=== PATIENT | male | born 1960 | race Two or more races ===

== ENCOUNTER 2016-11-01 11:15 | Inpatient (IN) | payer OTHER ==
[2016-11-01 12:39] VITALS: BMI 21.7
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
[2016-11-01] MEDS ORDERED: ACETAMINOPHEN 325 MG TABLET (FP) PO PRN (13:40)
[2016-11-01] MEDS ORDERED: LOPERAMIDE HCL 2 MG CAPSULE PO PRN (13:40)
[2016-11-01] MEDS ORDERED: P-EPHED 60MG/TRIPROLIDI 2.5MG TABLET PO PRN (13:40)
[2016-11-01] MEDS ORDERED: MAG HYDROX/AL HYDROX/SIMETH 30 ML UNIT-DOSE CUP PO PRN (13:40)
[2016-11-01] MEDS ORDERED: hydrOXYzine PAMOATE 50 MG CAPSULE (FP) PO PRN (13:40)
[2016-11-01] MEDS ORDERED: MAGNESIUM HYDROX 2400MG/30ML ORAL SUSPENSION 30 ML CUP PO PRN (13:40)
[2016-11-01] MEDS ORDERED: MAGNESIUM CITRATE 300 ML BOTTLE PO PRN (13:40)
[2016-11-01] MEDS ORDERED: diphenhydrAMINE HCL 50 MG CAPSULE PO PRN (13:40)
[2016-11-01 15:32] LABS: ALBUMIN 3.4 g/dl (3.4-5.0); ANION GAP 6 (8-16); CALCIUM 8.8 mg/dL (8.5-10.1); CO2 28 mmol/L (21-32)
[2016-11-01 15:36] LABS: ALK PHOS 75 U/L (45-117); BILIRUBIN,TOTAL 0.2 mg/dL (0.2-1.0); CREATININE 0.8 mg/dL (0.7-1.3); GLUCOSE,RANDOM 78 mg/dL (74-106); SGOT/AST 20 U/L (15-37); SGPT/ALT 22 U/L (12-78); TOT PROT 6.9 g/dl (6.4-8.2)
[2016-11-01 15:55] LABS: MCH 32.7 pg (25.7-33.7); MEAN CELL VOLUME 99.2 fl (80-96); MEAN PLT VOLUME 7.9 fl (7.5-11.1); PLATELET COUNT 212 K/MM3 (134-434); RDW 16.3 % (11.9-15.9)
[2016-11-01] MEDS: guaiFENesin/D-METHORPHAN HB 10 ML UNIT-DOSE CUPS PO PRN (22:33)
[2016-11-01 22:46] LABS: URINE APPEARANCE SLCLOUDY; URINE BILIRUBIN NEGATIVE (NEGATIVE); URINE BLOOD NEGATIVE (NEGATIVE); URINE COLOR YELLOW; URINE GLUCOSE (UA) NEGATIVE (NEGATIVE); URINE KETONE NEGATIVE (NEGATIVE); URINE LEUK ESTERASE NEGATIVE (NEGATIVE); URINE NITRITE NEGATIVE (NEGATIVE); URINE PROTEIN NEGATIVE (NEGATIVE); URINE UROBILINOGEN NEGATIVE E.U./dl (0.2-1.0)
[2016-11-01] MEDS: THIAMINE HCL 100 MG TABLET (FP) PO SCH (23:15)
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
[2016-11-02] MEDS: guaiFENesin/D-METHORPHAN HB 10 ML UNIT-DOSE CUPS PO PRN (09:04)
[2016-11-02] MEDS: PRENATAL VITAMINS W/ FOLIC ACID TABLET (FP) PO SCH (09:57)
[2016-11-02] MEDS ORDERED: INFLUENZA VACCINE 45 MCG/0.5 ML (MDV 16-17) IM ONE (12:00)
[2016-11-02] MEDS: THIAMINE HCL 100 MG TABLET (FP) PO SCH (21:56)
[2016-11-03] MEDS: guaiFENesin/D-METHORPHAN HB 10 ML UNIT-DOSE CUPS PO PRN (05:58)
[2016-11-03] MEDS: PRENATAL VITAMINS W/ FOLIC ACID TABLET (FP) PO SCH (09:46)
[2016-11-03] MEDS: THIAMINE HCL 100 MG TABLET (FP) PO SCH (22:32)
[2016-11-04] MEDS: guaiFENesin/D-METHORPHAN HB 10 ML UNIT-DOSE CUPS PO PRN ×2 (06:50→12:05)
[2016-11-04] MEDS: MENTHOL/PHENOL 1 EACH UD MM PRN (09:10)
[2016-11-04] MEDS: PRENATAL VITAMINS W/ FOLIC ACID TABLET (FP) PO SCH (10:01)
[2016-11-04] MEDS: THIAMINE HCL 100 MG TABLET (FP) PO SCH (22:22)
[2016-11-05] MEDS: guaiFENesin/D-METHORPHAN HB 10 ML UNIT-DOSE CUPS PO PRN (06:38)
[2016-11-05] MEDS: PRENATAL VITAMINS W/ FOLIC ACID TABLET (FP) PO SCH (09:42)
[2016-11-05] MEDS: THIAMINE HCL 100 MG TABLET (FP) PO SCH (22:11)
[2016-11-06] MEDS: guaiFENesin/D-METHORPHAN HB 10 ML UNIT-DOSE CUPS PO PRN (06:33)
[2016-11-06] MEDS: PRENATAL VITAMINS W/ FOLIC ACID TABLET (FP) PO SCH (09:46)
[2016-11-06] MEDS: THIAMINE HCL 100 MG TABLET (FP) PO SCH (22:14)
[2016-11-07] MEDS: guaiFENesin/D-METHORPHAN HB 10 ML UNIT-DOSE CUPS PO PRN ×2 (07:00→21:52)
[2016-11-07] MEDS: PRENATAL VITAMINS W/ FOLIC ACID TABLET (FP) PO SCH (09:41)
[2016-11-07] MEDS: THIAMINE HCL 100 MG TABLET (FP) PO SCH (21:51)
[2016-11-08] MEDS: IBUPROFEN 400 MG TABLET (FP) PO PRN (07:35)
[2016-11-08] MEDS: guaiFENesin/D-METHORPHAN HB 10 ML UNIT-DOSE CUPS PO PRN ×2 (07:35→14:27)
[2016-11-08] MEDS: PRENATAL VITAMINS W/ FOLIC ACID TABLET (FP) PO SCH (10:43)
[2016-11-08] MEDS: THIAMINE HCL 100 MG TABLET (FP) PO SCH (22:18)
[2016-11-09] MEDS: guaiFENesin/D-METHORPHAN HB 10 ML UNIT-DOSE CUPS PO PRN (07:14)
[2016-11-09] MEDS: PRENATAL VITAMINS W/ FOLIC ACID TABLET (FP) PO SCH (09:25)
[2016-11-09] MEDS: THIAMINE HCL 100 MG TABLET (FP) PO SCH (22:20)
[2016-11-10] MEDS: guaiFENesin/D-METHORPHAN HB 10 ML UNIT-DOSE CUPS PO PRN (06:30)
[2016-11-10] MEDS: IBUPROFEN 400 MG TABLET (FP) PO PRN (06:30)
[2016-11-10] MEDS: PRENATAL VITAMINS W/ FOLIC ACID TABLET (FP) PO SCH (09:23)
[2016-11-10] MEDS: THIAMINE HCL 100 MG TABLET (FP) PO SCH (21:41)
[2016-11-11] MEDS: guaiFENesin/D-METHORPHAN HB 10 ML UNIT-DOSE CUPS PO PRN (06:51)
[2016-11-11] MEDS: MENTHOL/PHENOL 1 EACH UD MM PRN (06:51)
[2016-11-11] MEDS: PRENATAL VITAMINS W/ FOLIC ACID TABLET (FP) PO SCH (10:09)
[2016-11-11] MEDS: ARTIFICIAL TEARS (POLYVINYL ALCOHOL 1.4%) OPTH DROPS OU PRN (19:04)
[2016-11-11] MEDS: THIAMINE HCL 100 MG TABLET (FP) PO SCH (21:35)
[2016-11-12] MEDS: ARTIFICIAL TEARS (POLYVINYL ALCOHOL 1.4%) OPTH DROPS OU PRN ×2 (07:09→17:35)
[2016-11-12] MEDS: guaiFENesin/D-METHORPHAN HB 10 ML UNIT-DOSE CUPS PO PRN (07:10)
[2016-11-12] MEDS: PRENATAL VITAMINS W/ FOLIC ACID TABLET (FP) PO SCH (09:41)
[2016-11-12] MEDS: THIAMINE HCL 100 MG TABLET (FP) PO SCH (22:03)
[2016-11-13] MEDS: PRENATAL VITAMINS W/ FOLIC ACID TABLET (FP) PO SCH (09:35)
[2016-11-13] MEDS: ARTIFICIAL TEARS (POLYVINYL ALCOHOL 1.4%) OPTH DROPS OU PRN ×2 (09:36→17:02)
[2016-11-13] MEDS: THIAMINE HCL 100 MG TABLET (FP) PO SCH (22:16)
[2016-11-14] MEDS: guaiFENesin/D-METHORPHAN HB 10 ML UNIT-DOSE CUPS PO PRN (09:13)
[2016-11-14] MEDS: PRENATAL VITAMINS W/ FOLIC ACID TABLET (FP) PO SCH (09:30)
[2016-11-14] MEDS: ARTIFICIAL TEARS (POLYVINYL ALCOHOL 1.4%) OPTH DROPS OU PRN (18:40)
[2016-11-14] MEDS: THIAMINE HCL 100 MG TABLET (FP) PO SCH (21:48)
[2016-11-15] MEDS: PRENATAL VITAMINS W/ FOLIC ACID TABLET (FP) PO SCH (09:28)
[2016-11-15] MEDS: ARTIFICIAL TEARS (POLYVINYL ALCOHOL 1.4%) OPTH DROPS OU PRN ×2 (09:28→21:24)
[2016-11-15] MEDS: guaiFENesin/D-METHORPHAN HB 10 ML UNIT-DOSE CUPS PO PRN (21:25)
[2016-11-15] MEDS: THIAMINE HCL 100 MG TABLET (FP) PO SCH (23:00)
[2016-11-16] MEDS: ARTIFICIAL TEARS (POLYVINYL ALCOHOL 1.4%) OPTH DROPS OU PRN ×2 (09:12→21:29)
[2016-11-16] MEDS: PRENATAL VITAMINS W/ FOLIC ACID TABLET (FP) PO SCH (09:25)
[2016-11-16] MEDS: THIAMINE HCL 100 MG TABLET (FP) PO SCH (21:29)
[2016-11-17] MEDS: PRENATAL VITAMINS W/ FOLIC ACID TABLET (FP) PO SCH (09:41)
[2016-11-17] MEDS: ARTIFICIAL TEARS (POLYVINYL ALCOHOL 1.4%) OPTH DROPS OU PRN ×2 (09:41→21:58)
[2016-11-17] MEDS: THIAMINE HCL 100 MG TABLET (FP) PO SCH (21:57)
[2016-11-18] MEDS: PRENATAL VITAMINS W/ FOLIC ACID TABLET (FP) PO SCH (09:39)
[2016-11-18] MEDS: ARTIFICIAL TEARS (POLYVINYL ALCOHOL 1.4%) OPTH DROPS OU PRN (17:58)
[2016-11-18] MEDS: THIAMINE HCL 100 MG TABLET (FP) PO SCH (23:22)
[2016-11-19] MEDS: PRENATAL VITAMINS W/ FOLIC ACID TABLET (FP) PO SCH (09:44)
[2016-11-19] MEDS: ARTIFICIAL TEARS (POLYVINYL ALCOHOL 1.4%) OPTH DROPS OU PRN ×2 (09:45→22:08)
[2016-11-19] MEDS: THIAMINE HCL 100 MG TABLET (FP) PO SCH (22:52)
[2016-11-20] MEDS: PRENATAL VITAMINS W/ FOLIC ACID TABLET (FP) PO SCH (09:39)
[2016-11-20] MEDS: ARTIFICIAL TEARS (POLYVINYL ALCOHOL 1.4%) OPTH DROPS OU PRN ×2 (09:39→17:24)
[2016-11-20] MEDS: THIAMINE HCL 100 MG TABLET (FP) PO SCH (21:58)
[2016-11-21] MEDS: PRENATAL VITAMINS W/ FOLIC ACID TABLET (FP) PO SCH (09:35)
[2016-11-21] MEDS: ARTIFICIAL TEARS (POLYVINYL ALCOHOL 1.4%) OPTH DROPS OU PRN ×2 (09:35→20:07)
[2016-11-21] MEDS: guaiFENesin/D-METHORPHAN HB 10 ML UNIT-DOSE CUPS PO PRN (10:07)
[2016-11-21] MEDS: THIAMINE HCL 100 MG TABLET (FP) PO SCH (22:20)
[2016-11-22] MEDS: guaiFENesin/D-METHORPHAN HB 10 ML UNIT-DOSE CUPS PO PRN (09:08)
[2016-11-22] MEDS: ARTIFICIAL TEARS (POLYVINYL ALCOHOL 1.4%) OPTH DROPS OU PRN ×2 (09:08→17:03)
[2016-11-22] MEDS: PRENATAL VITAMINS W/ FOLIC ACID TABLET (FP) PO SCH (09:08)
[2016-11-22] MEDS: THIAMINE HCL 100 MG TABLET (FP) PO SCH (22:14)
[2016-11-23] MEDS: ARTIFICIAL TEARS (POLYVINYL ALCOHOL 1.4%) OPTH DROPS OU PRN ×3 (07:20→18:14)
[2016-11-23] MEDS: guaiFENesin/D-METHORPHAN HB 10 ML UNIT-DOSE CUPS PO PRN (07:20)
[2016-11-23] MEDS: PRENATAL VITAMINS W/ FOLIC ACID TABLET (FP) PO SCH (10:31)
[2016-11-23] MEDS: THIAMINE HCL 100 MG TABLET (FP) PO SCH (21:56)
[2016-11-24] MEDS: guaiFENesin/D-METHORPHAN HB 10 ML UNIT-DOSE CUPS PO PRN (08:54)
[2016-11-24] MEDS: PRENATAL VITAMINS W/ FOLIC ACID TABLET (FP) PO SCH (10:16)
[2016-11-24] MEDS: THIAMINE HCL 100 MG TABLET (FP) PO SCH (22:52)
[2016-11-25] MEDS: ARTIFICIAL TEARS (POLYVINYL ALCOHOL 1.4%) OPTH DROPS OU PRN ×3 (06:50→14:38)
[2016-11-25] MEDS: guaiFENesin/D-METHORPHAN HB 10 ML UNIT-DOSE CUPS PO PRN ×2 (06:50→14:37)
[2016-11-25] MEDS: PRENATAL VITAMINS W/ FOLIC ACID TABLET (FP) PO SCH (09:37)
[2016-11-25] MEDS: THIAMINE HCL 100 MG TABLET (FP) PO SCH (21:47)
[2016-11-26] MEDS: PRENATAL VITAMINS W/ FOLIC ACID TABLET (FP) PO SCH (10:00)
[2016-11-26] MEDS: ARTIFICIAL TEARS (POLYVINYL ALCOHOL 1.4%) OPTH DROPS OU PRN ×2 (10:01→17:03)
[2016-11-26] MEDS: THIAMINE HCL 100 MG TABLET (FP) PO SCH (21:00)
[2016-11-27] MEDS: ARTIFICIAL TEARS (POLYVINYL ALCOHOL 1.4%) OPTH DROPS OU PRN ×2 (08:40→21:02)
[2016-11-27] MEDS: PRENATAL VITAMINS W/ FOLIC ACID TABLET (FP) PO SCH (09:43)
[2016-11-27] MEDS: THIAMINE HCL 100 MG TABLET (FP) PO SCH (21:02)
[2016-11-28] MEDS: PRENATAL VITAMINS W/ FOLIC ACID TABLET (FP) PO SCH (09:26)
[2016-11-28] MEDS: ARTIFICIAL TEARS (POLYVINYL ALCOHOL 1.4%) OPTH DROPS OU PRN ×2 (09:26→17:05)
[2016-11-28] MEDS: THIAMINE HCL 100 MG TABLET (FP) PO SCH ×2 (21:50→21:56)
[2016-11-29 06:31] VITALS: BP 113/69; PULSE 68; TEMP 98.4
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
[2016-11-29] MEDS: PRENATAL VITAMINS W/ FOLIC ACID TABLET (FP) PO SCH (09:21)
== END 2016-11-29 09:30 | disposition home or self-care (01) | DRG 772 ==
LOC: YASAS 11:15 → Y3W 13:55
PROVIDERS: ADMIT Psychiatry & Neurology Psychiatry; ATTEND Psychiatry & Neurology Psychiatry
PROC: HZ42ZZZ Group Counseling for Substance Abuse Treatment, Cognitive-Behavioral (ICD-10-PCS; principal; 2016-11-01)
DX: F11.20 Opioid dependence, uncomplicated (principal); F10.20 Alcohol dependence, uncomplicated; F14.20 Cocaine dependence, uncomplicated; F17.210 Nicotine dependence, cigarettes, uncomplicated; F31.9 Bipolar disorder, unspecified; F43.10 Post-traumatic stress disorder, unspecified; F41.8 Other specified anxiety disorders; D64.9 Anemia, unspecified; I10 Essential (primary) hypertension
CPT/HCPCS: 36415; 71020-TC; 80053; 81003; 85027; 86593; 93005; 93010

== ENCOUNTER 2016-12-24 14:43 | Inpatient (IN) | payer OTHER ==
[2016-12-24 14:53] VITALS: BMI 24.5
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
[2016-12-24] MEDS ORDERED: MENTHOL/PHENOL 1 EACH UD MM PRN (16:19)
[2016-12-24] MEDS ORDERED: hydrOXYzine PAMOATE 50 MG CAPSULE (FP) PO PRN (16:19)
[2016-12-24] MEDS ORDERED: chlordiazePOXIDE HCL 25 MG CAPSULE PO PRN (16:19)
[2016-12-24] MEDS ORDERED: MAG HYDROX/AL HYDROX/SIMETH 30 ML UNIT-DOSE CUP PO PRN (16:19)
[2016-12-24] MEDS ORDERED: IBUPROFEN 400 MG TABLET (FP) PO PRN (16:19)
[2016-12-24] MEDS ORDERED: NICOTINE 10 MG CARTRIDGE (INHALER) IH PRN (16:19)
[2016-12-24] MEDS ORDERED: chlordiazePOXIDE HCL 25 MG CAPSULE PO ONE (16:19)
[2016-12-24] MEDS ORDERED: ACETAMINOPHEN 325 MG TABLET (FP) PO PRN (16:19)
[2016-12-24] MEDS ORDERED: MAGNESIUM CITRATE 300 ML BOTTLE PO PRN (16:19)
[2016-12-24] MEDS ORDERED: guaiFENesin/D-METHORPHAN HB 10 ML UNIT-DOSE CUPS PO PRN (16:19)
[2016-12-24] MEDS ORDERED: LOPERAMIDE HCL 2 MG CAPSULE PO PRN (16:19)
[2016-12-24] MEDS ORDERED: MAGNESIUM HYDROX 2400MG/30ML ORAL SUSPENSION 30 ML CUP PO PRN (16:19)
[2016-12-24] MEDS ORDERED: P-EPHED 60MG/TRIPROLIDI 2.5MG TABLET PO PRN (16:19)
[2016-12-24] MEDS: chlordiazePOXIDE HCL 25 MG CAPSULE PO SCH ×2 (18:09→22:45)
[2016-12-24] MEDS: NICOTINE 7 MG/24 HOURS TOPICAL PATCH TD SCH (18:10)
[2016-12-24] MEDS: THIAMINE HCL 100 MG TABLET (FP) PO SCH (22:45)
[2016-12-24] MEDS: diphenhydrAMINE HCL 50 MG CAPSULE PO PRN (22:46)
[2016-12-25] MEDS: chlordiazePOXIDE HCL 25 MG CAPSULE PO SCH ×4 (06:07→22:22)
[2016-12-25 10:12] LABS: MCH 33.2 pg (25.7-33.7); MCHC 33.8 g/dl (32.0-35.9); MEAN CELL VOLUME 98.3 fl (80-96); MEAN PLT VOLUME 7.6 fl (7.5-11.1); PLATELET COUNT 179 K/MM3 (134-434); RDW 15.5 % (11.9-15.9)
[2016-12-25 10:17] LABS: ALBUMIN 3.2 g/dl (3.4-5.0)
[2016-12-25] MEDS: PRENATAL VITAMINS W/ FOLIC ACID TABLET (FP) PO SCH (10:17)
[2016-12-25] MEDS: NICOTINE 7 MG/24 HOURS TOPICAL PATCH TD SCH (10:18)
[2016-12-25 10:22] LABS: ALK PHOS 72 U/L (45-117); ANION GAP 9 (8-16); BILIRUBIN,TOTAL 0.5 mg/dL (0.2-1.0); CALCIUM 8.8 mg/dL (8.5-10.1); CO2 27 mmol/L (21-32); CREATININE 0.6 mg/dL (0.7-1.3); GLUCOSE,RANDOM 96 mg/dL (74-106); SGOT/AST 13 U/L (15-37); SGPT/ALT 14 U/L (12-78)
[2016-12-25 11:14] LABS: WHITE BLOOD COUNT 1.9 K/mm3 (4.0-10.0)
--- NOTE | 2016-12-25 15:26 | PN ---
S CIWA - CIWA Score Nausea/Vomitin Muscle Tremors: 4-Moderate,w/Arms Extend Anxiety: 4-Mod. Anxious/Guarded Agitation: 4-Moderately Restless Paroxysmal Sweats: No Perspiration Orientation: 0-Oriented Tacttile Disturbances: 1-Very Mild Itch/Numbness Auditory Disturbances: 0-None Visual Disturbances: 0-None Headache: 2-Mild CIWA-Ar Total Score: 18 [facility] Progress Note (SOAP) Subjective: Anxious, sweating, interrupted sleep (benadryl ineffective, wants ambien prn), restless, tremor, chills Objective: 12/25/16 15:24 Last Vital Signs Temp Pulse Resp BP Pulse Ox 96.3 F L 91 H 18 123/90 12/25/16 09:53 12/25/16 09:53 12/25/16 09:53 12/25/16 09:53 Laboratory Tests 12/25/16 12/25/16 12/25/16 09:15 09:15 09:15 WBC 1.9 L RBC 3.84 L Hgb 12.8 Hct 37.7 MCV 98.3 H MCHC 33.8 RDW 15.5 Plt Count 179 MPV 7.6 Sodium 143 Potassium 3.8 Chloride 107 Carbon Dioxide 27 Anion Gap 9 BUN 11 Creatinine 0.6 L D Creat Clearance w eGFR > 60 Random Glucose 96 D Calcium 8.8 Total Bilirubin 0.5 D AST 13 L D ALT 14 D Alkaline Phosphatase 72 Total Protein 6.0 L Albumin 3.2 L RPR Titer Nonreactive Labs noted: wbc 1.9 Assessment: 12/25/16 15:25 Withdrawal symptoms Noted with leukopenia Plan: Continue detox Leukopenia: repeat CBC
[2016-12-25] MEDS ORDERED: ZOLPIDEM TARTRATE 5 MG TABLET PO PRN (22:00)
[2016-12-25] MEDS: diphenhydrAMINE HCL 50 MG CAPSULE PO PRN (22:22)
[2016-12-25] MEDS: THIAMINE HCL 100 MG TABLET (FP) PO SCH (22:22)
[2016-12-26] MEDS: chlordiazePOXIDE HCL 25 MG CAPSULE PO SCH ×2 (06:05→10:35)
[2016-12-26 09:59] LABS: BASOPHIL 0.5 % (0-2.0); EOSINOPHIL 3.3 % (0-4.5); MCH 33.2 pg (25.7-33.7); MCHC 33.4 g/dl (32.0-35.9); MEAN CELL VOLUME 99.2 fl (80-96); MEAN PLT VOLUME 7.2 fl (7.5-11.1); NEUTROPHILS 49.5 % (42.8-82.8); PLATELET COUNT 187 K/MM3 (134-434); RDW 15.5 % (11.9-15.9)
[2016-12-26 10:01] LABS: WHITE BLOOD COUNT 1.8 K/mm3 (4.0-10.0)
[2016-12-26 10:04] LABS: URINE APPEARANCE TURBID; URINE BILIRUBIN NEGATIVE (NEGATIVE); URINE COLOR YELLOW; URINE GLUCOSE (UA) NEGATIVE (NEGATIVE); URINE KETONE NEGATIVE (NEGATIVE); URINE LEUK ESTERASE NEGATIVE (NEGATIVE); URINE NITRITE NEGATIVE (NEGATIVE); URINE PROTEIN NEGATIVE (NEGATIVE); URINE UROBILINOGEN NEGATIVE E.U./dl (0.2-1.0)
[2016-12-26 10:05] LABS: URINE BLOOD 1+ (NEGATIVE)
[2016-12-26 10:10] LABS: YEAST MANY
[2016-12-26] MEDS: NICOTINE 7 MG/24 HOURS TOPICAL PATCH TD SCH (10:35)
[2016-12-26] MEDS: PRENATAL VITAMINS W/ FOLIC ACID TABLET (FP) PO SCH (10:35)
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
--- NOTE | 2016-12-26 14:41 | PN ---
[facility] CIWA - CIWA Score Nausea/Vomitin-Mild Nausea/No Vomiting Muscle Tremors: 3 Anxiety: 4-Mod. Anxious/Guarded Agitation: 4-Moderately Restless Paroxysmal Sweats: 3 Orientation: 0-Oriented Tacttile Disturbances: 0-None Auditory Disturbances: 0-None Visual Disturbances: 0-None Headache: 0-None Present CIWA-Ar Total Score: 15 BHS Progress Note (SOAP) Subjective: anxiety,tremors,sweating,interrupted sleep,restless. Objective: 12/26/16 14:40 Vital Signs - 8 hr 12/26/16 10:28 Temperature 96.6 F L Pulse Rate 97 H Respiratory 20 Rate Blood Pressure 120/85 Laboratory Tests 12/25/16 12/25/16 12/25/16 09:15 09:15 09:15 WBC 1.9 L RBC 3.84 L Hgb 12.8 Hct 37.7 MCV 98.3 H MCHC 33.8 RDW 15.5 Plt Count 179 MPV 7.6 Neutrophils % Lymphocytes % Monocytes % Eosinophils % Basophils % Sodium 143 Potassium 3.8 Chloride 107 Carbon Dioxide 27 Anion Gap 9 BUN 11 Creatinine 0.6 L D Creat Clearance w eGFR > 60 Random Glucose 96 D Calcium 8.8 Total Bilirubin 0.5 D AST 13 L D ALT 14 D Alkaline Phosphatase 72 Total Protein 6.0 L Albumin 3.2 L Urine Color Urine Appearance Urine pH Ur Specific [place] Urine Protein Urine Glucose (UA) Urine Ketones Urine Blood Urine Nitrite Urine Bilirubin Urine Urobilinogen Ur Leukocyte Esterase Urine RBC Urine WBC Urine Yeast RPR Titer Nonreactive 12/26/16 12/26/16 07:00 08:50 WBC 1.8 L RBC 3.91 L Hgb 13.0 Hct 38.8 MCV 99.2 H MCHC 33.4 RDW 15.5 Plt Count 187 MPV 7.2 L Neutrophils % 49.5 Lymphocytes % 32.7 Monocytes % 14.0 H D Eosinophils % 3.3 Basophils % 0.5 Sodium Potassium Chloride Carbon Dioxide Anion Gap BUN Creatinine Creat Clearance w eGFR Random Glucose Calcium Total Bilirubin AST ALT Alkaline Phosphatase Total Protein Albumin Urine Color Yellow Urine Appearance Turbid Urine pH 7.0 Ur Specific [place] 1.023 Urine Protein Negative Urine Glucose (UA) Negative Urine Ketones Negative Urine Blood 1+ H Urine Nitrite Negative Urine Bilirubin Negative Urine Urobilinogen Negative Ur Leukocyte Esterase Negative Urine RBC None Urine WBC None Urine Yeast Many RPR Titer labs noted Assessment: 12/26/16 14:41 withdrawal sx. Plan: continue detox
--- NOTE | 2016-12-26 16:22 | EKG ---
Test Reason : Blood Pressure : / mmHG Vent. Rate : 080 BPM Atrial Rate : 080 BPM P-R Int : 114 ms QRS Dur : 130 ms QT Int : 368 ms P-R-T Axes : 069 -22 055 degrees QTc Int : 424 ms NORMAL SINUS RHYTHM RIGHT BUNDLE BRANCH BLOCK MODERATE VOLTAGE CRITERIA FOR LVH, MAY BE NORMAL VARIANT CANNOT RULE OUT SEPTAL INFARCT , AGE UNDETERMINED ABNORMAL ECG NO PREVIOUS ECGS AVAILABLE Confirmed by GINNY LUCERO, GALEN ([id number]) on 12/26/2016 4:22:21 PM Referred By: Confirmed By:GALEN GROSS MD
[2016-12-26] MEDS: chlordiazePOXIDE 5 MG CAPSULE PO SCH ×2 (17:36→22:20)
[2016-12-26] MEDS: THIAMINE HCL 100 MG TABLET (FP) PO SCH (22:20)
[2016-12-27] MEDS: chlordiazePOXIDE 5 MG CAPSULE PO SCH ×2 (05:42→10:53)
[2016-12-27] MEDS: NICOTINE 7 MG/24 HOURS TOPICAL PATCH TD SCH (10:53)
[2016-12-27] MEDS: PRENATAL VITAMINS W/ FOLIC ACID TABLET (FP) PO SCH (10:53)
--- NOTE | 2016-12-27 11:14 | PN ---
[facility] Progress Note (SOAP) Subjective: sweating,interrupted sleep,restless Objective: 12/27/16 11:10 Vital Signs - 8 hr 12/27/16 12/27/16 12/27/16 03:30 06:39 10:01 Temperature 96.9 F L 97.6 F Pulse Rate 96 H 104 H Respiratory 18 16 20 Rate Blood Pressure 117/84 112/81 Laboratory Tests 12/25/16 12/25/16 12/25/16 09:15 09:15 09:15 WBC 1.9 L RBC 3.84 L Hgb 12.8 Hct 37.7 MCV 98.3 H MCHC 33.8 RDW 15.5 Plt Count 179 MPV 7.6 Neutrophils % Lymphocytes % Monocytes % Eosinophils % Basophils % Sodium 143 Potassium 3.8 Chloride 107 Carbon Dioxide 27 Anion Gap 9 BUN 11 Creatinine 0.6 L D Creat Clearance w eGFR > 60 Random Glucose 96 D Calcium 8.8 Total Bilirubin 0.5 D AST 13 L D ALT 14 D Alkaline Phosphatase 72 Total Protein 6.0 L Albumin 3.2 L Urine Color Urine Appearance Urine pH Ur Specific [place] Urine Protein Urine Glucose (UA) Urine Ketones Urine Blood Urine Nitrite Urine Bilirubin Urine Urobilinogen Ur Leukocyte Esterase Urine RBC Urine WBC Urine Yeast RPR Titer Nonreactive 12/26/16 12/26/16 07:00 08:50 WBC 1.8 L RBC 3.91 L Hgb 13.0 Hct 38.8 MCV 99.2 H MCHC 33.4 RDW 15.5 Plt Count 187 MPV 7.2 L Neutrophils % 49.5 Lymphocytes % 32.7 Monocytes % 14.0 H D Eosinophils % 3.3 Basophils % 0.5 Sodium Potassium Chloride Carbon Dioxide Anion Gap BUN Creatinine Creat Clearance w eGFR Random Glucose Calcium Total Bilirubin AST ALT Alkaline Phosphatase Total Protein Albumin Urine Color Yellow Urine Appearance Turbid Urine pH 7.0 Ur Specific [place] 1.023 Urine Protein Negative Urine Glucose (UA) Negative Urine Ketones Negative Urine Blood 1+ H Urine Nitrite Negative Urine Bilirubin Negative Urine Urobilinogen Negative Ur Leukocyte Esterase Negative Urine RBC None Urine WBC None Urine Yeast Many RPR Titer Ekg RBBB & LVH unchanged from previous EGKs dated April,june and October 2016 Assessment: 12/27/16 11:13 withdrawal sx. Plan: continue detox repeat u/a
[2016-12-27] MEDS: chlordiazePOXIDE HCL 10 MG CAPSULE PO SCH ×2 (17:36→22:42)
[2016-12-27] MEDS ORDERED: ZOLPIDEM TARTRATE 10 MG TABLET (PARK CARE ONLY) PO PRN (18:58)
[2016-12-27] MEDS: THIAMINE HCL 100 MG TABLET (FP) PO SCH (22:42)
[2016-12-28] MEDS: chlordiazePOXIDE HCL 10 MG CAPSULE PO SCH (05:45)
[2016-12-28 06:53] VITALS: BP 113/76; PULSE 98; TEMP 98
--- NOTE | 2016-12-28 17:39 | DS ---
[facility] Detox Discharge Summary Admission Date: 12/24/16 Discharge Date: 12/28/16 - History Present History: Alcohol Dependence, Cocaine Dependence Pertinent Past History: HTN - Physical Exam Results Vital Signs: Vital Signs Temperature 98 F 12/28/16 06:53 Pulse Rate 98 H 12/28/16 06:53 Respiratory Rate 18 12/28/16 06:53 Blood Pressure 113/76 12/28/16 06:53 O2 Sat by Pulse Oximetry (%) Pertinent Admission Physical Exam Findings: withdrawal sx Laboratory Last Values WBC 1.8 K/mm3 (4.0-10.0) L 12/26/16 07:00 RBC 3.91 M/mm3 (4.00-5.60) L 12/26/16 07:00 Hgb 13.0 GM/dL (11.7-16.9) 12/26/16 07:00 Hct 38.8 % (35.4-49) 12/26/16 07:00 MCV 99.2 fl (80-96) H 12/26/16 07:00 MCHC 33.4 g/dl (32.0-35.9) 12/26/16 07:00 RDW 15.5 % (11.9-15.9) 12/26/16 07:00 Plt Count 187 K/MM3 (134-434) 12/26/16 07:00 MPV 7.2 fl (7.5-11.1) L 12/26/16 07:00 Neutrophils % 49.5 % (42.8-82.8) 12/26/16 07:00 Lymphocytes % 32.7 % (8-40) 12/26/16 07:00 Monocytes % 14.0 % (3.8-10.2) H D 12/26/16 07:00 Eosinophils % 3.3 % (0-4.5) 12/26/16 07:00 Basophils % 0.5 % (0-2.0) 12/26/16 07:00 Sodium 143 mmol/L (136-145) 12/25/16 09:15 Potassium 3.8 mmol/L (3.5-5.1) 12/25/16 09:15 Chloride 107 mmol/L (98-107) 12/25/16 09:15 Carbon Dioxide 27 mmol/L (21-32) 12/25/16 09:15 Anion Gap 9 (8-16) 12/25/16 09:15 BUN 11 mg/dL (7-18) 12/25/16 09:15 Creatinine 0.6 mg/dL (0.7-1.3) L D 12/25/16 09:15 Creat Clearance w eGFR > 60 (>60) 12/25/16 09:15 Random Glucose 96 mg/dL (74-106) D 12/25/16 09:15 Calcium 8.8 mg/dL (8.5-10.1) 12/25/16 09:15 Total Bilirubin 0.5 mg/dL (0.2-1.0) D 12/25/16 09:15 AST 13 U/L (15-37) L D 12/25/16 09:15 ALT 14 U/L (12-78) D 12/25/16 09:15 Alkaline Phosphatase 72 U/L (45-117) 12/25/16 09:15 Total Protein 6.0 g/dl (6.4-8.2) L 12/25/16 09:15 Albumin 3.2 g/dl (3.4-5.0) L 12/25/16 09:15 Urine Color Yellow 12/26/16 08:50 Urine Appearance Turbid 12/26/16 08:50 Urine pH 7.0 (5.0-8.0) 12/26/16 08:50 Ur Specific [place] 1.023 (1.001-1.035) 12/26/16 08:50 Urine Protein Negative (NEGATIVE) 12/26/16 08:50 Urine Glucose (UA) Negative (NEGATIVE) 12/26/16 08:50 Urine Ketones Negative (NEGATIVE) 12/26/16 08:50 Urine Blood 1+ (NEGATIVE) H 12/26/16 08:50 Urine Nitrite Negative (NEGATIVE) 12/26/16 08:50 Urine Bilirubin Negative (NEGATIVE) 12/26/16 08:50 Urine Urobilinogen Negative E.U./dl (0.2-1.0) 12/26/16 08:50 Ur Leukocyte Esterase Negative (NEGATIVE) 12/26/16 08:50 Urine RBC None /hpf (0-3) 12/26/16 08:50 Urine WBC None /hpf (3-5) 12/26/16 08:50 Urine Yeast Many 12/26/16 08:50 RPR Titer Nonreactive (NONREACTIVE) 12/25/16 09:15 labs noted - Treatment Hospital Course: Detox Protocol Followed, Detoxed Safely, Responded well, Discharged Condition Good, Rehab Referral Accepted - Medication Discharge Medications: Ambulatory Orders NK [No Known Home Medication] 11/01/16 - Diagnosis (1) Alcohol dependence with uncomplicated withdrawal Status: Acute (2) Hypertension Status: Chronic Qualifiers: Hypertension type: essential hypertension Qualified Code(s): I10 - Essential (primary) hypertension (3) Alcohol-induced mood disorder Status: Acute (4) Bipolar disorder Status: Suspected - AMA Did Patient Leave Against Medical Advice: No
== END 2016-12-28 09:10 | disposition home or self-care (01) | DRG 775 ==
LOC: YASAS 14:43 → Y3N 16:37
PROVIDERS: ADMIT Internal Medicine; ATTEND Internal Medicine
PROC: HZ2ZZZZ Detoxification Services for Substance Abuse Treatment (ICD-10-PCS; principal; 2016-12-28)
DX: F10.230 Alcohol dependence with withdrawal, uncomplicated (principal); F17.210 Nicotine dependence, cigarettes, uncomplicated; F10.24 Alcohol dependence with alcohol-induced mood disorder; F32.9 Major depressive disorder, single episode, unspecified; I10 Essential (primary) hypertension; Z86.2 Personal history of diseases of the blood and blood-forming organs and certain disorders involving the immune mechanism
CPT/HCPCS: 36415; 80053; 81003; 81015; 85025; 85027; 86593; 93005; 93010

== ENCOUNTER 2017-07-28 13:22 | Inpatient (IN) | payer OTHER ==
[2017-07-28 14:57] VITALS: BMI 25.0
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
[2017-07-28] MEDS ORDERED: MENTHOL/PHENOL 1 EACH UD MM PRN (17:28)
[2017-07-28] MEDS ORDERED: guaiFENesin/D-METHORPHAN HB 10 ML UNIT-DOSE CUPS PO PRN (17:28)
[2017-07-28] MEDS ORDERED: MAGNESIUM CITRATE 300 ML BOTTLE PO PRN (17:28)
[2017-07-28] MEDS ORDERED: hydrOXYzine PAMOATE 50 MG CAPSULE (FP) PO PRN (17:28)
[2017-07-28] MEDS ORDERED: MAG HYDROX/AL HYDROX/SIMETH 30 ML UNIT-DOSE CUP PO PRN (17:28)
[2017-07-28] MEDS ORDERED: P-EPHED 60MG/TRIPROLIDI 2.5MG TABLET PO PRN (17:28)
[2017-07-28] MEDS ORDERED: NICOTINE POLACRILEX 2 MG GUM BC PRN (17:28)
[2017-07-28] MEDS ORDERED: MAGNESIUM HYDROX 2400MG/30ML ORAL SUSPENSION 30 ML CUP PO PRN (17:28)
[2017-07-28] MEDS ORDERED: IBUPROFEN 400 MG TABLET (FP) PO PRN (17:28)
[2017-07-28] MEDS ORDERED: ACETAMINOPHEN 325 MG TABLET (FP) PO PRN (17:28)
[2017-07-28] MEDS ORDERED: LOPERAMIDE HCL 2 MG CAPSULE PO PRN (17:28)
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
[2017-07-28] MEDS ORDERED: TUBERCULIN PPD 5 TU/0.1ML VIAL ID ONE (20:24)
[2017-07-28] MEDS: diphenhydrAMINE HCL 50 MG CAPSULE PO PRN (21:53)
[2017-07-28] MEDS: THIAMINE HCL 100 MG TABLET (FP) PO SCH (21:53)
[2017-07-28 23:24] LABS: URINE APPEARANCE SLCLOUDY; URINE BILIRUBIN NEGATIVE (NEGATIVE); URINE BLOOD NEGATIVE (NEGATIVE); URINE COLOR DKYELLOW; URINE GLUCOSE (UA) NEGATIVE (NEGATIVE); URINE KETONE TRACE (NEGATIVE); URINE LEUK ESTERASE NEGATIVE (NEGATIVE); URINE NITRITE NEGATIVE (NEGATIVE); URINE PROTEIN NEGATIVE (NEGATIVE); URINE UROBILINOGEN NEGATIVE mg/dL (0.2-1.0)
[2017-07-29] MEDS: PRENATAL VITAMINS W/ FOLIC ACID TABLET (FP) PO SCH (10:30)
[2017-07-29] MEDS: NICOTINE 14 MG/24 HOURS TOPICAL PATCH TD SCH (10:30)
[2017-07-29 10:38] LABS: MCHC 33.5 g/dl (32.0-35.9); MEAN CELL VOLUME 98.3 fl (80-96); MEAN PLT VOLUME 7.4 fl (7.5-11.1); PLATELET COUNT 180 K/MM3 (134-434); RDW 14.8 % (11.9-15.9); WHITE BLOOD COUNT 2.1 K/mm3 (4.0-10.0)
[2017-07-29 10:49] LABS: ALBUMIN 3.2 g/dl (3.4-5.0); ALK PHOS 80 U/L (45-117); ANION GAP 4 (8-16); BILIRUBIN,TOTAL 0.2 mg/dL (0.2-1.0); CALCIUM 8.3 mg/dL (8.5-10.1); CO2 29 mmol/L (21-32); CREATININE 0.7 mg/dL (0.7-1.3); GLUCOSE,RANDOM 90 mg/dL (74-106); SGOT/AST 12 U/L (15-37); SGPT/ALT 19 U/L (12-78); TOT PROT 6.4 g/dl (6.4-8.2)
[2017-07-29] MEDS: THIAMINE HCL 100 MG TABLET (FP) PO SCH (21:58)
[2017-07-29] MEDS: diphenhydrAMINE HCL 50 MG CAPSULE PO PRN (21:58)
[2017-07-30] MEDS: NICOTINE 14 MG/24 HOURS TOPICAL PATCH TD SCH (11:02)
[2017-07-30] MEDS: PRENATAL VITAMINS W/ FOLIC ACID TABLET (FP) PO SCH (11:02)
[2017-07-30] MEDS: THIAMINE HCL 100 MG TABLET (FP) PO SCH (21:47)
[2017-07-31] MEDS: PRENATAL VITAMINS W/ FOLIC ACID TABLET (FP) PO SCH (10:39)
[2017-07-31] MEDS: NICOTINE 14 MG/24 HOURS TOPICAL PATCH TD SCH (10:40)
--- NOTE | 2017-07-31 15:19 | HP ---
Psychiatrist Admission - Data Date of interview: 07/31/17 Admission source: [facility] Identifying data: This is one of multiple inpatient rehabilitation admissions for this 57 year old AA male who is divorce father of two,domiciled, unemployed and supported on SSI benefits. Medical History: Anemia and hypertension, smokes 3 cigarettes a day. Psychiatric History: Patient reports past treatment with Seroquel and [place] for mood stabilization,was dx in the past with bipolar disorder, currently not on any medications. Physical/Sexual Abuse/Trauma History: Patient denies Vital Signs: Vital Signs - 24 hr 07/31/17 07/31/17 07/31/17 00:30 03:30 06:56 Temperature 98.0 F Pulse Rate 90 Respiratory 16 16 18 Rate Blood Pressure 131/86 Allergies/Adverse Reactions: Allergies Allergy/AdvReac Type Severity Reaction Status Date / Time No Known Drug Allergies Allergy Unknown Verified 07/28/17 16:48 Pork/Porcine Containing Allergy Unknown "NO PORK" Verified 07/28/17 16:48 Products Date of last physical exam: 07/31/17 Concur with the findings of this exam: Yes - Substance Abuse/Tx History Hx Alcohol Use: Yes Hx Substance Use: No Substance Use Type: Alcohol - Admission Criteria Previous failed treatment: Yes Poor recovery environment: Yes Comorbidities: Yes Lacks judgement: Yes Mental Status Exam - Mental Status Exam Alert and Oriented to: Place, Person Cognitive Function: Grossly Intact Mood: Hopeful Affect: Appropriate, Mood Congruent Patient Behavior: Appropriate, Cooperative Speech Pattern: Clear, Appropriate Voice Loudness: Normal Thought Process: Intact, Goal Oriented Thought Disorder: Not Present Hallucinations: Denies Suicidal Ideation: Denies Homicidal Ideation: Denies Insight/Judgement: Fair Sleep: Fair Appetite: Fair Muscle strength/Tone: Normal Gait/Station: Normal Psychiatric Findings - Problem List ([place] 1, 2,3) (1) Nicotine dependence Current Visit: Yes Status: Acute Qualifiers: Nicotine product type: cigarettes Substance use status: in withdrawal Qualified Code(s): F17.213 - Nicotine dependence, cigarettes, with withdrawal (2) Alcohol dependence Current Visit: No Status: Chronic (3) Alcohol-induced mood disorder Current Visit: No Status: Acute - Initial Treatment Plan Initial Treatment Plan: will monitor rpogress as needed.
--- NOTE | 2017-07-31 17:02 | EKG ---
Test Reason : Blood Pressure : / mmHG Vent. Rate : 087 BPM Atrial Rate : 087 BPM P-R Int : 104 ms QRS Dur : 130 ms QT Int : 372 ms P-R-T Axes : 047 026 071 degrees QTc Int : 447 ms SINUS RHYTHM WITH SHORT NM RIGHT BUNDLE BRANCH BLOCK ABNORMAL ECG WHEN COMPARED WITH ECG OF 24-DEC-2016 18:18, NO SIGNIFICANT CHANGE WAS FOUND Confirmed by GALEN GROSS MD ([id number]) on 07/31/2017 5:02:36 PM Referred By: Korin Iraheta Confirmed By:GALEN GROSS MD
[2017-07-31] MEDS: diphenhydrAMINE HCL 50 MG CAPSULE PO PRN (21:51)
[2017-07-31] MEDS: THIAMINE HCL 100 MG TABLET (FP) PO SCH (21:51)
[2017-08-01] MEDS: PRENATAL VITAMINS W/ FOLIC ACID TABLET (FP) PO SCH (10:38)
[2017-08-01] MEDS: NICOTINE 14 MG/24 HOURS TOPICAL PATCH TD SCH (10:38)
[2017-08-01] MEDS: diphenhydrAMINE HCL 50 MG CAPSULE PO PRN (21:44)
[2017-08-01] MEDS: THIAMINE HCL 100 MG TABLET (FP) PO SCH (21:44)
[2017-08-02] MEDS: PRENATAL VITAMINS W/ FOLIC ACID TABLET (FP) PO SCH (10:39)
[2017-08-02] MEDS: NICOTINE 14 MG/24 HOURS TOPICAL PATCH TD SCH (10:39)
[2017-08-02] MEDS: diphenhydrAMINE HCL 50 MG CAPSULE PO PRN (22:00)
[2017-08-02] MEDS: THIAMINE HCL 100 MG TABLET (FP) PO SCH (22:00)
[2017-08-03] MEDS ORDERED: QUEtiapine FUMARATE 25 MG TABLET (FP) PO ONE (11:02)
[2017-08-03] MEDS: PRENATAL VITAMINS W/ FOLIC ACID TABLET (FP) PO SCH (11:02)
[2017-08-03] MEDS: NICOTINE 14 MG/24 HOURS TOPICAL PATCH TD SCH (11:03)
--- NOTE | 2017-08-03 11:14 | PN ---
Psychiatric Progress Note Vital Signs: Vital Signs Period Temp Pulse Resp BP Sys/Lopez Pulse Ox Last 24 Hr 98.0 F 87 18-18 125/82 Date of Session: 08/03/17 Chief Complaint:: progress update. HPI: Patient is addressing alcohol, nicotine dependence comorbid Bipolar I disorder,manic episode. ROS: WNL Current Medications: Active Medications Generic Name Dose Route Start Last Admin Trade Name Freq PRN Reason Stop Dose Admin Acetaminophen 650 mg 07/28/17 17:28 Tylenol - PO Q4H PRN PAIN Al Hydroxide/Mg Hydroxide 30 ml 07/28/17 17:28 Mylanta Oral Suspension - PO Q6H PRN DYSPEPSIA Diphenhydramine HCl 50 mg 07/28/17 17:28 08/02/17 22:00 Benadryl - PO 50 mg HSMR1 PRN Administration INSOMNIA Eucalyptus/Menthol/Phenol/Sorbitol 1 each 07/28/17 17:28 Cepastat Lozenge - MM Q4H PRN SORE THROAT Guaifenesin 10 ml 07/28/17 17:28 Robitussin Dm - PO Q6H PRN COUGH Hydroxyzine Pamoate 50 mg 07/28/17 17:28 Vistaril - PO Q4H PRN AGITATION Ibuprofen 400 mg 07/28/17 17:28 Motrin - PO Q6H PRN SEVERE PAIN Loperamide HCl 4 mg 07/28/17 17:28 Imodium - PO Q6H PRN DIARRHEA Magnesium Citrate 300 ml 07/28/17 17:28 Citroma - PO Q48H PRN CONSTIPATION Magnesium Hydroxide 30 ml 07/28/17 17:28 Milk Of Magnesia - PO DAILY PRN CONSTIPATION Nicotine 14 mg 07/29/17 10:00 08/03/17 11:03 Nicoderm Patch - TD Not Given DAILY AHSAN Nicotine Polacrilex 2 mg 07/28/17 17:28 07/29/17 10:31 Nicorette Gum - BC 2 mg Q2H PRN Administration NICOTINE REPLACEMENT RX Multivit/Folic Acid/Iron 1 tab 07/29/17 10:00 08/03/17 11:02 Vitamins (Sjr) - PO 1 tab DAILY AHSAN Administration Pseudoephedrine/Triprolidine 1 combo 07/28/17 17:28 Actifed - PO TID PRN NASAL CONGESTION Quetiapine Fumarate 25 mg 08/03/17 11:02 Seroquel - PO 08/03/17 11:03 ONCE ONE Quetiapine Fumarate 50 mg 08/03/17 22:00 Seroquel - PO HS AHSAN Quetiapine Fumarate 25 mg 08/04/17 10:00 Seroquel - PO DAILY AHSAN Thiamine HCl 100 mg 07/28/17 22:00 08/02/17 22:00 Vitamin B1 - PO 100 mg HS AHSAN Administration Medication(s) Change(s): add Seroquel 25 mg po am and 50 mg po hs, 25 mg po stat. Current Side Effect: No Lab tests ordered: No Lab tests reviewed: Yes Provider note:: Patient is very intrussive, hyperactive, preoccupided with caodaism, unable to listen without any interruption, speech is overproductive and rapid. Patient was teamed today with the medical staff due to his behavior on the unit. Patient was treated with Seroquel and [place] in the past, but during his admission he did not reconsider to restart medication. Patient was recommended to get back on his treatment and he agreed, will add Seroquel 25 mg po am and 50 mg po hs, will contineu to monitor progress. Total face to face time:: 15 Mental Status Exam - Mental Status Exam Alert and Oriented to: Time, Place, Person Cognitive Function: Grossly Intact Patient Appearance: Unkempt Mood: Elated, Euphoric, Expansive Affect: Euthymic Patient Behavior: Restless, Impulsive Speech Pattern: Excessive (overproductive), Pressured, Tangential Voice Loudness: Moderately Loud Thought Process: Flight of Ideas Thought Disorder: Grandiose Hallucinations: Denies Suicidal Ideation: Denies Homicidal Ideation: Denies Insight/Judgement: Poor Sleep: Fair Appetite: Fair Muscle strength/Tone: Normal Gait/Station: Normal Psychiatric Treatment Plan - Problem List (1) Nicotine dependence Current Visit: Yes Qualifiers: Nicotine product type: cigarettes Substance use status: in withdrawal Qualified Code(s): F17.213 - Nicotine dependence, cigarettes, with withdrawal (2) Alcohol dependence Current Visit: No (3) Alcohol-induced mood disorder Current Visit: No (4) Bipolar affective disorder, current episode manic Current Visit: No
[2017-08-03] MEDS: QUEtiapine FUMARATE 50 MG TABLET PO SCH (22:03)
[2017-08-03] MEDS: THIAMINE HCL 100 MG TABLET (FP) PO SCH (22:03)
[2017-08-03] MEDS: diphenhydrAMINE HCL 50 MG CAPSULE PO PRN (22:04)
[2017-08-04] MEDS: QUEtiapine FUMARATE 25 MG TABLET (FP) PO SCH (10:42)
[2017-08-04] MEDS: NICOTINE 14 MG/24 HOURS TOPICAL PATCH TD SCH (10:42)
[2017-08-04] MEDS: PRENATAL VITAMINS W/ FOLIC ACID TABLET (FP) PO SCH (10:42)
[2017-08-04] MEDS: QUEtiapine FUMARATE 50 MG TABLET PO SCH (21:49)
[2017-08-04] MEDS: THIAMINE HCL 100 MG TABLET (FP) PO SCH (21:49)
[2017-08-04] MEDS: diphenhydrAMINE HCL 50 MG CAPSULE PO PRN (21:49)
[2017-08-05] MEDS: QUEtiapine FUMARATE 25 MG TABLET (FP) PO SCH (10:58)
[2017-08-05] MEDS: NICOTINE 14 MG/24 HOURS TOPICAL PATCH TD SCH (10:58)
[2017-08-05] MEDS: PRENATAL VITAMINS W/ FOLIC ACID TABLET (FP) PO SCH (10:58)
[2017-08-05] MEDS: QUEtiapine FUMARATE 50 MG TABLET PO SCH (21:40)
[2017-08-05] MEDS: diphenhydrAMINE HCL 50 MG CAPSULE PO PRN (21:40)
[2017-08-05] MEDS: THIAMINE HCL 100 MG TABLET (FP) PO SCH (21:40)
[2017-08-06] MEDS: QUEtiapine FUMARATE 25 MG TABLET (FP) PO SCH (10:27)
[2017-08-06] MEDS: PRENATAL VITAMINS W/ FOLIC ACID TABLET (FP) PO SCH (10:27)
[2017-08-06] MEDS: NICOTINE 14 MG/24 HOURS TOPICAL PATCH TD SCH (10:27)
[2017-08-06] MEDS: diphenhydrAMINE HCL 50 MG CAPSULE PO PRN (21:52)
[2017-08-06] MEDS: QUEtiapine FUMARATE 50 MG TABLET PO SCH (21:52)
[2017-08-06] MEDS: THIAMINE HCL 100 MG TABLET (FP) PO SCH (21:52)
[2017-08-07] MEDS: PRENATAL VITAMINS W/ FOLIC ACID TABLET (FP) PO SCH (10:45)
[2017-08-07] MEDS: NICOTINE 14 MG/24 HOURS TOPICAL PATCH TD SCH (10:45)
[2017-08-07] MEDS: QUEtiapine FUMARATE 25 MG TABLET (FP) PO SCH (10:45)
[2017-08-07] MEDS: QUEtiapine FUMARATE 50 MG TABLET PO SCH (21:38)
[2017-08-07] MEDS: THIAMINE HCL 100 MG TABLET (FP) PO SCH (21:38)
[2017-08-07] MEDS: diphenhydrAMINE HCL 50 MG CAPSULE PO PRN (21:38)
[2017-08-08] MEDS: NICOTINE 14 MG/24 HOURS TOPICAL PATCH TD SCH (10:30)
[2017-08-08] MEDS: QUEtiapine FUMARATE 25 MG TABLET (FP) PO SCH (10:30)
[2017-08-08] MEDS: PRENATAL VITAMINS W/ FOLIC ACID TABLET (FP) PO SCH (10:30)
[2017-08-08] MEDS: diphenhydrAMINE HCL 50 MG CAPSULE PO PRN (22:02)
[2017-08-08] MEDS: QUEtiapine FUMARATE 50 MG TABLET PO SCH (22:02)
[2017-08-08] MEDS: THIAMINE HCL 100 MG TABLET (FP) PO SCH (22:02)
[2017-08-09] MEDS: NICOTINE 14 MG/24 HOURS TOPICAL PATCH TD SCH (10:22)
[2017-08-09] MEDS: PRENATAL VITAMINS W/ FOLIC ACID TABLET (FP) PO SCH (10:22)
[2017-08-09] MEDS: QUEtiapine FUMARATE 25 MG TABLET (FP) PO SCH (10:22)
[2017-08-09] MEDS: THIAMINE HCL 100 MG TABLET (FP) PO SCH (22:02)
[2017-08-09] MEDS: QUEtiapine FUMARATE 50 MG TABLET PO SCH (22:02)
[2017-08-10] MEDS: NICOTINE 14 MG/24 HOURS TOPICAL PATCH TD SCH (10:53)
[2017-08-10] MEDS: QUEtiapine FUMARATE 25 MG TABLET (FP) PO SCH (10:53)
[2017-08-10] MEDS: PRENATAL VITAMINS W/ FOLIC ACID TABLET (FP) PO SCH (10:53)
[2017-08-10] MEDS ORDERED: QUEtiapine FUMARATE 25 MG TABLET (FP) ONE (20:41)
[2017-08-10] MEDS: QUEtiapine FUMARATE 50 MG TABLET PO SCH (22:16)
[2017-08-10] MEDS: diphenhydrAMINE HCL 50 MG CAPSULE PO PRN (22:16)
[2017-08-10] MEDS: THIAMINE HCL 100 MG TABLET (FP) PO SCH (22:16)
[2017-08-11] MEDS: PRENATAL VITAMINS W/ FOLIC ACID TABLET (FP) PO SCH (10:35)
[2017-08-11] MEDS: QUEtiapine FUMARATE 25 MG TABLET (FP) PO SCH (10:36)
[2017-08-11] MEDS: NICOTINE 14 MG/24 HOURS TOPICAL PATCH TD SCH (12:17)
[2017-08-11] MEDS: QUEtiapine FUMARATE 50 MG TABLET PO SCH (22:07)
[2017-08-11] MEDS: THIAMINE HCL 100 MG TABLET (FP) PO SCH (22:07)
[2017-08-12] MEDS: PRENATAL VITAMINS W/ FOLIC ACID TABLET (FP) PO SCH (10:40)
[2017-08-12] MEDS: NICOTINE 14 MG/24 HOURS TOPICAL PATCH TD SCH (10:40)
[2017-08-12] MEDS: QUEtiapine FUMARATE 25 MG TABLET (FP) PO SCH (10:40)
[2017-08-12] MEDS: QUEtiapine FUMARATE 50 MG TABLET PO SCH (21:44)
[2017-08-12] MEDS: THIAMINE HCL 100 MG TABLET (FP) PO SCH (21:44)
[2017-08-13] MEDS: QUEtiapine FUMARATE 25 MG TABLET (FP) PO SCH (10:38)
[2017-08-13] MEDS: NICOTINE 14 MG/24 HOURS TOPICAL PATCH TD SCH (10:38)
[2017-08-13] MEDS: PRENATAL VITAMINS W/ FOLIC ACID TABLET (FP) PO SCH (10:38)
[2017-08-13] MEDS: THIAMINE HCL 100 MG TABLET (FP) PO SCH (22:03)
[2017-08-13] MEDS: QUEtiapine FUMARATE 50 MG TABLET PO SCH (22:03)
[2017-08-14] MEDS: QUEtiapine FUMARATE 25 MG TABLET (FP) PO SCH (10:39)
[2017-08-14] MEDS: NICOTINE 14 MG/24 HOURS TOPICAL PATCH TD SCH (10:39)
[2017-08-14] MEDS: PRENATAL VITAMINS W/ FOLIC ACID TABLET (FP) PO SCH (10:39)
[2017-08-14] MEDS: QUEtiapine FUMARATE 50 MG TABLET PO SCH (22:25)
[2017-08-14] MEDS: THIAMINE HCL 100 MG TABLET (FP) PO SCH (22:25)
[2017-08-15] MEDS: NICOTINE 14 MG/24 HOURS TOPICAL PATCH TD SCH (10:35)
[2017-08-15] MEDS: PRENATAL VITAMINS W/ FOLIC ACID TABLET (FP) PO SCH (10:35)
[2017-08-15] MEDS: QUEtiapine FUMARATE 25 MG TABLET (FP) PO SCH (10:35)
[2017-08-15] MEDS: QUEtiapine FUMARATE 50 MG TABLET PO SCH (21:56)
[2017-08-15] MEDS: THIAMINE HCL 100 MG TABLET (FP) PO SCH (21:56)
[2017-08-16] MEDS: QUEtiapine FUMARATE 25 MG TABLET (FP) PO SCH (10:31)
[2017-08-16] MEDS: PRENATAL VITAMINS W/ FOLIC ACID TABLET (FP) PO SCH (10:31)
[2017-08-16] MEDS: NICOTINE 14 MG/24 HOURS TOPICAL PATCH TD SCH (10:32)
[2017-08-16] MEDS: THIAMINE HCL 100 MG TABLET (FP) PO SCH (21:57)
[2017-08-16] MEDS: QUEtiapine FUMARATE 50 MG TABLET PO SCH (21:57)
[2017-08-17] MEDS: PRENATAL VITAMINS W/ FOLIC ACID TABLET (FP) PO SCH (10:09)
[2017-08-17] MEDS: QUEtiapine FUMARATE 25 MG TABLET (FP) PO SCH (10:09)
[2017-08-17] MEDS: NICOTINE 14 MG/24 HOURS TOPICAL PATCH TD SCH (10:09)
[2017-08-17] MEDS: THIAMINE HCL 100 MG TABLET (FP) PO SCH (21:59)
[2017-08-17] MEDS: QUEtiapine FUMARATE 50 MG TABLET PO SCH (21:59)
[2017-08-17] MEDS: diphenhydrAMINE HCL 50 MG CAPSULE PO PRN (22:00)
[2017-08-18 07:12] VITALS: BP 117/79; PULSE 87; TEMP 98.5
[2017-08-18] MEDS: PRENATAL VITAMINS W/ FOLIC ACID TABLET (FP) PO SCH (10:24)
[2017-08-18] MEDS: QUEtiapine FUMARATE 25 MG TABLET (FP) PO SCH (10:24)
[2017-08-18] MEDS: NICOTINE 14 MG/24 HOURS TOPICAL PATCH TD SCH (10:25)
--- NOTE | 2017-08-18 11:05 | PN ---
Psychiatric Progress Note Vital Signs: Vital Signs Period Temp Pulse Resp BP Sys/Lopez Pulse Ox Last 24 Hr 98.5 F 87 16-18 117/79 Date of Session: 08/18/17 Chief Complaint:: discharge vist HPI: Patient is addressing alcohol, nicotine dependence comorbid Bipolar I disorder, recent manic episode. ROS: WNL Current Medications: Active Medications Generic Name Dose Route Start Last Admin Trade Name Freq PRN Reason Stop Dose Admin Acetaminophen 650 mg 07/28/17 17:28 Tylenol - PO Q4H PRN PAIN Al Hydroxide/Mg Hydroxide 30 ml 07/28/17 17:28 Mylanta Oral Suspension - PO Q6H PRN DYSPEPSIA Diphenhydramine HCl 50 mg 07/28/17 17:28 08/17/17 22:00 Benadryl - PO 50 mg HSMR1 PRN Administration INSOMNIA Eucalyptus/Menthol/Phenol/Sorbitol 1 each 07/28/17 17:28 Cepastat Lozenge - MM Q4H PRN SORE THROAT Guaifenesin 10 ml 07/28/17 17:28 Robitussin Dm - PO Q6H PRN COUGH Hydroxyzine Pamoate 50 mg 07/28/17 17:28 Vistaril - PO Q4H PRN AGITATION Ibuprofen 400 mg 07/28/17 17:28 Motrin - PO Q6H PRN SEVERE PAIN Loperamide HCl 4 mg 07/28/17 17:28 Imodium - PO Q6H PRN DIARRHEA Magnesium Citrate 300 ml 07/28/17 17:28 Citroma - PO Q48H PRN CONSTIPATION Magnesium Hydroxide 30 ml 07/28/17 17:28 Milk Of Magnesia - PO DAILY PRN CONSTIPATION Nicotine 14 mg 07/29/17 10:00 08/18/17 10:25 Nicoderm Patch - TD Not Given DAILY AHSAN Nicotine Polacrilex 2 mg 07/28/17 17:28 07/29/17 10:31 Nicorette Gum - BC 2 mg Q2H PRN Administration NICOTINE REPLACEMENT RX Multivit/Folic Acid/Iron 1 tab 07/29/17 10:00 08/18/17 10:24 Vitamins (Sjr) - PO 1 tab DAILY AHSAN Administration Pseudoephedrine/Triprolidine 1 combo 07/28/17 17:28 Actifed - PO TID PRN NASAL CONGESTION Quetiapine Fumarate 50 mg 08/03/17 22:00 08/17/17 21:59 Seroquel - PO 50 mg HS AHSAN Administration Quetiapine Fumarate 25 mg 08/04/17 10:00 08/18/17 10:24 Seroquel - PO 25 mg DAILY AHSAN Administration Thiamine HCl 100 mg 07/28/17 22:00 08/17/17 21:59 Vitamin B1 - PO 100 mg HS AHSAN Administration Current Side Effect: No Lab tests ordered: No Lab tests reviewed: Yes Provider note:: Patient has completed today his treatment and met his goals, he gained on insights on his addiction, understands the negative consequences of his addiction and motivated to continue maintain abstinence. Patient responded well to medications menagement, Seroquel well tolerated, no side-effects reported, scripts provided for 30 days. Patient was encouraged to focus on alternative ways to cope with life stressors to prevent relapses. He was referred to [facility], patientis stable for discharge today. Total face to face time:: 35 Mental Status Exam - Mental Status Exam Alert and Oriented to: Time, Place, Person Cognitive Function: Good Patient Appearance: Well Groomed Mood: Hopeful Affect: Appropriate, Mood Congruent Patient Behavior: Appropriate, Cooperative Speech Pattern: Clear, Appropriate Voice Loudness: Normal Thought Process: Intact, Goal Oriented Thought Disorder: Not Present Hallucinations: Denies Suicidal Ideation: Denies Homicidal Ideation: Denies Insight/Judgement: Fair Sleep: Fair Appetite: Good Muscle strength/Tone: Normal Gait/Station: Normal Psychiatric Treatment Plan - Problem List (1) Nicotine dependence Current Visit: Yes Qualifiers: Nicotine product type: cigarettes Substance use status: in withdrawal Qualified Code(s): F17.213 - Nicotine dependence, cigarettes, with withdrawal; F17.213 - Nicotine dependence, cigarettes, with withdrawal (2) Alcohol dependence Current Visit: No (3) Alcohol-induced mood disorder Current Visit: No (4) Bipolar affective disorder, current episode manic Current Visit: No
== END 2017-08-18 11:00 | disposition home or self-care (01) | DRG 772 ==
LOC: YASAS 13:22 → Y5N 18:27
PROVIDERS: ADMIT Psychiatry & Neurology Psychiatry; ATTEND Psychiatry & Neurology Psychiatry
PROC: HZ42ZZZ Group Counseling for Substance Abuse Treatment, Cognitive-Behavioral (ICD-10-PCS; principal; 2017-07-28)
DX: F10.20 Alcohol dependence, uncomplicated (principal); F10.24 Alcohol dependence with alcohol-induced mood disorder; F17.213 Nicotine dependence, cigarettes, with withdrawal; F31.9 Bipolar disorder, unspecified; Z91.018 Allergy to other foods
CPT/HCPCS: 36415; 80053; 81003; 85027; 86593; 93005; 93010

== ENCOUNTER 2017-11-27 08:53 | Inpatient (IN) | payer OTHER ==
[2017-11-27 10:20] VITALS: BMI 25.8
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
[2017-11-27] MEDS ORDERED: P-EPHED 60MG/TRIPROLIDI 2.5MG TABLET PO PRN (14:01)
[2017-11-27] MEDS ORDERED: MAGNESIUM HYDROX 2400MG/30ML ORAL SUSPENSION 30 ML CUP PO PRN (14:01)
[2017-11-27] MEDS ORDERED: ACETAMINOPHEN 325 MG TABLET (FP) PO PRN (14:01)
[2017-11-27] MEDS ORDERED: MAG HYDROX/AL HYDROX/SIMETH 30 ML UNIT-DOSE CUP PO PRN (14:01)
[2017-11-27] MEDS ORDERED: LOPERAMIDE HCL 2 MG CAPSULE PO PRN (14:01)
[2017-11-27] MEDS ORDERED: MAGNESIUM CITRATE 300 ML BOTTLE PO PRN (14:01)
[2017-11-27] MEDS ORDERED: IBUPROFEN 400 MG TABLET (FP) PO PRN (14:01)
[2017-11-27] MEDS ORDERED: MENTHOL/PHENOL 1 EACH UD MM PRN (14:01)
[2017-11-27] MEDS ORDERED: chlordiazePOXIDE HCL 25 MG CAPSULE PO PRN (14:01)
[2017-11-27] MEDS: chlordiazePOXIDE HCL 25 MG CAPSULE PO SCH ×2 (17:22→22:07)
[2017-11-27 22:03] LABS: URINE APPEARANCE CLEAR; URINE BILIRUBIN NEGATIVE (NEGATIVE); URINE BLOOD NEGATIVE (NEGATIVE); URINE COLOR YELLOW; URINE GLUCOSE (UA) NEGATIVE (NEGATIVE); URINE KETONE NEGATIVE (NEGATIVE); URINE LEUK ESTERASE NEGATIVE (NEGATIVE); URINE NITRITE NEGATIVE (NEGATIVE); URINE PROTEIN NEGATIVE (NEGATIVE)
[2017-11-27] MEDS: THIAMINE HCL 100 MG TABLET (FP) PO SCH (22:07)
[2017-11-27] MEDS: guaiFENesin/D-METHORPHAN HB 10 ML UNIT-DOSE CUPS PO PRN (22:09)
[2017-11-28] MEDS: guaiFENesin/D-METHORPHAN HB 10 ML UNIT-DOSE CUPS PO PRN (04:19)
[2017-11-28] MEDS: chlordiazePOXIDE HCL 25 MG CAPSULE PO SCH ×4 (05:50→22:37)
[2017-11-28 10:10] LABS: CHLORIDE 105 mmol/L (98-107); POTASSIUM 4.3 mmol/L (3.5-5.1); SODIUM 140 mmol/L (136-145)
[2017-11-28] MEDS: PRENATAL VITAMINS W/ FOLIC ACID TABLET (FP) PO SCH (10:13)
[2017-11-28] MEDS ORDERED: diphenhydrAMINE HCL 50 MG CAPSULE PO PRN (10:15)
[2017-11-28 10:17] LABS: HEMATOCRIT 36.7 % (35.4-49); HEMOGLOBIN 12.3 GM/dL (11.7-16.9); MCH 32.4 pg (25.7-33.7); MCHC 33.5 g/dl (32.0-35.9); MEAN CELL VOLUME 96.5 fl (80-96); MEAN PLT VOLUME 7.7 fl (7.5-11.1); PLATELET COUNT 247 K/MM3 (134-434); RDW 13.8 % (11.9-15.9); WHITE BLOOD COUNT 2.8 K/mm3 (4.0-10.0)
[2017-11-28 10:19] LABS: ALBUMIN 2.9 g/dl (3.4-5.0); ALK PHOS 81 U/L (45-117); ANION GAP 8 (8-16); BILIRUBIN,TOTAL 0.4 mg/dL (0.2-1.0); BLOOD UREA NITROGEN 8 mg/dL (7-18); CALCIUM 7.8 mg/dL (8.5-10.1); CO2 27 mmol/L (21-32); CREATININE 0.6 mg/dL (0.7-1.3); GLUCOSE,RANDOM 87 mg/dL (74-106); SGOT/AST 14 U/L (15-37); SGPT/ALT 15 U/L (12-78); TOT PROT 6.6 g/dl (6.4-8.2)
--- NOTE | 2017-11-28 10:56 | EKG ---
Test Reason : Blood Pressure : / mmHG Vent. Rate : 083 BPM Atrial Rate : 083 BPM P-R Int : 122 ms QRS Dur : 128 ms QT Int : 370 ms P-R-T Axes : 076 049 076 degrees QTc Int : 434 ms NORMAL SINUS RHYTHM RIGHT BUNDLE BRANCH BLOCK ABNORMAL ECG WHEN COMPARED WITH ECG OF 28-JUL-2017 21:48, NO SIGNIFICANT CHANGE WAS FOUND Confirmed by MD Vincent, Moisés ([id number]) on 11/28/2017 10:55:49 AM Referred By: Emilio Barrett Confirmed By:Moisés Kaur MD
[2017-11-28] MEDS ORDERED: FLU VACCINE QUAD 60 MCG/0.5 ML (MDV 17-18) IM ONE (12:00)
--- NOTE | 2017-11-28 13:06 | CONSULT ---
[facility] Psychiatric Consult - Data Date of interview: 11/28/17 Admission source: [facility] Identifying data: Pt is a 57 year old male, father of two, and currently unemployed. This is one of multiple admissions for patient. Pt. admitted for alcohol dependence. Substance Abuse History: Smoking Cessation. Smoking history: Current some day smoker. Have you smoked in the past 12 months: Yes. Aproximately how many cigarettes per day: 5. Cigars Per Day: 0. Hx Chewing Tobacco Use: No. Initiated information on smoking cessation: Yes. 'Breaking Loose' booklet given : 11/27/17. - Substance & Tx. History. Hx Alcohol Use: Yes ( 3 (40 oz of "coke 45" beer)). Substance Use Type: Alcohol. - Substances Abused. Alcohol. Route: Oral. Frequency: Daily. Amount used: 12 40oz of beer. Age of first use: 17. Last used: 11/26/2017 Medical History: Asthma, Hypertension Psychiatric History: Pt. presents as irritable and a poor historian. Pt. denies h/o psychiatric hospitalizations, suicide attempts, and OPC. 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 Pt. requesing a sleep aid and is agreeable to taking seroquel 50mg qhs. Physical/Sexual Abuse/Trauma History: Denies. Mental Status Exam - Mental Status Exam Alert and Oriented to: Time, Place, Person Cognitive Function: Good Patient Appearance: Unkempt Mood: Irritable Affect: Mood Congruent Patient Behavior: Fatigued, Guarded Speech Pattern: Delayed Voice Loudness: Mildly Loud Thought Process: Goal Oriented Thought Disorder: Not Present Hallucinations: Denies Suicidal Ideation: Denies Homicidal Ideation: Denies Insight/Judgement: Poor Sleep: Poorly Appetite: Fair Muscle strength/Tone: Normal Gait/Station: Normal Psychiatric Findings - Problem List ([place] 1, 2,3) (1) Alcohol dependence with uncomplicated withdrawal Current Visit: Yes Status: Acute (2) Insomnia Current Visit: Yes Status: Acute (3) Nicotine dependence Current Visit: Yes Status: Chronic Qualifiers: Nicotine product type: cigarettes Substance use status: in withdrawal Qualified Code(s): F17.213 - Nicotine dependence, cigarettes, with withdrawal (4) PTSD (post-traumatic stress disorder) Current Visit: No Status: Chronic Comment: Self reports. (5) Alcohol-induced mood disorder Current Visit: No Status: Suspected (6) Bipolar disorder Current Visit: No Status: Suspected - Initial Treatment Plan Initial Treatment Plan: Psychoeducation provided. Detoxification in progress. Seroquel 50mg qhs ordered. Verbal consent given. Benefits and side effects discussed. Will continue to monitor.
--- NOTE | 2017-11-28 13:27 | PN ---
[facility] CIWA - CIWA Score Nausea/Vomitin-No Nausea/No Vomiting Muscle Tremors: 3 Anxiety: 4-Mod. Anxious/Guarded Agitation: 3 Paroxysmal Sweats: No Perspiration Orientation: 0-Oriented Tacttile Disturbances: 3-Moderate Itch/Numb/Burn Auditory Disturbances: 2-Mild Harshness/Frighten Visual Disturbances: 2-Mild Sensitivity Headache: 0-None Present CIWA-Ar Total Score: 17 S Progress Note (SOAP) Subjective: Interrupted Sleep, Body Aches, Anxious, Tremors, Fatigue. Objective: PT. A & O X 3, OBSERVED AMBULATING ON UNIT. NO ACUTE DISTRESS. 11/28/17 13:24 Vital Signs Temperature 97.7 F 11/28/17 13:17 Pulse Rate 101 H 11/28/17 13:17 Respiratory Rate 18 11/28/17 13:17 Blood Pressure 112/82 11/28/17 13:17 O2 Sat by Pulse Oximetry (%) Laboratory Tests 11/27/17 11/28/17 11/28/17 21:50 07:00 07:00 WBC 2.8 L D RBC 3.80 L Hgb 12.3 Hct 36.7 MCV 96.5 H MCH 32.4 MCHC 33.5 RDW 13.8 Plt Count 247 D MPV 7.7 Sodium 140 Potassium 4.3 Chloride 105 Carbon Dioxide 27 Anion Gap 8 BUN 8 D Creatinine 0.6 L Creat Clearance w eGFR > 60 Random Glucose 87 Calcium 7.8 L Total Bilirubin 0.4 D AST 14 L ALT 15 D Alkaline Phosphatase 81 Total Protein 6.6 Albumin 2.9 L Urine Color Yellow Urine Appearance Clear Urine pH 7.0 Ur Specific [place] 1.017 Urine Protein Negative Urine Glucose (UA) Negative Urine Ketones Negative Urine Blood Negative Urine Nitrite Negative Urine Bilirubin Negative Urine Urobilinogen 2.0 Ur Leukocyte Esterase Negative LABS NOTED. RPR RESULT PENDING. PATIENT HAS HAD LOW WBC RESULT SON MULTIPLE PREVIOUS ADMISSIONS. 11/28/17 13:25 Assessment: 11/28/17 13:24 WITHDRAWAL SYMPTOMS. LEUKOPENIA. 11/28/17 13:26 Plan: CONTINUE DETOX. INCREASE DAILY PO FLUID INTAKE.
[2017-11-28] MEDS: THIAMINE HCL 100 MG TABLET (FP) PO SCH (22:37)
[2017-11-28] MEDS: QUEtiapine FUMARATE 50 MG TABLET PO SCH (22:37)
[2017-11-29] MEDS: chlordiazePOXIDE HCL 25 MG CAPSULE PO SCH ×2 (06:00→10:40)
[2017-11-29] MEDS: PRENATAL VITAMINS W/ FOLIC ACID TABLET (FP) PO SCH (10:40)
--- NOTE | 2017-11-29 12:36 | PN ---
S CIWA - CIWA Score Nausea/Vomitin Muscle Tremors: None Anxiety: 5 Agitation: 4-Moderately Restless Paroxysmal Sweats: 2 Orientation: 0-Oriented Tacttile Disturbances: 3-Moderate Itch/Numb/Burn Auditory Disturbances: 0-None Visual Disturbances: 0-None Headache: 0-None Present CIWA-Ar Total Score: 17 BHS Progress Note (SOAP) Subjective: Body Aches, Anxious, Fatigue, Nausea. Objective: PT. A & O X 3, OBSERVED AMBULATING ON UNIT. NO ACUTE DISTRESS. 11/29/17 12:34 Vital Signs Temperature 96.9 F L 11/29/17 09:30 Pulse Rate 94 H 11/29/17 09:30 Respiratory Rate 18 11/29/17 09:30 Blood Pressure 115/80 11/29/17 09:30 O2 Sat by Pulse Oximetry (%) Laboratory Tests 11/27/17 11/28/17 11/28/17 21:50 07:00 07:00 WBC 2.8 L D RBC 3.80 L Hgb 12.3 Hct 36.7 MCV 96.5 H MCH 32.4 MCHC 33.5 RDW 13.8 Plt Count 247 D MPV 7.7 Sodium 140 Potassium 4.3 Chloride 105 Carbon Dioxide 27 Anion Gap 8 BUN 8 D Creatinine 0.6 L Creat Clearance w eGFR > 60 Random Glucose 87 Calcium 7.8 L Total Bilirubin 0.4 D AST 14 L ALT 15 D Alkaline Phosphatase 81 Total Protein 6.6 Albumin 2.9 L Urine Color Yellow Urine Appearance Clear Urine pH 7.0 Ur Specific [place] 1.017 Urine Protein Negative Urine Glucose (UA) Negative Urine Ketones Negative Urine Blood Negative Urine Nitrite Negative Urine Bilirubin Negative Urine Urobilinogen 2.0 Ur Leukocyte Esterase Negative RPR Titer 11/28/17 07:00 WBC RBC Hgb Hct MCV MCH MCHC RDW Plt Count MPV Sodium Potassium Chloride Carbon Dioxide Anion Gap BUN Creatinine Creat Clearance w eGFR Random Glucose Calcium Total Bilirubin AST ALT Alkaline Phosphatase Total Protein Albumin Urine Color Urine Appearance Urine pH Ur Specific [place] Urine Protein Urine Glucose (UA) Urine Ketones Urine Blood Urine Nitrite Urine Bilirubin Urine Urobilinogen Ur Leukocyte Esterase RPR Titer Nonreactive LABS NOTED. Assessment: 11/29/17 12:34 WITHDRAWAL SYMPTOMS. Plan: CONTINUE DETOX.
[2017-11-29] MEDS: chlordiazePOXIDE 5 MG CAPSULE PO SCH ×2 (17:45→22:45)
[2017-11-29] MEDS: THIAMINE HCL 100 MG TABLET (FP) PO SCH (22:45)
[2017-11-29] MEDS: QUEtiapine FUMARATE 50 MG TABLET PO SCH (22:45)
[2017-11-30] MEDS: chlordiazePOXIDE 5 MG CAPSULE PO SCH ×2 (06:30→10:50)
[2017-11-30] MEDS ORDERED: ALBUTEROL SO4 2.5/IPRATROPIUM 0.5 INH SOL 3 ML VIAL.NEB. NEB ONE (09:46)
[2017-11-30] MEDS ORDERED: TRIMETHOBENZAMIDE HCL 200MG/2ML INJ IM PRN (09:46)
[2017-11-30] MEDS: PRENATAL VITAMINS W/ FOLIC ACID TABLET (FP) PO SCH (10:48)
--- NOTE | 2017-11-30 15:12 | PN ---
[facility] Progress Note (SOAP) Subjective: Interrupted Sleep, Body Aches, Nausea, Anxious. Objective: PT. A & O X 3, OBSERVED AMBULATING ON UNIT. NO ACUTE DISTRESS. 11/30/17 15:09 Vital Signs Temperature 96.5 F L 11/30/17 13:36 Pulse Rate 99 H 11/30/17 13:36 Respiratory Rate 20 11/30/17 13:36 Blood Pressure 122/84 11/30/17 13:36 O2 Sat by Pulse Oximetry (%) Laboratory Tests 11/27/17 11/28/17 11/28/17 21:50 07:00 07:00 WBC 2.8 L D RBC 3.80 L Hgb 12.3 Hct 36.7 MCV 96.5 H MCH 32.4 MCHC 33.5 RDW 13.8 Plt Count 247 D MPV 7.7 Sodium 140 Potassium 4.3 Chloride 105 Carbon Dioxide 27 Anion Gap 8 BUN 8 D Creatinine 0.6 L Creat Clearance w eGFR > 60 Random Glucose 87 Calcium 7.8 L Total Bilirubin 0.4 D AST 14 L ALT 15 D Alkaline Phosphatase 81 Total Protein 6.6 Albumin 2.9 L Urine Color Yellow Urine Appearance Clear Urine pH 7.0 Ur Specific [place] 1.017 Urine Protein Negative Urine Glucose (UA) Negative Urine Ketones Negative Urine Blood Negative Urine Nitrite Negative Urine Bilirubin Negative Urine Urobilinogen 2.0 Ur Leukocyte Esterase Negative RPR Titer 11/28/17 07:00 WBC RBC Hgb Hct MCV MCH MCHC RDW Plt Count MPV Sodium Potassium Chloride Carbon Dioxide Anion Gap BUN Creatinine Creat Clearance w eGFR Random Glucose Calcium Total Bilirubin AST ALT Alkaline Phosphatase Total Protein Albumin Urine Color Urine Appearance Urine pH Ur Specific [place] Urine Protein Urine Glucose (UA) Urine Ketones Urine Blood Urine Nitrite Urine Bilirubin Urine Urobilinogen Ur Leukocyte Esterase RPR Titer Nonreactive LABS NOTED. Assessment: 11/30/17 15:09 WITHDRAWAL SYMPTOMS. Plan: CONTINUE DETOX. PRN TIGAN IM FOR NAUSEA. INCREASE DAILY PO FLUID INTAKE.
[2017-11-30] MEDS: chlordiazePOXIDE HCL 10 MG CAPSULE PO SCH ×2 (17:43→22:21)
[2017-11-30] MEDS: THIAMINE HCL 100 MG TABLET (FP) PO SCH (22:20)
[2017-11-30] MEDS: QUEtiapine FUMARATE 50 MG TABLET PO SCH (22:20)
[2017-12-01] MEDS: guaiFENesin/D-METHORPHAN HB 10 ML UNIT-DOSE CUPS PO PRN (03:29)
[2017-12-01] MEDS: chlordiazePOXIDE HCL 10 MG CAPSULE PO SCH ×2 (06:28→10:39)
[2017-12-01] MEDS: PRENATAL VITAMINS W/ FOLIC ACID TABLET (FP) PO SCH (10:39)
[2017-12-01 14:22] VITALS: BP 115/88; PULSE 97; TEMP 98.1
--- NOTE | 2017-12-01 15:37 | PN ---
[facility] Progress Note (SOAP) Subjective: Sweating, Anxious, Tremors, Body Aches, Interrupted Sleep. Objective: PT. A & O X 3, OBSERVED AMBULATING ON UNIT. NO ACUTE DISTRESS. 12/01/17 15:33 Vital Signs Temperature 98.1 F 12/01/17 14:21 Pulse Rate 97 H 12/01/17 14:21 Respiratory Rate 18 12/01/17 14:21 Blood Pressure 115/88 12/01/17 14:21 O2 Sat by Pulse Oximetry (%) Laboratory Tests 11/27/17 11/28/17 11/28/17 21:50 07:00 07:00 WBC 2.8 L D RBC 3.80 L Hgb 12.3 Hct 36.7 MCV 96.5 H MCH 32.4 MCHC 33.5 RDW 13.8 Plt Count 247 D MPV 7.7 Sodium 140 Potassium 4.3 Chloride 105 Carbon Dioxide 27 Anion Gap 8 BUN 8 D Creatinine 0.6 L Creat Clearance w eGFR > 60 Random Glucose 87 Calcium 7.8 L Total Bilirubin 0.4 D AST 14 L ALT 15 D Alkaline Phosphatase 81 Total Protein 6.6 Albumin 2.9 L Urine Color Yellow Urine Appearance Clear Urine pH 7.0 Ur Specific [place] 1.017 Urine Protein Negative Urine Glucose (UA) Negative Urine Ketones Negative Urine Blood Negative Urine Nitrite Negative Urine Bilirubin Negative Urine Urobilinogen 2.0 Ur Leukocyte Esterase Negative RPR Titer 11/28/17 07:00 WBC RBC Hgb Hct MCV MCH MCHC RDW Plt Count MPV Sodium Potassium Chloride Carbon Dioxide Anion Gap BUN Creatinine Creat Clearance w eGFR Random Glucose Calcium Total Bilirubin AST ALT Alkaline Phosphatase Total Protein Albumin Urine Color Urine Appearance Urine pH Ur Specific [place] Urine Protein Urine Glucose (UA) Urine Ketones Urine Blood Urine Nitrite Urine Bilirubin Urine Urobilinogen Ur Leukocyte Esterase RPR Titer Nonreactive LABS NOTED. Assessment: 12/01/17 15:33 WITHDRAWAL SYMPTOMS. Plan: CONTINUE DETOX. INCREASE DAILY PO FLUID INTAKE. DUE TO PERSISTENCE OF DETOX SYMPTOMS, PATIENT TO REMAIN ON DETOX UNIT UNTIL TOMORROW, 12/02/2017, AT WHICH TIME HE WILL DISCHARGED TO PURSUE REHAB ADMISSION OR ELSE PURSUE ADMISSION TO AN OUTPATIENT TREATMENT PROGRAM.
== END 2017-12-01 18:02 | disposition other institution (70) | DRG 775 ==
LOC: YASAS 08:53 → Y3N 14:40
PROVIDERS: ADMIT Internal Medicine; ATTEND Internal Medicine
PROC: HZ2ZZZZ Detoxification Services for Substance Abuse Treatment (ICD-10-PCS; principal; 2017-11-27)
DX: F10.230 Alcohol dependence with withdrawal, uncomplicated (principal); F17.213 Nicotine dependence, cigarettes, with withdrawal; F10.24 Alcohol dependence with alcohol-induced mood disorder; F31.9 Bipolar disorder, unspecified; F43.10 Post-traumatic stress disorder, unspecified; G47.00 Insomnia, unspecified; I10 Essential (primary) hypertension
CPT/HCPCS: 36415; 80053; 81003; 85027; 86593; 90688; 93005; 93010; 94640

== ENCOUNTER 2017-12-01 18:04 | Inpatient (IN) | payer OTHER ==
--- NOTE | 2017-12-01 17:43 | HP ---
[facility] Rehab Assess/Revision - Admission History Admitted to Rehab from: [facility] Date of Admission to Rehab: 12/01/2017 - Vital signs Vital Signs: NOTED; STABLE. - Findings Detox History & Physical reviewed: Yes Concur with findings: Yes Comments/Additional Findings: PATIENT'S MEDICAL / MEDICATION HISTORY REVIEWED PRIOR TO DISCHARGE FROM DETOX UNIT. PATIENT WAS DISCHAREGED FROM DETOX UNIT TO BE TAKEN TO REHAB UNIT IN STABLE MEDICAL CONDITION. Inpatient Rehab Admission - Initial Determination Are CD services needed?: Yes Free of communicable disease: Yes Not in need of hospitalization: Yes - Rehab Admission Criteria Previous failed treatment: Yes Comorbidities: Yes Patient is meeting Inpatient Rehab admission criteria:: Yes
[~2017-12-01 18:04] MED LIST: LOPERAMIDE HCL 2 MG CAPSULE PO PRN; MAG HYDROX/AL HYDROX/SIMETH 30 ML UNIT-DOSE CUP PO PRN; MAGNESIUM CITRATE 300 ML BOTTLE PO PRN; MAGNESIUM HYDROX 2400MG/30ML ORAL SUSPENSION 30 ML CUP PO PRN; MENTHOL/PHENOL 1 EACH UD MM PRN; P-EPHED 60MG/TRIPROLIDI 2.5MG TABLET PO PRN
[2017-12-01 20:40] VITALS: BMI 25.8
[2017-12-01] MEDS: THIAMINE HCL 100 MG TABLET (FP) PO SCH (22:20)
[2017-12-02] MEDS: PRENATAL VITAMINS W/ FOLIC ACID TABLET (FP) PO SCH (10:01)
[2017-12-02] MEDS: guaiFENesin/D-METHORPHAN HB 10 ML UNIT-DOSE CUPS PO PRN (20:01)
[2017-12-02] MEDS: THIAMINE HCL 100 MG TABLET (FP) PO SCH (21:51)
[2017-12-03] MEDS: PRENATAL VITAMINS W/ FOLIC ACID TABLET (FP) PO SCH (10:01)
[2017-12-03] MEDS: guaiFENesin/D-METHORPHAN HB 10 ML UNIT-DOSE CUPS PO PRN (10:02)
[2017-12-03] MEDS: THIAMINE HCL 100 MG TABLET (FP) PO SCH (21:52)
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
[2017-12-04] MEDS: PRENATAL VITAMINS W/ FOLIC ACID TABLET (FP) PO SCH (09:46)
[2017-12-04] MEDS: guaiFENesin/D-METHORPHAN HB 10 ML UNIT-DOSE CUPS PO PRN (09:47)
[2017-12-04] MEDS: THIAMINE HCL 100 MG TABLET (FP) PO SCH (22:18)
[2017-12-05] MEDS: guaiFENesin/D-METHORPHAN HB 10 ML UNIT-DOSE CUPS PO PRN ×3 (07:08→22:12)
[2017-12-05] MEDS: PRENATAL VITAMINS W/ FOLIC ACID TABLET (FP) PO SCH (10:02)
[2017-12-05] MEDS: THIAMINE HCL 100 MG TABLET (FP) PO SCH (22:11)
[2017-12-06] MEDS: PRENATAL VITAMINS W/ FOLIC ACID TABLET (FP) PO SCH (10:05)
[2017-12-06] MEDS: THIAMINE HCL 100 MG TABLET (FP) PO SCH (21:45)
[2017-12-07] MEDS: PRENATAL VITAMINS W/ FOLIC ACID TABLET (FP) PO SCH (09:52)
[2017-12-07] MEDS: THIAMINE HCL 100 MG TABLET (FP) PO SCH ×2 (22:02→22:19)
[2017-12-08] MEDS: PRENATAL VITAMINS W/ FOLIC ACID TABLET (FP) PO SCH (10:05)
[2017-12-08] MEDS: THIAMINE HCL 100 MG TABLET (FP) PO SCH (21:27)
[2017-12-08] MEDS: TETRAHYDROZOLINE HCL 1 DROP DROPS OD PRN (21:28)
[2017-12-09] MEDS: TETRAHYDROZOLINE HCL 1 DROP DROPS OD PRN ×3 (09:43→21:47)
[2017-12-09] MEDS: PRENATAL VITAMINS W/ FOLIC ACID TABLET (FP) PO SCH (09:43)
[2017-12-09] MEDS: THIAMINE HCL 100 MG TABLET (FP) PO SCH (21:47)
[2017-12-10] MEDS: TETRAHYDROZOLINE HCL 1 DROP DROPS OD PRN ×2 (09:41→15:30)
[2017-12-10] MEDS: PRENATAL VITAMINS W/ FOLIC ACID TABLET (FP) PO SCH (09:41)
[2017-12-10] MEDS: THIAMINE HCL 100 MG TABLET (FP) PO SCH (21:43)
[2017-12-11] MEDS: TETRAHYDROZOLINE HCL 1 DROP DROPS OD PRN ×2 (08:47→21:46)
[2017-12-11] MEDS: PRENATAL VITAMINS W/ FOLIC ACID TABLET (FP) PO SCH (10:11)
[2017-12-11] MEDS: THIAMINE HCL 100 MG TABLET (FP) PO SCH (21:46)
[2017-12-12] MEDS: TETRAHYDROZOLINE HCL 1 DROP DROPS OD PRN ×2 (06:57→10:03)
[2017-12-12] MEDS: PRENATAL VITAMINS W/ FOLIC ACID TABLET (FP) PO SCH (10:03)
[2017-12-12] MEDS: TETRAHYDROZOLINE HCL 1 DROP DROPS OU PRN ×2 (17:19→21:50)
[2017-12-12] MEDS: THIAMINE HCL 100 MG TABLET (FP) PO SCH (21:51)
[2017-12-13] MEDS: PRENATAL VITAMINS W/ FOLIC ACID TABLET (FP) PO SCH (10:08)
[2017-12-13] MEDS: TETRAHYDROZOLINE HCL 1 DROP DROPS OU PRN ×2 (10:10→21:02)
[2017-12-13] MEDS: THIAMINE HCL 100 MG TABLET (FP) PO SCH (21:01)
[2017-12-14] MEDS: PRENATAL VITAMINS W/ FOLIC ACID TABLET (FP) PO SCH (09:47)
[2017-12-14] MEDS: TETRAHYDROZOLINE HCL 1 DROP DROPS OU PRN ×2 (09:48→21:44)
[2017-12-14] MEDS: THIAMINE HCL 100 MG TABLET (FP) PO SCH (21:44)
[2017-12-15] MEDS: PRENATAL VITAMINS W/ FOLIC ACID TABLET (FP) PO SCH (10:08)
[2017-12-15] MEDS: TETRAHYDROZOLINE HCL 1 DROP DROPS OU PRN ×2 (10:09→17:10)
[2017-12-15] MEDS: THIAMINE HCL 100 MG TABLET (FP) PO SCH (21:22)
[2017-12-16] MEDS: TETRAHYDROZOLINE HCL 1 DROP DROPS OU PRN (06:09)
[2017-12-16] MEDS: PRENATAL VITAMINS W/ FOLIC ACID TABLET (FP) PO SCH (10:18)
[2017-12-16] MEDS: THIAMINE HCL 100 MG TABLET (FP) PO SCH (21:41)
[2017-12-17] MEDS: PRENATAL VITAMINS W/ FOLIC ACID TABLET (FP) PO SCH (10:04)
[2017-12-17] MEDS: TETRAHYDROZOLINE HCL 1 DROP DROPS OU PRN ×2 (10:05→21:38)
[2017-12-17] MEDS: THIAMINE HCL 100 MG TABLET (FP) PO SCH (21:38)
[2017-12-18] MEDS: PRENATAL VITAMINS W/ FOLIC ACID TABLET (FP) PO SCH (09:58)
[2017-12-18] MEDS: TETRAHYDROZOLINE HCL 1 DROP DROPS OU PRN ×2 (10:00→21:52)
[2017-12-18] MEDS: THIAMINE HCL 100 MG TABLET (FP) PO SCH (21:52)
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
[2017-12-19] MEDS: PRENATAL VITAMINS W/ FOLIC ACID TABLET (FP) PO SCH (10:26)
[2017-12-19] MEDS: TETRAHYDROZOLINE HCL 1 DROP DROPS OU PRN ×2 (10:27→22:18)
[2017-12-19] MEDS: THIAMINE HCL 100 MG TABLET (FP) PO SCH (22:17)
[2017-12-20 06:54] VITALS: BP 128/87; PULSE 84; TEMP 98.1
[2017-12-20] MEDS: TETRAHYDROZOLINE HCL 1 DROP DROPS OU PRN (09:59)
[2017-12-20] MEDS: PRENATAL VITAMINS W/ FOLIC ACID TABLET (FP) PO SCH (09:59)
== END 2017-12-20 10:15 | disposition home or self-care (01) | DRG 772 ==
LOC: YASAS 18:04 → Y3W 18:06
PROVIDERS: ADMIT Psychiatry & Neurology Psychiatry; ATTEND Psychiatry & Neurology Psychiatry
PROC: HZ42ZZZ Group Counseling for Substance Abuse Treatment, Cognitive-Behavioral (ICD-10-PCS; principal; 2017-12-01)
DX: F10.20 Alcohol dependence, uncomplicated (principal); F17.213 Nicotine dependence, cigarettes, with withdrawal; F31.9 Bipolar disorder, unspecified; F43.10 Post-traumatic stress disorder, unspecified

== ENCOUNTER 2018-02-23 08:42 | Inpatient (IN) | payer OTHER ==
[2018-02-23 10:28] VITALS: BMI 23.2
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
[2018-02-23] MEDS ORDERED: ACETAMINOPHEN 325 MG TABLET (FP) PO PRN (11:36)
[2018-02-23] MEDS ORDERED: LOPERAMIDE HCL 2 MG CAPSULE PO PRN (11:36)
[2018-02-23] MEDS ORDERED: NICOTINE POLACRILEX 2 MG GUM BC PRN (11:36)
[2018-02-23] MEDS ORDERED: MAGNESIUM HYDROX 2400MG/30ML ORAL SUSPENSION 30 ML CUP PO PRN (11:36)
[2018-02-23] MEDS ORDERED: MAG HYDROX/AL HYDROX/SIMETH 30 ML UNIT-DOSE CUP PO PRN (11:36)
[2018-02-23] MEDS ORDERED: MAGNESIUM CITRATE 300 ML BOTTLE PO PRN (11:36)
[2018-02-23] MEDS ORDERED: guaiFENesin/D-METHORPHAN HB 10 ML UNIT-DOSE CUPS PO PRN (11:36)
[2018-02-23] MEDS ORDERED: hydrOXYzine PAMOATE 50 MG CAPSULE (FP) PO PRN (11:36)
[2018-02-23] MEDS ORDERED: P-EPHED 60MG/TRIPROLIDI 2.5MG TABLET PO PRN (11:36)
[2018-02-23] MEDS ORDERED: MENTHOL/PHENOL 1 EACH UD MM PRN (11:36)
[2018-02-23] MEDS ORDERED: IBUPROFEN 400 MG TABLET (FP) PO PRN (11:36)
[2018-02-23] MEDS ORDERED: chlordiazePOXIDE HCL 25 MG CAPSULE PO PRN (11:38)
[2018-02-23] MEDS ORDERED: chlordiazePOXIDE HCL 25 MG CAPSULE PO ONE (12:10)
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
[2018-02-23] MEDS: chlordiazePOXIDE HCL 25 MG CAPSULE PO SCH ×2 (17:13→22:27)
[2018-02-23 21:35] LABS: URINE APPEARANCE CLEAR; URINE BILIRUBIN NEGATIVE (<2.0 mg/dL); URINE BLOOD NEGATIVE (NEGATIVE); URINE COLOR YELLOW; URINE GLUCOSE (UA) NEGATIVE (NEGATIVE); URINE KETONE NEGATIVE (NEGATIVE); URINE LEUK ESTERASE NEGATIVE (NEGATIVE); URINE NITRITE NEGATIVE (NEGATIVE); URINE PROTEIN NEGATIVE (NEGATIVE); URINE UROBILINOGEN NEGATIVE mg/dL (0.2-1.0)
[2018-02-23] MEDS ORDERED: MELATONIN 5 MG TABLETS PO PRN (22:00)
[2018-02-23] MEDS: THIAMINE HCL 100 MG TABLET (FP) PO SCH (22:27)
[2018-02-24] MEDS: chlordiazePOXIDE HCL 25 MG CAPSULE PO SCH ×4 (05:27→22:14)
[2018-02-24] MEDS: PRENATAL VITAMINS W/ FOLIC ACID TABLET (FP) PO SCH (10:12)
[2018-02-24] MEDS: NICOTINE 21 MG/24 HOURS TOPICAL PATCH TD SCH (10:13)
[2018-02-24 10:28] LABS: HEMATOCRIT 36.5 % (35.4-49); HEMOGLOBIN 12.4 GM/dL (11.7-16.9); MCH 33.5 pg (25.7-33.7); MEAN CELL VOLUME 98.6 fl (80-96); PLATELET COUNT 218 K/MM3 (134-434); RDW 16.6 % (11.9-15.9)
[2018-02-24 10:36] LABS: WHITE BLOOD COUNT 1.8 K/mm3 (4.0-10.0)
[2018-02-24 10:43] LABS: CHLORIDE 107 mmol/L (98-107); POTASSIUM 4.3 mmol/L (3.5-5.1); SODIUM 138 mmol/L (136-145)
[2018-02-24 10:51] LABS: ALBUMIN 3.5 g/dl (3.4-5.0); ALK PHOS 108 U/L (45-117); ANION GAP 4 (8-16); BLOOD UREA NITROGEN 7 mg/dL (7-18); CALCIUM 8.3 mg/dL (8.5-10.1); CO2 27 mmol/L (21-32); CREATININE 0.6 mg/dL (0.7-1.3); GLUCOSE,RANDOM 72 mg/dL (74-106); SGOT/AST 19 U/L (15-37); SGPT/ALT 18 U/L (12-78)
[2018-02-24 11:03] LABS: BILIRUBIN,TOTAL < 0.1 mg/dL (0.2-1.0)
[2018-02-24 12:42] LABS: PLATELET ESTIMATE ADEQUATE
--- NOTE | 2018-02-24 17:17 | PN ---
[facility] CIWA - CIWA Score Nausea/Vomitin-No Nausea/No Vomiting Muscle Tremors: None Anxiety: 5 Agitation: 3 Paroxysmal Sweats: No Perspiration Orientation: 0-Oriented Tacttile Disturbances: 3-Moderate Itch/Numb/Burn Auditory Disturbances: 2-Mild Harshness/Frighten Visual Disturbances: 3-Moderate Sensitivity Headache: 0-None Present CIWA-Ar Total Score: 16 BHS Progress Note (SOAP) Subjective: Interrupted Sleep, Anxious, Fatigue, Sweating. Objective: PATIENT A & O X 3, OBSERVED AMBULATING ON UNIT. NO ACUTE DISTRESS. 02/24/18 17:13 Vital Signs Temperature 97.4 F L 02/24/18 15:25 Pulse Rate 72 02/24/18 15:25 Respiratory Rate 18 02/24/18 15:25 Blood Pressure 119/86 02/24/18 15:25 O2 Sat by Pulse Oximetry (%) Laboratory Tests 02/23/18 02/24/18 02/24/18 18:40 06:20 06:20 WBC 1.8 L* D RBC 3.70 L Hgb 12.4 Hct 36.5 MCV 98.6 H MCH 33.5 MCHC 34.0 RDW 16.6 H D Plt Count 218 MPV 8.0 Neutrophils % (Manual) 46.0 Band Neutrophils % 0.0 Lymphocytes % (Manual) 30.0 Monocytes % (Manual) 13 H Eosinophils % (Manual) 5.0 H Basophils % (Manual) 0.0 Platelet Estimate Adequate Sodium 138 Potassium 4.3 Chloride 107 Carbon Dioxide 27 Anion Gap 4 L BUN 7 Creatinine 0.6 L Creat Clearance w eGFR > 60 Random Glucose 72 L Calcium 8.3 L Total Bilirubin < 0.1 L D AST 19 D ALT 18 Alkaline Phosphatase 108 D Total Protein 7.0 Albumin 3.5 D Urine Color Yellow Urine Appearance Clear Urine pH 5.0 D Ur Specific [place] 1.019 Urine Protein Negative Urine Glucose (UA) Negative Urine Ketones Negative Urine Blood Negative Urine Nitrite Negative Urine Bilirubin Negative Urine Urobilinogen Negative Ur Leukocyte Esterase Negative RPR Titer 02/24/18 06:20 WBC RBC Hgb Hct MCV MCH MCHC RDW Plt Count MPV Neutrophils % (Manual) Band Neutrophils % Lymphocytes % (Manual) Monocytes % (Manual) Eosinophils % (Manual) Basophils % (Manual) Platelet Estimate Sodium Potassium Chloride Carbon Dioxide Anion Gap BUN Creatinine Creat Clearance w eGFR Random Glucose Calcium Total Bilirubin AST ALT Alkaline Phosphatase Total Protein Albumin Urine Color Urine Appearance Urine pH Ur Specific [place] Urine Protein Urine Glucose (UA) Urine Ketones Urine Blood Urine Nitrite Urine Bilirubin Urine Urobilinogen Ur Leukocyte Esterase RPR Titer Nonreactive LABS NOTED. PATIENT REPORTS HISTORY OF LOW WBC COUNT. PATIENT HAS HAD LOW WBC COUNTS ON SEVERAL PREVIOUS ADMISSIONS. PATIENT DENIES ANY KNOWN HISTORY OF HEMATOLOGIC / IMMUNE DISORDERS. 02/24/18 17:14 Assessment: 02/24/18 17:13 WITHDRAWAL SYMPTOMS. LEUKOPENIA. 02/24/18 17:15 Plan: CONTINUE DETOX.
[2018-02-24] MEDS: THIAMINE HCL 100 MG TABLET (FP) PO SCH (22:15)
[2018-02-25] MEDS: chlordiazePOXIDE HCL 25 MG CAPSULE PO SCH ×2 (05:43→10:22)
[2018-02-25] MEDS: PRENATAL VITAMINS W/ FOLIC ACID TABLET (FP) PO SCH (10:22)
[2018-02-25] MEDS: NICOTINE 21 MG/24 HOURS TOPICAL PATCH TD SCH (10:22)
--- NOTE | 2018-02-25 12:05 | PN ---
S CIWA - CIWA Score Nausea/Vomitin-No Nausea/No Vomiting Muscle Tremors: 4-Moderate,w/Arms Extend Anxiety: 3 Agitation: 3 Paroxysmal Sweats: 3 Orientation: 0-Oriented Tacttile Disturbances: 0-None Auditory Disturbances: 0-None Visual Disturbances: 0-None Headache: 0-None Present CIWA-Ar Total Score: 13 S Progress Note (SOAP) Subjective: I want natural tear for my dry eyes sweats body aches Objective: 02/25/18 12:05 Vital Signs Temperature 96.6 F L 02/25/18 09:57 Pulse Rate 66 02/25/18 09:57 Respiratory Rate 18 02/25/18 09:57 Blood Pressure 124/74 02/25/18 09:57 O2 Sat by Pulse Oximetry (%) Laboratory Tests 02/23/18 02/24/18 02/24/18 18:40 06:20 06:20 WBC 1.8 L* D RBC 3.70 L Hgb 12.4 Hct 36.5 MCV 98.6 H MCH 33.5 MCHC 34.0 RDW 16.6 H D Plt Count 218 MPV 8.0 Neutrophils % (Manual) 46.0 Band Neutrophils % 0.0 Lymphocytes % (Manual) 30.0 Monocytes % (Manual) 13 H Eosinophils % (Manual) 5.0 H Basophils % (Manual) 0.0 Platelet Estimate Adequate Sodium 138 Potassium 4.3 Chloride 107 Carbon Dioxide 27 Anion Gap 4 L BUN 7 Creatinine 0.6 L Creat Clearance w eGFR > 60 Random Glucose 72 L Calcium 8.3 L Total Bilirubin < 0.1 L D AST 19 D ALT 18 Alkaline Phosphatase 108 D Total Protein 7.0 Albumin 3.5 D Urine Color Yellow Urine Appearance Clear Urine pH 5.0 D Ur Specific [place] 1.019 Urine Protein Negative Urine Glucose (UA) Negative Urine Ketones Negative Urine Blood Negative Urine Nitrite Negative Urine Bilirubin Negative Urine Urobilinogen Negative Ur Leukocyte Esterase Negative RPR Titer 02/24/18 06:20 WBC RBC Hgb Hct MCV MCH MCHC RDW Plt Count MPV Neutrophils % (Manual) Band Neutrophils % Lymphocytes % (Manual) Monocytes % (Manual) Eosinophils % (Manual) Basophils % (Manual) Platelet Estimate Sodium Potassium Chloride Carbon Dioxide Anion Gap BUN Creatinine Creat Clearance w eGFR Random Glucose Calcium Total Bilirubin AST ALT Alkaline Phosphatase Total Protein Albumin Urine Color Urine Appearance Urine pH Ur Specific [place] Urine Protein Urine Glucose (UA) Urine Ketones Urine Blood Urine Nitrite Urine Bilirubin Urine Urobilinogen Ur Leukocyte Esterase RPR Titer Nonreactive aaox3 ambulating no acute distress Assessment: 02/25/18 12:05 withdrawal sx Plan: continue detox increase fluids
[2018-02-25] MEDS ORDERED: ARTIFICIAL TEARS (POLYVINYL ALCOHOL 1.4%) OPTH DROPS OU PRN (12:06)
[2018-02-25] MEDS: chlordiazePOXIDE 5 MG CAPSULE PO SCH ×2 (17:32→22:06)
--- NOTE | 2018-02-25 18:06 | PN ---
S Progress Note Note: Laboratory Last Values WBC 1.8 K/mm3 (4.0-10.0) L* D 02/24/18 06:20 RBC 3.70 M/mm3 (4.00-5.60) L 02/24/18 06:20 Hgb 12.4 GM/dL (11.7-16.9) 02/24/18 06:20 Hct 36.5 % (35.4-49) 02/24/18 06:20 MCV 98.6 fl (80-96) H 02/24/18 06:20 MCH 33.5 pg (25.7-33.7) 02/24/18 06:20 MCHC 34.0 g/dl (32.0-35.9) 02/24/18 06:20 RDW 16.6 % (11.9-15.9) H D 02/24/18 06:20 Plt Count 218 K/MM3 (134-434) 02/24/18 06:20 MPV 8.0 fl (7.5-11.1) 02/24/18 06:20 Neutrophils % (Manual) 46.0 % (42.8-82.8) 02/24/18 06:20 Band Neutrophils % 0.0 % 02/24/18 06:20 Lymphocytes % (Manual) 30.0 % (8-40) 02/24/18 06:20 Monocytes % (Manual) 13 % (3.8-10.2) H 02/24/18 06:20 Eosinophils % (Manual) 5.0 % (0-4.5) H 02/24/18 06:20 Basophils % (Manual) 0.0 % (0-2.0) 02/24/18 06:20 Platelet Estimate Adequate 02/24/18 06:20 Sodium 138 mmol/L (136-145) 02/24/18 06:20 Potassium 4.3 mmol/L (3.5-5.1) 02/24/18 06:20 Chloride 107 mmol/L (98-107) 02/24/18 06:20 Carbon Dioxide 27 mmol/L (21-32) 02/24/18 06:20 Anion Gap 4 (8-16) L 02/24/18 06:20 BUN 7 mg/dL (7-18) 02/24/18 06:20 Creatinine 0.6 mg/dL (0.7-1.3) L 02/24/18 06:20 Creat Clearance w eGFR > 60 (>60) 02/24/18 06:20 Random Glucose 72 mg/dL (74-106) L 02/24/18 06:20 Calcium 8.3 mg/dL (8.5-10.1) L 02/24/18 06:20 Total Bilirubin < 0.1 mg/dL (0.2-1.0) L D 02/24/18 06:20 AST 19 U/L (15-37) D 02/24/18 06:20 ALT 18 U/L (12-78) 02/24/18 06:20 Alkaline Phosphatase 108 U/L (45-117) D 02/24/18 06:20 Total Protein 7.0 g/dl (6.4-8.2) 02/24/18 06:20 Albumin 3.5 g/dl (3.4-5.0) D 02/24/18 06:20 Urine Color Yellow 02/23/18 18:40 Urine Appearance Clear 02/23/18 18:40 Urine pH 5.0 (5.0-8.0) D 02/23/18 18:40 Ur Specific [place] 1.019 (1.001-1.035) 02/23/18 18:40 Urine Protein Negative (NEGATIVE) 02/23/18 18:40 Urine Glucose (UA) Negative (NEGATIVE) 02/23/18 18:40 Urine Ketones Negative (NEGATIVE) 02/23/18 18:40 Urine Blood Negative (NEGATIVE) 02/23/18 18:40 Urine Nitrite Negative (NEGATIVE) 02/23/18 18:40 Urine Bilirubin Negative (<2.0 mg/dL) 02/23/18 18:40 Urine Urobilinogen Negative mg/dL (0.2-1.0) 02/23/18 18:40 Ur Leukocyte Esterase Negative (NEGATIVE) 02/23/18 18:40 RPR Titer Nonreactive (NONREACTIVE) 02/24/18 06:20 LEUKOPENIA WBC 1,800 WILL REPEAT CBC IN AM
[2018-02-25] MEDS: THIAMINE HCL 100 MG TABLET (FP) PO SCH (22:06)
[2018-02-26] MEDS: chlordiazePOXIDE 5 MG CAPSULE PO SCH ×2 (05:09→10:07)
[2018-02-26] MEDS: PRENATAL VITAMINS W/ FOLIC ACID TABLET (FP) PO SCH (10:07)
[2018-02-26] MEDS: NICOTINE 21 MG/24 HOURS TOPICAL PATCH TD SCH (10:07)
--- NOTE | 2018-02-26 12:34 | PN ---
[facility] Progress Note (SOAP) Subjective: DECREASED ANXIETY, TREMORS. Objective: 02/26/18 12:34 Vital Signs Temperature 96.8 F L 02/26/18 09:13 Pulse Rate 72 02/26/18 09:13 Respiratory Rate 20 02/26/18 09:13 Blood Pressure 119/83 02/26/18 09:13 O2 Sat by Pulse Oximetry (%) Laboratory Last Values WBC 1.8 K/mm3 (4.0-10.0) L* D 02/24/18 06:20 RBC 3.70 M/mm3 (4.00-5.60) L 02/24/18 06:20 Hgb 12.4 GM/dL (11.7-16.9) 02/24/18 06:20 Hct 36.5 % (35.4-49) 02/24/18 06:20 MCV 98.6 fl (80-96) H 02/24/18 06:20 MCH 33.5 pg (25.7-33.7) 02/24/18 06:20 MCHC 34.0 g/dl (32.0-35.9) 02/24/18 06:20 RDW 16.6 % (11.9-15.9) H D 02/24/18 06:20 Plt Count 218 K/MM3 (134-434) 02/24/18 06:20 MPV 8.0 fl (7.5-11.1) 02/24/18 06:20 Neutrophils % (Manual) 46.0 % (42.8-82.8) 02/24/18 06:20 Band Neutrophils % 0.0 % 02/24/18 06:20 Lymphocytes % (Manual) 30.0 % (8-40) 02/24/18 06:20 Monocytes % (Manual) 13 % (3.8-10.2) H 02/24/18 06:20 Eosinophils % (Manual) 5.0 % (0-4.5) H 02/24/18 06:20 Basophils % (Manual) 0.0 % (0-2.0) 02/24/18 06:20 Platelet Estimate Adequate 02/24/18 06:20 Sodium 138 mmol/L (136-145) 02/24/18 06:20 Potassium 4.3 mmol/L (3.5-5.1) 02/24/18 06:20 Chloride 107 mmol/L (98-107) 02/24/18 06:20 Carbon Dioxide 27 mmol/L (21-32) 02/24/18 06:20 Anion Gap 4 (8-16) L 02/24/18 06:20 BUN 7 mg/dL (7-18) 02/24/18 06:20 Creatinine 0.6 mg/dL (0.7-1.3) L 02/24/18 06:20 Creat Clearance w eGFR > 60 (>60) 02/24/18 06:20 Random Glucose 72 mg/dL (74-106) L 02/24/18 06:20 Calcium 8.3 mg/dL (8.5-10.1) L 02/24/18 06:20 Total Bilirubin < 0.1 mg/dL (0.2-1.0) L D 02/24/18 06:20 AST 19 U/L (15-37) D 02/24/18 06:20 ALT 18 U/L (12-78) 02/24/18 06:20 Alkaline Phosphatase 108 U/L (45-117) D 02/24/18 06:20 Total Protein 7.0 g/dl (6.4-8.2) 02/24/18 06:20 Albumin 3.5 g/dl (3.4-5.0) D 02/24/18 06:20 Urine Color Yellow 02/23/18 18:40 Urine Appearance Clear 02/23/18 18:40 Urine pH 5.0 (5.0-8.0) D 02/23/18 18:40 Ur Specific [place] 1.019 (1.001-1.035) 02/23/18 18:40 Urine Protein Negative (NEGATIVE) 02/23/18 18:40 Urine Glucose (UA) Negative (NEGATIVE) 02/23/18 18:40 Urine Ketones Negative (NEGATIVE) 02/23/18 18:40 Urine Blood Negative (NEGATIVE) 02/23/18 18:40 Urine Nitrite Negative (NEGATIVE) 02/23/18 18:40 Urine Bilirubin Negative (<2.0 mg/dL) 02/23/18 18:40 Urine Urobilinogen Negative mg/dL (0.2-1.0) 02/23/18 18:40 Ur Leukocyte Esterase Negative (NEGATIVE) 02/23/18 18:40 RPR Titer Nonreactive (NONREACTIVE) 02/24/18 06:20 Assessment: 02/26/18 12:34 WITHDRAWAL SX Plan: CONTINUE DETOX
--- NOTE | 2018-02-26 12:45 | EKG ---
Test Reason : Blood Pressure : / mmHG Vent. Rate : 081 BPM Atrial Rate : 081 BPM P-R Int : 122 ms QRS Dur : 146 ms QT Int : 378 ms P-R-T Axes : 065 -21 061 degrees QTc Int : 439 ms NORMAL SINUS RHYTHM RIGHT BUNDLE BRANCH BLOCK MINIMAL VOLTAGE CRITERIA FOR LVH, MAY BE NORMAL VARIANT ABNORMAL ECG WHEN COMPARED WITH ECG OF 27-NOV-2017 18:29, COMPARED TO EKG NO SIGNIFICANT CHANGE IS FOUND Confirmed by ANSON COMBS MD ([id number]) on 02/26/2018 12:44:58 PM Referred By: Confirmed By:ANSON COMBS MD
[2018-02-26] MEDS: chlordiazePOXIDE HCL 10 MG CAPSULE PO SCH ×2 (17:16→22:12)
[2018-02-26] MEDS: THIAMINE HCL 100 MG TABLET (FP) PO SCH (22:12)
[2018-02-27] MEDS: chlordiazePOXIDE HCL 10 MG CAPSULE PO SCH ×2 (05:09→10:07)
[2018-02-27 09:04] VITALS: BP 122/84; PULSE 93; TEMP 96
[2018-02-27] MEDS: NICOTINE 21 MG/24 HOURS TOPICAL PATCH TD SCH (10:06)
[2018-02-27] MEDS: PRENATAL VITAMINS W/ FOLIC ACID TABLET (FP) PO SCH (10:06)
--- NOTE | 2018-02-27 10:17 | PN ---
[facility] Progress Note (SOAP) Subjective: DETOX COMPLETED. ALERT O X3. REFERRED TO REHAB TODAY. Objective: 02/27/18 15:27 Vital Signs Temperature 96.0 F L 02/27/18 09:03 Pulse Rate 93 H 02/27/18 09:03 Respiratory Rate 20 02/27/18 09:03 Blood Pressure 122/84 02/27/18 09:03 O2 Sat by Pulse Oximetry (%) Laboratory Last Values WBC 1.8 K/mm3 (4.0-10.0) L* D 02/24/18 06:20 RBC 3.70 M/mm3 (4.00-5.60) L 02/24/18 06:20 Hgb 12.4 GM/dL (11.7-16.9) 02/24/18 06:20 Hct 36.5 % (35.4-49) 02/24/18 06:20 MCV 98.6 fl (80-96) H 02/24/18 06:20 MCH 33.5 pg (25.7-33.7) 02/24/18 06:20 MCHC 34.0 g/dl (32.0-35.9) 02/24/18 06:20 RDW 16.6 % (11.9-15.9) H D 02/24/18 06:20 Plt Count 218 K/MM3 (134-434) 02/24/18 06:20 MPV 8.0 fl (7.5-11.1) 02/24/18 06:20 Neutrophils % (Manual) 46.0 % (42.8-82.8) 02/24/18 06:20 Band Neutrophils % 0.0 % 02/24/18 06:20 Lymphocytes % (Manual) 30.0 % (8-40) 02/24/18 06:20 Monocytes % (Manual) 13 % (3.8-10.2) H 02/24/18 06:20 Eosinophils % (Manual) 5.0 % (0-4.5) H 02/24/18 06:20 Basophils % (Manual) 0.0 % (0-2.0) 02/24/18 06:20 Platelet Estimate Adequate 02/24/18 06:20 Sodium 138 mmol/L (136-145) 02/24/18 06:20 Potassium 4.3 mmol/L (3.5-5.1) 02/24/18 06:20 Chloride 107 mmol/L (98-107) 02/24/18 06:20 Carbon Dioxide 27 mmol/L (21-32) 02/24/18 06:20 Anion Gap 4 (8-16) L 02/24/18 06:20 BUN 7 mg/dL (7-18) 02/24/18 06:20 Creatinine 0.6 mg/dL (0.7-1.3) L 02/24/18 06:20 Creat Clearance w eGFR > 60 (>60) 02/24/18 06:20 Random Glucose 72 mg/dL (74-106) L 02/24/18 06:20 Calcium 8.3 mg/dL (8.5-10.1) L 02/24/18 06:20 Total Bilirubin < 0.1 mg/dL (0.2-1.0) L D 02/24/18 06:20 AST 19 U/L (15-37) D 02/24/18 06:20 ALT 18 U/L (12-78) 02/24/18 06:20 Alkaline Phosphatase 108 U/L (45-117) D 02/24/18 06:20 Total Protein 7.0 g/dl (6.4-8.2) 02/24/18 06:20 Albumin 3.5 g/dl (3.4-5.0) D 02/24/18 06:20 Urine Color Yellow 02/23/18 18:40 Urine Appearance Clear 02/23/18 18:40 Urine pH 5.0 (5.0-8.0) D 02/23/18 18:40 Ur Specific [place] 1.019 (1.001-1.035) 02/23/18 18:40 Urine Protein Negative (NEGATIVE) 02/23/18 18:40 Urine Glucose (UA) Negative (NEGATIVE) 02/23/18 18:40 Urine Ketones Negative (NEGATIVE) 02/23/18 18:40 Urine Blood Negative (NEGATIVE) 02/23/18 18:40 Urine Nitrite Negative (NEGATIVE) 02/23/18 18:40 Urine Bilirubin Negative (<2.0 mg/dL) 02/23/18 18:40 Urine Urobilinogen Negative mg/dL (0.2-1.0) 02/23/18 18:40 Ur Leukocyte Esterase Negative (NEGATIVE) 02/23/18 18:40 RPR Titer Nonreactive (NONREACTIVE) 02/24/18 06:20 Assessment: 02/27/18 15:27 MEDICALLY STABLE Plan: D/C PT TODAY
--- NOTE | 2018-02-27 10:17 | DS ---
[facility] Detox Discharge Summary Admission Date: 02/23/18 - Physical Exam Results Vital Signs: Vital Signs Temperature 96.0 F L 02/27/18 09:03 Pulse Rate 93 H 02/27/18 09:03 Respiratory Rate 20 02/27/18 09:03 Blood Pressure 122/84 02/27/18 09:03 O2 Sat by Pulse Oximetry (%) - Medication Discharge Medications: Ambulatory Orders Artificial Tears 02/25/18 - Diagnosis (1) Alcohol dependence with uncomplicated withdrawal Current Visit: Yes Status: Acute (2) Anemia Current Visit: Yes Status: Suspected Qualifiers: Anemia type: unspecified type Qualified Code(s): D64.9 - Anemia, unspecified (3) Hypertension Current Visit: Yes Status: Chronic Qualifiers: Hypertension type: essential hypertension Qualified Code(s): I10 - Essential (primary) hypertension (4) Nicotine dependence Current Visit: Yes Status: Acute Qualifiers: Nicotine product type: cigarettes Substance use status: in withdrawal Qualified Code(s): F17.213 - Nicotine dependence, cigarettes, with withdrawal (5) HTN (hypertension) Current Visit: Yes Status: Suspected Qualifiers: Hypertension type: essential hypertension Qualified Code(s): I10 - Essential (primary) hypertension
== END 2018-02-27 12:56 | disposition other institution (70) | DRG 775 ==
LOC: YASAS 08:42 → Y3N 11:59
PROVIDERS: ADMIT Internal Medicine; ATTEND Internal Medicine
PROC: HZ2ZZZZ Detoxification Services for Substance Abuse Treatment (ICD-10-PCS; principal; 2018-02-23)
DX: F10.230 Alcohol dependence with withdrawal, uncomplicated (principal); F17.213 Nicotine dependence, cigarettes, with withdrawal; F19.24 Other psychoactive substance dependence with psychoactive substance-induced mood disorder; F31.9 Bipolar disorder, unspecified; I10 Essential (primary) hypertension; D64.9 Anemia, unspecified
CPT/HCPCS: 36415; 80053; 81003; 85027; 86593; 93005; 93010

== ENCOUNTER 2018-02-27 13:11 | Inpatient (IN) | payer OTHER ==
[2018-02-27] MEDS ORDERED: MAG HYDROX/AL HYDROX/SIMETH 30 ML UNIT-DOSE CUP PO PRN (15:16)
[2018-02-27] MEDS ORDERED: LOPERAMIDE HCL 2 MG CAPSULE PO PRN (15:16)
[2018-02-27] MEDS ORDERED: hydrOXYzine PAMOATE 50 MG CAPSULE (FP) PO PRN (15:16)
[2018-02-27] MEDS ORDERED: MAGNESIUM CITRATE 300 ML BOTTLE PO PRN (15:16)
[2018-02-27] MEDS ORDERED: guaiFENesin/D-METHORPHAN HB 10 ML UNIT-DOSE CUPS PO PRN (15:16)
[2018-02-27] MEDS ORDERED: P-EPHED 60MG/TRIPROLIDI 2.5MG TABLET PO PRN (15:16)
[2018-02-27] MEDS ORDERED: NICOTINE POLACRILEX 2 MG GUM BUC PRN (15:16)
[2018-02-27] MEDS ORDERED: MENTHOL/PHENOL 1 EACH UD MM PRN (15:16)
[2018-02-27] MEDS ORDERED: MAGNESIUM HYDROX 2400MG/30ML ORAL SUSPENSION 30 ML CUP PO PRN (15:16)
[2018-02-27] MEDS ORDERED: IBUPROFEN 400 MG TABLET (FP) PO PRN (15:16)
[2018-02-27] MEDS ORDERED: ACETAMINOPHEN 325 MG TABLET (FP) PO PRN (15:16)
--- NOTE | 2018-02-27 15:17 | HP ---
[facility] Rehab Assess/Revision - Admission History Admitted to Rehab from: [facility] [place] Date of Admission to Rehab: 02/27/18 - Findings Detox History & Physical reviewed: Yes Concur with findings: Yes Inpatient Rehab Admission - Initial Determination Are CD services needed?: Yes Free of communicable disease: Yes Not in need of hospitalization: Yes - Rehab Admission Criteria Previous failed treatment: Yes Poor recovery environment: Yes Comorbidities: Yes Lacks judgement: Yes Patient is meeting Inpatient Rehab admission criteria:: Yes
[2018-02-27] MEDS: THIAMINE HCL 100 MG TABLET (FP) PO SCH (21:47)
[2018-02-27] MEDS ORDERED: MELATONIN 5 MG TABLETS PO PRN (22:00)
[2018-02-28] MEDS: PRENATAL VITAMINS W/ FOLIC ACID TABLET (FP) PO SCH (10:38)
[2018-02-28] MEDS: NICOTINE 14 MG/24 HOURS TOPICAL PATCH TD SCH (10:38)
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
[2018-02-28] MEDS: THIAMINE HCL 100 MG TABLET (FP) PO SCH (21:37)
[2018-03-01] MEDS: NICOTINE 14 MG/24 HOURS TOPICAL PATCH TD SCH (10:45)
[2018-03-01] MEDS: PRENATAL VITAMINS W/ FOLIC ACID TABLET (FP) PO SCH (10:46)
[2018-03-01] MEDS: THIAMINE HCL 100 MG TABLET (FP) PO SCH (22:09)
[2018-03-02] MEDS: PRENATAL VITAMINS W/ FOLIC ACID TABLET (FP) PO SCH (10:15)
[2018-03-02] MEDS: NICOTINE 14 MG/24 HOURS TOPICAL PATCH TD SCH (10:15)
--- NOTE | 2018-03-02 11:16 | PN ---
[facility] Progress Note Note: Pt presents with itching and dryness of eyes x 4 days. Requesting eye drops. Exam: +PERRLA, EOMs intact BL, no redness noted. A/P dry eyes/itching. Will order artificial tears BID to OU and monitor clinically.
[2018-03-02] MEDS: COLLOIDAL OATMEAL 1 BAR EACH TP PRN (12:52)
[2018-03-02] MEDS: THIAMINE HCL 100 MG TABLET (FP) PO SCH (21:44)
[2018-03-02] MEDS: ARTIFICIAL TEARS (POLYVINYL ALCOHOL 1.4%) OPTH DROPS OU SCH (21:44)
[2018-03-03] MEDS: NICOTINE 14 MG/24 HOURS TOPICAL PATCH TD SCH (10:12)
[2018-03-03] MEDS: PRENATAL VITAMINS W/ FOLIC ACID TABLET (FP) PO SCH (10:12)
[2018-03-03] MEDS: ARTIFICIAL TEARS (POLYVINYL ALCOHOL 1.4%) OPTH DROPS OU SCH ×2 (10:13→21:45)
[2018-03-03] MEDS: THIAMINE HCL 100 MG TABLET (FP) PO SCH (21:45)
[2018-03-04] MEDS: COLLOIDAL OATMEAL 1 BAR EACH TP PRN (06:52)
[2018-03-04] MEDS: PRENATAL VITAMINS W/ FOLIC ACID TABLET (FP) PO SCH (10:23)
[2018-03-04] MEDS: ARTIFICIAL TEARS (POLYVINYL ALCOHOL 1.4%) OPTH DROPS OU SCH ×2 (10:23→21:57)
[2018-03-04] MEDS: NICOTINE 14 MG/24 HOURS TOPICAL PATCH TD SCH (10:23)
[2018-03-04] MEDS: THIAMINE HCL 100 MG TABLET (FP) PO SCH (21:57)
[2018-03-05] MEDS: PRENATAL VITAMINS W/ FOLIC ACID TABLET (FP) PO SCH (09:41)
[2018-03-05] MEDS: ARTIFICIAL TEARS (POLYVINYL ALCOHOL 1.4%) OPTH DROPS OU SCH ×2 (09:41→21:48)
[2018-03-05] MEDS: NICOTINE 14 MG/24 HOURS TOPICAL PATCH TD SCH (09:42)
[2018-03-05] MEDS: THIAMINE HCL 100 MG TABLET (FP) PO SCH (21:48)
[2018-03-06] MEDS: PRENATAL VITAMINS W/ FOLIC ACID TABLET (FP) PO SCH (10:30)
[2018-03-06] MEDS: ARTIFICIAL TEARS (POLYVINYL ALCOHOL 1.4%) OPTH DROPS OU SCH ×2 (10:30→21:42)
[2018-03-06] MEDS: NICOTINE 14 MG/24 HOURS TOPICAL PATCH TD SCH (10:31)
[2018-03-06] MEDS: THIAMINE HCL 100 MG TABLET (FP) PO SCH (21:42)
[2018-03-07] MEDS: PRENATAL VITAMINS W/ FOLIC ACID TABLET (FP) PO SCH (09:42)
[2018-03-07] MEDS: ARTIFICIAL TEARS (POLYVINYL ALCOHOL 1.4%) OPTH DROPS OU SCH ×2 (09:42→21:43)
[2018-03-07] MEDS: NICOTINE 14 MG/24 HOURS TOPICAL PATCH TD SCH (09:42)
[2018-03-07] MEDS: THIAMINE HCL 100 MG TABLET (FP) PO SCH (21:42)
[2018-03-08] MEDS: PRENATAL VITAMINS W/ FOLIC ACID TABLET (FP) PO SCH (09:46)
[2018-03-08] MEDS: NICOTINE 14 MG/24 HOURS TOPICAL PATCH TD SCH (09:47)
[2018-03-08] MEDS: ARTIFICIAL TEARS (POLYVINYL ALCOHOL 1.4%) OPTH DROPS OU SCH ×2 (09:47→22:02)
[2018-03-08] MEDS: COLLOIDAL OATMEAL 1 BAR EACH TP PRN (17:44)
[2018-03-08] MEDS: THIAMINE HCL 100 MG TABLET (FP) PO SCH (22:01)
[2018-03-09] MEDS: BACITRACIN 0.9 GM PACKET TP SCH ×2 (10:35→22:07)
[2018-03-09] MEDS: PRENATAL VITAMINS W/ FOLIC ACID TABLET (FP) PO SCH (10:35)
[2018-03-09] MEDS: ARTIFICIAL TEARS (POLYVINYL ALCOHOL 1.4%) OPTH DROPS OU SCH ×2 (10:36→22:07)
[2018-03-09] MEDS: NICOTINE 14 MG/24 HOURS TOPICAL PATCH TD SCH (10:36)
[2018-03-09] MEDS: THIAMINE HCL 100 MG TABLET (FP) PO SCH (22:06)
[2018-03-10] MEDS: BACITRACIN 0.9 GM PACKET TP SCH ×2 (10:38→21:57)
[2018-03-10] MEDS: PRENATAL VITAMINS W/ FOLIC ACID TABLET (FP) PO SCH (10:38)
[2018-03-10] MEDS: ARTIFICIAL TEARS (POLYVINYL ALCOHOL 1.4%) OPTH DROPS OU SCH ×2 (10:39→21:57)
[2018-03-10] MEDS: NICOTINE 14 MG/24 HOURS TOPICAL PATCH TD SCH (10:39)
[2018-03-10] MEDS: THIAMINE HCL 100 MG TABLET (FP) PO SCH (21:57)
[2018-03-11] MEDS: PRENATAL VITAMINS W/ FOLIC ACID TABLET (FP) PO SCH (10:24)
[2018-03-11] MEDS: NICOTINE 14 MG/24 HOURS TOPICAL PATCH TD SCH (10:24)
[2018-03-11] MEDS: BACITRACIN 0.9 GM PACKET TP SCH ×2 (10:25→21:40)
[2018-03-11] MEDS: ARTIFICIAL TEARS (POLYVINYL ALCOHOL 1.4%) OPTH DROPS OU SCH ×2 (10:25→21:40)
[2018-03-11] MEDS: THIAMINE HCL 100 MG TABLET (FP) PO SCH (21:40)
[2018-03-12] MEDS: ARTIFICIAL TEARS (POLYVINYL ALCOHOL 1.4%) OPTH DROPS OU SCH ×2 (10:56→21:40)
[2018-03-12] MEDS: NICOTINE 14 MG/24 HOURS TOPICAL PATCH TD SCH (10:58)
[2018-03-12] MEDS: PRENATAL VITAMINS W/ FOLIC ACID TABLET (FP) PO SCH (10:58)
[2018-03-12] MEDS: BACITRACIN 0.9 GM PACKET TP SCH ×2 (10:58→21:41)
[2018-03-12] MEDS: THIAMINE HCL 100 MG TABLET (FP) PO SCH (21:40)
[2018-03-13 06:47] VITALS: BP 127/82; PULSE 86; TEMP 98.5
--- NOTE | 2018-03-13 10:48 | PN ---
Psychiatric Progress Note Vital Signs: Vital Signs Period Temp Pulse Resp BP Sys/Lopez Pulse Ox Last 24 Hr 98.5 F 86 18-19 127/82 Date of Session: 03/13/18 Chief Complaint:: discharge visit HPI: Patient has addressed alcohol, nicotine dependence comorbid substance induced mood disorder. ROS: WNL Current Side Effect: No Lab tests ordered: No Lab tests reviewed: Yes Provider note:: Patient has completed today his treatment and met his golas, will continue to address his issues at [facility] outpatient treatment program. He focused on insights he gained in this treatment and ways to utilize supports to perevent relapses, patient was encouraged to continue maintain abstinence, he is stable for discharge. Total face to face time:: 15 Mental Status Exam - Mental Status Exam Alert and Oriented to: Time, Place, Person Cognitive Function: Good Patient Appearance: Well Groomed Mood: Hopeful Affect: Appropriate, Mood Congruent Patient Behavior: Cooperative Speech Pattern: Clear, Appropriate Voice Loudness: Normal Thought Process: Intact, Goal Oriented Thought Disorder: Not Present Hallucinations: Denies Suicidal Ideation: Denies Homicidal Ideation: Denies Insight/Judgement: Fair Sleep: Fair Appetite: Fair Muscle strength/Tone: Normal Gait/Station: Normal Psychiatric Treatment Plan - Problem List (3) Nicotine dependence Qualifiers: Nicotine product type: cigarettes Substance use status: in withdrawal Qualified Code(s): F17.213 - Nicotine dependence, cigarettes, with withdrawal
== END 2018-03-13 09:45 | disposition home or self-care (01) | DRG 772 ==
LOC: YASAS 13:11 → Y5N 13:12
PROVIDERS: ADMIT Psychiatry & Neurology Psychiatry; ATTEND Psychiatry & Neurology Psychiatry
PROC: HZ42ZZZ Group Counseling for Substance Abuse Treatment, Cognitive-Behavioral (ICD-10-PCS; principal; 2018-02-27)
DX: F10.20 Alcohol dependence, uncomplicated (principal); F17.213 Nicotine dependence, cigarettes, with withdrawal; F19.24 Other psychoactive substance dependence with psychoactive substance-induced mood disorder; F43.10 Post-traumatic stress disorder, unspecified; H04.129 Dry eye syndrome of unspecified lacrimal gland; I10 Essential (primary) hypertension; D64.9 Anemia, unspecified

== ENCOUNTER 2018-03-29 11:06 | Inpatient (IN) | payer OTHER ==
[2018-03-29 11:45] VITALS: BMI 23.2
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
[2018-03-29] MEDS ORDERED: guaiFENesin/D-METHORPHAN HB 10 ML UNIT-DOSE CUPS PO PRN (13:38)
[2018-03-29] MEDS ORDERED: MENTHOL/PHENOL 1 EACH UD MM PRN (13:38)
[2018-03-29] MEDS ORDERED: MAGNESIUM HYDROX 2400MG/30ML ORAL SUSPENSION 30 ML CUP PO PRN (13:38)
[2018-03-29] MEDS ORDERED: IBUPROFEN 400 MG TABLET (FP) PO PRN (13:38)
[2018-03-29] MEDS ORDERED: NICOTINE POLACRILEX 2 MG GUM BUC PRN (13:38)
[2018-03-29] MEDS ORDERED: chlordiazePOXIDE HCL 25 MG CAPSULE PO PRN (13:38)
[2018-03-29] MEDS ORDERED: MAG HYDROX/AL HYDROX/SIMETH 30 ML UNIT-DOSE CUP PO PRN (13:38)
[2018-03-29] MEDS ORDERED: NICOTINE 14 MG/24 HOURS TOPICAL PATCH TD PRN (13:38)
[2018-03-29] MEDS ORDERED: LOPERAMIDE HCL 2 MG CAPSULE PO PRN (13:38)
[2018-03-29] MEDS ORDERED: P-EPHED 60MG/TRIPROLIDI 2.5MG TABLET PO PRN (13:38)
[2018-03-29] MEDS ORDERED: MAGNESIUM CITRATE 300 ML BOTTLE PO PRN (13:38)
[2018-03-29] MEDS ORDERED: ACETAMINOPHEN 325 MG TABLET (FP) PO PRN (13:38)
--- NOTE | 2018-03-29 16:38 | PN ---
S Progress Note Note: Patient with ETOH withdrawal sx Vital Signs Temperature 97.6 F 03/29/18 11:42 Pulse Rate 77 03/29/18 11:42 Respiratory Rate 20 03/29/18 11:42 Blood Pressure 131/80 03/29/18 11:42 O2 Sat by Pulse Oximetry (%) stat 50mg librium order increase fluids continue to monitor
[2018-03-29] MEDS ORDERED: chlordiazePOXIDE HCL 25 MG CAPSULE PO ONE (17:00)
[2018-03-29] MEDS ORDERED: MELATONIN 5 MG TABLETS PO PRN (22:00)
[2018-03-29] MEDS: chlordiazePOXIDE HCL 25 MG CAPSULE PO SCH (22:15)
[2018-03-29] MEDS: THIAMINE HCL 100 MG TABLET (FP) PO SCH (22:15)
[2018-03-30 03:31] LABS: URINE APPEARANCE TURBID; URINE BILIRUBIN NEGATIVE (<2.0 mg/dL); URINE BLOOD NEGATIVE (NEGATIVE); URINE COLOR AMBER; URINE GLUCOSE (UA) NEGATIVE (NEGATIVE); URINE KETONE NEGATIVE (NEGATIVE); URINE LEUK ESTERASE NEGATIVE (NEGATIVE); URINE NITRITE NEGATIVE (NEGATIVE); URINE PROTEIN NEGATIVE (NEGATIVE); URINE UROBILINOGEN NEGATIVE mg/dL (0.2-1.0)
[2018-03-30] MEDS: chlordiazePOXIDE HCL 25 MG CAPSULE PO SCH ×4 (05:50→22:18)
[2018-03-30 09:32] LABS: HEMATOCRIT 35.2 % (35.4-49); HEMOGLOBIN 12.2 GM/dL (11.7-16.9); MCH 34.2 pg (25.7-33.7); MCHC 34.6 g/dl (32.0-35.9); MEAN CELL VOLUME 98.9 fl (80-96); MEAN PLT VOLUME 7.7 fl (7.5-11.1); PLATELET COUNT 193 K/MM3 (134-434); RBC 3.56 M/mm3 (4.00-5.60); RDW 14.8 % (11.9-15.9)
[2018-03-30] MEDS: PRENATAL VITAMINS W/ FOLIC ACID TABLET (FP) PO SCH (10:18)
[2018-03-30 10:21] LABS: ALBUMIN 3.5 g/dl (3.4-5.0); ANION GAP 7 (8-16); BLOOD UREA NITROGEN 8 mg/dL (7-18); CALCIUM 8.1 mg/dL (8.5-10.1); CHLORIDE 107 mmol/L (98-107); CO2 26 mmol/L (21-32); CREATININE 0.8 mg/dL (0.7-1.3); GLUCOSE,RANDOM 70 mg/dL (74-106); POTASSIUM 4.5 mmol/L (3.5-5.1); SGOT/AST 17 U/L (15-37); SGPT/ALT 15 U/L (12-78); SODIUM 140 mmol/L (136-145)
[2018-03-30 10:22] LABS: ALK PHOS 99 U/L (45-117); BILIRUBIN,TOTAL 0.5 mg/dL (0.2-1.0); TOT PROT 6.9 g/dl (6.4-8.2)
[2018-03-30 10:23] LABS: WHITE BLOOD COUNT 1.6 K/mm3 (4.0-10.0)
--- NOTE | 2018-03-30 11:25 | EKG ---
Test Reason : Blood Pressure : / mmHG Vent. Rate : 079 BPM Atrial Rate : 079 BPM P-R Int : 126 ms QRS Dur : 142 ms QT Int : 374 ms P-R-T Axes : 066 -22 060 degrees QTc Int : 428 ms NORMAL SINUS RHYTHM RIGHT BUNDLE BRANCH BLOCK ABNORMAL ECG WHEN COMPARED WITH ECG OF 23-FEB-2018 13:09, NO SIGNIFICANT CHANGE WAS FOUND Confirmed by DINA HERNÁNDEZ MD ([id number]) on 03/30/2018 11:24:57 AM Referred By: Confirmed By:DINA HERNÁNDEZ MD
--- NOTE | 2018-03-30 11:40 | PN ---
S CIWA - CIWA Score Nausea/Vomitin-No Nausea/No Vomiting Muscle Tremors: 4-Moderate,w/Arms Extend Anxiety: 4-Mod. Anxious/Guarded Agitation: 4-Moderately Restless Paroxysmal Sweats: 1-Minimal Palms Moist Orientation: 0-Oriented Tacttile Disturbances: 0-None Auditory Disturbances: 0-None Visual Disturbances: 0-None Headache: 0-None Present CIWA-Ar Total Score: 13 BHS Progress Note (SOAP) Subjective: ANXIETY,SWEATS, TREMORS,"SORE ALL OVER",FATIGUE, INTERMITTENT SLEEP. Objective: 03/30/18 11:41 Vital Signs 03/30/18 03/30/18 06:13 09:41 Temperature 96.6 F L 96.2 F L Pulse Rate 78 81 Respiratory 18 20 Rate Blood Pressure 115/79 117/71 Laboratory Tests 03/29/18 03/30/18 03/30/18 15:10 05:50 05:50 WBC 1.6 L* RBC 3.56 L Hgb 12.2 Hct 35.2 L MCV 98.9 H MCH 34.2 H MCHC 34.6 RDW 14.8 D Plt Count 193 MPV 7.7 Sodium 140 Potassium 4.5 Chloride 107 Carbon Dioxide 26 Anion Gap 7 L BUN 8 Creatinine 0.8 D Creat Clearance w eGFR > 60 Random Glucose 70 L Calcium 8.1 L Total Bilirubin 0.5 D AST 17 ALT 15 Alkaline Phosphatase 99 Total Protein 6.9 Albumin 3.5 Urine Color Tereza Urine Appearance Turbid Urine pH 5.0 Ur Specific [place] 1.018 Urine Protein Negative Urine Glucose (UA) Negative Urine Ketones Negative Urine Blood Negative Urine Nitrite Negative Urine Bilirubin Negative Urine Urobilinogen Negative Ur Leukocyte Esterase Negative Assessment: 03/30/18 11:41 WITHDRAWAL SX HX CHRONIC LEUKOPENIA Plan: CONTINUE DETOX
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
[2018-03-30] MEDS: THIAMINE HCL 100 MG TABLET (FP) PO SCH (22:18)
[2018-03-31] MEDS: chlordiazePOXIDE HCL 25 MG CAPSULE PO SCH ×3 (07:28→18:02)
[2018-03-31] MEDS: PRENATAL VITAMINS W/ FOLIC ACID TABLET (FP) PO SCH (10:21)
[2018-03-31 10:40] LABS: HEMATOCRIT 36.4 % (35.4-49); HEMOGLOBIN 12.4 GM/dL (11.7-16.9); MCH 33.5 pg (25.7-33.7); MCHC 34.1 g/dl (32.0-35.9); MEAN CELL VOLUME 98.1 fl (80-96); MEAN PLT VOLUME 7.8 fl (7.5-11.1); PLATELET COUNT 177 K/MM3 (134-434); RBC 3.71 M/mm3 (4.00-5.60); RDW 15.5 % (11.9-15.9)
[2018-03-31 10:50] LABS: WHITE BLOOD COUNT 1.8 K/mm3 (4.0-10.0)
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
[2018-03-31] MEDS: chlordiazePOXIDE 5 MG CAPSULE PO SCH (22:19)
[2018-03-31] MEDS: THIAMINE HCL 100 MG TABLET (FP) PO SCH (22:19)
[2018-04-01] MEDS: chlordiazePOXIDE 5 MG CAPSULE PO SCH ×3 (06:10→17:34)
[2018-04-01] MEDS: PRENATAL VITAMINS W/ FOLIC ACID TABLET (FP) PO SCH (10:27)
--- NOTE | 2018-04-01 12:26 | PN ---
[facility] Progress Note (SOAP) Subjective: feeling feverish and dehydrated, interrupted sleep Objective: 04/01/18 12:21 Last Vital Signs Temp Pulse Resp BP Pulse Ox 97 F L 92 H 20 115/86 04/01/18 09:22 04/01/18 09:22 04/01/18 09:22 04/01/18 09:22 Laboratory Tests 03/29/18 03/30/18 03/30/18 15:10 05:50 05:50 WBC 1.6 L* RBC 3.56 L Hgb 12.2 Hct 35.2 L MCV 98.9 H MCH 34.2 H MCHC 34.6 RDW 14.8 D Plt Count 193 MPV 7.7 Sodium 140 Potassium 4.5 Chloride 107 Carbon Dioxide 26 Anion Gap 7 L BUN 8 Creatinine 0.8 D Creat Clearance w eGFR > 60 Random Glucose 70 L Calcium 8.1 L Total Bilirubin 0.5 D AST 17 ALT 15 Alkaline Phosphatase 99 Total Protein 6.9 Albumin 3.5 Urine Color Tereza Urine Appearance Turbid Urine pH 5.0 Ur Specific [place] 1.018 Urine Protein Negative Urine Glucose (UA) Negative Urine Ketones Negative Urine Blood Negative Urine Nitrite Negative Urine Bilirubin Negative Urine Urobilinogen Negative Ur Leukocyte Esterase Negative RPR Titer 03/30/18 03/31/18 05:50 07:50 WBC 1.8 L* RBC 3.71 L Hgb 12.4 Hct 36.4 MCV 98.1 H MCH 33.5 MCHC 34.1 RDW 15.5 Plt Count 177 MPV 7.8 Sodium Potassium Chloride Carbon Dioxide Anion Gap BUN Creatinine Creat Clearance w eGFR Random Glucose Calcium Total Bilirubin AST ALT Alkaline Phosphatase Total Protein Albumin Urine Color Urine Appearance Urine pH Ur Specific [place] Urine Protein Urine Glucose (UA) Urine Ketones Urine Blood Urine Nitrite Urine Bilirubin Urine Urobilinogen Ur Leukocyte Esterase RPR Titer Nonreactive Labs reviewed: wbc 1.8 Assessment: 04/01/18 12:22 Withdrawal symptoms Noted with leukopenia Plan: Continue detox Encouraged PO hydration (water) Leukopenia: asymptomatic, encouraged good hand washing with soap and water prior to eating and before and after using restroom.
[2018-04-01] MEDS: chlordiazePOXIDE HCL 10 MG CAPSULE PO SCH (22:16)
[2018-04-01] MEDS: THIAMINE HCL 100 MG TABLET (FP) PO SCH (22:16)
[2018-04-02] MEDS: chlordiazePOXIDE HCL 10 MG CAPSULE PO SCH ×3 (06:09→17:33)
--- NOTE | 2018-04-02 10:14 | PN ---
S Progress Note (SOAP) Subjective: Denies any complaints Objective: 04/02/18 10:12 A & O x3 Walking steadily on unit No distress noted Vital Signs Temperature 96.5 F L 04/02/18 09:19 Pulse Rate 96 H 04/02/18 09:19 Respiratory Rate 18 04/02/18 09:19 Blood Pressure 114/78 04/02/18 09:19 O2 Sat by Pulse Oximetry (%) Assessment: 04/02/18 10:12 Detox safely completed No home meds Plan: for d/c Maintain clean techniques in community
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
[2018-04-02] MEDS: PRENATAL VITAMINS W/ FOLIC ACID TABLET (FP) PO SCH (10:55)
--- NOTE | 2018-04-02 16:08 | PN ---
S Progress Note Note: pt c/o dizziness Increased hydration advised, Pt cannot be picked up today, to be picked up for aftercare tomorrow Pt's d/c changed to tomorrow to allow his medical complain resolve and for safe discharge to aftercare center
[2018-04-02] MEDS: THIAMINE HCL 100 MG TABLET (FP) PO SCH (22:25)
[2018-04-03 10:01] VITALS: BP 114/76; PULSE 88; TEMP 98.7
[2018-04-03] MEDS: PRENATAL VITAMINS W/ FOLIC ACID TABLET (FP) PO SCH (10:25)
--- NOTE | 2018-04-03 16:38 | PN ---
[facility] Progress Note (SOAP) Subjective: Patient denies current Detox symptoms and reports that he feels well overall. Objective: PATIENT A & O X 3, OBSERVED AMBULATING ON UNIT. NO ACUTE DISTRESS. 04/03/18 16:36 Vital Signs Temperature 98.7 F 04/03/18 09:59 Pulse Rate 88 04/03/18 09:59 Respiratory Rate 16 04/03/18 09:59 Blood Pressure 114/76 04/03/18 09:59 O2 Sat by Pulse Oximetry (%) Laboratory Tests 03/29/18 03/30/18 03/30/18 15:10 05:50 05:50 WBC 1.6 L* RBC 3.56 L Hgb 12.2 Hct 35.2 L MCV 98.9 H MCH 34.2 H MCHC 34.6 RDW 14.8 D Plt Count 193 MPV 7.7 Sodium 140 Potassium 4.5 Chloride 107 Carbon Dioxide 26 Anion Gap 7 L BUN 8 Creatinine 0.8 D Creat Clearance w eGFR > 60 Random Glucose 70 L Calcium 8.1 L Total Bilirubin 0.5 D AST 17 ALT 15 Alkaline Phosphatase 99 Total Protein 6.9 Albumin 3.5 Urine Color [place] Urine Appearance Turbid Urine pH 5.0 Ur Specific [place] 1.018 Urine Protein Negative Urine Glucose (UA) Negative Urine Ketones Negative Urine Blood Negative Urine Nitrite Negative Urine Bilirubin Negative Urine Urobilinogen Negative Ur Leukocyte Esterase Negative RPR Titer 03/30/18 03/31/18 05:50 07:50 WBC 1.8 L* RBC 3.71 L Hgb 12.4 Hct 36.4 MCV 98.1 H MCH 33.5 MCHC 34.1 RDW 15.5 Plt Count 177 MPV 7.8 Sodium Potassium Chloride Carbon Dioxide Anion Gap BUN Creatinine Creat Clearance w eGFR Random Glucose Calcium Total Bilirubin AST ALT Alkaline Phosphatase Total Protein Albumin Urine Color Urine Appearance Urine pH Ur Specific [place] Urine Protein Urine Glucose (UA) Urine Ketones Urine Blood Urine Nitrite Urine Bilirubin Urine Urobilinogen Ur Leukocyte Esterase RPR Titer Nonreactive LABS NOTED. Assessment: 04/03/18 16:37 COMPLETION OF DETOX REGIMEN. Plan: PATIENT SCHEDULED FOR MISCHARGE FROM DETOX UNIT TODAY.
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
== END 2018-04-03 10:26 | disposition home or self-care (01) | DRG 663 ==
LOC: YASAS 11:06 → Y3N 14:10
PROVIDERS: ADMIT Internal Medicine; ATTEND Internal Medicine
PROC: HZ2ZZZZ Detoxification Services for Substance Abuse Treatment (ICD-10-PCS; principal; 2018-03-29)
DX: D72.819 Decreased white blood cell count, unspecified (principal); F10.230 Alcohol dependence with withdrawal, uncomplicated; F17.213 Nicotine dependence, cigarettes, with withdrawal; F10.24 Alcohol dependence with alcohol-induced mood disorder; F31.9 Bipolar disorder, unspecified; I10 Essential (primary) hypertension; D50.8 Other iron deficiency anemias; D72.818 Other decreased white blood cell count; Z87.828 Personal history of other (healed) physical injury and trauma
CPT/HCPCS: 36415; 80053; 81003; 85027; 86593; 93005; 93010

== ENCOUNTER 2018-07-28 12:53 | Inpatient (IN) | payer OTHER ==
[2018-07-28 13:51] VITALS: BMI 22.8
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
[2018-07-28] MEDS ORDERED: MAG HYDROX/AL HYDROX/SIMETH 30 ML UNIT-DOSE CUP PO PRN (14:28)
[2018-07-28] MEDS ORDERED: guaiFENesin/D-METHORPHAN HB 10 ML UNIT-DOSE CUPS PO PRN (14:28)
[2018-07-28] MEDS ORDERED: NICOTINE POLACRILEX 4 MG GUM BUC PRN (14:28)
[2018-07-28] MEDS ORDERED: chlordiazePOXIDE HCL 25 MG CAPSULE PO PRN (14:28)
[2018-07-28] MEDS ORDERED: MENTHOL/PHENOL 1 EACH UD MM PRN (14:28)
[2018-07-28] MEDS ORDERED: MAGNESIUM HYDROX 2400MG/30ML ORAL SUSPENSION 30 ML CUP PO PRN (14:28)
[2018-07-28] MEDS ORDERED: IBUPROFEN 400 MG TABLET (FP) PO PRN (14:28)
[2018-07-28] MEDS ORDERED: ACETAMINOPHEN 325 MG TABLET (FP) PO PRN (14:28)
[2018-07-28] MEDS ORDERED: MAGNESIUM CITRATE 300 ML BOTTLE PO PRN (14:28)
[2018-07-28] MEDS ORDERED: hydrOXYzine PAMOATE 50 MG CAPSULE (FP) PO PRN (14:28)
[2018-07-28] MEDS ORDERED: P-EPHED 60MG/TRIPROLIDI 2.5MG TABLET PO PRN (14:28)
[2018-07-28] MEDS ORDERED: LOPERAMIDE HCL 2 MG CAPSULE PO PRN (14:28)
[2018-07-28] MEDS ORDERED: chlordiazePOXIDE HCL 25 MG CAPSULE PO ONE (15:30)
[2018-07-28] MEDS: chlordiazePOXIDE HCL 25 MG CAPSULE PO SCH ×2 (19:25→22:51)
[2018-07-28] MEDS ORDERED: MELATONIN 5 MG TABLETS PO PRN (22:00)
[2018-07-28] MEDS: THIAMINE HCL 100 MG TABLET (FP) PO SCH (22:51)
[2018-07-29 02:03] LABS: URINE APPEARANCE CLEAR; URINE BILIRUBIN NEGATIVE (<2.0 mg/dL); URINE COLOR LTYELLOW; URINE GLUCOSE (UA) NEGATIVE (NEGATIVE); URINE KETONE NEGATIVE (NEGATIVE); URINE LEUK ESTERASE NEGATIVE (NEGATIVE); URINE NITRITE NEGATIVE (NEGATIVE); URINE PROTEIN NEGATIVE (NEGATIVE); URINE UROBILINOGEN NEGATIVE mg/dL (0.2-1.0)
[2018-07-29] MEDS: chlordiazePOXIDE HCL 25 MG CAPSULE PO SCH ×4 (05:24→22:22)
[2018-07-29] MEDS: PRENATAL VITAMINS W/ FOLIC ACID TABLET (FP) PO SCH (10:09)
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
[2018-07-29 10:40] LABS: HEMATOCRIT 37.1 % (35.4-49); HEMOGLOBIN 12.7 GM/dL (11.7-16.9); MCH 32.6 pg (25.7-33.7); MCHC 34.1 g/dl (32.0-35.9); MEAN CELL VOLUME 95.6 fl (80-96); MEAN PLT VOLUME 7.5 fl (7.5-11.1); PLATELET COUNT 190 K/MM3 (134-434); RBC 3.89 M/mm3 (4.00-5.60)
[2018-07-29 10:43] LABS: WHITE BLOOD COUNT 1.8 K/mm3 (4.0-10.0)
[2018-07-29 10:50] LABS: ALBUMIN 3.2 g/dl (3.4-5.0); ANION GAP 11 MMOL/L (8-16); BLOOD UREA NITROGEN 12 mg/dL (7-18); CALCIUM 8.3 mg/dL (8.5-10.1); CHLORIDE 108 mmol/L (98-107); CO2 26 mmol/L (21-32); GLUCOSE,RANDOM 89 mg/dL (74-106); POTASSIUM 3.8 mmol/L (3.5-5.1); SODIUM 145 mmol/L (136-145)
[2018-07-29 10:55] LABS: ALK PHOS 88 U/L (45-117); BILIRUBIN,TOTAL 0.4 mg/dL (0.2-1.0); CREATININE 0.7 mg/dL (0.55-1.3); SGOT/AST 15 U/L (15-37); SGPT/ALT 17 U/L (13-61); TOT PROT 6.4 g/dl (6.4-8.2)
--- NOTE | 2018-07-29 16:16 | PN ---
[facility] CIWA - CIWA Score Nausea/Vomitin-Mild Nausea/No Vomiting Muscle Tremors: 4-Moderate,w/Arms Extend Anxiety: 4-Mod. Anxious/Guarded Agitation: 3 Paroxysmal Sweats: 1-Minimal Palms Moist Orientation: 0-Oriented Tacttile Disturbances: 0-None Auditory Disturbances: 0-None Visual Disturbances: 0-None Headache: 0-None Present CIWA-Ar Total Score: 13 BHS Progress Note (SOAP) Subjective: tremor sweat gi distress reported chronic leukocytopenia encourage the patient to obtain ART for detox Objective: 07/29/18 16:17 Vital Signs Temperature 98.2 F 07/29/18 13:49 Pulse Rate 86 07/29/18 13:49 Respiratory Rate 16 07/29/18 13:49 Blood Pressure 121/75 07/29/18 13:49 O2 Sat by Pulse Oximetry (%) Laboratory Last Values WBC 1.8 K/mm3 (4.0-10.0) L* 07/29/18 07:25 RBC 3.89 M/mm3 (4.00-5.60) L 07/29/18 07:25 Hgb 12.7 GM/dL (11.7-16.9) 07/29/18 07:25 Hct 37.1 % (35.4-49) 07/29/18 07:25 MCV 95.6 fl (80-96) 07/29/18 07:25 MCH 32.6 pg (25.7-33.7) 07/29/18 07:25 MCHC 34.1 g/dl (32.0-35.9) 07/29/18 07:25 RDW 14.0 % (11.9-15.9) 07/29/18 07:25 Plt Count 190 K/MM3 (134-434) 07/29/18 07:25 MPV 7.5 fl (7.5-11.1) 07/29/18 07:25 Sodium 145 mmol/L (136-145) 07/29/18 07:25 Potassium 3.8 mmol/L (3.5-5.1) 07/29/18 07:25 Chloride 108 mmol/L (98-107) H 07/29/18 07:25 Carbon Dioxide 26 mmol/L (21-32) 07/29/18 07:25 Anion Gap 11 MMOL/L (8-16) 07/29/18 07:25 BUN 12 mg/dL (7-18) 07/29/18 07:25 Creatinine 0.7 mg/dL (0.55-1.3) 07/29/18 07:25 Creat Clearance w eGFR > 60 (>60) 07/29/18 07:25 Random Glucose 89 mg/dL (74-106) 07/29/18 07:25 Calcium 8.3 mg/dL (8.5-10.1) L 07/29/18 07:25 Total Bilirubin 0.4 mg/dL (0.2-1.0) 07/29/18 07:25 AST 15 U/L (15-37) 07/29/18 07:25 ALT 17 U/L (13-61) 07/29/18 07:25 Alkaline Phosphatase 88 U/L (45-117) 07/29/18 07:25 Total Protein 6.4 g/dl (6.4-8.2) 07/29/18 07:25 Albumin 3.2 g/dl (3.4-5.0) L 07/29/18 07:25 Urine Color Ltyellow 07/28/18 21:31 Urine Appearance Clear 07/28/18 21:31 Urine pH 5.0 (5.0-8.0) 07/28/18 21:31 Ur Specific [place] 1.013 (1.001-1.035) 07/28/18 21:31 Urine Protein Negative (NEGATIVE) 07/28/18 21:31 Urine Glucose (UA) Negative (NEGATIVE) 07/28/18 21:31 Urine Ketones Negative (NEGATIVE) 07/28/18 21:31 Urine Blood Negative (NEGATIVE) 07/28/18 21:31 Urine Nitrite Negative (NEGATIVE) 07/28/18 21:31 Urine Bilirubin Negative (<2.0 mg/dL) 07/28/18 21:31 Urine Urobilinogen Negative mg/dL (0.2-1.0) 07/28/18 21:31 Ur Leukocyte Esterase Negative (NEGATIVE) 07/28/18 21:31 RPR Titer Nonreactive (NONREACTIVE) 07/29/18 07:25 lab noted Assessment: 07/29/18 16:17 withdrawal sx 07/29/18 16:18 hiv Plan: continue detox repeat cbc
[2018-07-29] MEDS: THIAMINE HCL 100 MG TABLET (FP) PO SCH (22:21)
--- NOTE | 2018-07-29 22:29 | EKG ---
Test Reason : Blood Pressure : / mmHG Vent. Rate : 075 BPM Atrial Rate : 075 BPM P-R Int : 126 ms QRS Dur : 142 ms QT Int : 382 ms P-R-T Axes : 070 -21 063 degrees QTc Int : 426 ms NORMAL SINUS RHYTHM RIGHT BUNDLE BRANCH BLOCK ABNORMAL ECG WHEN COMPARED WITH ECG OF 31-MAY-2018 13:07, NO SIGNIFICANT CHANGE WAS FOUND Confirmed by LAURYN ZAMBRANO MD ([id number]) on 07/29/2018 10:28:50 PM Referred By: Confirmed By:LAURYN ZAMBRANO MD
[2018-07-30] MEDS: chlordiazePOXIDE HCL 25 MG CAPSULE PO SCH ×2 (05:32→10:21)
[2018-07-30] MEDS: PRENATAL VITAMINS W/ FOLIC ACID TABLET (FP) PO SCH (10:20)
[2018-07-30 10:29] LABS: HEMOGLOBIN 12.1 GM/dL (11.7-16.9); MCH 32.8 pg (25.7-33.7); MCHC 33.7 g/dl (32.0-35.9); MEAN CELL VOLUME 97.3 fl (80-96); MEAN PLT VOLUME 7.3 fl (7.5-11.1); PLATELET COUNT 160 K/MM3 (134-434); RDW 14.4 % (11.9-15.9)
--- NOTE | 2018-07-30 17:37 | PN ---
[facility] CIWA - CIWA Score Nausea/Vomitin-No Nausea/No Vomiting Muscle Tremors: 3 Anxiety: 3 Agitation: 3 Paroxysmal Sweats: 1-Minimal Palms Moist Orientation: 0-Oriented Tacttile Disturbances: 1-Very Mild Itch/Numbness Auditory Disturbances: 0-None Visual Disturbances: 0-None Headache: 0-None Present CIWA-Ar Total Score: 11 BHS Progress Note (SOAP) Subjective: sweat tremor restlessness irritable agitation Objective: 07/30/18 17:37 Vital Signs Temperature 98.1 F 07/30/18 13:12 Pulse Rate 83 07/30/18 13:12 Respiratory Rate 18 07/30/18 13:12 Blood Pressure 122/81 07/30/18 13:12 O2 Sat by Pulse Oximetry (%) Laboratory Last Values WBC 2.0 K/mm3 (4.0-10.0) L 07/30/18 08:00 RBC 3.70 M/mm3 (4.00-5.60) L 07/30/18 08:00 Hgb 12.1 GM/dL (11.7-16.9) 07/30/18 08:00 Hct 36.0 % (35.4-49) 07/30/18 08:00 MCV 97.3 fl (80-96) H 07/30/18 08:00 MCH 32.8 pg (25.7-33.7) 07/30/18 08:00 MCHC 33.7 g/dl (32.0-35.9) 07/30/18 08:00 RDW 14.4 % (11.9-15.9) 07/30/18 08:00 Plt Count 160 K/MM3 (134-434) 07/30/18 08:00 MPV 7.3 fl (7.5-11.1) L 07/30/18 08:00 Sodium 145 mmol/L (136-145) 07/29/18 07:25 Potassium 3.8 mmol/L (3.5-5.1) 07/29/18 07:25 Chloride 108 mmol/L (98-107) H 07/29/18 07:25 Carbon Dioxide 26 mmol/L (21-32) 07/29/18 07:25 Anion Gap 11 MMOL/L (8-16) 07/29/18 07:25 BUN 12 mg/dL (7-18) 07/29/18 07:25 Creatinine 0.7 mg/dL (0.55-1.3) 07/29/18 07:25 Creat Clearance w eGFR > 60 (>60) 07/29/18 07:25 Random Glucose 89 mg/dL (74-106) 07/29/18 07:25 Calcium 8.3 mg/dL (8.5-10.1) L 07/29/18 07:25 Total Bilirubin 0.4 mg/dL (0.2-1.0) 07/29/18 07:25 AST 15 U/L (15-37) 07/29/18 07:25 ALT 17 U/L (13-61) 07/29/18 07:25 Alkaline Phosphatase 88 U/L (45-117) 07/29/18 07:25 Total Protein 6.4 g/dl (6.4-8.2) 07/29/18 07:25 Albumin 3.2 g/dl (3.4-5.0) L 07/29/18 07:25 Urine Color Ltyellow 07/28/18 21:31 Urine Appearance Clear 07/28/18 21:31 Urine pH 5.0 (5.0-8.0) 07/28/18 21:31 Ur Specific [place] 1.013 (1.001-1.035) 07/28/18 21:31 Urine Protein Negative (NEGATIVE) 07/28/18 21:31 Urine Glucose (UA) Negative (NEGATIVE) 07/28/18 21:31 Urine Ketones Negative (NEGATIVE) 07/28/18 21:31 Urine Blood Negative (NEGATIVE) 07/28/18 21:31 Urine Nitrite Negative (NEGATIVE) 07/28/18 21:31 Urine Bilirubin Negative (<2.0 mg/dL) 07/28/18 21:31 Urine Urobilinogen Negative mg/dL (0.2-1.0) 07/28/18 21:31 Ur Leukocyte Esterase Negative (NEGATIVE) 07/28/18 21:31 RPR Titer Nonreactive (NONREACTIVE) 07/29/18 07:25 lab noted stated chronic leukocytopenia 07/30/18 17:38 Assessment: 07/30/18 17:39 withdrawal sx leukocytopenia Plan: continue detox repeat cbc
[2018-07-30] MEDS: chlordiazePOXIDE 5 MG CAPSULE PO SCH ×2 (18:09→22:26)
[2018-07-30] MEDS: THIAMINE HCL 100 MG TABLET (FP) PO SCH (22:26)
[2018-07-31] MEDS: chlordiazePOXIDE 5 MG CAPSULE PO SCH ×2 (05:23→10:55)
[2018-07-31] MEDS: PRENATAL VITAMINS W/ FOLIC ACID TABLET (FP) PO SCH (10:55)
--- NOTE | 2018-07-31 16:34 | PN ---
[facility] Progress Note (SOAP) Subjective: feeling better sleep better at night no tremor less sweat Objective: 07/31/18 16:32 Vital Signs Temperature 98.4 F 07/31/18 13:54 Pulse Rate 96 H 07/31/18 13:54 Respiratory Rate 18 07/31/18 13:54 Blood Pressure 119/72 07/31/18 13:54 O2 Sat by Pulse Oximetry (%) Laboratory Last Values WBC 2.0 K/mm3 (4.0-10.0) L 07/30/18 08:00 RBC 3.70 M/mm3 (4.00-5.60) L 07/30/18 08:00 Hgb 12.1 GM/dL (11.7-16.9) 07/30/18 08:00 Hct 36.0 % (35.4-49) 07/30/18 08:00 MCV 97.3 fl (80-96) H 07/30/18 08:00 MCH 32.8 pg (25.7-33.7) 07/30/18 08:00 MCHC 33.7 g/dl (32.0-35.9) 07/30/18 08:00 RDW 14.4 % (11.9-15.9) 07/30/18 08:00 Plt Count 160 K/MM3 (134-434) 07/30/18 08:00 MPV 7.3 fl (7.5-11.1) L 07/30/18 08:00 Sodium 145 mmol/L (136-145) 07/29/18 07:25 Potassium 3.8 mmol/L (3.5-5.1) 07/29/18 07:25 Chloride 108 mmol/L (98-107) H 07/29/18 07:25 Carbon Dioxide 26 mmol/L (21-32) 07/29/18 07:25 Anion Gap 11 MMOL/L (8-16) 07/29/18 07:25 BUN 12 mg/dL (7-18) 07/29/18 07:25 Creatinine 0.7 mg/dL (0.55-1.3) 07/29/18 07:25 Creat Clearance w eGFR > 60 (>60) 07/29/18 07:25 Random Glucose 89 mg/dL (74-106) 07/29/18 07:25 Calcium 8.3 mg/dL (8.5-10.1) L 07/29/18 07:25 Total Bilirubin 0.4 mg/dL (0.2-1.0) 07/29/18 07:25 AST 15 U/L (15-37) 07/29/18 07:25 ALT 17 U/L (13-61) 07/29/18 07:25 Alkaline Phosphatase 88 U/L (45-117) 07/29/18 07:25 Total Protein 6.4 g/dl (6.4-8.2) 07/29/18 07:25 Albumin 3.2 g/dl (3.4-5.0) L 07/29/18 07:25 Urine Color Ltyellow 07/28/18 21:31 Urine Appearance Clear 07/28/18 21:31 Urine pH 5.0 (5.0-8.0) 07/28/18 21:31 Ur Specific [place] 1.013 (1.001-1.035) 07/28/18 21:31 Urine Protein Negative (NEGATIVE) 07/28/18 21:31 Urine Glucose (UA) Negative (NEGATIVE) 07/28/18 21:31 Urine Ketones Negative (NEGATIVE) 07/28/18 21:31 Urine Blood Negative (NEGATIVE) 07/28/18 21: Urine Nitrite Negative (NEGATIVE) 07/28/18 21: Urine Bilirubin Negative (<2.0 mg/dL) 07/28/18 21: Urine Urobilinogen Negative mg/dL (0.2-1.0) 07/28/18 21:31 Ur Leukocyte Esterase Negative (NEGATIVE) 07/28/18 21:31 RPR Titer Nonreactive (NONREACTIVE) 07/29/18 07:25 lab noted Assessment: 07/31/18 16:33 mild withdrawal sx Plan: medically supervised detox patient agrees follow up with medical provider hemotology for leukocytopenia
[2018-07-31] MEDS: chlordiazePOXIDE HCL 10 MG CAPSULE PO SCH ×2 (18:13→22:25)
[2018-07-31] MEDS: THIAMINE HCL 100 MG TABLET (FP) PO SCH (22:25)
[2018-08-01] MEDS: chlordiazePOXIDE HCL 10 MG CAPSULE PO SCH ×2 (05:51→11:18)
[2018-08-01] MEDS: PRENATAL VITAMINS W/ FOLIC ACID TABLET (FP) PO SCH (11:17)
[2018-08-01 14:17] VITALS: BP 140/84; PULSE 91; TEMP 98.2
== END 2018-08-01 16:06 | disposition home or self-care (01) | DRG 774 ==
LOC: YASAS 12:53 → Y6N 17:13
PROC: HZ2ZZZZ Detoxification Services for Substance Abuse Treatment (ICD-10-PCS; principal; 2018-07-28)
DX: F10.230 Alcohol dependence with withdrawal, uncomplicated (principal); F14.20 Cocaine dependence, uncomplicated; F41.8 Other specified anxiety disorders; F43.10 Post-traumatic stress disorder, unspecified; I10 Essential (primary) hypertension; D72.819 Decreased white blood cell count, unspecified; Z87.828 Personal history of other (healed) physical injury and trauma
CPT/HCPCS: 36415; 80053; 81003; 85027; 86593; 93005; 93010

== ENCOUNTER 2018-11-01 12:59 | Inpatient (IN) | payer OTHER ==
[2018-11-01 13:02] VITALS: BMI 23.8
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
[2018-11-01] MEDS ORDERED: IBUPROFEN 400 MG TABLET (FP) PO PRN (15:33)
[2018-11-01] MEDS ORDERED: guaiFENesin/D-METHORPHAN HB 10 ML UNIT-DOSE CUPS PO PRN (15:33)
[2018-11-01] MEDS ORDERED: ACETAMINOPHEN 325 MG TABLET (FP) PO PRN (15:33)
[2018-11-01] MEDS ORDERED: MAGNESIUM HYDROX 2400MG/30ML ORAL SUSPENSION 30 ML CUP PO PRN (15:33)
[2018-11-01] MEDS ORDERED: MENTHOL/PHENOL 1 EACH UD MM PRN (15:33)
[2018-11-01] MEDS ORDERED: P-EPHED 60MG/TRIPROLIDI 2.5MG TABLET PO PRN (15:33)
[2018-11-01] MEDS ORDERED: MAG HYDROX/AL HYDROX/SIMETH 30 ML UNIT-DOSE CUP PO PRN (15:33)
[2018-11-01] MEDS ORDERED: MAGNESIUM CITRATE 300 ML BOTTLE PO PRN (15:33)
[2018-11-01] MEDS ORDERED: diazePAM 5 MG TABLET PO PRN (15:33)
[2018-11-01] MEDS ORDERED: AMMONIUM LACTATE 12% LOTION 225 GM BOTTLE TP PRN (15:34)
[2018-11-01] MEDS ORDERED: MELATONIN 5 MG TABLETS PO PRN (22:00)
[2018-11-01] MEDS: diazePAM 5 MG TABLET PO SCH (22:25)
[2018-11-01] MEDS: THIAMINE HCL 100 MG TABLET (FP) PO SCH (22:25)
[2018-11-02] MEDS: diazePAM 5 MG TABLET PO SCH ×3 (06:00→22:16)
[2018-11-02] MEDS: PRENATAL VITAMINS W/ FOLIC ACID TABLET (FP) PO SCH (10:25)
[2018-11-02 10:49] LABS: HEMATOCRIT 38.1 % (35.4-49); HEMOGLOBIN 12.5 GM/dL (11.7-16.9); MCH 32.1 pg (25.7-33.7); MCHC 32.8 g/dl (32.0-35.9); MEAN CELL VOLUME 97.9 fl (80-96); MEAN PLT VOLUME 7.5 fl (7.5-11.1); PLATELET COUNT 169 K/MM3 (134-434); RBC 3.89 M/mm3 (4.00-5.60); RDW 14.9 % (11.9-15.9)
[2018-11-02 11:01] LABS: ALBUMIN 3.2 g/dl (3.4-5.0); ALK PHOS 88 U/L (45-117); ANION GAP 8 MMOL/L (8-16); BILIRUBIN,TOTAL 0.3 mg/dL (0.2-1); BLOOD UREA NITROGEN 13 mg/dL (7-18); CALCIUM 8.5 mg/dL (8.5-10.1); CHLORIDE 108 mmol/L (98-107); CO2 26 mmol/L (21-32); CREATININE 0.7 mg/dL (0.55-1.3); GLUCOSE,RANDOM 94 mg/dL (74-106); POTASSIUM 3.8 mmol/L (3.5-5.1); SGOT/AST 14 U/L (15-37); SGPT/ALT 15 U/L (13-61); SODIUM 142 mmol/L (136-145); TOT PROT 6.3 g/dl (6.4-8.2)
--- NOTE | 2018-11-02 11:33 | PN ---
[facility] CIWA - CIWA Score Nausea/Vomitin-No Nausea/No Vomiting Muscle Tremors: 1-None Visible, but [place] Anxiety: 4-Mod. Anxious/Guarded Agitation: 5 Paroxysmal Sweats: No Perspiration Orientation: 0-Oriented Tacttile Disturbances: 0-None Auditory Disturbances: 0-None Visual Disturbances: 0-None Headache: 0-None Present CIWA-Ar Total Score: 10 BHS Progress Note (SOAP) Subjective: PATIENT C/O SHAKES AND INTERRUPTED SLEEP. EVALUATED AT BEDSIDE. ANXIOUS AND IRRITABLE. Objective: 11/02/18 11:32 Vital Signs Temperature 98.3 F 11/02/18 09:54 Pulse Rate 94 H 11/02/18 09:54 Respiratory Rate 20 11/02/18 09:54 Blood Pressure 127/79 11/02/18 09:54 O2 Sat by Pulse Oximetry (%) Laboratory Tests 11/02/18 07:00 Sodium 142 Potassium 3.8 Chloride 108 H Carbon Dioxide 26 Anion Gap 8 BUN 13 Creatinine 0.7 Creat Clearance w eGFR > 60 Random Glucose 94 Calcium 8.5 Total Bilirubin 0.3 AST 14 L ALT 15 Alkaline Phosphatase 88 Total Protein 6.3 L Albumin 3.2 L PE: ALERT AND ORIENTED X 3 SKIN WARM AND DRY CAR S1S2 RESP CTA BL EXT FULL ROM, MILD TREMORS RESTLESS AND IRRITABLE Assessment: 11/02/18 11:33 WITHDRAWAL SX Plan: CONTINUE DETOX ENCOURAGE ORAL FLUIDS CONTINUE TO MONITOR CLINICALLY
[2018-11-02] MEDS: THIAMINE HCL 100 MG TABLET (FP) PO SCH (22:16)
[2018-11-03] MEDS: diazePAM 5 MG TABLET PO SCH ×2 (10:19→22:29)
[2018-11-03] MEDS: PRENATAL VITAMINS W/ FOLIC ACID TABLET (FP) PO SCH (10:19)
[2018-11-03] MEDS ORDERED: FLU VACCINE QUAD 60 MCG/0.5 ML (MDV 18-19) IM ONE (12:00)
--- NOTE | 2018-11-03 13:27 | PN ---
S CIWA - CIWA Score Nausea/Vomitin Muscle Tremors: 2 Anxiety: 2 Agitation: 2 Paroxysmal Sweats: 1-Minimal Palms Moist Orientation: 0-Oriented Tacttile Disturbances: 1-Very Mild Itch/Numbness Auditory Disturbances: 1-Very Mild Visual Disturbances: 0-None Headache: 2-Mild CIWA-Ar Total Score: 13 BHS Progress Note (SOAP) Subjective: alert,irritable,anxious,interrupted sleep,tremor Objective: 11/03/18 13:25 Vital Signs Temperature 97.0 F L 11/03/18 09:34 Pulse Rate 90 11/03/18 09:34 Respiratory Rate 17 11/03/18 09:34 Blood Pressure 113/79 11/03/18 09:34 O2 Sat by Pulse Oximetry (%) Laboratory Last Values WBC 2.0 K/mm3 (4.0-10.0) L 11/02/18 07:00 RBC 3.89 M/mm3 (4.00-5.60) L 11/02/18 07:00 Hgb 12.5 GM/dL (11.7-16.9) 11/02/18 07:00 Hct 38.1 % (35.4-49) 11/02/18 07:00 MCV 97.9 fl (80-96) H 11/02/18 07:00 MCH 32.1 pg (25.7-33.7) 11/02/18 07:00 MCHC 32.8 g/dl (32.0-35.9) 11/02/18 07:00 RDW 14.9 % (11.9-15.9) 11/02/18 07:00 Plt Count 169 K/MM3 (134-434) 11/02/18 07:00 MPV 7.5 fl (7.5-11.1) 11/02/18 07:00 Sodium 142 mmol/L (136-145) 11/02/18 07:00 Potassium 3.8 mmol/L (3.5-5.1) 11/02/18 07:00 Chloride 108 mmol/L (98-107) H 11/02/18 07:00 Carbon Dioxide 26 mmol/L (21-32) 11/02/18 07:00 Anion Gap 8 MMOL/L (8-16) 11/02/18 07:00 BUN 13 mg/dL (7-18) 11/02/18 07:00 Creatinine 0.7 mg/dL (0.55-1.3) 11/02/18 07:00 Creat Clearance w eGFR > 60 (>60) 11/02/18 07:00 Random Glucose 94 mg/dL (74-106) 11/02/18 07:00 Calcium 8.5 mg/dL (8.5-10.1) 11/02/18 07:00 Total Bilirubin 0.3 mg/dL (0.2-1) 11/02/18 07:00 AST 14 U/L (15-37) L 11/02/18 07:00 ALT 15 U/L (13-61) 11/02/18 07:00 Alkaline Phosphatase 88 U/L (45-117) 11/02/18 07:00 Total Protein 6.3 g/dl (6.4-8.2) L 11/02/18 07:00 Albumin 3.2 g/dl (3.4-5.0) L 11/02/18 07:00 RPR Titer Nonreactive (NONREACTIVE) 11/02/18 07:00 Assessment: 11/03/18 13:26 withdrawal symptom Plan: continue detox,leukopenia,wbc 2000,repeat cbc in am
[2018-11-03] MEDS: THIAMINE HCL 100 MG TABLET (FP) PO SCH (22:29)
[2018-11-04] MEDS: PRENATAL VITAMINS W/ FOLIC ACID TABLET (FP) PO SCH (10:05)
[2018-11-04] MEDS: diazePAM 5 MG TABLET PO SCH ×2 (10:05→22:19)
[2018-11-04 10:54] LABS: HEMATOCRIT 37.3 % (35.4-49); HEMOGLOBIN 12.3 GM/dL (11.7-16.9); MCH 32.5 pg (25.7-33.7); MEAN CELL VOLUME 98.5 fl (80-96); MEAN PLT VOLUME 7.5 fl (7.5-11.1); PLATELET COUNT 178 K/MM3 (134-434); RBC 3.78 M/mm3 (4.00-5.60); RDW 15.3 % (11.9-15.9); WHITE BLOOD COUNT 2.1 K/mm3 (4.0-10.0)
--- NOTE | 2018-11-04 16:42 | PN ---
BHS Progress Note (SOAP) Subjective: Anxious, agitation, interrupted sleep Objective: 11/04/18 16:40 Last Vital Signs Temp Pulse Resp BP Pulse Ox 97.0 F L 74 18 101/68 11/04/18 13:53 11/04/18 13:53 11/04/18 13:53 11/04/18 13:53 Laboratory Tests 11/02/18 11/02/18 11/02/18 07:00 07:00 07:00 WBC 2.0 L RBC 3.89 L Hgb 12.5 Hct 38.1 MCV 97.9 H MCH 32.1 MCHC 32.8 RDW 14.9 Plt Count 169 MPV 7.5 Sodium 142 Potassium 3.8 Chloride 108 H Carbon Dioxide 26 Anion Gap 8 BUN 13 Creatinine 0.7 Creat Clearance w eGFR > 60 Random Glucose 94 Calcium 8.5 Total Bilirubin 0.3 AST 14 L ALT 15 Alkaline Phosphatase 88 Total Protein 6.3 L Albumin 3.2 L RPR Titer Nonreactive 11/04/18 07:30 WBC 2.1 L RBC 3.78 L Hgb 12.3 Hct 37.3 MCV 98.5 H MCH 32.5 MCHC 33.0 RDW 15.3 Plt Count 178 MPV 7.5 Sodium Potassium Chloride Carbon Dioxide Anion Gap BUN Creatinine Creat Clearance w eGFR Random Glucose Calcium Total Bilirubin AST ALT Alkaline Phosphatase Total Protein Albumin RPR Titer Labs reviewed Assessment: 11/04/18 16:41 Withdrawal symptoms Plan: Continue detox Encouraged PO water intake
[2018-11-04] MEDS: THIAMINE HCL 100 MG TABLET (FP) PO SCH (22:19)
[2018-11-05 09:11] VITALS: BP 98/59; PULSE 79; TEMP 96.8
[2018-11-05] MEDS ORDERED: diazePAM 5 MG TABLET PO SCH (10:00)
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
[2018-11-05] MEDS: PRENATAL VITAMINS W/ FOLIC ACID TABLET (FP) PO SCH (11:05)
--- NOTE | 2018-11-05 17:22 | PN ---
S Progress Note (SOAP) Subjective: denioes any complaint Objective: 11/05/18 17:21 A & O x 3 gait steady not in acute distress Vital Signs Temperature 96.8 F L 11/05/18 09:11 Pulse Rate 79 11/05/18 09:11 Respiratory Rate 18 11/05/18 09:11 Blood Pressure 98/59 L 11/05/18 09:11 O2 Sat by Pulse Oximetry (%) Assessment: 11/05/18 17:21 completed detox Plan: for detox
--- NOTE | 2018-11-05 17:25 | DS ---
[facility] Detox Discharge Summary Admission Date: 11/01/18 Discharge Date: 11/05/18 - History Additional Comments: pt for d/c today will do aftercare at [facility] rehab Pertinent Past History: HTN PTSD Leukopenia - Physical Exam Results Vital Signs: Vital Signs Temperature 96.8 F L 11/05/18 09:11 Pulse Rate 79 11/05/18 09:11 Respiratory Rate 18 11/05/18 09:11 Blood Pressure 98/59 L 11/05/18 09:11 O2 Sat by Pulse Oximetry (%) - Treatment Hospital Course: Detox Protocol Followed, Detoxed Safely, Responded well, Discharged Condition Good, Rehab Referral Accepted Patient has Accepted a Rehab Referral to: [facility] rehab - Medication Discharge Medications: Ambulatory Orders NK [No Known Home Medication] 03/29/18 - Diagnosis (1) Alcohol dependence with uncomplicated withdrawal Status: Acute (2) Alcohol dependence with uncomplicated withdrawal Status: Acute (3) Alcohol dependence, uncomplicated Status: Acute (4) Anxiety and depression Status: Acute (5) Cocaine dependence Status: Acute Qualifiers: Substance use status: uncomplicated Qualified Code(s): F14.20 - Cocaine dependence, uncomplicated (6) Dry eyes Status: Acute (7) Insomnia Status: Acute (8) Leukopenia Status: Acute (9) Opioid dependence Status: Acute (10) Substance induced mood disorder Status: Acute (11) HTN (hypertension) Status: Chronic Qualifiers: Hypertension type: essential hypertension Qualified Code(s): I10 - Essential (primary) hypertension (12) History of posttraumatic stress disorder (PTSD) Status: Chronic (13) Hypertension Status: Chronic Qualifiers: Hypertension type: essential hypertension Qualified Code(s): I10 - Essential (primary) hypertension (14) Nicotine dependence Status: Chronic Qualifiers: Nicotine product type: cigarettes Substance use status: in withdrawal Qualified Code(s): F17.213 - Nicotine dependence, cigarettes, with withdrawal - AMA Did Patient Leave Against Medical Advice: No
== END 2018-11-05 15:48 | disposition other institution (70) | DRG 775 ==
LOC: YASAS 12:59 → Y3N 15:52
PROC: HZ2ZZZZ Detoxification Services for Substance Abuse Treatment (ICD-10-PCS; principal; 2018-11-01)
DX: F10.230 Alcohol dependence with withdrawal, uncomplicated (principal); F17.210 Nicotine dependence, cigarettes, uncomplicated; F41.8 Other specified anxiety disorders; F19.24 Other psychoactive substance dependence with psychoactive substance-induced mood disorder; F43.10 Post-traumatic stress disorder, unspecified; I10 Essential (primary) hypertension; L98.8 Other specified disorders of the skin and subcutaneous tissue; G47.00 Insomnia, unspecified; D72.819 Decreased white blood cell count, unspecified; Z88.0 Allergy status to penicillin; Z98.84 Bariatric surgery status
CPT/HCPCS: 36415; 80053; 85027; 86593

== ENCOUNTER 2018-11-05 15:54 | Inpatient (IN) | payer OTHER ==
[2018-11-05] MEDS ORDERED: LOPERAMIDE HCL 2 MG CAPSULE PO PRN (17:27)
[2018-11-05] MEDS ORDERED: NICOTINE POLACRILEX 2 MG GUM BUC PRN (17:27)
[2018-11-05] MEDS ORDERED: MAGNESIUM HYDROX 2400MG/30ML ORAL SUSPENSION 30 ML CUP PO PRN (17:27)
[2018-11-05] MEDS ORDERED: MAG HYDROX/AL HYDROX/SIMETH 30 ML UNIT-DOSE CUP PO PRN (17:27)
[2018-11-05] MEDS ORDERED: IBUPROFEN 400 MG TABLET (FP) PO PRN (17:27)
[2018-11-05] MEDS ORDERED: guaiFENesin/D-METHORPHAN HB 10 ML UNIT-DOSE CUPS PO PRN (17:27)
[2018-11-05] MEDS ORDERED: MENTHOL/PHENOL 1 EACH UD MM PRN (17:27)
[2018-11-05] MEDS ORDERED: P-EPHED 60MG/TRIPROLIDI 2.5MG TABLET PO PRN (17:27)
[2018-11-05] MEDS ORDERED: MAGNESIUM CITRATE 300 ML BOTTLE PO PRN (17:27)
[2018-11-05] MEDS ORDERED: hydrOXYzine PAMOATE 25 MG CAPSULE (FP) PO PRN (17:27)
[2018-11-05] MEDS ORDERED: ACETAMINOPHEN 325 MG TABLET (FP) PO PRN (17:27)
--- NOTE | 2018-11-05 17:27 | HP ---
[facility] Rehab Assess/Revision - Admission History Admitted to Rehab from: [facility] Date of Admission to Rehab: 11/05/18 - Findings Detox History & Physical reviewed: Yes Concur with findings: Yes Inpatient Rehab Admission - Initial Determination Are CD services needed?: Yes Free of communicable disease: Yes Not in need of hospitalization: Yes - Rehab Admission Criteria Previous failed treatment: Yes Poor recovery environment: Yes Comorbidities: Yes Lacks judgement: Yes Patient is meeting Inpatient Rehab admission criteria:: Yes
[2018-11-05] MEDS: THIAMINE HCL 100 MG TABLET (FP) PO SCH (21:33)
[2018-11-05] MEDS ORDERED: MELATONIN 5 MG TABLETS PO PRN (22:00)
[2018-11-06] MEDS: PRENATAL VITAMINS W/ FOLIC ACID TABLET (FP) PO SCH (10:22)
[2018-11-06] MEDS: NICOTINE 21 MG/24 HOURS TOPICAL PATCH TD SCH (10:23)
[2018-11-06] MEDS: THIAMINE HCL 100 MG TABLET (FP) PO SCH (21:28)
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
[2018-11-07] MEDS: NICOTINE 21 MG/24 HOURS TOPICAL PATCH TD SCH (10:48)
[2018-11-07] MEDS: PRENATAL VITAMINS W/ FOLIC ACID TABLET (FP) PO SCH (10:48)
[2018-11-07] MEDS: THIAMINE HCL 100 MG TABLET (FP) PO SCH (21:33)
[2018-11-08] MEDS: PRENATAL VITAMINS W/ FOLIC ACID TABLET (FP) PO SCH (10:28)
[2018-11-08] MEDS: NICOTINE 21 MG/24 HOURS TOPICAL PATCH TD SCH (10:28)
[2018-11-08] MEDS: THIAMINE HCL 100 MG TABLET (FP) PO SCH (21:26)
[2018-11-09] MEDS: PRENATAL VITAMINS W/ FOLIC ACID TABLET (FP) PO SCH (10:09)
[2018-11-09] MEDS: NICOTINE 21 MG/24 HOURS TOPICAL PATCH TD SCH (10:09)
[2018-11-09] MEDS: THIAMINE HCL 100 MG TABLET (FP) PO SCH (21:30)
[2018-11-10] MEDS: NICOTINE 21 MG/24 HOURS TOPICAL PATCH TD SCH (09:56)
[2018-11-10] MEDS: PRENATAL VITAMINS W/ FOLIC ACID TABLET (FP) PO SCH (09:56)
[2018-11-10] MEDS: THIAMINE HCL 100 MG TABLET (FP) PO SCH (21:36)
[2018-11-11] MEDS: NICOTINE 21 MG/24 HOURS TOPICAL PATCH TD SCH (09:57)
[2018-11-11] MEDS: PRENATAL VITAMINS W/ FOLIC ACID TABLET (FP) PO SCH (09:58)
[2018-11-11] MEDS: THIAMINE HCL 100 MG TABLET (FP) PO SCH (21:25)
[2018-11-12] MEDS: PRENATAL VITAMINS W/ FOLIC ACID TABLET (FP) PO SCH (10:06)
[2018-11-12] MEDS: NICOTINE 21 MG/24 HOURS TOPICAL PATCH TD SCH (10:06)
--- NOTE | 2018-11-12 10:10 | PN ---
BHS Progress Note Note: PATIENT C/O DRY EYES. DENIES DISCHARGE AND ITCHING TO BOTH EYES. EXAM: +PERRLA, EOMS INTACT, NO REDNESS AND DISCHARGE PRESENT. WILL ORDER ARTIFICIAL TEARS TID TO OU AND MONITOR.
[2018-11-12] MEDS: ARTIFICIAL TEARS (POLYVINYL ALCOHOL) OPTH DROPS OU PRN ×3 (13:14→21:32)
[2018-11-12] MEDS: THIAMINE HCL 100 MG TABLET (FP) PO SCH (21:32)
[2018-11-13] MEDS: PRENATAL VITAMINS W/ FOLIC ACID TABLET (FP) PO SCH (09:54)
[2018-11-13] MEDS: ARTIFICIAL TEARS (POLYVINYL ALCOHOL) OPTH DROPS OU PRN ×2 (09:54→18:01)
[2018-11-13] MEDS: NICOTINE 21 MG/24 HOURS TOPICAL PATCH TD SCH (09:54)
[2018-11-13] MEDS: THIAMINE HCL 100 MG TABLET (FP) PO SCH (21:31)
[2018-11-14] MEDS: ARTIFICIAL TEARS (POLYVINYL ALCOHOL) OPTH DROPS OU PRN ×3 (10:23→21:30)
[2018-11-14] MEDS: NICOTINE 21 MG/24 HOURS TOPICAL PATCH TD SCH (10:23)
[2018-11-14] MEDS: PRENATAL VITAMINS W/ FOLIC ACID TABLET (FP) PO SCH (10:23)
[2018-11-14] MEDS: THIAMINE HCL 100 MG TABLET (FP) PO SCH (21:29)
[2018-11-15 07:02] VITALS: BP 121/81; PULSE 90; TEMP 98.9
--- NOTE | 2018-11-15 09:23 | PN ---
Psychiatric Progress Note Vital Signs: Vital Signs Period Temp Pulse Resp BP Sys/Lopez Pulse Ox Last 24 Hr 98.9 F 90 18-18 121/81 Date of Session: 11/15/18 Chief Complaint:: Discharge Note HPI: Patient addressing Alcohol and opioid Dependence comorbid with Bipolar Disorder and PTSD ROS: HTN, Anemia was medically managed Current Medications: Active Medications Generic Name Dose Route Start Last Admin Trade Name Freq PRN Reason Stop Dose Admin Acetaminophen 650 mg 11/05/18 17:27 Tylenol - PO Q4H PRN FEVER Al Hydroxide/Mg Hydroxide 30 ml 11/05/18 17:27 Mylanta Oral Suspension - PO Q6H PRN DYSPEPSIA Artificial Tears 1 drop 11/12/18 10:08 11/14/18 21:30 Artificial Tears OU 1 drop TID PRN Administration DRY EYES Eucalyptus/Menthol/Phenol/Sorbitol 1 each 11/05/18 17:27 Cepastat Lozenge - MM Q4H PRN SORE THROAT Guaifenesin 10 ml 11/05/18 17:27 Robitussin Dm - PO Q6H PRN COUGH Hydroxyzine Pamoate 25 mg 11/05/18 17:27 Vistaril - PO Q4H PRN AGITATION Ibuprofen 400 mg 11/05/18 17:27 Motrin - PO Q6H PRN Pain Level 4-6 Loperamide HCl 4 mg 11/05/18 17:27 Imodium - PO Q6H PRN DIARRHEA Magnesium Citrate 300 ml 11/05/18 17:27 Citroma - PO Q48H PRN CONSTIPATION Magnesium Hydroxide 30 ml 11/05/18 17:27 Milk Of Magnesia - PO DAILY PRN CONSTIPATION Melatonin 5 mg 11/05/18 22:00 Melatonin PO HS PRN INSOMNIA Nicotine 21 mg 11/06/18 10:00 11/14/18 10:23 Nicoderm Patch - TD Not Given DAILY AHSAN Nicotine Polacrilex 2 mg 11/05/18 17:27 Nicorette Gum - BUC Q2H PRN NICOTINE REPLACEMENT RX Multivit/Folic Acid/Iron 1 tab 11/06/18 10:00 11/14/18 10:23 Vitamins (Sjr) - PO 1 tab DAILY AHSAN Administration Pseudoephedrine/Triprolidine 1 combo 11/05/18 17:27 Actifed - PO TID PRN NASAL CONGESTION Thiamine HCl 100 mg 11/05/18 22:00 11/14/18 21:29 Vitamin B1 - PO 100 mg HS AHSAN Administration Current Side Effect: No Lab tests ordered: Yes Lab tests reviewed: Yes Provider note:: Patient has completed this program today. He has met his treatment goals and will continue to address his issues in outpatient treatment at [facility] at [facility] [address], [place] [address]. 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 He is stable for discharge today Total face to face time:: 35 Mental Status Exam - Mental Status Exam Alert and Oriented to: Time, Place, Person Cognitive Function: Fair Patient Appearance: Well Groomed Mood: Hopeful, Euthymic Affect: Appropriate Patient Behavior: Cooperative Speech Pattern: Excessive, Pressured Voice Loudness: Mildly Loud Thought Disorder: Not Present Hallucinations: Denies Suicidal Ideation: Denies Homicidal Ideation: Denies Insight/Judgement: Fair Sleep: Fair Appetite: Good Muscle strength/Tone: Normal Gait/Station: Normal Psychiatric Treatment Plan - Problem List (1) Alcohol dependence Current Visit: No Qualifiers: Complication of substance-induced condition: uncomplicated (2) Opioid dependence Current Visit: No (3) PTSD (post-traumatic stress disorder) Current Visit: No Comment: Self reports. (4) Bipolar disorder Current Visit: No Qualifiers: Active/Remission status: remission status unspecified Qualified Code(s): F31.9 - Bipolar disorder, unspecified Comment: As indicated in records. Now asymptomatic. Non-adherence to medications. (5) HTN (hypertension) Current Visit: No Qualifiers: Hypertension type: essential hypertension Qualified Code(s): I10 - Essential (primary) hypertension (6) Anemia Current Visit: No Qualifiers: Anemia type: iron deficiency Iron deficiency anemia type: inadequate dietary iron intake Qualified Code(s): D50.8 - Other iron deficiency anemias Comment: no treatment lab pending Initial treatment plan: [facility]
[2018-11-15] MEDS: NICOTINE 21 MG/24 HOURS TOPICAL PATCH TD SCH (09:39)
[2018-11-15] MEDS: PRENATAL VITAMINS W/ FOLIC ACID TABLET (FP) PO SCH (09:40)
== END 2018-11-15 10:10 | disposition home or self-care (01) | DRG 772 ==
LOC: YASAS 15:54 → Y5N 15:55
PROVIDERS: ADMIT Psychiatry & Neurology Psychiatry; ATTEND Psychiatry & Neurology Psychiatry
PROC: HZ42ZZZ Group Counseling for Substance Abuse Treatment, Cognitive-Behavioral (ICD-10-PCS; principal; 2018-11-05)
DX: F11.20 Opioid dependence, uncomplicated (principal); F10.20 Alcohol dependence, uncomplicated; F43.10 Post-traumatic stress disorder, unspecified; F31.9 Bipolar disorder, unspecified; I10 Essential (primary) hypertension; D50.8 Other iron deficiency anemias; L98.8 Other specified disorders of the skin and subcutaneous tissue

== ENCOUNTER 2018-12-27 08:50 | Inpatient (IN) | payer OTHER ==
[2018-12-27 09:19] VITALS: BMI 22.4
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
[2018-12-27] MEDS ORDERED: chlordiazePOXIDE HCL 25 MG CAPSULE PO PRN (12:22)
[2018-12-27] MEDS ORDERED: LOPERAMIDE HCL 2 MG CAPSULE PO PRN (12:22)
[2018-12-27] MEDS ORDERED: MAGNESIUM CITRATE 300 ML BOTTLE PO PRN (12:22)
[2018-12-27] MEDS ORDERED: IBUPROFEN 400 MG TABLET (FP) PO PRN (12:22)
[2018-12-27] MEDS ORDERED: guaiFENesin/D-METHORPHAN HB 10 ML UNIT-DOSE CUPS PO PRN (12:22)
[2018-12-27] MEDS ORDERED: MENTHOL/PHENOL 1 EACH UD MM PRN (12:22)
[2018-12-27] MEDS ORDERED: MAGNESIUM HYDROX 2400MG/30ML ORAL SUSPENSION 30 ML CUP PO PRN (12:22)
[2018-12-27] MEDS ORDERED: MAG HYDROX/AL HYDROX/SIMETH 30 ML UNIT-DOSE CUP PO PRN (12:22)
[2018-12-27] MEDS ORDERED: P-EPHED 60MG/TRIPROLIDI 2.5MG TABLET PO PRN (12:22)
[2018-12-27] MEDS ORDERED: hydrOXYzine PAMOATE 50 MG CAPSULE (FP) PO PRN (12:22)
[2018-12-27] MEDS ORDERED: ACETAMINOPHEN 325 MG TABLET (FP) PO PRN (12:22)
[2018-12-27] MEDS: ARTIFICIAL TEARS (POLYVINYL ALCOHOL) OPTH DROPS OU SCH ×2 (15:52→23:02)
[2018-12-27] MEDS: chlordiazePOXIDE HCL 25 MG CAPSULE PO SCH ×2 (18:17→22:08)
[2018-12-27] MEDS ORDERED: MELATONIN 5 MG TABLETS PO PRN (22:00)
[2018-12-27] MEDS: THIAMINE HCL 100 MG TABLET (FP) PO SCH (22:08)
[2018-12-28] MEDS: chlordiazePOXIDE HCL 25 MG CAPSULE PO SCH ×4 (05:44→22:07)
[2018-12-28] MEDS: ARTIFICIAL TEARS (POLYVINYL ALCOHOL) OPTH DROPS OU SCH ×3 (05:44→22:08)
[2018-12-28] MEDS: PRENATAL VITAMINS W/ FOLIC ACID TABLET (FP) PO SCH (10:10)
[2018-12-28 11:27] LABS: HEMATOCRIT 38.4 % (35.4-49); HEMOGLOBIN 13.2 GM/dL (11.7-16.9); MCH 33.3 pg (25.7-33.7); MCHC 34.5 g/dl (32.0-35.9); MEAN CELL VOLUME 96.6 fl (80-96); MEAN PLT VOLUME 8.2 fl (7.5-11.1); PLATELET COUNT 220 K/MM3 (134-434); RBC 3.97 M/mm3 (4.00-5.60); RDW 14.5 % (11.9-15.9)
[2018-12-28 12:16] LABS: WHITE BLOOD COUNT 1.9 K/mm3 (4.0-10.0)
[2018-12-28 12:34] LABS: ALBUMIN 3.7 g/dl (3.4-5.0); ALK PHOS 109 U/L (45-117); ANION GAP 6 MMOL/L (8-16); BILIRUBIN,TOTAL 0.4 mg/dL (0.2-1); BLOOD UREA NITROGEN 10 mg/dL (7-18); CALCIUM 8.7 mg/dL (8.5-10.1); CHLORIDE 103 mmol/L (98-107); CO2 29 mmol/L (21-32); CREATININE 0.7 mg/dL (0.55-1.3); GLUCOSE,RANDOM 141 mg/dL (74-106); POTASSIUM 4.1 mmol/L (3.5-5.1); SGOT/AST 20 U/L (15-37); SGPT/ALT 19 U/L (13-61); SODIUM 138 mmol/L (136-145); TOT PROT 7.1 g/dl (6.4-8.2)
--- NOTE | 2018-12-28 17:49 | PN ---
[facility] CIWA - CIWA Score Nausea/Vomitin-No Nausea/No Vomiting Muscle Tremors: None Anxiety: 4-Mod. Anxious/Guarded Agitation: 4-Moderately Restless Paroxysmal Sweats: No Perspiration Orientation: 0-Oriented Tacttile Disturbances: 2-Mild Itch/Numbness/Burn Auditory Disturbances: 1-Very Mild Visual Disturbances: 2-Mild Sensitivity Headache: 0-None Present CIWA-Ar Total Score: 13 S Progress Note (SOAP) Subjective: Interrupted Sleep, Anxious, Body Aches. Objective: PATIENT A & O X 3, OBSERVED AMBULATING ON UNIT. IN NO ACUTE DISTRESS. 12/28/18 17:44 Vital Signs Temperature 97.4 F L 12/28/18 13:03 Pulse Rate 93 H 12/28/18 13:03 Respiratory Rate 18 12/28/18 13:03 Blood Pressure 109/72 12/28/18 13:03 O2 Sat by Pulse Oximetry (%) Laboratory Tests 12/28/18 12/28/18 12/28/18 06:00 06:00 06:00 WBC 1.9 L* RBC 3.97 L Hgb 13.2 Hct 38.4 MCV 96.6 H MCH 33.3 MCHC 34.5 RDW 14.5 Plt Count 220 D MPV 8.2 Sodium 138 Potassium 4.1 Chloride 103 Carbon Dioxide 29 Anion Gap 6 L BUN 10 Creatinine 0.7 Creat Clearance w eGFR > 60 Random Glucose 141 H Calcium 8.7 Total Bilirubin 0.4 AST 20 ALT 19 Alkaline Phosphatase 109 Total Protein 7.1 Albumin 3.7 RPR Titer Nonreactive LABS NOTED. PATIENT HAS LOW WBC LEVELS ON PREVIOUS ADMISSIONS. PATIENT REPORTS HISTORY OF LOW WBC LEVEL. PATIENT DENIES ANY KNOWN HISTORY OF HEMATOLOGICAL / IMMUNOLOGICAL DISORDER. 12/28/18 17:48 Assessment: 12/28/18 17:45 WITHDRAWAL SYMPTOMS. LEUKOPENIA. HYPERGLYCEMIA. Plan: CONTINUE DETOX. INCREASE DAILY PO FLUID INTAKE. BGM ACBK FOR ELEVATED ADMISSION GLUCOSE LEVEL. PATIENT RPEORTS THAT HE DOES NOT CURRENTLY HAVE A PCP. PATIENT ADVISED TO OBTAIN A PCP AT [facility] ([place], [place], NEAR WHERE HE CURRENTLY LIVES) AFTER DISCHARGE FROM DETOX UNIT FOR GENERAL MEDICAL ASSESSMENT AND FOR HISTORY OF LOW WBC LEVEL. PATIENT VERBALIZED UNDERSTANDING OF RECOMMENDATION.
[2018-12-28] MEDS: THIAMINE HCL 100 MG TABLET (FP) PO SCH (22:07)
[2018-12-29] MEDS: chlordiazePOXIDE HCL 25 MG CAPSULE PO SCH ×2 (06:00→11:32)
[2018-12-29] MEDS: ARTIFICIAL TEARS (POLYVINYL ALCOHOL) OPTH DROPS OU SCH ×3 (06:10→22:16)
[2018-12-29] MEDS: PRENATAL VITAMINS W/ FOLIC ACID TABLET (FP) PO SCH (11:32)
[2018-12-29] MEDS ORDERED: SODIUM CHLORIDE NASAL SPRAY 44 ML BOTTLE NS PRN (12:48)
--- NOTE | 2018-12-29 15:33 | PN ---
[facility] CIWA - CIWA Score Nausea/Vomitin-No Nausea/No Vomiting Muscle Tremors: None Anxiety: 3 Agitation: 1-Slight > Activity Paroxysmal Sweats: No Perspiration Orientation: 0-Oriented Tacttile Disturbances: 2-Mild Itch/Numbness/Burn Auditory Disturbances: 0-None Visual Disturbances: 2-Mild Sensitivity Headache: 0-None Present CIWA-Ar Total Score: 8 BHS Progress Note (SOAP) Subjective: Interrupted Sleep, Anxious, Body Aches. Objective: PATIENT A & O X 3, OBSERVED AMBULATING ON UNIT. IN NO ACUTE DISTRESS. 12/29/18 15:29 Vital Signs Temperature 99.1 F 12/29/18 14:47 Pulse Rate 79 12/29/18 14:47 Respiratory Rate 18 12/29/18 14:47 Blood Pressure 128/85 12/29/18 14:47 O2 Sat by Pulse Oximetry (%) Laboratory Tests 12/28/18 12/28/18 12/28/18 06:00 06:00 06:00 WBC 1.9 L* RBC 3.97 L Hgb 13.2 Hct 38.4 MCV 96.6 H MCH 33.3 MCHC 34.5 RDW 14.5 Plt Count 220 D MPV 8.2 Sodium 138 Potassium 4.1 Chloride 103 Carbon Dioxide 29 Anion Gap 6 L BUN 10 Creatinine 0.7 Creat Clearance w eGFR > 60 POC Glucometer Random Glucose 141 H Calcium 8.7 Total Bilirubin 0.4 AST 20 ALT 19 Alkaline Phosphatase 109 Total Protein 7.1 Albumin 3.7 RPR Titer Nonreactive 12/29/18 06:08 WBC RBC Hgb Hct MCV MCH MCHC RDW Plt Count MPV Sodium Potassium Chloride Carbon Dioxide Anion Gap BUN Creatinine Creat Clearance w eGFR POC Glucometer 107 Random Glucose Calcium Total Bilirubin AST ALT Alkaline Phosphatase Total Protein Albumin RPR Titer LABS NOTED. RESULT OF BGM ACBK TODAY NOTED. CONTINUE TO CHECK TOMORROW. 12/29/18 15:30 12/29/18 15:30 Assessment: 12/29/18 15:30 WITHDRAWAL SYMPTOMS. Plan: CONTINUE DETOX. PATIENT OBSERVED BY RN HAVING NOSEBLEED WHILE LYING BED EARLIER. NOSEBLEED RESOLVED AFTER SHORT TIME. PATIENT REPORTS HISTORY OF NOSEBLEEDS. PATIENT REPORTS HISTORY OF HTN; HOWEVER, BP HAS BEEN RELATIVELY STABLE WHILE ADMITTED FOR DETOX THUS FAR. ORDER OCEAN SPRAY SALINE NASAL SPRAY FOR POSSIBLE NASAL PASSAGE DRYNESS. ADVISED PATIENT TONOTIFY MEDICAL / NURSING STAFF IMMEDIATELY SHOULD SUBSEQUENT NOSEBLEED OCCUR. PATIENT VERBALIZED UNDERSTANDING OF RECOMMENDATION.
[2018-12-29] MEDS: chlordiazePOXIDE 5 MG CAPSULE PO SCH ×2 (17:40→22:16)
[2018-12-29] MEDS: THIAMINE HCL 100 MG TABLET (FP) PO SCH (22:16)
[2018-12-30] MEDS: chlordiazePOXIDE 5 MG CAPSULE PO SCH ×2 (06:00→10:36)
[2018-12-30] MEDS: ARTIFICIAL TEARS (POLYVINYL ALCOHOL) OPTH DROPS OU SCH ×3 (06:03→22:27)
[2018-12-30] MEDS: PRENATAL VITAMINS W/ FOLIC ACID TABLET (FP) PO SCH (10:36)
--- NOTE | 2018-12-30 11:12 | PN ---
[facility] CIWA - CIWA Score Nausea/Vomitin-No Nausea/No Vomiting Muscle Tremors: 1-None Visible, but [place] Anxiety: 1-Mildly Anxious Agitation: 1-Slight > Activity Paroxysmal Sweats: 1-Minimal Palms Moist Orientation: 0-Oriented Tacttile Disturbances: 0-None Auditory Disturbances: 0-None Visual Disturbances: 0-None Headache: 1-Very Mild CIWA-Ar Total Score: 5 BHS Progress Note (SOAP) Subjective: feeling better mild sweating less tremor discuss aftercare with staff Objective: 12/30/18 11:06 Vital Signs Temperature 97.4 F L 12/30/18 09:43 Pulse Rate 95 H 12/30/18 09:43 Respiratory Rate 18 12/30/18 09:43 Blood Pressure 122/86 12/30/18 09:43 O2 Sat by Pulse Oximetry (%) Laboratory Last Values WBC 1.9 K/mm3 (4.0-10.0) L* 12/28/18 06:00 RBC 3.97 M/mm3 (4.00-5.60) L 12/28/18 06:00 Hgb 13.2 GM/dL (11.7-16.9) 12/28/18 06:00 Hct 38.4 % (35.4-49) 12/28/18 06:00 MCV 96.6 fl (80-96) H 12/28/18 06:00 MCH 33.3 pg (25.7-33.7) 12/28/18 06:00 MCHC 34.5 g/dl (32.0-35.9) 12/28/18 06:00 RDW 14.5 % (11.9-15.9) 12/28/18 06:00 Plt Count 220 K/MM3 (134-434) D 12/28/18 06:00 MPV 8.2 fl (7.5-11.1) 12/28/18 06:00 Sodium 138 mmol/L (136-145) 12/28/18 06:00 Potassium 4.1 mmol/L (3.5-5.1) 12/28/18 06:00 Chloride 103 mmol/L (98-107) 12/28/18 06:00 Carbon Dioxide 29 mmol/L (21-32) 12/28/18 06:00 Anion Gap 6 MMOL/L (8-16) L 12/28/18 06:00 BUN 10 mg/dL (7-18) 12/28/18 06:00 Creatinine 0.7 mg/dL (0.55-1.3) 12/28/18 06:00 Creat Clearance w eGFR > 60 (>60) 12/28/18 06:00 POC Glucometer 115 UNITS (80-120) 12/30/18 06:01 Random Glucose 141 mg/dL (74-106) H 12/28/18 06:00 Calcium 8.7 mg/dL (8.5-10.1) 12/28/18 06:00 Total Bilirubin 0.4 mg/dL (0.2-1) 12/28/18 06:00 AST 20 U/L (15-37) 12/28/18 06:00 ALT 19 U/L (13-61) 12/28/18 06:00 Alkaline Phosphatase 109 U/L (45-117) 12/28/18 06:00 Total Protein 7.1 g/dl (6.4-8.2) 12/28/18 06:00 Albumin 3.7 g/dl (3.4-5.0) 12/28/18 06:00 RPR Titer Nonreactive (NONREACTIVE) 12/28/18 06:00 lab noted 12/30/18 11:12 reported long history of low wbc denies fever chill Assessment: 12/30/18 11:13 mild withdrawal sx Plan: continue detox
[2018-12-30] MEDS: chlordiazePOXIDE HCL 10 MG CAPSULE PO SCH ×2 (17:48→22:26)
[2018-12-30] MEDS: THIAMINE HCL 100 MG TABLET (FP) PO SCH (22:25)
[2018-12-31] MEDS: chlordiazePOXIDE HCL 10 MG CAPSULE PO SCH (05:44)
[2018-12-31] MEDS: ARTIFICIAL TEARS (POLYVINYL ALCOHOL) OPTH DROPS OU SCH (07:10)
[2018-12-31 09:13] VITALS: BP 120/87; PULSE 90; TEMP 97.4
--- NOTE | 2018-12-31 15:17 | DS ---
[facility] Detox Discharge Summary Admission Date: 12/27/18 Discharge Date: 12/31/18 - History Present History: Alcohol Dependence Additional Comments: 58 years old male admitted on 12/27/18 for alcohol withdrawal stabilization completed detox regimen aftercare [facility] - Physical Exam Results Vital Signs: Vital Signs Temperature 97.4 F L 12/31/18 09:13 Pulse Rate 90 12/31/18 09:13 Respiratory Rate 18 12/31/18 09:13 Blood Pressure 120/87 12/31/18 09:13 O2 Sat by Pulse Oximetry (%) Pertinent Admission Physical Exam Findings: alcohol withdrawal sx Laboratory Last Values WBC 1.9 K/mm3 (4.0-10.0) L* 12/28/18 06:00 RBC 3.97 M/mm3 (4.00-5.60) L 12/28/18 06:00 Hgb 13.2 GM/dL (11.7-16.9) 12/28/18 06:00 Hct 38.4 % (35.4-49) 12/28/18 06:00 MCV 96.6 fl (80-96) H 12/28/18 06:00 MCH 33.3 pg (25.7-33.7) 12/28/18 06:00 MCHC 34.5 g/dl (32.0-35.9) 12/28/18 06:00 RDW 14.5 % (11.9-15.9) 12/28/18 06:00 Plt Count 220 K/MM3 (134-434) D 12/28/18 06:00 MPV 8.2 fl (7.5-11.1) 12/28/18 06:00 Sodium 138 mmol/L (136-145) 12/28/18 06:00 Potassium 4.1 mmol/L (3.5-5.1) 12/28/18 06:00 Chloride 103 mmol/L (98-107) 12/28/18 06:00 Carbon Dioxide 29 mmol/L (21-32) 12/28/18 06:00 Anion Gap 6 MMOL/L (8-16) L 12/28/18 06:00 BUN 10 mg/dL (7-18) 12/28/18 06:00 Creatinine 0.7 mg/dL (0.55-1.3) 12/28/18 06:00 Creat Clearance w eGFR > 60 (>60) 12/28/18 06:00 POC Glucometer 99 UNITS (80-120) 12/31/18 05:43 Random Glucose 141 mg/dL (74-106) H 12/28/18 06:00 Calcium 8.7 mg/dL (8.5-10.1) 12/28/18 06:00 Total Bilirubin 0.4 mg/dL (0.2-1) 12/28/18 06:00 AST 20 U/L (15-37) 12/28/18 06:00 ALT 19 U/L (13-61) 12/28/18 06:00 Alkaline Phosphatase 109 U/L (45-117) 12/28/18 06:00 Total Protein 7.1 g/dl (6.4-8.2) 12/28/18 06:00 Albumin 3.7 g/dl (3.4-5.0) 12/28/18 06:00 RPR Titer Nonreactive (NONREACTIVE) 12/28/18 06:00 lab noted chronic leukocytopenia patient agrees to bring in medication list and lab result to aftercare appointment - Treatment Hospital Course: Detox Protocol Followed, Detoxed Safely, Responded well, Discharged Condition Good, Rehab Referral Accepted Patient has Accepted a Rehab Referral to: [facility] - Medication Discharge Medications: Ambulatory Orders NK [No Known Home Medication] 03/29/18 - Diagnosis (1) Nicotine dependence Status: Acute Qualifiers: Nicotine product type: cigarettes Substance use status: in withdrawal Qualified Code(s): F17.213 - Nicotine dependence, cigarettes, with withdrawal (2) Alcohol dependence with uncomplicated withdrawal Status: Acute (3) Hypertension Status: Chronic Qualifiers: Hypertension type: essential hypertension Qualified Code(s): I10 - Essential (primary) hypertension (4) Substance induced mood disorder Status: Acute (5) Leukopenia Status: Chronic Qualifiers: Leukopenia type: other Qualified Code(s): D72.818 - Other decreased white blood cell count (6) Weight loss Status: Acute - AMA Did Patient Leave Against Medical Advice: No
== END 2018-12-31 10:06 | disposition home or self-care (01) | DRG 775 ==
LOC: YASAS 08:50 → Y3N 12:42
PROVIDERS: ADMIT Surgery; ATTEND Surgery
PROC: HZ2ZZZZ Detoxification Services for Substance Abuse Treatment (ICD-10-PCS; principal; 2018-12-27)
DX: F10.230 Alcohol dependence with withdrawal, uncomplicated (principal); F17.213 Nicotine dependence, cigarettes, with withdrawal; F19.24 Other psychoactive substance dependence with psychoactive substance-induced mood disorder; F41.9 Anxiety disorder, unspecified; F32.9 Major depressive disorder, single episode, unspecified; F43.10 Post-traumatic stress disorder, unspecified; I10 Essential (primary) hypertension; D72.818 Other decreased white blood cell count; R73.9 Hyperglycemia, unspecified; H04.129 Dry eye syndrome of unspecified lacrimal gland; Z91.14 Patient's other noncompliance with medication regimen; Z88.0 Allergy status to penicillin
CPT/HCPCS: 36415; 80053; 82962; 85027; 86593

== ENCOUNTER 2019-02-01 09:35 | Inpatient (IN) | payer OTHER ==
[2019-02-01 10:12] VITALS: BMI 23.8
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
[2019-02-01] MEDS ORDERED: MAG HYDROX/AL HYDROX/SIMETH 30 ML UNIT-DOSE CUP PO PRN (13:12)
[2019-02-01] MEDS ORDERED: MENTHOL/PHENOL 1 EACH UD MM PRN (13:12)
[2019-02-01] MEDS ORDERED: ACETAMINOPHEN 325 MG TABLET (FP) PO PRN ×2 (13:12)
[2019-02-01] MEDS ORDERED: MAGNESIUM CITRATE 300 ML BOTTLE PO PRN (13:12)
[2019-02-01] MEDS ORDERED: MAGNESIUM HYDROX 2400MG/30ML ORAL SUSPENSION 30 ML CUP PO PRN (13:12)
[2019-02-01] MEDS ORDERED: MELATONIN 5 MG TABLETS PO PRN (13:12)
[2019-02-01] MEDS ORDERED: NICOTINE POLACRILEX 2 MG GUM BUC PRN (13:12)
[2019-02-01] MEDS ORDERED: IBUPROFEN 400 MG TABLET (FP) PO PRN (13:12)
[2019-02-01] MEDS ORDERED: chlordiazePOXIDE HCL 10 MG CAPSULE PO PRN (13:12)
[2019-02-01] MEDS: chlordiazePOXIDE HCL 25 MG CAPSULE PO SCH (22:25)
[2019-02-01] MEDS: THIAMINE HCL 100 MG TABLET (FP) PO SCH (22:25)
[2019-02-02] MEDS: chlordiazePOXIDE HCL 25 MG CAPSULE PO SCH ×2 (05:13→13:59)
[2019-02-02] MEDS: PRENATAL VITAMINS W/ FOLIC ACID TABLET (FP) PO SCH (10:29)
[2019-02-02 11:01] LABS: ALBUMIN 3.8 g/dl (3.4-5.0); ALK PHOS 93 U/L (45-117); ANION GAP 8 MMOL/L (8-16); BILIRUBIN,TOTAL 0.5 mg/dL (0.2-1); BLOOD UREA NITROGEN 12 mg/dL (7-18); CHLORIDE 105 mmol/L (98-107); CO2 25 mmol/L (21-32); CREATININE 0.7 mg/dL (0.55-1.3); GLUCOSE,RANDOM 78 mg/dL (74-106); SGOT/AST 16 U/L (15-37); SGPT/ALT 17 U/L (13-61); SODIUM 137 mmol/L (136-145); TOT PROT 7.1 g/dl (6.4-8.2)
[2019-02-02 11:12] LABS: HEMATOCRIT 36.8 % (35.4-49); HEMOGLOBIN 12.9 GM/dL (11.7-16.9); MCH 33.5 pg (25.7-33.7); MEAN CELL VOLUME 95.7 fl (80-96); MEAN PLT VOLUME 8.2 fl (7.5-11.1); PLATELET COUNT 194 K/MM3 (134-434); RBC 3.85 M/mm3 (4.00-5.60); RDW 14.1 % (11.9-15.9); WHITE BLOOD COUNT 2.2 K/mm3 (4.0-10.0)
--- NOTE | 2019-02-02 12:38 | PN ---
[facility] CIWA - CIWA Score Nausea/Vomitin-Mild Nausea/No Vomiting Muscle Tremors: 2 Anxiety: 3 Agitation: 4-Moderately Restless Paroxysmal Sweats: 2 Orientation: 0-Oriented Tacttile Disturbances: 0-None Auditory Disturbances: 0-None Visual Disturbances: 0-None Headache: 0-None Present CIWA-Ar Total Score: 12 S Progress Note (SOAP) Subjective: Dry eyes sweats Objective: 02/02/19 12:39 A & O x 3 Sitting watching TV Mood labile Agitated NO redness, tearing nor discharge noted from eyes Vital Signs Temperature 97.5 F L 02/02/19 09:14 Pulse Rate 91 H 02/02/19 09:14 Respiratory Rate 18 02/02/19 09:14 Blood Pressure 127/76 02/02/19 09:14 O2 Sat by Pulse Oximetry (%) Laboratory Last Values WBC 2.2 K/mm3 (4.0-10.0) L 02/02/19 05:40 RBC 3.85 M/mm3 (4.00-5.60) L 02/02/19 05:40 Hgb 12.9 GM/dL (11.7-16.9) 02/02/19 05:40 Hct 36.8 % (35.4-49) 02/02/19 05:40 MCV 95.7 fl (80-96) 02/02/19 05:40 MCH 33.5 pg (25.7-33.7) 02/02/19 05:40 MCHC 35.0 g/dl (32.0-35.9) 02/02/19 05:40 RDW 14.1 % (11.9-15.9) 02/02/19 05:40 Plt Count 194 K/MM3 (134-434) 02/02/19 05:40 MPV 8.2 fl (7.5-11.1) 02/02/19 05:40 Sodium 137 mmol/L (136-145) 02/02/19 05:40 Potassium 4.0 mmol/L (3.5-5.1) 02/02/19 05:40 Chloride 105 mmol/L (98-107) 02/02/19 05:40 Carbon Dioxide 25 mmol/L (21-32) 02/02/19 05:40 Anion Gap 8 MMOL/L (8-16) 02/02/19 05:40 BUN 12 mg/dL (7-18) 02/02/19 05:40 Creatinine 0.7 mg/dL (0.55-1.3) 02/02/19 05:40 Creat Clearance w eGFR 116.66 (>60) 02/02/19 05:40 Random Glucose 78 mg/dL (74-106) 02/02/19 05:40 Calcium 9.0 mg/dL (8.5-10.1) 02/02/19 05:40 Total Bilirubin 0.5 mg/dL (0.2-1) 02/02/19 05:40 AST 16 U/L (15-37) 02/02/19 05:40 ALT 17 U/L (13-61) 02/02/19 05:40 Alkaline Phosphatase 93 U/L (45-117) 02/02/19 05:40 Total Protein 7.1 g/dl (6.4-8.2) 02/02/19 05:40 Albumin 3.8 g/dl (3.4-5.0) 02/02/19 05:40 Labs noted Assessment: 02/02/19 12:42 jesse sx Plan: continue detox Artificial tears for dry eyes Increased hydration
[2019-02-02] MEDS: ARTIFICIAL TEARS (POLYVINYL ALCOHOL) OPTH DROPS OU PRN (20:45)
[2019-02-02] MEDS: chlordiazePOXIDE 5 MG CAPSULE PO SCH (22:21)
[2019-02-02] MEDS: THIAMINE HCL 100 MG TABLET (FP) PO SCH (22:22)
[2019-02-03] MEDS: chlordiazePOXIDE 5 MG CAPSULE PO SCH ×2 (05:10→14:20)
[2019-02-03] MEDS: PRENATAL VITAMINS W/ FOLIC ACID TABLET (FP) PO SCH (10:35)
[2019-02-03] MEDS: ARTIFICIAL TEARS (POLYVINYL ALCOHOL) OPTH DROPS OU PRN ×2 (10:35→19:33)
--- NOTE | 2019-02-03 12:22 | PN ---
[facility] CIWA - CIWA Score Nausea/Vomitin-Mild Nausea/No Vomiting Muscle Tremors: 3 Anxiety: 3 Agitation: 3 Paroxysmal Sweats: 3 Orientation: 0-Oriented Tacttile Disturbances: 0-None Auditory Disturbances: 0-None Visual Disturbances: 0-None Headache: 0-None Present CIWA-Ar Total Score: 13 S Progress Note (SOAP) Subjective: Angry, irritable, anxious. Patient stated he is Yarsanism and his scientology ornaments were taken away from him downstairs. Patient instructed to discuss with nursing supervisor fusing room for clarification as to what is safe on the unit. Objective: 02/03/19 12:19 Last Vital Signs Temp Pulse Resp BP Pulse Ox 97.9 F 93 H 18 132/75 02/03/19 10:00 02/03/19 10:00 02/03/19 10:00 02/03/19 10:00 Laboratory Tests 02/02/19 02/02/19 05:40 05:40 WBC 2.2 L RBC 3.85 L Hgb 12.9 Hct 36.8 MCV 95.7 MCH 33.5 MCHC 35.0 RDW 14.1 Plt Count 194 MPV 8.2 Sodium 137 Potassium 4.0 Chloride 105 Carbon Dioxide 25 Anion Gap 8 BUN 12 Creatinine 0.7 Creat Clearance w eGFR 116.66 Random Glucose 78 Calcium 9.0 Total Bilirubin 0.5 AST 16 ALT 17 Alkaline Phosphatase 93 Total Protein 7.1 Albumin 3.8 Labs reviewed Assessment: 02/03/19 12:22 Withdrawal symptoms Plan: Continue detox Encouraged PO water hydration
[2019-02-03] MEDS ORDERED: chlordiazePOXIDE HCL 10 MG CAPSULE PO PRN (21:00)
[2019-02-03] MEDS: THIAMINE HCL 100 MG TABLET (FP) PO SCH (22:38)
[2019-02-03] MEDS: chlordiazePOXIDE HCL 10 MG CAPSULE PO SCH (22:39)
[2019-02-04] MEDS: chlordiazePOXIDE HCL 10 MG CAPSULE PO SCH ×3 (05:32→22:15)
[2019-02-04] MEDS: PRENATAL VITAMINS W/ FOLIC ACID TABLET (FP) PO SCH (11:00)
--- NOTE | 2019-02-04 15:15 | PN ---
[facility] Progress Note (SOAP) Subjective: Fatigue (Mild). Objective: PATIENT A & O X 3, OBSERVED AMBULATING ON UNIT. IN NO ACUTE DISTRESS. 02/04/19 15:13 Vital Signs Temperature 98.2 F 02/04/19 13:49 Pulse Rate 93 H 02/04/19 13:49 Respiratory Rate 117 H 02/04/19 13:49 Blood Pressure 133/91 02/04/19 13:49 O2 Sat by Pulse Oximetry (%) Laboratory Tests 02/02/19 02/02/19 05:40 05:40 WBC 2.2 L RBC 3.85 L Hgb 12.9 Hct 36.8 MCV 95.7 MCH 33.5 MCHC 35.0 RDW 14.1 Plt Count 194 MPV 8.2 Sodium 137 Potassium 4.0 Chloride 105 Carbon Dioxide 25 Anion Gap 8 BUN 12 Creatinine 0.7 Creat Clearance w eGFR 116.66 Random Glucose 78 Calcium 9.0 Total Bilirubin 0.5 AST 16 ALT 17 Alkaline Phosphatase 93 Total Protein 7.1 Albumin 3.8 LABS NOTED. PATIENT HAS A HISTORY OF LOW WBC LEVELS ON PREVIOUS ADMISSIONS. PATIENT IVETH AWARE AND REPORTS THAT HE HAS RECEIVED MEDICAL CONSULTATION FOR THIS CONDITION IN THE PAST. 02/04/19 15:15 Assessment: 02/04/19 15:14 WITHDRAWAL SYMPTOMS. LEUKOPENIA. 02/04/19 15:14 Plan: CONTINUE DETOX.
[2019-02-04] MEDS: ARTIFICIAL TEARS (POLYVINYL ALCOHOL) OPTH DROPS OU PRN (15:24)
[2019-02-04] MEDS: THIAMINE HCL 100 MG TABLET (FP) PO SCH (22:47)
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
[2019-02-05 09:14] VITALS: BP 121/77; PULSE 86; TEMP 98.2
[2019-02-05] MEDS: ARTIFICIAL TEARS (POLYVINYL ALCOHOL) OPTH DROPS OU PRN (10:16)
[2019-02-05] MEDS: PRENATAL VITAMINS W/ FOLIC ACID TABLET (FP) PO SCH (10:16)
== END 2019-02-05 11:05 | disposition other institution (70) | DRG 774 ==
LOC: YASAS 09:35 → Y6N 14:02
PROVIDERS: ADMIT Surgery; ATTEND Surgery
PROC: HZ2ZZZZ Detoxification Services for Substance Abuse Treatment (ICD-10-PCS; principal; 2019-02-01)
DX: F10.230 Alcohol dependence with withdrawal, uncomplicated (principal); F10.24 Alcohol dependence with alcohol-induced mood disorder; F14.20 Cocaine dependence, uncomplicated; F17.210 Nicotine dependence, cigarettes, uncomplicated; F19.24 Other psychoactive substance dependence with psychoactive substance-induced mood disorder; F31.9 Bipolar disorder, unspecified; F43.10 Post-traumatic stress disorder, unspecified; F41.9 Anxiety disorder, unspecified; I10 Essential (primary) hypertension; D72.819 Decreased white blood cell count, unspecified; D50.8 Other iron deficiency anemias; H04.129 Dry eye syndrome of unspecified lacrimal gland; G47.00 Insomnia, unspecified; Z88.0 Allergy status to penicillin
CPT/HCPCS: 36415; 80053; 85027

== ENCOUNTER 2019-02-05 11:29 | Inpatient (IN) | payer OTHER ==
[2019-02-05] MEDS ORDERED: MAGNESIUM CITRATE 300 ML BOTTLE PO PRN (12:21)
[2019-02-05] MEDS ORDERED: MENTHOL/PHENOL 1 EACH UD MM PRN (12:21)
[2019-02-05] MEDS ORDERED: LOPERAMIDE HCL 2 MG CAPSULE PO PRN (12:21)
[2019-02-05] MEDS ORDERED: ACETAMINOPHEN 325 MG TABLET (FP) PO PRN (12:21)
[2019-02-05] MEDS ORDERED: IBUPROFEN 400 MG TABLET (FP) PO PRN (12:21)
[2019-02-05] MEDS ORDERED: MAG HYDROX/AL HYDROX/SIMETH 30 ML UNIT-DOSE CUP PO PRN (12:21)
[2019-02-05] MEDS ORDERED: hydrOXYzine PAMOATE 50 MG CAPSULE (FP) PO PRN (12:21)
[2019-02-05] MEDS ORDERED: P-EPHED 60MG/TRIPROLIDI 2.5MG TABLET PO PRN (12:21)
[2019-02-05] MEDS ORDERED: MAGNESIUM HYDROX 2400MG/30ML ORAL SUSPENSION 30 ML CUP PO PRN (12:21)
[2019-02-05] MEDS ORDERED: guaiFENesin 200 MG/10 ML 10 ML UNIT-DOSE CUPS PO PRN (12:21)
--- NOTE | 2019-02-05 12:21 | HP ---
[facility] Rehab Assess/Revision - Admission History Admitted to Rehab from: [facility] Date of Admission to Rehab: 02/05/19 - Vital signs Vital Signs: Vital Signs Period Temp Pulse Resp BP Sys/Lopez Pulse Ox Last 24 Hr 97.2 F 95 18 130/91 - Findings Detox History & Physical reviewed: Yes Concur with findings: Yes Comments/Additional Findings: for rehab as protocol Inpatient Rehab Admission - Rehab Decision to Admit Inpatient rehab admission?: Yes - Initial Determination Are CD services needed?: Yes Free of communicable disease: Yes Not in need of hospitalization: Yes - Rehab Admission Criteria Previous failed treatment: Yes Poor recovery environment: Yes Comorbidities: Yes Lacks judgement: No Patient is meeting Inpatient Rehab admission criteria:: Yes
[2019-02-05] MEDS: ARTIFICIAL TEARS (POLYVINYL ALCOHOL) OPTH DROPS OU SCH ×2 (14:01→21:20)
[2019-02-05] MEDS: THIAMINE HCL 100 MG TABLET (FP) PO SCH (21:20)
[2019-02-05] MEDS ORDERED: MELATONIN 5 MG TABLETS PO PRN (22:00)
[2019-02-06] MEDS: ARTIFICIAL TEARS (POLYVINYL ALCOHOL) OPTH DROPS OU SCH ×3 (06:08→21:35)
[2019-02-06] MEDS: PRENATAL VITAMINS W/ FOLIC ACID TABLET (FP) PO SCH (10:15)
[2019-02-06] MEDS: THIAMINE HCL 100 MG TABLET (FP) PO SCH (21:35)
[2019-02-07] MEDS: ARTIFICIAL TEARS (POLYVINYL ALCOHOL) OPTH DROPS OU SCH ×3 (06:29→21:52)
[2019-02-07] MEDS: PRENATAL VITAMINS W/ FOLIC ACID TABLET (FP) PO SCH (09:25)
[2019-02-07] MEDS: THIAMINE HCL 100 MG TABLET (FP) PO SCH (21:52)
[2019-02-08] MEDS: ARTIFICIAL TEARS (POLYVINYL ALCOHOL) OPTH DROPS OU SCH ×3 (06:12→21:59)
[2019-02-08] MEDS: PRENATAL VITAMINS W/ FOLIC ACID TABLET (FP) PO SCH (10:20)
[2019-02-08] MEDS: THIAMINE HCL 100 MG TABLET (FP) PO SCH (22:00)
[2019-02-09] MEDS: ARTIFICIAL TEARS (POLYVINYL ALCOHOL) OPTH DROPS OU SCH ×3 (05:56→22:24)
[2019-02-09] MEDS: PRENATAL VITAMINS W/ FOLIC ACID TABLET (FP) PO SCH (10:18)
[2019-02-09] MEDS: THIAMINE HCL 100 MG TABLET (FP) PO SCH (21:59)
[2019-02-10] MEDS: ARTIFICIAL TEARS (POLYVINYL ALCOHOL) OPTH DROPS OU SCH ×3 (05:57→21:43)
[2019-02-10] MEDS: PRENATAL VITAMINS W/ FOLIC ACID TABLET (FP) PO SCH (10:09)
[2019-02-10] MEDS: THIAMINE HCL 100 MG TABLET (FP) PO SCH (21:43)
[2019-02-11] MEDS: ARTIFICIAL TEARS (POLYVINYL ALCOHOL) OPTH DROPS OU SCH ×3 (06:38→21:36)
[2019-02-11] MEDS: PRENATAL VITAMINS W/ FOLIC ACID TABLET (FP) PO SCH (10:26)
[2019-02-11] MEDS: THIAMINE HCL 100 MG TABLET (FP) PO SCH (21:35)
[2019-02-12] MEDS: ARTIFICIAL TEARS (POLYVINYL ALCOHOL) OPTH DROPS OU SCH (06:08)
[2019-02-12 06:32] VITALS: BP 117/69; PULSE 81; TEMP 97.9
--- NOTE | 2019-02-12 08:22 | PN ---
[facility] Progress Note (SOAP) Subjective: Client is discharged today,no problems or complaints at this time. Objective: No apparent distress, Heart rate regular, lungs clear, Neurologically intact cranial nerves intact. Vital Signs (72 hours) 02/10/19 02/10/19 02/10/19 00:30 03:30 06:51 Temperature 97.9 F Pulse Rate 80 Respiratory 18 18 18 Rate Blood Pressure 119/75 02/11/19 02/11/19 02/11/19 00:30 03:30 06:00 Temperature 97.6 F Pulse Rate 93 H Respiratory 16 16 18 Rate Blood Pressure 124/76 02/12/19 02/12/19 02/12/19 00:30 03:30 06:32 Temperature 97.9 F Pulse Rate 81 Respiratory 18 18 18 Rate Blood Pressure 117/69 02/12/19 08:18: No abnormal labs noted. 02/12/19 08:32 Assessment: 02/12/19 medically stable for discharge Dx: Depression, ETOH induced; ETOH dependance, Bi-polar disorder. 02/12/19 08:21 02/12/19 08:23 Plan: Will receive after care and primary care at [facility]. Has no home medications.
[2019-02-12] MEDS: PRENATAL VITAMINS W/ FOLIC ACID TABLET (FP) PO SCH (10:01)
== END 2019-02-12 10:05 | disposition home or self-care (01) | DRG 772 ==
LOC: YASAS 11:29 → Y3W 11:30
PROVIDERS: ADMIT Neuromusculoskeletal Medicine & OMM; ATTEND Neuromusculoskeletal Medicine & OMM
PROC: HZ42ZZZ Group Counseling for Substance Abuse Treatment, Cognitive-Behavioral (ICD-10-PCS; principal; 2019-02-05)
DX: F10.20 Alcohol dependence, uncomplicated (principal); F10.24 Alcohol dependence with alcohol-induced mood disorder; F31.9 Bipolar disorder, unspecified

== ENCOUNTER 2019-03-27 10:01 | Inpatient (IN) | payer OTHER ==
[2019-03-27 11:34] VITALS: BMI 24.2
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
[2019-03-27] MEDS ORDERED: ACETAMINOPHEN 325 MG TABLET (FP) PO PRN ×2 (13:50)
[2019-03-27] MEDS ORDERED: MAGNESIUM HYDROX 2400MG/30ML ORAL SUSPENSION 30 ML CUP PO PRN (13:50)
[2019-03-27] MEDS ORDERED: MELATONIN 5 MG TABLETS PO PRN (13:50)
[2019-03-27] MEDS ORDERED: MAGNESIUM CITRATE 300 ML BOTTLE PO PRN (13:50)
[2019-03-27] MEDS ORDERED: hydrOXYzine PAMOATE 25 MG CAPSULE (FP) PO PRN (13:50)
[2019-03-27] MEDS ORDERED: IBUPROFEN 400 MG TABLET (FP) PO PRN (13:50)
[2019-03-27] MEDS ORDERED: MAG HYDROX/AL HYDROX/SIMETH 30 ML UNIT-DOSE CUP PO PRN (13:50)
[2019-03-27] MEDS ORDERED: BISMUTH SUBSALICYLATE 262 MG/15 ML BTL PO PRN (13:50)
[2019-03-27] MEDS ORDERED: METHOCARBAMOL 500 MG TABLET PO PRN (13:50)
[2019-03-27] MEDS ORDERED: MENTHOL/PHENOL 1 EACH UD MM PRN (13:50)
[2019-03-27] MEDS ORDERED: chlordiazePOXIDE HCL 25 MG CAPSULE PO PRN (13:50)
[2019-03-27] MEDS: chlordiazePOXIDE HCL 25 MG CAPSULE PO SCH ×2 (17:36→22:20)
[2019-03-27 18:05] LABS: HEMATOCRIT 38.8 % (35.4-49); HEMOGLOBIN 13.1 GM/dL (11.7-16.9); MCH 32.8 pg (25.7-33.7); MCHC 33.8 g/dl (32.0-35.9); MEAN CELL VOLUME 96.9 fl (80-96); MEAN PLT VOLUME 7.5 fl (7.5-11.1); PLATELET COUNT 208 K/MM3 (134-434); RBC 4.01 M/mm3 (4.00-5.60); RDW 14.2 % (11.9-15.9); WHITE BLOOD COUNT 2.3 K/mm3 (4.0-10.0)
[2019-03-27 18:17] LABS: BILIRUBIN,TOTAL 0.3 mg/dL (0.2-1); CALCIUM 9.2 mg/dL (8.5-10.1); CREATININE 0.7 mg/dL (0.55-1.3); POTASSIUM 4.2 mmol/L (3.5-5.1); TOT PROT 7.3 g/dl (6.4-8.2)
[2019-03-27] MEDS: THIAMINE HCL 100 MG TABLET (FP) PO SCH (22:20)
[2019-03-28] MEDS: chlordiazePOXIDE HCL 25 MG CAPSULE PO SCH ×4 (05:25→22:21)
--- NOTE | 2019-03-28 10:06 | PN ---
S CIWA - CIWA Score Nausea/Vomitin Muscle Tremors: 2 Anxiety: 2 Agitation: 2 Paroxysmal Sweats: 1-Minimal Palms Moist Orientation: 0-Oriented Tacttile Disturbances: 1-Very Mild Itch/Numbness Auditory Disturbances: 1-Very Mild Visual Disturbances: 0-None Headache: 2-Mild CIWA-Ar Total Score: 13 BHS Progress Note (SOAP) Subjective: alert,irritable,anxious,interrupted sleep,tremor Objective: 03/28/19 10:05 Vital Signs Temperature 96.6 F L 03/28/19 06:46 Pulse Rate 98 H 03/28/19 09:55 Respiratory Rate 18 03/28/19 09:55 Blood Pressure 118/93 03/28/19 09:55 O2 Sat by Pulse Oximetry (%) 03/28/19 10:06 Laboratory Last Values WBC 2.3 K/mm3 (4.0-10.0) L 03/27/19 13:50 RBC 4.01 M/mm3 (4.00-5.60) 03/27/19 13:50 Hgb 13.1 GM/dL (11.7-16.9) 03/27/19 13:50 Hct 38.8 % (35.4-49) 03/27/19 13:50 MCV 96.9 fl (80-96) H 03/27/19 13:50 MCH 32.8 pg (25.7-33.7) 03/27/19 13:50 MCHC 33.8 g/dl (32.0-35.9) 03/27/19 13:50 RDW 14.2 % (11.9-15.9) 03/27/19 13:50 Plt Count 208 K/MM3 (134-434) 03/27/19 13:50 MPV 7.5 fl (7.5-11.1) 03/27/19 13:50 Sodium 136 mmol/L (136-145) 03/27/19 13:50 Potassium 4.2 mmol/L (3.5-5.1) 03/27/19 13:50 Chloride 102 mmol/L (98-107) 03/27/19 13:50 Carbon Dioxide 28 mmol/L (21-32) 03/27/19 13:50 Anion Gap 6 MMOL/L (8-16) L 03/27/19 13:50 BUN 7 mg/dL (7-18) 03/27/19 13:50 Creatinine 0.7 mg/dL (0.55-1.3) 03/27/19 13:50 Est GFR (CKD-EPI)AfAm 121.41 03/27/19 13:50 Est GFR (CKD-EPI)NonAf 104.76 03/27/19 13:50 Random Glucose 74 mg/dL (74-106) 03/27/19 13:50 Calcium 9.2 mg/dL (8.5-10.1) 03/27/19 13:50 Total Bilirubin 0.3 mg/dL (0.2-1) 03/27/19 13:50 AST 15 U/L (15-37) 03/27/19 13:50 ALT 19 U/L (13-61) 03/27/19 13:50 Alkaline Phosphatase 101 U/L (45-117) 03/27/19 13:50 Total Protein 7.3 g/dl (6.4-8.2) 03/27/19 13:50 Albumin 4.0 g/dl (3.4-5.0) 03/27/19 13:50 Urine Color Yellow 03/27/19 15:04 Urine Appearance Clear 03/27/19 15:04 Urine pH Cancelled 03/27/19 15:00 Urine pH (Auto) 5.5 (5.0-8.0) 03/27/19 15:04 Ur Specific [place] Cancelled 03/27/19 15:00 Specific [place] (Auto) 1.020 (1.010-1.035) 03/27/19 15:04 Urine Protein Cancelled 03/27/19 15:00 Urine Protein (Auto) Negative (NEGATIVE) 03/27/19 15:04 Urine Glucose (UA) Cancelled 03/27/19 15:00 Glucose (UA)(Auto) Negative (NEGATIVE) 03/27/19 15:04 Urine Ketones Cancelled 03/27/19 15:00 Urine Ketones (Auto) Negative (NEGATIVE) 03/27/19 15:04 Urine Blood Cancelled 03/27/19 15:00 Urine Blood (Auto) Negative (NEGATIVE) 03/27/19 15:04 Urine Nitrite Cancelled 03/27/19 15:00 Urine Nitrite (Auto) Negative (NEGATIVE) 03/27/19 15:04 Urine Bilirubin Negative (<2.0 mg/dL) 03/27/19 15:04 Urine Urobilinogen Cancelled 03/27/19 15:00 Urine Urobilinogen (Auto) 0.2 mg/dL (0.2-1.0) 03/27/19 15:04 Ur Leukocyte Esterase Cancelled 03/27/19 15:00 Leukocyte Esterase (Auto) Negative (NEGATIVE) 03/27/19 15:04 Urine WBC (Auto) Cancelled 03/27/19 15:00 Urine RBC (Auto) Cancelled 03/27/19 15:00 Urine Casts (Auto) Cancelled 03/27/19 15:00 U Pathogenic Cast Auto Cancelled 03/27/19 15:00 U Epithel Cells (Auto) Cancelled 03/27/19 15:00 U Sm Round Cell (Auto) Cancelled 03/27/19 15:00 Urine Crystals (Auto) Cancelled 03/27/19 15:00 Urine Bacteria (Auto) Cancelled 03/27/19 15:00 Urine Yeast (Auto) Cancelled 03/27/19 15:00 RPR Titer Nonreactive (NONREACTIVE) 03/27/19 13:50 Assessment: 03/28/19 10:06 withdrawal symptom
[2019-03-28] MEDS: PRENATAL VITAMINS W/ FOLIC ACID TABLET (FP) PO SCH (10:57)
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
[2019-03-28] MEDS: THIAMINE HCL 100 MG TABLET (FP) PO SCH (22:21)
[2019-03-29] MEDS: chlordiazePOXIDE HCL 25 MG CAPSULE PO SCH ×2 (06:56→10:24)
[2019-03-29] MEDS: PRENATAL VITAMINS W/ FOLIC ACID TABLET (FP) PO SCH (10:24)
--- NOTE | 2019-03-29 13:42 | PN ---
S CIWA - CIWA Score Nausea/Vomitin-Mild Nausea/No Vomiting Muscle Tremors: 1-None Visible, but [place] Anxiety: 1-Mildly Anxious Agitation: 1-Slight > Activity Paroxysmal Sweats: 1-Minimal Palms Moist Orientation: 0-Oriented Tacttile Disturbances: 0-None Auditory Disturbances: 0-None Visual Disturbances: 0-None Headache: 0-None Present CIWA-Ar Total Score: 5 BHS Progress Note (SOAP) Subjective: pt states he is doing well with detox protocol O: Vital Signs - 24 hr 03/28/19 03/28/19 03/28/19 15:16 16:42 21:37 Temperature 98.1 F 97.6 F 99.9 F H Pulse Rate 92 H 94 H 98 H Respiratory 18 18 18 Rate Blood Pressure 149/86 131/82 127/79 03/29/19 03/29/19 03/29/19 00:30 06:54 09:03 Temperature 97.5 F L 97.9 F Pulse Rate 89 87 Respiratory 18 16 19 Rate Blood Pressure 106/67 118/73 03/29/19 13:29 Temperature 97.8 F Pulse Rate 82 Respiratory 19 Rate Blood Pressure 120/72 Laboratory Tests 03/27/19 03/27/19 03/27/19 13:50 13:50 13:50 WBC 2.3 L RBC 4.01 Hgb 13.1 Hct 38.8 MCV 96.9 H MCH 32.8 MCHC 33.8 RDW 14.2 Plt Count 208 MPV 7.5 Sodium 136 Potassium 4.2 Chloride 102 Carbon Dioxide 28 Anion Gap 6 L BUN 7 Creatinine 0.7 Est GFR (CKD-EPI)AfAm 121.41 Est GFR (CKD-EPI)NonAf 104.76 Random Glucose 74 Calcium 9.2 Total Bilirubin 0.3 AST 15 ALT 19 Alkaline Phosphatase 101 Total Protein 7.3 Albumin 4.0 Urine Color Urine Appearance Urine pH Urine pH (Auto) Ur Specific [place] Specific [place] (Auto) Urine Protein Urine Protein (Auto) Urine Glucose (UA) Glucose (UA)(Auto) Urine Ketones Urine Ketones (Auto) Urine Blood Urine Blood (Auto) Urine Nitrite Urine Nitrite (Auto) Urine Bilirubin Urine Urobilinogen Urine Urobilinogen (Auto) Ur Leukocyte Esterase Leukocyte Esterase (Auto) Urine WBC (Auto) Urine RBC (Auto) Urine Casts (Auto) U Pathogenic Cast Auto U Epithel Cells (Auto) U Sm Round Cell (Auto) Urine Crystals (Auto) Urine Bacteria (Auto) Urine Yeast (Auto) RPR Titer Nonreactive 03/27/19 03/27/19 15:00 15:04 WBC RBC Hgb Hct MCV MCH MCHC RDW Plt Count MPV Sodium Potassium Chloride Carbon Dioxide Anion Gap BUN Creatinine Est GFR (CKD-EPI)AfAm Est GFR (CKD-EPI)NonAf Random Glucose Calcium Total Bilirubin AST ALT Alkaline Phosphatase Total Protein Albumin Urine Color Cancelled Yellow Urine Appearance Cancelled Clear Urine pH Cancelled Urine pH (Auto) 5.5 Ur Specific [place] Cancelled Specific [place] (Auto) 1.020 Urine Protein Cancelled Urine Protein (Auto) Negative Urine Glucose (UA) Cancelled Glucose (UA)(Auto) Negative Urine Ketones Cancelled Urine Ketones (Auto) Negative Urine Blood Cancelled Urine Blood (Auto) Negative Urine Nitrite Cancelled Urine Nitrite (Auto) Negative Urine Bilirubin Cancelled Negative Urine Urobilinogen Cancelled Urine Urobilinogen (Auto) 0.2 Ur Leukocyte Esterase Cancelled Leukocyte Esterase (Auto) Negative Urine WBC (Auto) Cancelled Urine RBC (Auto) Cancelled Urine Casts (Auto) Cancelled U Pathogenic Cast Auto Cancelled U Epithel Cells (Auto) Cancelled U Sm Round Cell (Auto) Cancelled Urine Crystals (Auto) Cancelled Urine Bacteria (Auto) Cancelled Urine Yeast (Auto) Cancelled RPR Titer a/p: continue alcohol detox protocol- pt doing well
[2019-03-29] MEDS ORDERED: chlordiazePOXIDE HCL 10 MG CAPSULE PO PRN (17:00)
[2019-03-29] MEDS: chlordiazePOXIDE HCL 10 MG CAPSULE PO SCH ×2 (17:15→22:13)
[2019-03-29] MEDS: THIAMINE HCL 100 MG TABLET (FP) PO SCH (22:12)
[2019-03-30] MEDS: chlordiazePOXIDE HCL 10 MG CAPSULE PO SCH ×3 (06:20→18:07)
--- NOTE | 2019-03-30 09:45 | PN ---
S CIWA - CIWA Score Nausea/Vomitin-No Nausea/No Vomiting Muscle Tremors: None Anxiety: 1-Mildly Anxious Agitation: 0-Normal Activity Paroxysmal Sweats: 1-Minimal Palms Moist Orientation: 0-Oriented Tacttile Disturbances: 1-Very Mild Itch/Numbness Auditory Disturbances: 0-None Visual Disturbances: 0-None Headache: 1-Very Mild CIWA-Ar Total Score: 4 BHS Progress Note (SOAP) Subjective: c/o tiredness, interrupted, and mild sweats Objective: 03/30/19 09:51 Vital Signs 03/30/19 03/30/19 03/30/19 03:30 06:00 09:15 Temperature 95.9 F L 97.2 F L Pulse Rate 93 H 87 Respiratory 18 16 18 Rate Blood Pressure 121/69 122/73 Lab Results WBC 2.3 K/mm3 (4.0-10.0) L 03/27/19 13:50 RBC 4.01 M/mm3 (4.00-5.60) 03/27/19 13:50 Hgb 13.1 GM/dL (11.7-16.9) 03/27/19 13:50 Hct 38.8 % (35.4-49) 03/27/19 13:50 MCV 96.9 fl (80-96) H 03/27/19 13:50 MCHC 33.8 g/dl (32.0-35.9) 03/27/19 13:50 RDW 14.2 % (11.9-15.9) 03/27/19 13:50 Plt Count 208 K/MM3 (134-434) 03/27/19 13:50 Sodium 136 mmol/L (136-145) 03/27/19 13:50 Potassium 4.2 mmol/L (3.5-5.1) 03/27/19 13:50 Chloride 102 mmol/L (98-107) 03/27/19 13:50 Carbon Dioxide 28 mmol/L (21-32) 03/27/19 13:50 Anion Gap 6 MMOL/L (8-16) L 03/27/19 13:50 BUN 7 mg/dL (7-18) 03/27/19 13:50 Creatinine 0.7 mg/dL (0.55-1.3) 03/27/19 13:50 Random Glucose 74 mg/dL (74-106) 03/27/19 13:50 Calcium 9.2 mg/dL (8.5-10.1) 03/27/19 13:50 Labs noted. Assessment: 03/30/19 09:52 AOX3, in no respiratory distress Full ROM mild withdrawal symptoms. Plan: continue detox increase fluids
[2019-03-30] MEDS: PRENATAL VITAMINS W/ FOLIC ACID TABLET (FP) PO SCH (10:20)
[2019-03-30] MEDS: THIAMINE HCL 100 MG TABLET (FP) PO SCH (22:47)
[2019-03-31] MEDS: chlordiazePOXIDE HCL 10 MG CAPSULE PO SCH ×2 (05:56→18:33)
[2019-03-31] MEDS: PRENATAL VITAMINS W/ FOLIC ACID TABLET (FP) PO SCH (10:19)
--- NOTE | 2019-03-31 12:41 | PN ---
[facility] CIWA - CIWA Score Nausea/Vomitin-No Nausea/No Vomiting Muscle Tremors: None Anxiety: 1-Mildly Anxious Agitation: 1-Slight > Activity Paroxysmal Sweats: No Perspiration Orientation: 0-Oriented Tacttile Disturbances: 0-None Auditory Disturbances: 0-None Visual Disturbances: 0-None Headache: 0-None Present CIWA-Ar Total Score: 2 S Progress Note (SOAP) Subjective: Interrupted sleep. Patient requesting Rehab at [facility] stating he was accepted but needs a ride to get there. Patient instructed to speak with counselor to arrange transportation to [facility] upon discharge if admitted there. Patient stated he will accept rehab here at [facility] if bed available and he has not ride to [facility]. Objective: 03/31/19 12:38 Last Vital Signs Temp Pulse Resp BP Pulse Ox 97.5 F L 96 H 18 125/83 03/31/19 09:46 03/31/19 09:46 03/31/19 09:46 03/31/19 09:46 Laboratory Tests 03/27/19 03/27/19 03/27/19 13:50 13:50 13:50 WBC 2.3 L RBC 4.01 Hgb 13.1 Hct 38.8 MCV 96.9 H MCH 32.8 MCHC 33.8 RDW 14.2 Plt Count 208 MPV 7.5 Sodium 136 Potassium 4.2 Chloride 102 Carbon Dioxide 28 Anion Gap 6 L BUN 7 Creatinine 0.7 Est GFR (CKD-EPI)AfAm 121.41 Est GFR (CKD-EPI)NonAf 104.76 Random Glucose 74 Calcium 9.2 Total Bilirubin 0.3 AST 15 ALT 19 Alkaline Phosphatase 101 Total Protein 7.3 Albumin 4.0 Urine Color Urine Appearance Urine pH Urine pH (Auto) Ur Specific [place] Specific [place] (Auto) Urine Protein Urine Protein (Auto) Urine Glucose (UA) Glucose (UA)(Auto) Urine Ketones Urine Ketones (Auto) Urine Blood Urine Blood (Auto) Urine Nitrite Urine Nitrite (Auto) Urine Bilirubin Urine Urobilinogen Urine Urobilinogen (Auto) Ur Leukocyte Esterase Leukocyte Esterase (Auto) Urine WBC (Auto) Urine RBC (Auto) Urine Casts (Auto) U Pathogenic Cast Auto U Epithel Cells (Auto) U Sm Round Cell (Auto) Urine Crystals (Auto) Urine Bacteria (Auto) Urine Yeast (Auto) RPR Titer Nonreactive 03/27/19 03/27/19 15:00 15:04 WBC RBC Hgb Hct MCV MCH MCHC RDW Plt Count MPV Sodium Potassium Chloride Carbon Dioxide Anion Gap BUN Creatinine Est GFR (CKD-EPI)AfAm Est GFR (CKD-EPI)NonAf Random Glucose Calcium Total Bilirubin AST ALT Alkaline Phosphatase Total Protein Albumin Urine Color Cancelled Yellow Urine Appearance Cancelled Clear Urine pH Cancelled Urine pH (Auto) 5.5 Ur Specific [place] Cancelled Specific [place] (Auto) 1.020 Urine Protein Cancelled Urine Protein (Auto) Negative Urine Glucose (UA) Cancelled Glucose (UA)(Auto) Negative Urine Ketones Cancelled Urine Ketones (Auto) Negative Urine Blood Cancelled Urine Blood (Auto) Negative Urine Nitrite Cancelled Urine Nitrite (Auto) Negative Urine Bilirubin Cancelled Negative Urine Urobilinogen Cancelled Urine Urobilinogen (Auto) 0.2 Ur Leukocyte Esterase Cancelled Leukocyte Esterase (Auto) Negative Urine WBC (Auto) Cancelled Urine RBC (Auto) Cancelled Urine Casts (Auto) Cancelled U Pathogenic Cast Auto Cancelled U Epithel Cells (Auto) Cancelled U Sm Round Cell (Auto) Cancelled Urine Crystals (Auto) Cancelled Urine Bacteria (Auto) Cancelled Urine Yeast (Auto) Cancelled RPR Titer Labs reviewed Assessment: 03/31/19 12:41 Withdrawal symptoms Plan: Continue detox Encouraged PO water hydration
[2019-03-31] MEDS: THIAMINE HCL 100 MG TABLET (FP) PO SCH (22:27)
[2019-04-01] MEDS: PRENATAL VITAMINS W/ FOLIC ACID TABLET (FP) PO SCH (10:30)
[2019-04-01 14:00] VITALS: BP 126/70; PULSE 99; TEMP 98.1
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
== END 2019-04-01 16:36 | disposition other institution (70) | DRG 775 ==
LOC: YASAS 10:01 → Y6N 14:25
PROVIDERS: ADMIT Surgery; ATTEND Surgery
PROC: HZ2ZZZZ Detoxification Services for Substance Abuse Treatment (ICD-10-PCS; principal; 2019-03-27)
DX: F10.230 Alcohol dependence with withdrawal, uncomplicated (principal); F17.213 Nicotine dependence, cigarettes, with withdrawal; F31.9 Bipolar disorder, unspecified; F43.10 Post-traumatic stress disorder, unspecified; R55 Syncope and collapse; I10 Essential (primary) hypertension; D72.818 Other decreased white blood cell count; D50.9 Iron deficiency anemia, unspecified; R63.4 Abnormal weight loss; Z68.24 Body mass index [BMI] 24.0-24.9, adult; M62.830 Muscle spasm of back; Z87.828 Personal history of other (healed) physical injury and trauma; Z88.0 Allergy status to penicillin
CPT/HCPCS: 36415; 80053; 81003; 85027; 86593

== ENCOUNTER 2019-04-01 16:45 | Inpatient (IN) | payer OTHER ==
--- NOTE | 2019-04-01 15:28 | HP ---
[facility] Rehab Assess/Revision - Admission History Admitted to Rehab from: [facility] Date of Admission to Rehab: 04/01/2019 - Vital signs Vital Signs: NOTED; STABLE. - Findings Detox History & Physical reviewed: Yes Concur with findings: Yes Comments/Additional Findings: PATIENT'S MEDICAL / MEDICATION HISTORY REVIEWED PRIOR TO DISCHARGE FROM DETOX UNIT. PATIENT WAS DISCHARGED FROM DETOX UNIT TO BE TAKEN OVER TO REHAB UNIT IN STABLE MEDICAL CONDITION. Inpatient Rehab Admission - Rehab Decision to Admit Inpatient rehab admission?: Yes - Initial Determination Are CD services needed?: Yes Free of communicable disease: Yes Not in need of hospitalization: Yes - Rehab Admission Criteria Previous failed treatment: Yes Poor recovery environment: Yes Comorbidities: Yes Lacks judgement: Yes Patient is meeting Inpatient Rehab admission criteria:: Yes
[~2019-04-01 16:45] MED LIST changes: +ACETAMINOPHEN 325 MG TABLET (FP) PO PRN; +IBUPROFEN 400 MG TABLET (FP) PO PRN; +guaiFENesin 200 MG/10 ML 10 ML UNIT-DOSE CUPS PO PRN
[2019-04-01] MEDS: THIAMINE HCL 100 MG TABLET (FP) PO SCH (21:10)
[2019-04-01] MEDS ORDERED: MELATONIN 5 MG TABLETS PO PRN (22:00)
[2019-04-02] MEDS: PRENATAL VITAMINS W/ FOLIC ACID TABLET (FP) PO SCH (10:21)
[2019-04-02] MEDS: THIAMINE HCL 100 MG TABLET (FP) PO SCH (21:08)
[2019-04-03] MEDS ORDERED: MELATONIN 5 MG TABLETS PO PRN (09:43)
[2019-04-03] MEDS: PRENATAL VITAMINS W/ FOLIC ACID TABLET (FP) PO SCH (10:31)
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
[2019-04-03] MEDS: THIAMINE HCL 100 MG TABLET (FP) PO SCH (21:12)
[2019-04-04] MEDS: PRENATAL VITAMINS W/ FOLIC ACID TABLET (FP) PO SCH (10:36)
[2019-04-04] MEDS: THIAMINE HCL 100 MG TABLET (FP) PO SCH (22:14)
[2019-04-05] MEDS: PRENATAL VITAMINS W/ FOLIC ACID TABLET (FP) PO SCH (09:53)
[2019-04-05] MEDS: THIAMINE HCL 100 MG TABLET (FP) PO SCH (21:04)
[2019-04-06] MEDS: PRENATAL VITAMINS W/ FOLIC ACID TABLET (FP) PO SCH (10:33)
[2019-04-06] MEDS: THIAMINE HCL 100 MG TABLET (FP) PO SCH (21:32)
[2019-04-07] MEDS: PRENATAL VITAMINS W/ FOLIC ACID TABLET (FP) PO SCH (10:13)
[2019-04-07] MEDS: THIAMINE HCL 100 MG TABLET (FP) PO SCH (21:38)
[2019-04-08] MEDS: PRENATAL VITAMINS W/ FOLIC ACID TABLET (FP) PO SCH (10:08)
[2019-04-08] MEDS: THIAMINE HCL 100 MG TABLET (FP) PO SCH (21:23)
[2019-04-09] MEDS: PRENATAL VITAMINS W/ FOLIC ACID TABLET (FP) PO SCH (10:02)
[2019-04-09] MEDS: TETRAHYDROZOLINE HCL EYE DROPS OD PRN (18:48)
[2019-04-09] MEDS: THIAMINE HCL 100 MG TABLET (FP) PO SCH (21:27)
[2019-04-10] MEDS: TETRAHYDROZOLINE HCL EYE DROPS OD PRN ×4 (06:55→21:20)
[2019-04-10] MEDS: PRENATAL VITAMINS W/ FOLIC ACID TABLET (FP) PO SCH (09:49)
[2019-04-10] MEDS: THIAMINE HCL 100 MG TABLET (FP) PO SCH (21:19)
[2019-04-11] MEDS: TETRAHYDROZOLINE HCL EYE DROPS OD PRN ×4 (06:41→20:09)
[2019-04-11] MEDS: PRENATAL VITAMINS W/ FOLIC ACID TABLET (FP) PO SCH (09:52)
[2019-04-11] MEDS: THIAMINE HCL 100 MG TABLET (FP) PO SCH (21:26)
[2019-04-12] MEDS: PRENATAL VITAMINS W/ FOLIC ACID TABLET (FP) PO SCH (09:44)
[2019-04-12] MEDS: TETRAHYDROZOLINE HCL EYE DROPS OD PRN ×2 (13:29→19:18)
[2019-04-12] MEDS: THIAMINE HCL 100 MG TABLET (FP) PO SCH (21:22)
[2019-04-13] MEDS: PRENATAL VITAMINS W/ FOLIC ACID TABLET (FP) PO SCH (09:34)
[2019-04-13] MEDS: TETRAHYDROZOLINE HCL EYE DROPS OD PRN ×2 (09:35→21:27)
[2019-04-13] MEDS: THIAMINE HCL 100 MG TABLET (FP) PO SCH (21:27)
[2019-04-14 06:59] VITALS: TEMP 98.6
[2019-04-14] MEDS: PRENATAL VITAMINS W/ FOLIC ACID TABLET (FP) PO SCH (09:23)
[2019-04-14] MEDS: TETRAHYDROZOLINE HCL EYE DROPS OD PRN ×2 (09:23→19:37)
[2019-04-14] MEDS: THIAMINE HCL 100 MG TABLET (FP) PO SCH (21:23)
[2019-04-15 06:48] VITALS: BP 107/76; PULSE 81
[2019-04-15] MEDS: PRENATAL VITAMINS W/ FOLIC ACID TABLET (FP) PO SCH (09:10)
[2019-04-15] MEDS: TETRAHYDROZOLINE HCL EYE DROPS OD PRN (09:10)
--- NOTE | 2019-04-15 11:31 | PN ---
[facility] Progress Note (SOAP) Subjective: PT COMPLETED REHAB AND DISCHARGING TODAY. [facility] [address], [place], [place] FOR CD AFTERCARE. PT REPORTS HE HAS PRIMARY CARE PROVIDER DR. PALOMO AT [facility]. PT IS ALERT O X 3. DENIES S/H/I. Objective: 04/15/19 11:29 Vital Signs - 24 hr 04/15/19 04/15/19 04/15/19 00:30 03:30 06:48 Temperature 98.6 F Pulse Rate 81 Respiratory 18 18 18 Rate Blood Pressure 107/76 Home Medications Medication Instructions Recorded NK [No Known Home Medication] 03/29/18 Assessment: 04/15/19 11:29 NAD MEDICALLY STABLE Plan: D/C PT TODAY. FOLLOW UP WITH CD AFTERCARE RECOMMENDED. FOLLOW UP WIT PCP WITHIN 1-2 WEEKS AFTER DISCHARGE FOR MEDICAL MANAGEMENT.
== END 2019-04-15 09:55 | disposition home or self-care (01) | DRG 772 ==
LOC: YASAS 16:45 → Y3W 16:46
PROVIDERS: ADMIT Neuromusculoskeletal Medicine & OMM; ATTEND Neuromusculoskeletal Medicine & OMM
PROC: HZ42ZZZ Group Counseling for Substance Abuse Treatment, Cognitive-Behavioral (ICD-10-PCS; principal; 2019-04-01)
DX: F10.20 Alcohol dependence, uncomplicated (principal); F31.9 Bipolar disorder, unspecified; F43.10 Post-traumatic stress disorder, unspecified; I10 Essential (primary) hypertension; D64.9 Anemia, unspecified

== ENCOUNTER 2019-08-30 10:18 | Inpatient (IN) | payer OTHER ==
[2019-08-30 11:37] VITALS: BMI 23.3
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
[2019-08-30] MEDS ORDERED: IBUPROFEN 400 MG TABLET (FP) PO PRN (12:46)
[2019-08-30] MEDS ORDERED: MAGNESIUM HYDROX 2400MG/30ML ORAL SUSPENSION 30 ML CUP PO PRN (12:46)
[2019-08-30] MEDS ORDERED: BISMUTH SUBSALICYLATE 262 MG/15 ML BTL PO PRN (12:46)
[2019-08-30] MEDS ORDERED: ACETAMINOPHEN 325 MG TABLET (FP) PO PRN ×2 (12:46)
[2019-08-30] MEDS ORDERED: chlordiazePOXIDE HCL 10 MG CAPSULE PO PRN (12:46)
[2019-08-30] MEDS ORDERED: hydrOXYzine PAMOATE 25 MG CAPSULE (FP) PO PRN (12:46)
[2019-08-30] MEDS ORDERED: NICOTINE POLACRILEX 2 MG GUM BUC PRN (12:46)
[2019-08-30] MEDS ORDERED: MAGNESIUM CITRATE 300 ML BOTTLE PO PRN (12:46)
[2019-08-30] MEDS ORDERED: MENTHOL/PHENOL 1 EACH UD MM PRN (12:46)
[2019-08-30] MEDS ORDERED: MAG HYDROX/AL HYDROX/SIMETH 30 ML UNIT-DOSE CUP PO PRN (12:46)
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
[2019-08-30] MEDS: chlordiazePOXIDE HCL 25 MG CAPSULE PO SCH ×2 (14:31→22:02)
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
[2019-08-30] MEDS: THIAMINE HCL 100 MG TABLET (FP) PO SCH (22:02)
[2019-08-30] MEDS: MELATONIN 5 MG TABLETS PO PRN (22:03)
[2019-08-31] MEDS: chlordiazePOXIDE HCL 25 MG CAPSULE PO SCH ×3 (06:30→22:06)
[2019-08-31 10:17] LABS: ALBUMIN 3.1 g/dl (3.4-5.0); BILIRUBIN,TOTAL 0.3 mg/dL (0.2-1); BLOOD UREA NITROGEN 7.9 mg/dL (7-18); CREATININE 0.7 mg/dL (0.55-1.3); POTASSIUM 3.8 mmol/L (3.5-5.1); TOT PROT 6.2 g/dl (6.4-8.2)
[2019-08-31] MEDS: PRENATAL VITAMINS W/ FOLIC ACID TABLET (FP) PO SCH (10:33)
[2019-08-31 10:35] LABS: HEMATOCRIT 35.9 % (35.4-49); HEMOGLOBIN 12.5 GM/dL (11.7-16.9); MCH 33.4 pg (25.7-33.7); MEAN CELL VOLUME 95.6 fl (80-96); MEAN PLT VOLUME 7.6 fl (7.5-11.1); PLATELET COUNT 155 K/MM3 (134-434); RBC 3.75 M/mm3 (4.00-5.60); RDW 14.8 % (11.9-15.9); WHITE BLOOD COUNT 2.2 K/mm3 (4.0-10.0)
[2019-08-31] MEDS ORDERED: FLU VACCINE QUAD 60 MCG/0.5 ML (MDV 19-20) IM ONE (12:00)
--- NOTE | 2019-08-31 12:01 | PN ---
S CIWA - CIWA Score Nausea/Vomitin-Mild Nausea/No Vomiting Muscle Tremors: 2 Anxiety: 1-Mildly Anxious Agitation: 2 Paroxysmal Sweats: 2 Orientation: 0-Oriented Tacttile Disturbances: 0-None Auditory Disturbances: 0-None Visual Disturbances: 0-None Headache: 2-Mild CIWA-Ar Total Score: 10 BHS Progress Note (SOAP) Subjective: Pt here for alcohol detox. Says he did not sleep well last night. O: Vital Signs - 24 hr 08/30/19 08/30/19 08/30/19 14:22 17:42 21:15 Temperature 99.2 F 98.8 F 100 F H Pulse Rate 84 98 H 91 H Respiratory 18 18 18 Rate Blood Pressure 117/76 113/73 118/81 08/31/19 08/31/19 08/31/19 00:19 03:30 05:58 Temperature 99.8 F H Pulse Rate 95 H Respiratory 18 18 18 Rate Blood Pressure 114/70 08/31/19 09:54 Temperature 97.4 F L Pulse Rate 88 Respiratory 18 Rate Blood Pressure 107/71 Laboratory Tests 08/31/19 08/31/19 08:00 08:00 WBC 2.2 L RBC 3.75 L Hgb 12.5 Hct 35.9 MCV 95.6 MCH 33.4 MCHC 35.0 RDW 14.8 Plt Count 155 MPV 7.6 Sodium 139 Potassium 3.8 Chloride 103 Carbon Dioxide 27 Anion Gap 9 BUN 7.9 Creatinine 0.7 Est GFR (CKD-EPI)AfAm 121.41 Est GFR (CKD-EPI)NonAf 104.76 Random Glucose 107 H Calcium 8.0 L Total Bilirubin 0.3 AST 12 L ALT 16 Alkaline Phosphatase 107 Total Protein 6.2 L Albumin 3.1 L a/p: continue alcohol detox melatonin for sleep, prn meds
[2019-08-31] MEDS: THIAMINE HCL 100 MG TABLET (FP) PO SCH (22:06)
[2019-08-31] MEDS: MELATONIN 5 MG TABLETS PO PRN (22:06)
[2019-09-01] MEDS: chlordiazePOXIDE 5 MG CAPSULE PO SCH ×3 (06:27→22:09)
[2019-09-01] MEDS: PRENATAL VITAMINS W/ FOLIC ACID TABLET (FP) PO SCH (10:56)
--- NOTE | 2019-09-01 14:35 | PN ---
[facility] CIWA - CIWA Score Nausea/Vomitin-Mild Nausea/No Vomiting Muscle Tremors: 2 Anxiety: 2 Agitation: 2 Paroxysmal Sweats: 1-Minimal Palms Moist Orientation: 0-Oriented Tacttile Disturbances: 0-None Auditory Disturbances: 0-None Visual Disturbances: 0-None Headache: 0-None Present CIWA-Ar Total Score: 8 S Progress Note (SOAP) Subjective: doing well with librium detox regimen ensure 90 ml po bid less tremor Objective: 09/01/19 14:37 Vital Signs Temperature 97.8 F 09/01/19 14:10 Pulse Rate 89 09/01/19 14:10 Respiratory Rate 18 09/01/19 14:10 Blood Pressure 116/78 09/01/19 14:10 O2 Sat by Pulse Oximetry (%) Laboratory Last Values WBC 2.2 K/mm3 (4.0-10.0) L 08/31/19 08:00 RBC 3.75 M/mm3 (4.00-5.60) L 08/31/19 08:00 Hgb 12.5 GM/dL (11.7-16.9) 08/31/19 08:00 Hct 35.9 % (35.4-49) 08/31/19 08:00 MCV 95.6 fl (80-96) 08/31/19 08:00 MCH 33.4 pg (25.7-33.7) 08/31/19 08:00 MCHC 35.0 g/dl (32.0-35.9) 08/31/19 08:00 RDW 14.8 % (11.9-15.9) 08/31/19 08:00 Plt Count 155 K/MM3 (134-434) 08/31/19 08:00 MPV 7.6 fl (7.5-11.1) 08/31/19 08:00 Sodium 139 mmol/L (136-145) 08/31/19 08:00 Potassium 3.8 mmol/L (3.5-5.1) 08/31/19 08:00 Chloride 103 mmol/L (98-107) 08/31/19 08:00 Carbon Dioxide 27 mmol/L (21-32) 08/31/19 08:00 Anion Gap 9 MMOL/L (8-16) 08/31/19 08:00 BUN 7.9 mg/dL (7-18) 08/31/19 08:00 Creatinine 0.7 mg/dL (0.55-1.3) 08/31/19 08:00 Est GFR (CKD-EPI)AfAm 121.41 08/31/19 08:00 Est GFR (CKD-EPI)NonAf 104.76 08/31/19 08:00 Random Glucose 107 mg/dL (74-106) H 08/31/19 08:00 Calcium 8.0 mg/dL (8.5-10.1) L 08/31/19 08:00 Total Bilirubin 0.3 mg/dL (0.2-1) 08/31/19 08:00 AST 12 U/L (15-37) L 08/31/19 08:00 ALT 16 U/L (13-61) 08/31/19 08:00 Alkaline Phosphatase 107 U/L (45-117) 08/31/19 08:00 Total Protein 6.2 g/dl (6.4-8.2) L 08/31/19 08:00 Albumin 3.1 g/dl (3.4-5.0) L 08/31/19 08:00 RPR Titer Nonreactive (NONREACTIVE) 08/31/19 08:00 lab noted 09/01/19 14:39 chronic low wbc Assessment: 09/01/19 14:39 alcohol withdrawal sx Plan: continue librium detox regimen
[2019-09-01] MEDS: THIAMINE HCL 100 MG TABLET (FP) PO SCH (22:09)
[2019-09-01] MEDS: MELATONIN 5 MG TABLETS PO PRN (22:10)
[2019-09-02] MEDS ORDERED: chlordiazePOXIDE HCL 10 MG CAPSULE PO PRN
[2019-09-02] MEDS: chlordiazePOXIDE HCL 10 MG CAPSULE PO SCH ×3 (07:38→22:03)
[2019-09-02] MEDS: PRENATAL VITAMINS W/ FOLIC ACID TABLET (FP) PO SCH (10:39)
--- NOTE | 2019-09-02 15:41 | PN ---
[facility] CIWA - CIWA Score Nausea/Vomitin-No Nausea/No Vomiting Muscle Tremors: 2 Anxiety: 1-Mildly Anxious Agitation: 1-Slight > Activity Paroxysmal Sweats: No Perspiration Orientation: 0-Oriented Tacttile Disturbances: 0-None Auditory Disturbances: 0-None Visual Disturbances: 0-None Headache: 0-None Present CIWA-Ar Total Score: 4 S Progress Note (SOAP) Subjective: doing well with librium detox regimen less tremor sleep better at night Objective: 09/02/19 15:40 Vital Signs Temperature 97.3 F L 09/02/19 13:15 Pulse Rate 88 09/02/19 13:15 Respiratory Rate 18 09/02/19 13:15 Blood Pressure 113/74 09/02/19 13:15 O2 Sat by Pulse Oximetry (%) Laboratory Last Values WBC 2.2 K/mm3 (4.0-10.0) L 08/31/19 08:00 RBC 3.75 M/mm3 (4.00-5.60) L 08/31/19 08:00 Hgb 12.5 GM/dL (11.7-16.9) 08/31/19 08:00 Hct 35.9 % (35.4-49) 08/31/19 08:00 MCV 95.6 fl (80-96) 08/31/19 08:00 MCH 33.4 pg (25.7-33.7) 08/31/19 08:00 MCHC 35.0 g/dl (32.0-35.9) 08/31/19 08:00 RDW 14.8 % (11.9-15.9) 08/31/19 08:00 Plt Count 155 K/MM3 (134-434) 08/31/19 08:00 MPV 7.6 fl (7.5-11.1) 08/31/19 08:00 Sodium 139 mmol/L (136-145) 08/31/19 08:00 Potassium 3.8 mmol/L (3.5-5.1) 08/31/19 08:00 Chloride 103 mmol/L (98-107) 08/31/19 08:00 Carbon Dioxide 27 mmol/L (21-32) 08/31/19 08:00 Anion Gap 9 MMOL/L (8-16) 08/31/19 08:00 BUN 7.9 mg/dL (7-18) 08/31/19 08:00 Creatinine 0.7 mg/dL (0.55-1.3) 08/31/19 08:00 Est GFR (CKD-EPI)AfAm 121.41 08/31/19 08:00 Est GFR (CKD-EPI)NonAf 104.76 08/31/19 08:00 Random Glucose 107 mg/dL (74-106) H 08/31/19 08:00 Calcium 8.0 mg/dL (8.5-10.1) L 08/31/19 08:00 Total Bilirubin 0.3 mg/dL (0.2-1) 08/31/19 08:00 AST 12 U/L (15-37) L 08/31/19 08:00 ALT 16 U/L (13-61) 08/31/19 08:00 Alkaline Phosphatase 107 U/L (45-117) 08/31/19 08:00 Total Protein 6.2 g/dl (6.4-8.2) L 08/31/19 08:00 Albumin 3.1 g/dl (3.4-5.0) L 08/31/19 08:00 RPR Titer Nonreactive (NONREACTIVE) 08/31/19 08:00 lab noted chronic low wbc 09/02/19 15:42 Assessment: 09/02/19 15:42 alcohol withdrawal sx Plan: continue librium detox regimen CIWA Score - CIWA Score Visual Disturbances: 0-None
[2019-09-02] MEDS: THIAMINE HCL 100 MG TABLET (FP) PO SCH (22:03)
[2019-09-02] MEDS: MELATONIN 5 MG TABLETS PO PRN (22:03)
[2019-09-03] MEDS ORDERED: chlordiazePOXIDE HCL 10 MG CAPSULE PO ONE (05:00)
[2019-09-03 09:07] VITALS: BP 103/59; PULSE 78; TEMP 96.9
[2019-09-03] MEDS: PRENATAL VITAMINS W/ FOLIC ACID TABLET (FP) PO SCH (10:02)
--- NOTE | 2019-09-03 14:15 | DS ---
[facility] Detox Discharge Summary Admission Date: 08/30/19 Discharge Date: 09/03/19 - History Present History: Alcohol Dependence Additional Comments: 59 years old male admitted on 08/30/19 for alcohol withdrawal sx management did well with librium detox regimen no complication through out the detox stay alert oriented x 3 S1S2 regular rate rhythm respiratory clear lung bilaterally on auscultation abdomen soft no rebound tender ness - Physical Exam Results Vital Signs: Vital Signs Temperature 96.9 F L 09/03/19 09:06 Pulse Rate 78 09/03/19 09:06 Respiratory Rate 18 09/03/19 09:06 Blood Pressure 103/59 L 09/03/19 09:06 O2 Sat by Pulse Oximetry (%) Pertinent Admission Physical Exam Findings: alcohol withdrawal sx Laboratory Last Values WBC 2.2 K/mm3 (4.0-10.0) L 08/31/19 08:00 RBC 3.75 M/mm3 (4.00-5.60) L 08/31/19 08:00 Hgb 12.5 GM/dL (11.7-16.9) 08/31/19 08:00 Hct 35.9 % (35.4-49) 08/31/19 08:00 MCV 95.6 fl (80-96) 08/31/19 08:00 MCH 33.4 pg (25.7-33.7) 08/31/19 08:00 MCHC 35.0 g/dl (32.0-35.9) 08/31/19 08:00 RDW 14.8 % (11.9-15.9) 08/31/19 08:00 Plt Count 155 K/MM3 (134-434) 08/31/19 08:00 MPV 7.6 fl (7.5-11.1) 08/31/19 08:00 Sodium 139 mmol/L (136-145) 08/31/19 08:00 Potassium 3.8 mmol/L (3.5-5.1) 08/31/19 08:00 Chloride 103 mmol/L (98-107) 08/31/19 08:00 Carbon Dioxide 27 mmol/L (21-32) 08/31/19 08:00 Anion Gap 9 MMOL/L (8-16) 08/31/19 08:00 BUN 7.9 mg/dL (7-18) 08/31/19 08:00 Creatinine 0.7 mg/dL (0.55-1.3) 08/31/19 08:00 Est GFR (CKD-EPI)AfAm 121.41 08/31/19 08:00 Est GFR (CKD-EPI)NonAf 104.76 08/31/19 08:00 Random Glucose 107 mg/dL (74-106) H 08/31/19 08:00 Calcium 8.0 mg/dL (8.5-10.1) L 08/31/19 08:00 Total Bilirubin 0.3 mg/dL (0.2-1) 08/31/19 08:00 AST 12 U/L (15-37) L 08/31/19 08:00 ALT 16 U/L (13-61) 08/31/19 08:00 Alkaline Phosphatase 107 U/L (45-117) 08/31/19 08:00 Total Protein 6.2 g/dl (6.4-8.2) L 08/31/19 08:00 Albumin 3.1 g/dl (3.4-5.0) L 08/31/19 08:00 RPR Titer Nonreactive (NONREACTIVE) 08/31/19 08:00 lab noted - Treatment Hospital Course: Detox Protocol Followed, Detoxed Safely, Responded well, Discharged Condition Good, Rehab Referral Accepted Patient has Accepted a Rehab Referral to: [facility] - Medication Discharge Medications: Ambulatory Orders NK [No Known Home Medication] 03/29/18 - Diagnosis (1) Alcohol dependence with uncomplicated withdrawal Status: Acute (2) HTN (hypertension) Status: Chronic Qualifiers: Hypertension type: essential hypertension Qualified Code(s): I10 - Essential (primary) hypertension (3) Leukopenia Status: Chronic Qualifiers: Leukopenia type: other Qualified Code(s): D72.818 - Other decreased white blood cell count (4) Nicotine dependence Status: Acute Qualifiers: Nicotine product type: cigarettes Substance use status: in withdrawal Qualified Code(s): F17.213 - Nicotine dependence, cigarettes, with withdrawal (5) Substance induced mood disorder Status: Suspected - AMA Did Patient Leave Against Medical Advice: No CIWA Score - CIWA Score Nausea/Vomitin-No Nausea/No Vomiting Muscle Tremors: 1-None Visible, but [place] Anxiety: 0-No Anxiety, at Ease Agitation: 0-Normal Activity Paroxysmal Sweats: No Perspiration Orientation: 0-Oriented Tacttile Disturbances: 0-None Auditory Disturbances: 0-None Visual Disturbances: 0-None Headache: 0-None Present CIWA-Ar Total Score: 1
== END 2019-09-03 12:30 | disposition other institution (70) | DRG 774 ==
LOC: YASAS 10:18 → Y3N 13:29
PROVIDERS: ADMIT Allergy & Immunology; ATTEND Allergy & Immunology
PROC: HZ2ZZZZ Detoxification Services for Substance Abuse Treatment (ICD-10-PCS; principal; 2019-08-30)
DX: F10.230 Alcohol dependence with withdrawal, uncomplicated (principal); F10.24 Alcohol dependence with alcohol-induced mood disorder; F14.20 Cocaine dependence, uncomplicated; F17.213 Nicotine dependence, cigarettes, with withdrawal; F19.24 Other psychoactive substance dependence with psychoactive substance-induced mood disorder; F31.9 Bipolar disorder, unspecified; I10 Essential (primary) hypertension; D72.819 Decreased white blood cell count, unspecified; G47.00 Insomnia, unspecified; R00.0 Tachycardia, unspecified; R63.4 Abnormal weight loss; Z88.8 Allergy status to other drugs, medicaments and biological substances; Z91.14 Patient's other noncompliance with medication regimen
CPT/HCPCS: 36415; 80053; 85027; 86593

== ENCOUNTER 2019-09-03 12:51 | Inpatient (IN) | payer OTHER ==
[2019-09-03] MEDS ORDERED: MAGNESIUM HYDROX 2400MG/30ML ORAL SUSPENSION 30 ML CUP PO PRN (14:21)
[2019-09-03] MEDS ORDERED: ACETAMINOPHEN 325 MG TABLET (FP) PO PRN (14:21)
[2019-09-03] MEDS ORDERED: MAG HYDROX/AL HYDROX/SIMETH 30 ML UNIT-DOSE CUP PO PRN (14:21)
[2019-09-03] MEDS ORDERED: IBUPROFEN 400 MG TABLET (FP) PO PRN (14:21)
[2019-09-03] MEDS ORDERED: NICOTINE 7 MG/24 HOURS TOPICAL PATCH TD PRN (14:21)
[2019-09-03] MEDS ORDERED: guaiFENesin 200 MG/10 ML 10 ML UNIT-DOSE CUPS PO PRN (14:21)
[2019-09-03] MEDS ORDERED: LOPERAMIDE HCL 2 MG CAPSULE PO PRN (14:21)
[2019-09-03] MEDS ORDERED: NICOTINE POLACRILEX 2 MG GUM BUC PRN (14:21)
[2019-09-03] MEDS ORDERED: MAGNESIUM CITRATE 300 ML BOTTLE PO PRN (14:21)
[2019-09-03] MEDS ORDERED: P-EPHED 60MG/TRIPROLIDI 2.5MG TABLET PO PRN (14:21)
[2019-09-03] MEDS ORDERED: MENTHOL/PHENOL 1 EACH UD MM PRN (14:21)
--- NOTE | 2019-09-03 14:21 | HP ---
[facility] Rehab Assess/Revision - Admission History Admitted to Rehab from: [facility] Date of Admission to Rehab: 09/03/19 - Vital signs Vital Signs: Vital Signs Period Temp Pulse Resp BP Sys/Lopez Pulse Ox Last 24 Hr 98.2 F 89 18 130/83 - Findings Detox History & Physical reviewed: Yes Concur with findings: Yes Comments/Additional Findings: transferred from detox to rehab admission as per per protocol Inpatient Rehab Admission - Rehab Decision to Admit Inpatient rehab admission?: Yes - Initial Determination Are CD services needed?: Yes Free of communicable disease: Yes Not in need of hospitalization: Yes - Rehab Admission Criteria Previous failed treatment: Yes Poor recovery environment: Yes Comorbidities: Yes Lacks judgement: Yes Patient is meeting Inpatient Rehab admission criteria:: Yes
[2019-09-03] MEDS: THIAMINE HCL 100 MG TABLET (FP) PO SCH (21:39)
[2019-09-03] MEDS ORDERED: MELATONIN 5 MG TABLETS PO PRN (22:00)
[2019-09-04] MEDS: PRENATAL VITAMINS W/ FOLIC ACID TABLET (FP) PO SCH (10:24)
[2019-09-04 11:39] LABS: HEMATOCRIT 37.8 % (35.4-49); MCH 32.9 pg (25.7-33.7); MCHC 34.4 g/dl (32.0-35.9); MEAN CELL VOLUME 95.6 fl (80-96); MEAN PLT VOLUME 7.2 fl (7.5-11.1); PLATELET COUNT 218 K/MM3 (134-434); RBC 3.96 M/mm3 (4.00-5.60); RDW 14.8 % (11.9-15.9); WHITE BLOOD COUNT 2.3 K/mm3 (4.0-10.0)
[2019-09-04] MEDS: THIAMINE HCL 100 MG TABLET (FP) PO SCH (21:35)
[2019-09-05] MEDS: PRENATAL VITAMINS W/ FOLIC ACID TABLET (FP) PO SCH (10:23)
[2019-09-05] MEDS ORDERED: ARTIFICIAL TEARS (POLYVINYL ALCOHOL) OPTH DROPS OU PRN (11:28)
--- NOTE | 2019-09-05 11:31 | PN ---
[facility] Progress Note Note: c/o dry eyes and requesting eye drops. Denies redness,pain or discharge. Vital Signs - 24 hr 09/05/19 09/05/19 03:30 07:09 Temperature 97.4 F L Pulse Rate 76 Respiratory 18 18 Rate Blood Pressure 108/78 Eyes:perrla,eomi, no redness or discharge noted. Anicteric. A/P Dx: Dry eyes Artificial tears as directed.
[2019-09-05] MEDS: ARTIFICIAL TEARS (POLYVINYL ALCOHOL) OPTH DROPS OU SCH ×2 (14:30→21:26)
[2019-09-05] MEDS: THIAMINE HCL 100 MG TABLET (FP) PO SCH (21:26)
[2019-09-06] MEDS: ARTIFICIAL TEARS (POLYVINYL ALCOHOL) OPTH DROPS OU SCH ×4 (08:21→22:06)
[2019-09-06] MEDS: PRENATAL VITAMINS W/ FOLIC ACID TABLET (FP) PO SCH (10:22)
[2019-09-06] MEDS: THIAMINE HCL 100 MG TABLET (FP) PO SCH (22:05)
[2019-09-07] MEDS: ARTIFICIAL TEARS (POLYVINYL ALCOHOL) OPTH DROPS OU SCH ×3 (06:04→21:31)
[2019-09-07] MEDS: PRENATAL VITAMINS W/ FOLIC ACID TABLET (FP) PO SCH (10:39)
[2019-09-07] MEDS: THIAMINE HCL 100 MG TABLET (FP) PO SCH (21:30)
[2019-09-08] MEDS: ARTIFICIAL TEARS (POLYVINYL ALCOHOL) OPTH DROPS OU SCH ×3 (06:21→21:33)
[2019-09-08] MEDS: PRENATAL VITAMINS W/ FOLIC ACID TABLET (FP) PO SCH (10:11)
[2019-09-08] MEDS: THIAMINE HCL 100 MG TABLET (FP) PO SCH (21:33)
[2019-09-09] MEDS: ARTIFICIAL TEARS (POLYVINYL ALCOHOL) OPTH DROPS OU SCH ×3 (07:30→21:22)
[2019-09-09] MEDS: PRENATAL VITAMINS W/ FOLIC ACID TABLET (FP) PO SCH (10:28)
[2019-09-09] MEDS: THIAMINE HCL 100 MG TABLET (FP) PO SCH (21:22)
[2019-09-10] MEDS: ARTIFICIAL TEARS (POLYVINYL ALCOHOL) OPTH DROPS OU SCH ×3 (06:17→21:12)
[2019-09-10] MEDS: PRENATAL VITAMINS W/ FOLIC ACID TABLET (FP) PO SCH (10:15)
[2019-09-10] MEDS: THIAMINE HCL 100 MG TABLET (FP) PO SCH (21:11)
[2019-09-11] MEDS: ARTIFICIAL TEARS (POLYVINYL ALCOHOL) OPTH DROPS OU SCH ×3 (06:39→21:14)
[2019-09-11] MEDS: PRENATAL VITAMINS W/ FOLIC ACID TABLET (FP) PO SCH (10:42)
[2019-09-11] MEDS: THIAMINE HCL 100 MG TABLET (FP) PO SCH (21:14)
[2019-09-12] MEDS: ARTIFICIAL TEARS (POLYVINYL ALCOHOL) OPTH DROPS OU SCH ×3 (06:26→21:22)
[2019-09-12] MEDS: PRENATAL VITAMINS W/ FOLIC ACID TABLET (FP) PO SCH (10:37)
[2019-09-12] MEDS: THIAMINE HCL 100 MG TABLET (FP) PO SCH (21:21)
[2019-09-13] MEDS: ARTIFICIAL TEARS (POLYVINYL ALCOHOL) OPTH DROPS OU SCH ×3 (06:28→21:18)
[2019-09-13] MEDS: PRENATAL VITAMINS W/ FOLIC ACID TABLET (FP) PO SCH (10:49)
[2019-09-13] MEDS: THIAMINE HCL 100 MG TABLET (FP) PO SCH (21:18)
[2019-09-14] MEDS: ARTIFICIAL TEARS (POLYVINYL ALCOHOL) OPTH DROPS OU SCH ×3 (07:07→21:20)
[2019-09-14] MEDS: PRENATAL VITAMINS W/ FOLIC ACID TABLET (FP) PO SCH (10:07)
[2019-09-14] MEDS: THIAMINE HCL 100 MG TABLET (FP) PO SCH (21:20)
[2019-09-15] MEDS: ARTIFICIAL TEARS (POLYVINYL ALCOHOL) OPTH DROPS OU SCH ×3 (07:34→21:21)
[2019-09-15] MEDS: PRENATAL VITAMINS W/ FOLIC ACID TABLET (FP) PO SCH (09:30)
[2019-09-15] MEDS: THIAMINE HCL 100 MG TABLET (FP) PO SCH (21:20)
[2019-09-16 06:27] VITALS: BP 109/79; PULSE 80; TEMP 97.8
[2019-09-16] MEDS: ARTIFICIAL TEARS (POLYVINYL ALCOHOL) OPTH DROPS OU SCH (06:59)
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
[2019-09-16] MEDS: PRENATAL VITAMINS W/ FOLIC ACID TABLET (FP) PO SCH (10:26)
== END 2019-09-16 11:05 | disposition home or self-care (01) | DRG 772 ==
LOC: YASAS 12:51 → Y5N 12:53
PROVIDERS: ADMIT Neuromusculoskeletal Medicine & OMM; ATTEND Neuromusculoskeletal Medicine & OMM
PROC: HZ42ZZZ Group Counseling for Substance Abuse Treatment, Cognitive-Behavioral (ICD-10-PCS; principal; 2019-09-03)
DX: F10.20 Alcohol dependence, uncomplicated (principal); F10.280 Alcohol dependence with alcohol-induced anxiety disorder; F17.210 Nicotine dependence, cigarettes, uncomplicated; I10 Essential (primary) hypertension; H04.123 Dry eye syndrome of bilateral lacrimal glands; G47.00 Insomnia, unspecified; Z88.0 Allergy status to penicillin; Z91.018 Allergy to other foods; Z91.14 Patient's other noncompliance with medication regimen
CPT/HCPCS: 36415; 85027

== ENCOUNTER 2019-11-29 14:07 | Inpatient (IN) | payer OTHER ==
[2019-11-29 18:04] VITALS: BMI 22.1
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
--- NOTE | 2019-11-30 01:20 | PN ---
Samantha Progress Note Note: Patient was received from ER alert and oriented to person, place and time. Right lower extremity warmth, swelling and redness along R jaramillo noted. Report received from [facility] indicates that Ultrasound of RLE was negative for DVT. Patient is to Continue with Bactrim DS BID x 7 days Vital Signs Temperature 97 F L 11/29/19 17:55 Pulse Rate 85 11/29/19 17:55 Respiratory Rate 18 11/29/19 17:55 Blood Pressure 143/95 11/29/19 17:55 O2 Sat by Pulse Oximetry (%) Action: Continue with Bactrim DS I tablet oral BID x 7 days Elevate RLE as needed
[2019-11-30] MEDS ORDERED: METHOCARBAMOL 500 MG TABLET PO PRN (01:30)
[2019-11-30] MEDS ORDERED: BISMUTH SUBSALICYLATE 524 MG/30 ML UD PO PRN (01:30)
[2019-11-30] MEDS ORDERED: MENTHOL/PHENOL 1 EACH UD MM PRN (01:30)
[2019-11-30] MEDS ORDERED: ACETAMINOPHEN 325 MG TABLET (FP) PO PRN ×2 (01:30)
[2019-11-30] MEDS ORDERED: hydrOXYzine PAMOATE 25 MG CAPSULE (FP) PO PRN (01:30)
[2019-11-30] MEDS ORDERED: MELATONIN 5 MG TABLETS PO PRN (01:30)
[2019-11-30] MEDS ORDERED: MAGNESIUM CITRATE 300 ML BOTTLE PO PRN (01:30)
[2019-11-30] MEDS ORDERED: MAG HYDROX/AL HYDROX/SIMETH 30 ML UNIT-DOSE CUP PO PRN (01:30)
[2019-11-30] MEDS ORDERED: chlordiazePOXIDE HCL 10 MG CAPSULE PO PRN (01:30)
[2019-11-30] MEDS ORDERED: MAGNESIUM HYDROX 2400MG/30ML ORAL SUSPENSION 30 ML CUP PO PRN (01:30)
[2019-11-30] MEDS ORDERED: IBUPROFEN 400 MG TABLET (FP) PO PRN (01:30)
[2019-11-30] MEDS ORDERED: chlordiazePOXIDE HCL 25 MG CAPSULE PO PRN (01:42)
[2019-11-30] MEDS ORDERED: chlordiazePOXIDE HCL 25 MG CAPSULE PO SCH (05:00)
[2019-11-30] MEDS: chlordiazePOXIDE HCL 25 MG CAPSULE PO SCH ×4 (05:51→22:44)
[2019-11-30] MEDS: SULFAMETHOXAZOLE/TRIMETHOPRIM 800MG/160MG D.S. TABLET PO SCH ×2 (11:47→22:44)
[2019-11-30] MEDS: AMMONIUM LACTATE 12% LOTION 225 GM BOTTLE TP SCH (11:47)
[2019-11-30] MEDS: PRENATAL VITAMINS W/ FOLIC ACID TABLET (FP) PO SCH (11:47)
--- NOTE | 2019-11-30 18:00 | PN ---
S CIWA - CIWA Score Nausea/Vomitin-No Nausea/No Vomiting Muscle Tremors: 2 Anxiety: 4-Mod. Anxious/Guarded Agitation: 3 Paroxysmal Sweats: No Perspiration Orientation: 0-Oriented Tacttile Disturbances: 0-None Auditory Disturbances: 0-None Visual Disturbances: 0-None Headache: 0-None Present CIWA-Ar Total Score: 9 [facility] Progress Note (SOAP) Subjective: Anxious, Restless, Sweating. Objective: PATIENT A & O X 3, OBSERVED AMBULATING ON DETOX UNIT UNASSISTED. IN NO ACUTE DISTRESS. 11/30/19 17:58 Vital Signs Temperature 98.1 F 11/30/19 15:44 Pulse Rate 77 11/30/19 15:44 Respiratory Rate 18 11/30/19 15:44 Blood Pressure 129/80 11/30/19 15:44 O2 Sat by Pulse Oximetry (%) DETOX ADMISSION LAB RESULTS PENDING. 11/30/19 17:59 Assessment: 11/30/19 17:59 WITHDRAWAL SYMPTOMS. Plan: CONTINUE DETOX. CONTINUE BACTRIM DS FOR POSSIBLE INFECTION OF RIGHT LOWER EXTREMITY.
[2019-11-30] MEDS: THIAMINE HCL 100 MG TABLET (FP) PO SCH (22:43)
[2019-12-01] MEDS ORDERED: chlordiazePOXIDE 5 MG CAPSULE PO SCH (05:00)
[2019-12-01] MEDS: chlordiazePOXIDE HCL 25 MG CAPSULE PO SCH ×4 (06:40→22:28)
[2019-12-01] MEDS: SULFAMETHOXAZOLE/TRIMETHOPRIM 800MG/160MG D.S. TABLET PO SCH ×2 (10:40→22:28)
[2019-12-01] MEDS: AMMONIUM LACTATE 12% LOTION 225 GM BOTTLE TP SCH (10:40)
[2019-12-01] MEDS: PRENATAL VITAMINS W/ FOLIC ACID TABLET (FP) PO SCH (10:41)
[2019-12-01 10:51] LABS: HEMATOCRIT 36.6 % (35.4-49); HEMOGLOBIN 12.4 GM/dL (11.7-16.9); MCHC 34.1 g/dl (32.0-35.9); MEAN CELL VOLUME 96.9 fl (80-96); MEAN PLT VOLUME 7.6 fl (7.5-11.1); PLATELET COUNT 191 K/MM3 (134-434); RBC 3.77 M/mm3 (4.00-5.60); RDW 14.9 % (11.9-15.9); WHITE BLOOD COUNT 2.1 K/mm3 (4.0-10.0)
[2019-12-01 11:27] LABS: ALBUMIN 3.4 g/dl (3.4-5.0); BILIRUBIN,TOTAL 0.1 mg/dL (0.2-1); BLOOD UREA NITROGEN 12.4 mg/dL (7-18); CALCIUM 8.7 mg/dL (8.5-10.1); CREATININE 0.8 mg/dL (0.55-1.3); TOT PROT 6.6 g/dl (6.4-8.2)
--- NOTE | 2019-12-01 14:52 | PN ---
S CIWA - CIWA Score Nausea/Vomitin-Mild Nausea/No Vomiting Muscle Tremors: 3 Anxiety: 2 Agitation: 2 Paroxysmal Sweats: 2 Orientation: 0-Oriented Tacttile Disturbances: 0-None Auditory Disturbances: 0-None Visual Disturbances: 0-None Headache: 0-None Present CIWA-Ar Total Score: 10 S Progress Note (SOAP) Subjective: sweats mild shakes irritable nausea body aches Objective: 12/01/19 14:52 Vital Signs Temperature 98.4 F 12/01/19 14:28 Pulse Rate 68 12/01/19 14:28 Respiratory Rate 16 12/01/19 14:28 Blood Pressure 120/76 12/01/19 14:28 O2 Sat by Pulse Oximetry (%) Laboratory Tests 12/01/19 12/01/19 12/01/19 07:20 07:20 07:20 WBC 2.1 L RBC 3.77 L Hgb 12.4 Hct 36.6 MCV 96.9 H MCH 33.0 MCHC 34.1 RDW 14.9 Plt Count 191 MPV 7.6 Sodium 140 Potassium 4.0 Chloride 110 H Carbon Dioxide 24 Anion Gap 6 L BUN 12.4 Creatinine 0.8 Est GFR (CKD-EPI)AfAm 114.93 Est GFR (CKD-EPI)NonAf 99.16 Random Glucose 138 H Calcium 8.7 Total Bilirubin 0.1 L AST 11 L ALT 15 Alkaline Phosphatase 104 Total Protein 6.6 Albumin 3.4 RPR Titer Nonreactive aaox3 ambulating no acute distress Assessment: 12/01/19 14:52 withdrawals Plan: continue detox
[2019-12-01] MEDS: THIAMINE HCL 100 MG TABLET (FP) PO SCH (22:28)
[2019-12-02] MEDS ORDERED: chlordiazePOXIDE HCL 10 MG CAPSULE PO PRN ×2
[2019-12-02] MEDS ORDERED: chlordiazePOXIDE HCL 10 MG CAPSULE PO SCH (05:00)
[2019-12-02] MEDS: chlordiazePOXIDE HCL 10 MG CAPSULE PO SCH ×3 (07:08→17:46)
[2019-12-02] MEDS: SULFAMETHOXAZOLE/TRIMETHOPRIM 800MG/160MG D.S. TABLET PO SCH ×2 (10:27→22:05)
[2019-12-02] MEDS: PRENATAL VITAMINS W/ FOLIC ACID TABLET (FP) PO SCH (10:27)
[2019-12-02] MEDS: AMMONIUM LACTATE 12% LOTION 225 GM BOTTLE TP SCH (10:27)
--- NOTE | 2019-12-02 10:54 | PN ---
S CIWA - CIWA Score Nausea/Vomitin-No Nausea/No Vomiting Muscle Tremors: 2 Anxiety: 1-Mildly Anxious Agitation: 1-Slight > Activity Paroxysmal Sweats: No Perspiration Orientation: 0-Oriented Tacttile Disturbances: 0-None Auditory Disturbances: 0-None Visual Disturbances: 0-None Headache: 0-None Present CIWA-Ar Total Score: 4 [facility] Progress Note (SOAP) Subjective: feeling better little sweats Objective: 12/02/19 10:54 Vital Signs Temperature 97.2 F L 12/02/19 07:02 Pulse Rate 82 12/02/19 07:02 Respiratory Rate 18 12/02/19 07:02 Blood Pressure 97/59 L 12/02/19 07:02 O2 Sat by Pulse Oximetry (%) aaox3 ambulating no acute distress Assessment: 12/02/19 10:55 mild withdrawals Plan: d/c in am
[2019-12-02] MEDS: THIAMINE HCL 100 MG TABLET (FP) PO SCH (22:05)
[2019-12-03] MEDS ORDERED: chlordiazePOXIDE HCL 10 MG CAPSULE PO SCH (05:00)
[2019-12-03] MEDS ORDERED: chlordiazePOXIDE HCL 10 MG CAPSULE PO ONE ×2 (05:00)
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
[2019-12-03 09:38] VITALS: BP 116/68; PULSE 95; TEMP 98.1
[2019-12-03] MEDS: AMMONIUM LACTATE 12% LOTION 225 GM BOTTLE TP SCH (10:11)
[2019-12-03] MEDS: PRENATAL VITAMINS W/ FOLIC ACID TABLET (FP) PO SCH (10:11)
[2019-12-03] MEDS: SULFAMETHOXAZOLE/TRIMETHOPRIM 800MG/160MG D.S. TABLET PO SCH (10:11)
--- NOTE | 2019-12-03 11:32 | EKG ---
Test Reason : Blood Pressure : / mmHG Vent. Rate : 080 BPM Atrial Rate : 080 BPM P-R Int : 126 ms QRS Dur : 148 ms QT Int : 378 ms P-R-T Axes : 066 -41 066 degrees QTc Int : 435 ms NORMAL SINUS RHYTHM LEFT AXIS DEVIATION RIGHT BUNDLE BRANCH BLOCK ABNORMAL ECG WHEN COMPARED WITH ECG OF 28-JUL-2018 19:09, NO SIGNIFICANT CHANGE WAS FOUND Confirmed by Hector Tijerina MD ([id number]) on 12/03/2019 11:31:47 AM Referred By: Confirmed By:Hector Tijerina MD
[2019-12-04] MEDS ORDERED: chlordiazePOXIDE HCL 10 MG CAPSULE PO ONE (05:00)
== END 2019-12-03 16:07 | disposition home or self-care (01) | DRG 773 ==
LOC: YASAS 14:07 → Y6N 11-30 01:41
PROVIDERS: ADMIT Allergy & Immunology; ATTEND Allergy & Immunology
PROC: HZ2ZZZZ Detoxification Services for Substance Abuse Treatment (ICD-10-PCS; principal; 2019-11-30)
DX: F10.230 Alcohol dependence with withdrawal, uncomplicated (principal); F11.23 Opioid dependence with withdrawal; F14.20 Cocaine dependence, uncomplicated; F17.213 Nicotine dependence, cigarettes, with withdrawal; F41.8 Other specified anxiety disorders; F32.9 Major depressive disorder, single episode, unspecified; F43.10 Post-traumatic stress disorder, unspecified; G47.00 Insomnia, unspecified; I10 Essential (primary) hypertension; D72.818 Other decreased white blood cell count; H04.123 Dry eye syndrome of bilateral lacrimal glands; Z88.0 Allergy status to penicillin; Z91.018 Allergy to other foods; Z91.19 Patient's noncompliance with other medical treatment and regimen; Z87.828 Personal history of other (healed) physical injury and trauma
CPT/HCPCS: 36415; 80053; 82962; 85027; 86593; 93005; 93010

== ENCOUNTER 2019-11-29 20:35 | Emergency (ER) | payer OTHER ==
--- NOTE | 2019-11-29 20:46 | PDOC ---
Rapid Medical Evaluation Medical Evaluation: Allergies Allergy/AdvReac Type Severity Reaction Status Date / Time Penicillins Allergy Mild Rash Verified 11/29/19 17:54 Pork/Porcine Containing Allergy Mild Rash Verified 11/29/19 17:54 Products 11/29/19 20:40 I have performed a brief in-person evaluation of this patient. The patient presents with a chief complaint of:sent from [facility] rehab for RLE swelling and erythema. H/o polysubstance abuse, HTN, anemia, anxiety, bipolar Pertinent physical exam findings:stable, defer to ED I have ordered the following:labs, US The patient will proceed to the ED for further evaluation Discharge Disposition - Diagnosis Right leg swelling - Referrals - Patient Instructions - Post Discharge Activity
[2019-11-29 21:00] VITALS: BP 133/88; PULSE 71; TEMP 98.4; BMI 23.3
[2019-11-29] MEDS ORDERED: SULFAMETHOXAZOLE/TRIMETHOPRIM 800MG/160MG D.S. TABLET PO ONE (23:05)
[2019-11-29] MEDS ORDERED: SULFAMETHOXAZOLE/TRIMETHOPRIM 800MG/160MG D.S. TABLET ONE (23:11)
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
--- NOTE | 2019-11-30 00:12 | PDOC ---
*Physical Exam - Vital Signs Last Vital Signs Temp Pulse Resp BP Pulse Ox 98.4 F 71 18 133/88 99 11/29/19 20:57 11/29/19 20:57 11/29/19 20:57 11/29/19 20:57 11/29/19 20:57 - Physical Exam 11/30/19 00:09 awake alert lungs clear bilat heart rrr no mrg abd soft nt nd ext wwp. right anterior jaramillo with mild area of eyrthema, warmth. no palp fluctuanc. no noted wound. 2 + dp/ pt pulses. no calf tenderness. ED Treatment Course - Medications Given in the ED: ED Medications Discontinued Medications Generic Name Dose Route Start Last Admin Trade Name Freq PRN Reason Stop Dose Admin Trimethoprim/Sulfamethoxazole 1 each 11/29/19 23:05 11/29/19 23:10 Bactrim Ds - PO 11/29/19 23:06 1 each ONCE ONE Administration Medical Decision Making - Medical Decision Making 11/30/19 00:10 59 yo male h/o htn anemia, anxiety at [facility] admitted for etoh withdrawal, here to r/o DVT. / cellulits. per pt noted his right anteiror leg was red. no mariaa no cp no sob. denies injury. pt seen and examined with COLEMAN Gardner. agree with assessment and plan. doppler negative for DVt. can treat with oral anbtiobiotics for mild cellulitis given bactrim DS should get BActrim DS twice daily x7 days. Discharge - Discharge Information Problems reviewed: Yes Clinical Impression/Diagnosis: Right leg swelling Condition: Stable Disposition: HOME - Follow up/Referral - Patient Discharge Instructions Patient Printed Discharge Instructions: DI for Cellulitis -- Adult Additional Instructions: Thank you for choosing [facility]. It was a pleasure taking care of you. Please take Bactrim 1 tab DS twice a day for 1 week for possible leg infection Return to the Emergency Department if your symptoms worsen or persist, you have fever, shortness of breath, chest pain, streaking or other concerning symptoms. - Post Discharge Activity
== END 2019-11-30 00:30 | disposition home or self-care (01) ==
LOC: JER 20:35
DX: M79.89 Other specified soft tissue disorders (principal); I10 Essential (primary) hypertension; D64.9 Anemia, unspecified; F31.9 Bipolar disorder, unspecified; F41.9 Anxiety disorder, unspecified; F43.10 Post-traumatic stress disorder, unspecified; F10.10 Alcohol abuse, uncomplicated; Z88.0 Allergy status to penicillin; Z91.018 Allergy to other foods
CPT/HCPCS: 93971-TC; 99281-25

== ENCOUNTER 2019-12-05 14:54 | Inpatient (IN) | payer OTHER ==
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
[2019-12-05] MEDS ORDERED: ACETAMINOPHEN 325 MG TABLET (FP) PO PRN (21:50)
[2019-12-05] MEDS ORDERED: IBUPROFEN 400 MG TABLET (FP) PO PRN (21:50)
[2019-12-05] MEDS ORDERED: guaiFENesin 200 MG/10 ML 10 ML UNIT-DOSE CUPS PO PRN (21:50)
[2019-12-05] MEDS ORDERED: MAGNESIUM HYDROX 2400MG/30ML ORAL SUSPENSION 30 ML CUP PO PRN (21:50)
[2019-12-05] MEDS ORDERED: LOPERAMIDE HCL 2 MG CAPSULE PO PRN (21:50)
[2019-12-05] MEDS ORDERED: MAGNESIUM CITRATE 300 ML BOTTLE PO PRN (21:50)
[2019-12-05] MEDS ORDERED: P-EPHED 60MG/TRIPROLIDI 2.5MG TABLET PO PRN (21:50)
[2019-12-05] MEDS ORDERED: MENTHOL/PHENOL 1 EACH UD MM PRN (21:50)
[2019-12-05 22:08] VITALS: BMI 23.4
[2019-12-06] MEDS: THIAMINE HCL 100 MG TABLET (FP) PO SCH ×2 (00:29→21:43)
[2019-12-06] MEDS: PRENATAL VITAMINS W/ FOLIC ACID TABLET (FP) PO SCH (10:15)
[2019-12-07] MEDS: PRENATAL VITAMINS W/ FOLIC ACID TABLET (FP) PO SCH (10:24)
[2019-12-07] MEDS: THIAMINE HCL 100 MG TABLET (FP) PO SCH (21:08)
[2019-12-07] MEDS: MELATONIN 5 MG TABLETS PO PRN (21:08)
[2019-12-08] MEDS: PRENATAL VITAMINS W/ FOLIC ACID TABLET (FP) PO SCH (09:37)
[2019-12-08] MEDS: THIAMINE HCL 100 MG TABLET (FP) PO SCH (21:39)
[2019-12-08] MEDS: MELATONIN 5 MG TABLETS PO PRN (21:39)
[2019-12-09] MEDS: PRENATAL VITAMINS W/ FOLIC ACID TABLET (FP) PO SCH (10:57)
--- NOTE | 2019-12-09 11:24 | PN ---
[facility] Progress Note Note: Patient admitted to rehab on 12/05/2019 for alcohol and opiod dependence. He is known to facility due to previous admissions. PMH includes HTN, PTSD, anemia and depression. Vital Signs Temperature 98.2 F 12/09/19 06:47 Pulse Rate 84 12/09/19 06:47 Respiratory Rate 16 12/09/19 06:47 Blood Pressure 118/70 12/09/19 06:47 O2 Sat by Pulse Oximetry (%) Labs pending. Vitals signs stable. Patient denies medical complaints at this time. No SI/HI reported. To continue rehab services and medications as ordered.
[2019-12-09] MEDS: THIAMINE HCL 100 MG TABLET (FP) PO SCH (21:34)
[2019-12-10] MEDS: PRENATAL VITAMINS W/ FOLIC ACID TABLET (FP) PO SCH (10:11)
[2019-12-10] MEDS: THIAMINE HCL 100 MG TABLET (FP) PO SCH (21:03)
[2019-12-10] MEDS: MELATONIN 5 MG TABLETS PO PRN (21:03)
[2019-12-11] MEDS: PRENATAL VITAMINS W/ FOLIC ACID TABLET (FP) PO SCH (10:27)
[2019-12-11] MEDS: MELATONIN 5 MG TABLETS PO PRN (21:39)
[2019-12-11] MEDS: THIAMINE HCL 100 MG TABLET (FP) PO SCH (21:39)
[2019-12-12] MEDS: PRENATAL VITAMINS W/ FOLIC ACID TABLET (FP) PO SCH (10:11)
[2019-12-12] MEDS: MELATONIN 5 MG TABLETS PO PRN (21:07)
[2019-12-12] MEDS: THIAMINE HCL 100 MG TABLET (FP) PO SCH (21:07)
[2019-12-13] MEDS: PRENATAL VITAMINS W/ FOLIC ACID TABLET (FP) PO SCH (10:37)
[2019-12-13] MEDS: THIAMINE HCL 100 MG TABLET (FP) PO SCH (21:37)
[2019-12-13] MEDS: MELATONIN 5 MG TABLETS PO PRN (21:37)
[2019-12-14] MEDS: PRENATAL VITAMINS W/ FOLIC ACID TABLET (FP) PO SCH (10:20)
[2019-12-14] MEDS: THIAMINE HCL 100 MG TABLET (FP) PO SCH (21:11)
[2019-12-15] MEDS: PRENATAL VITAMINS W/ FOLIC ACID TABLET (FP) PO SCH (10:44)
[2019-12-15] MEDS: THIAMINE HCL 100 MG TABLET (FP) PO SCH (21:39)
[2019-12-16] MEDS: PRENATAL VITAMINS W/ FOLIC ACID TABLET (FP) PO SCH (10:10)
[2019-12-16] MEDS: MELATONIN 5 MG TABLETS PO PRN (21:16)
[2019-12-16] MEDS: THIAMINE HCL 100 MG TABLET (FP) PO SCH (21:16)
[2019-12-17] MEDS: PRENATAL VITAMINS W/ FOLIC ACID TABLET (FP) PO SCH (10:15)
[2019-12-17] MEDS: THIAMINE HCL 100 MG TABLET (FP) PO SCH (21:30)
[2019-12-17] MEDS: MELATONIN 5 MG TABLETS PO PRN (21:31)
[2019-12-18] MEDS: PRENATAL VITAMINS W/ FOLIC ACID TABLET (FP) PO SCH (10:33)
[2019-12-18] MEDS: MELATONIN 5 MG TABLETS PO PRN (21:04)
[2019-12-18] MEDS: THIAMINE HCL 100 MG TABLET (FP) PO SCH (21:04)
[2019-12-19] MEDS: PRENATAL VITAMINS W/ FOLIC ACID TABLET (FP) PO SCH (09:44)
[2019-12-19] MEDS: THIAMINE HCL 100 MG TABLET (FP) PO SCH (21:45)
[2019-12-20] MEDS: PRENATAL VITAMINS W/ FOLIC ACID TABLET (FP) PO SCH (10:33)
[2019-12-20] MEDS: THIAMINE HCL 100 MG TABLET (FP) PO SCH (21:09)
[2019-12-20] MEDS: MELATONIN 5 MG TABLETS PO PRN (21:09)
[2019-12-21] MEDS: PRENATAL VITAMINS W/ FOLIC ACID TABLET (FP) PO SCH (09:32)
[2019-12-21] MEDS: THIAMINE HCL 100 MG TABLET (FP) PO SCH (21:33)
[2019-12-21] MEDS: MELATONIN 5 MG TABLETS PO PRN (21:33)
[2019-12-22] MEDS: PRENATAL VITAMINS W/ FOLIC ACID TABLET (FP) PO SCH (09:51)
[2019-12-22] MEDS: MELATONIN 5 MG TABLETS PO PRN (21:17)
[2019-12-22] MEDS: THIAMINE HCL 100 MG TABLET (FP) PO SCH (21:17)
[2019-12-23] MEDS: PRENATAL VITAMINS W/ FOLIC ACID TABLET (FP) PO SCH (10:10)
[2019-12-23] MEDS: THIAMINE HCL 100 MG TABLET (FP) PO SCH (21:40)
[2019-12-24] MEDS: PRENATAL VITAMINS W/ FOLIC ACID TABLET (FP) PO SCH (09:30)
[2019-12-24] MEDS: THIAMINE HCL 100 MG TABLET (FP) PO SCH (21:08)
[2019-12-24] MEDS: MELATONIN 5 MG TABLETS PO PRN (21:08)
[2019-12-25] MEDS: PRENATAL VITAMINS W/ FOLIC ACID TABLET (FP) PO SCH (10:15)
[2019-12-25] MEDS: THIAMINE HCL 100 MG TABLET (FP) PO SCH (21:31)
[2019-12-25] MEDS: MELATONIN 5 MG TABLETS PO PRN (21:31)
[2019-12-26] MEDS: PRENATAL VITAMINS W/ FOLIC ACID TABLET (FP) PO SCH (10:02)
[2019-12-26] MEDS: ARTIFICIAL TEARS (POLYVINYL ALCOHOL) OPTH DROPS OU PRN ×3 (10:06→19:31)
[2019-12-26] MEDS ORDERED: PT OWN MED DRAWER 7, Y5N ONE (10:06)
[2019-12-26] MEDS: THIAMINE HCL 100 MG TABLET (FP) PO SCH (21:08)
[2019-12-26] MEDS: MELATONIN 5 MG TABLETS PO PRN (21:08)
[2019-12-27] MEDS: PRENATAL VITAMINS W/ FOLIC ACID TABLET (FP) PO SCH (10:48)
[2019-12-27] MEDS: MELATONIN 5 MG TABLETS PO PRN (21:37)
[2019-12-27] MEDS: THIAMINE HCL 100 MG TABLET (FP) PO SCH (21:37)
[2019-12-28] MEDS: MAG HYDROX/AL HYDROX/SIMETH 30 ML UNIT-DOSE CUP PO PRN (05:59)
[2019-12-28] MEDS: PRENATAL VITAMINS W/ FOLIC ACID TABLET (FP) PO SCH (10:47)
[2019-12-28] MEDS: ARTIFICIAL TEARS (POLYVINYL ALCOHOL) OPTH DROPS OU PRN (21:11)
[2019-12-28] MEDS: THIAMINE HCL 100 MG TABLET (FP) PO SCH (21:11)
[2019-12-29] MEDS: PRENATAL VITAMINS W/ FOLIC ACID TABLET (FP) PO SCH (09:57)
[2019-12-29] MEDS: ARTIFICIAL TEARS (POLYVINYL ALCOHOL) OPTH DROPS OU PRN (21:13)
[2019-12-29] MEDS: THIAMINE HCL 100 MG TABLET (FP) PO SCH (21:13)
[2019-12-30] MEDS: MAG HYDROX/AL HYDROX/SIMETH 30 ML UNIT-DOSE CUP PO PRN (02:52)
[2019-12-30] MEDS: PRENATAL VITAMINS W/ FOLIC ACID TABLET (FP) PO SCH (10:05)
[2019-12-30] MEDS: ARTIFICIAL TEARS (POLYVINYL ALCOHOL) OPTH DROPS OU PRN (10:20)
[2019-12-30] MEDS ORDERED: PT OWN MED DRAWER 7, Y5N ONE (10:20)
[2019-12-30] MEDS: THIAMINE HCL 100 MG TABLET (FP) PO SCH (21:01)
[2019-12-30] MEDS: MELATONIN 5 MG TABLETS PO PRN (21:01)
[2019-12-31 06:43] VITALS: TEMP 97.8
--- NOTE | 2019-12-31 09:37 | DS ---
[facility] Rehab Discharge Summary - [facility] Rehab Discharge Summary Admission Date: 12/05/19 Discharge Date: 01/01/20 - History Present History: Alcohol dependence, Cocaine dependence Pertinent Past History: 59 years old male with a long history of opiates and alcohol dependence completed Rehab. Patient has medical history of anemia, hypertension, glaucoma and psych. history of PTSD and depression. He denies suicidal ideation at this time. - Discharge Physical Exam Vital Signs: Vital Signs Temperature 97.8 F 12/31/19 06:42 Pulse Rate 87 12/31/19 06:42 Respiratory Rate 18 12/31/19 06:42 Blood Pressure 104/73 12/31/19 06:42 O2 Sat by Pulse Oximetry (%) Pertinent Admission Physical Exam Findings: Physical General Appearance: No apparent distress HEENTM: normocephalic, PERRLA Respiratory: No Respiratory Distress Neck: supplen Musculoskeletal: Full weight bearing; steady gait Neurological: CN 2-12 - Treatment Discharge Condition: Outpatient referral accepted (Medically stable for discharge. [facility] go to [facility] Hospital Course: Attended groups, had 1;1 with his counselor. He had not acute or urgent medical issues while in rehab. - Medication Discharge Medications: Ambulatory Orders NK [No Known Home Medication] 03/29/18 - Medication-Assisted Treatment (MAT) Medication-Assisted Treatment (MAT): No - Discharge Instructions Diet, activity, other medical instructions: Diet: as tolerated Activity: as tolerated Other medical instructions: Please follow up with aftercare referral. - Diagnosis (1) Alcohol dependence, uncomplicated Current Visit: No Status: Chronic (2) Cocaine dependence Current Visit: No Status: Chronic Qualifiers: Substance use status: uncomplicated Qualified Code(s): F14.20 - Cocaine dependence, uncomplicated - Follow-up Referral Minutes to complete discharge: 15 - AMA Did Patient Leave Against Medical Advice: No
[2019-12-31] MEDS: PRENATAL VITAMINS W/ FOLIC ACID TABLET (FP) PO SCH (09:56)
[2019-12-31] MEDS: ARTIFICIAL TEARS (POLYVINYL ALCOHOL) OPTH DROPS OU PRN (09:56)
[2019-12-31] MEDS: THIAMINE HCL 100 MG TABLET (FP) PO SCH (21:29)
[2019-12-31] MEDS: MELATONIN 5 MG TABLETS PO PRN (21:29)
[2020-01-01 06:58] VITALS: BP 116/65; PULSE 73
[2020-01-01] MEDS: PRENATAL VITAMINS W/ FOLIC ACID TABLET (FP) PO SCH (09:01)
== END 2020-01-01 10:37 | disposition home or self-care (01) | DRG 772 ==
LOC: YASAS 14:54 → Y3W 22:10
PROVIDERS: ADMIT Allergy & Immunology; ATTEND Allergy & Immunology
PROC: HZ42ZZZ Group Counseling for Substance Abuse Treatment, Cognitive-Behavioral (ICD-10-PCS; principal; 2019-12-05)
DX: F10.20 Alcohol dependence, uncomplicated (principal); F11.20 Opioid dependence, uncomplicated; F14.20 Cocaine dependence, uncomplicated; F43.10 Post-traumatic stress disorder, unspecified; F32.9 Major depressive disorder, single episode, unspecified; I10 Essential (primary) hypertension; D64.9 Anemia, unspecified; H40.9 Unspecified glaucoma; Z87.828 Personal history of other (healed) physical injury and trauma; Z88.0 Allergy status to penicillin; Z91.018 Allergy to other foods

== ENCOUNTER 2020-05-21 12:12 | Inpatient (IN) | payer OTHER ==
--- NOTE | 2020-05-21 12:25 | BHS.RME ---
Substance Use & Tx History - Substance Use History Alcohol Substance amount: 3-4 40 oz beers Frequency of use: Daily Substance route: Oral Date of Last Use: 05/21/20 Other Opiates/Synthetics Substance amount: vicodin 15 mg 2-3 pills Frequency of use: Daily Substance route: Oral Date of Last Use: 05/21/20 - Last Treatment Date of last treatment: 11/29-12/31/19 Treatment type: Substance Use Disorder (OZZIE) Where was last treatment: Rehab Physical/Psych/Mental Status - Behavior General Behavior: Increased activity (restlessness, agitation) Eye Contact: Normal - Cooperativeness Cooperativeness: Cooperative - Thinking Thought Processes: Tight, Logical, Goal Directed - Physical Health Problems Is patient presently having any pain?: No Does patient presently have any injuries (include location): No Does patient currently have a fever: No Is patient : No CIWA Nausea/Vomitin-No Nausea/No Vomiting Muscle Tremors: 3 Anxiety: 3 Agitation: 3 Paroxysmal Sweats: No Perspiration Orientation: 1-Uncertain about Date Tacttile Disturbances: 0-None Auditory Disturbances: 0-None Visual Disturbances: 0-None Headache: 0-None Present CIWA-Ar Total Score: 10
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
[2020-05-21] MEDS ORDERED: IBUPROFEN 400 MG TABLET (FP) PO PRN (14:39)
[2020-05-21] MEDS ORDERED: chlordiazePOXIDE HCL 25 MG CAPSULE PO PRN (14:39)
[2020-05-21] MEDS ORDERED: BISMUTH SUBSALICYLATE 524 MG/30 ML UD PO PRN (14:39)
[2020-05-21] MEDS ORDERED: ACETAMINOPHEN 325 MG TABLET (FP) PO PRN ×2 (14:39)
[2020-05-21] MEDS ORDERED: METHOCARBAMOL 500 MG TABLET PO PRN (14:39)
[2020-05-21] MEDS ORDERED: MAGNESIUM HYDROX 2400MG/30ML ORAL SUSPENSION 30 ML CUP PO PRN (14:39)
[2020-05-21] MEDS ORDERED: NICOTINE POLACRILEX 2 MG GUM BUC PRN (14:39)
[2020-05-21] MEDS ORDERED: MAG HYDROX/AL HYDROX/SIMETH 30 ML UNIT-DOSE CUP PO PRN (14:39)
[2020-05-21] MEDS ORDERED: MENTHOL/PHENOL 1 EACH UD MM PRN (14:39)
[2020-05-21] MEDS ORDERED: MAGNESIUM CITRATE 300 ML BOTTLE PO PRN (14:39)
[2020-05-21] MEDS ORDERED: ONDANSETRON *ODT* 4 MG TABLET SL PRN (14:39)
--- NOTE | 2020-05-21 14:52 | PN ---
Teaching Attending Note Name of Resident: Monisha Kelly ATTENDING PHYSICIAN STATEMENT I saw and evaluated the patient. I reviewed the resident's note and discussed the case with the resident. I agree with the resident's findings and plan as documented. SUBJECTIVE: OBJECTIVE: ASSESSMENT AND PLAN: Pt seen ,case reviewed, admit for Librium detox protocol
[2020-05-21 15:32] VITALS: BMI 20.9
--- NOTE | 2020-05-21 16:20 | EKG ---
Test Reason : Blood Pressure : / mmHG Vent. Rate : 082 BPM Atrial Rate : 082 BPM P-R Int : 112 ms QRS Dur : 138 ms QT Int : 386 ms P-R-T Axes : 036 -28 049 degrees QTc Int : 450 ms NORMAL SINUS RHYTHM RIGHT BUNDLE BRANCH BLOCK MINIMAL VOLTAGE CRITERIA FOR LVH, MAY BE NORMAL VARIANT SEPTAL INFARCT , AGE UNDETERMINED ABNORMAL ECG WHEN COMPARED WITH ECG OF 01-DEC-2019 23:44, NO SIGNIFICANT CHANGE WAS FOUND Confirmed by GOPI BARROSO MD ([id number]) on 05/21/2020 4:19:59 PM Referred By: Confirmed By:GOPI BARROSO MD
[2020-05-21 16:54] LABS: HEMATOCRIT 38.5 % (35.4-49); HEMOGLOBIN 12.9 GM/dL (11.7-16.9); MCH 33.1 pg (25.7-33.7); MCHC 33.4 g/dl (32.0-35.9); MEAN CELL VOLUME 99.1 fl (80-96); MEAN PLT VOLUME 7.4 fl (7.5-11.1); PLATELET COUNT 221 K/MM3 (134-434); RBC 3.88 M/mm3 (4.00-5.60); RDW 15.8 % (11.9-15.9)
[2020-05-21 17:03] LABS: WHITE BLOOD COUNT 1.8 K/mm3 (4.0-10.0)
[2020-05-21 17:08] LABS: ALBUMIN 3.6 g/dl (3.4-5.0); BILIRUBIN,TOTAL 0.8 mg/dL (0.2-1); BLOOD UREA NITROGEN 7.3 mg/dL (7-18); CALCIUM 8.4 mg/dL (8.5-10.1); CREATININE 0.7 mg/dL (0.55-1.3); POTASSIUM 3.9 mmol/L (3.5-5.1); TOT PROT 7.1 g/dl (6.4-8.2)
[2020-05-21] MEDS: chlordiazePOXIDE HCL 25 MG CAPSULE PO SCH ×2 (17:16→22:25)
[2020-05-21] MEDS: hydrOXYzine PAMOATE 25 MG CAPSULE (FP) PO SCH ×2 (17:16→22:25)
[2020-05-21] MEDS: PRENATAL VITAMINS W/ FOLIC ACID TABLET (FP) PO SCH (17:23)
--- NOTE | 2020-05-21 19:02 | PN ---
Progress Note (short form) - Note Progress Note: Mr. Rigoberto Barakat is currently on admission at [facility] for detox from alcohol and vicodin. He had mentioned that he has been told many times that he has anemia. His RBC count as of today is 1.8k/mm. His previous RBC count shows that he has been having progressive anemia. The patient has been told that he will be getting a referral to see a HEME-ONCOLOGIST closer to his residence at discharge for further evaluation and possible treatment. PLAN: PATIENT SHOULD PLEASE GET A REFERRAL TO SEE HEME-ONCOLOGIST AT DISCHARGE SO HE COULD BE EVALUATED FOR THE PROGRESSIVE ANEMIA HE HAS BEEN HAVING AND FOR POSSIBLE TREATMENT. Problem List - Problems (1) Opioid dependence Code(s): F11.20 - OPIOID DEPENDENCE, UNCOMPLICATED Qualifiers: Substance use status: uncomplicated Qualified Code(s): F11.20 - Opioid dependence, uncomplicated (2) Nicotine dependence with current use Code(s): F17.200 - NICOTINE DEPENDENCE, UNSPECIFIED, UNCOMPLICATED (3) Alcohol dependence with uncomplicated withdrawal Code(s): F10.230 - ALCOHOL DEPENDENCE WITH WITHDRAWAL, UNCOMPLICATED (4) Glaucoma Code(s): H40.9 - UNSPECIFIED GLAUCOMA (5) HTN (hypertension) Code(s): I10 - ESSENTIAL (PRIMARY) HYPERTENSION Qualifiers: Hypertension type: essential hypertension Qualified Code(s): I10 - Essential (primary) hypertension (6) Anemia Code(s): D64.9 - ANEMIA, UNSPECIFIED Qualifiers: Anemia type: iron deficiency Iron deficiency anemia type: inadequate dietary iron intake Qualified Code(s): D50.8 - Other iron deficiency anemias
--- NOTE | 2020-05-21 21:47 | PN ---
Teaching Attending Note Name of Resident: Monisha Kelly ATTENDING PHYSICIAN STATEMENT I saw and evaluated the patient. I reviewed the resident's note and discussed the case with the resident. I agree with the resident's findings and plan as documented. SUBJECTIVE: PT W/ LEUKOPENIA /ANEMIA SIMILAR TO PRIOR ADMISSIONS LABS . Abnormal Lab Results 05/21/20 05/21/20 14:45 14:45 WBC 1.8 L* RBC 3.88 L MCV 99.1 H MPV 7.4 L Anion Gap 6 L Calcium 8.4 L AST 14 L OBJECTIVE: ASSESSMENT AND PLAN: HIV TESTING . F/UP W/ HEMATOLOGY .
[2020-05-21] MEDS ORDERED: MELATONIN 5 MG TABLETS PO SCH (22:00)
[2020-05-21] MEDS: THIAMINE HCL 100 MG TABLET (FP) PO SCH (22:25)
[2020-05-22] MEDS: hydrOXYzine PAMOATE 25 MG CAPSULE (FP) PO SCH (06:18)
[2020-05-22] MEDS: chlordiazePOXIDE HCL 25 MG CAPSULE PO SCH ×4 (06:18→22:20)
[2020-05-22] MEDS ORDERED: MELATONIN 5 MG TABLETS PO PRN (08:53)
--- NOTE | 2020-05-22 10:05 | PN ---
[facility] CIWA - CIWA Score Nausea/Vomitin-No Nausea/No Vomiting Muscle Tremors: 3 Anxiety: 2 Agitation: 3 Paroxysmal Sweats: 2 Orientation: 0-Oriented Tacttile Disturbances: 0-None Auditory Disturbances: 0-None Visual Disturbances: 0-None Headache: 0-None Present CIWA-Ar Total Score: 10 BHS Progress Note (SOAP) Subjective: body aches chronic back pain sweats interrupted sleep agitation Objective: 05/22/20 10:06 Vital Signs Temperature 98.1 F 05/22/20 09:13 Pulse Rate 81 05/22/20 09:13 Respiratory Rate 19 05/22/20 09:13 Blood Pressure 124/70 05/22/20 09:13 O2 Sat by Pulse Oximetry (%) 99 05/22/20 05:32 Laboratory Tests 05/21/20 05/21/20 05/21/20 14:45 14:45 14:45 WBC 1.8 L* RBC 3.88 L Hgb 12.9 Hct 38.5 MCV 99.1 H MCH 33.1 MCHC 33.4 RDW 15.8 Plt Count 221 MPV 7.4 L Sodium 137 Potassium 3.9 Chloride 104 Carbon Dioxide 27 Anion Gap 6 L BUN 7.3 Creatinine 0.7 Est GFR (CKD-EPI)AfAm 120.56 Est GFR (CKD-EPI)NonAf 104.02 Random Glucose 80 Calcium 8.4 L Total Bilirubin 0.8 AST 14 L ALT 17 Alkaline Phosphatase 79 Total Protein 7.1 Albumin 3.6 Syphilis Serology Non-reactive labs noted WBC 1.8 has been addressed already and pt has been reminded to see a heme oncologist as discussed with yesterday aaox3 ambulating no acute distress Assessment: 05/22/20 10:09 withdrawals Plan: continue detox increase fluids
[2020-05-22] MEDS: hydrOXYzine PAMOATE 25 MG CAPSULE (FP) PO PRN (10:18)
[2020-05-22] MEDS: PRENATAL VITAMINS W/ FOLIC ACID TABLET (FP) PO SCH (10:20)
[2020-05-22] MEDS: LIDOCAINE 5% TOPICAL PATCH TP SCH (10:21)
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
[2020-05-22] MEDS: THIAMINE HCL 100 MG TABLET (FP) PO SCH (22:20)
[2020-05-22] MEDS: LIDOCAINE PATCH REMOVAL MC SCH (22:21)
[2020-05-23] MEDS: chlordiazePOXIDE HCL 25 MG CAPSULE PO SCH ×4 (05:37→22:31)
[2020-05-23] MEDS: PRENATAL VITAMINS W/ FOLIC ACID TABLET (FP) PO SCH (10:18)
[2020-05-23] MEDS: LIDOCAINE 5% TOPICAL PATCH TP SCH (10:18)
[2020-05-23 11:40] LABS: BASO % 0.6 % (0-2.0); EOS % 4.2 % (0-4.5); HEMOGLOBIN 12.6 GM/dL (11.7-16.9); LYMPH % 33.1 % (8-40); MCH 33.6 pg (25.7-33.7); MEAN CELL VOLUME 98.8 fl (80-96); MEAN PLT VOLUME 7.3 fl (7.5-11.1); MONO % 11.3 % (3.8-10.2); NEUT % 50.8 % (42.8-82.8); PLATELET COUNT 181 K/MM3 (134-434); RBC 3.74 M/mm3 (4.00-5.60); RDW 16.1 % (11.9-15.9)
[2020-05-23 11:44] LABS: WHITE BLOOD COUNT 1.9 K/mm3 (4.0-10.0)
[2020-05-23 14:19] LABS: ANISOCYTOSIS 1+; OVALOCYTE 1+; PLATELET ESTIMATE NORMAL
--- NOTE | 2020-05-23 14:30 | PN ---
S CIWA - CIWA Score Nausea/Vomitin-No Nausea/No Vomiting Muscle Tremors: 2 Anxiety: 2 Agitation: 2 Paroxysmal Sweats: 2 Orientation: 0-Oriented Tacttile Disturbances: 0-None Auditory Disturbances: 0-None Visual Disturbances: 2-Mild Sensitivity Headache: 0-None Present CIWA-Ar Total Score: 10 BHS Progress Note (SOAP) Subjective: Complaints of sweats, tremors, anxiety and light sensitivity. Objective: 05/23/20 14:27 Vital Signs 05/23/20 05/23/20 08:36 12:49 Temperature 97.7 F 97.1 F L Pulse Rate 93 H 98 H Respiratory 18 18 Rate Blood Pressure 109/75 136/92 O2 Sat by Pulse 100 Oximetry (%) Laboratory Last Values WBC 1.9 K/mm3 (4.0-10.0) L* 05/23/20 07:55 RBC 3.74 M/mm3 (4.00-5.60) L 05/23/20 07:55 Hgb 12.6 GM/dL (11.7-16.9) 05/23/20 07:55 Hct 37.0 % (35.4-49) 05/23/20 07:55 MCV 98.8 fl (80-96) H 05/23/20 07:55 MCH 33.6 pg (25.7-33.7) 05/23/20 07:55 MCHC 34.0 g/dl (32.0-35.9) 05/23/20 07:55 RDW 16.1 % (11.9-15.9) H 05/23/20 07:55 Plt Count 181 K/MM3 (134-434) 05/23/20 07:55 MPV 7.3 fl (7.5-11.1) L 05/23/20 07:55 Absolute Neuts (auto) 0.9 K/mm3 (1.5-8.0) L 05/23/20 07:55 Neutrophils % 50.8 % (42.8-82.8) 05/23/20 07:55 Neutrophils % (Manual) 49.0 % (42.8-82.8) 05/23/20 07:55 Band Neutrophils % 0.0 % 05/23/20 07:55 Lymphocytes % 33.1 % (8-40) 05/23/20 07:55 Lymphocytes % (Manual) 37.8 % (8-40) D 05/23/20 07:55 Monocytes % 11.3 % (3.8-10.2) H 05/23/20 07:55 Monocytes % (Manual) 11 % (3.8-10.2) H 05/23/20 07:55 Eosinophils % 4.2 % (0-4.5) 05/23/20 07:55 Eosinophils % (Manual) 1.0 % (0-4.5) 05/23/20 07:55 Basophils % 0.6 % (0-2.0) 05/23/20 07:55 Basophils % (Manual) 0.0 % (0-2.0) 05/23/20 07:55 Myelocytes % (Man) 0 % (0-2) 05/23/20 07:55 Promyelocytes % (Man) 0 % (0-2) 05/23/20 07:55 Blast Cells % (Manual) 0 % (0-0) 05/23/20 07:55 Nucleated RBC % 0 % (0-0) 05/23/20 07:55 Metamyelocytes 0 % (0-2) 05/23/20 07:55 Platelet Estimate Normal 05/23/20 07:55 Anisocytosis 1+ 05/23/20 07:55 Ovalocytes 1+ 05/23/20 07:55 Schistocytes 1+ 05/23/20 07:55 Sodium 137 mmol/L (136-145) 05/21/20 14:45 Potassium 3.9 mmol/L (3.5-5.1) 05/21/20 14:45 Chloride 104 mmol/L (98-107) 05/21/20 14:45 Carbon Dioxide 27 mmol/L (21-32) 05/21/20 14:45 Anion Gap 6 MMOL/L (8-16) L 05/21/20 14:45 BUN 7.3 mg/dL (7-18) 05/21/20 14:45 Creatinine 0.7 mg/dL (0.55-1.3) 05/21/20 14:45 Est GFR (CKD-EPI)AfAm 120.56 05/21/20 14:45 Est GFR (CKD-EPI)NonAf 104.02 05/21/20 14:45 Random Glucose 80 mg/dL (74-106) 05/21/20 14:45 Calcium 8.4 mg/dL (8.5-10.1) L 05/21/20 14:45 Total Bilirubin 0.8 mg/dL (0.2-1) 05/21/20 14:45 AST 14 U/L (15-37) L 05/21/20 14:45 ALT 17 U/L (13-61) 05/21/20 14:45 Alkaline Phosphatase 79 U/L (45-117) 05/21/20 14:45 Total Protein 7.1 g/dl (6.4-8.2) 05/21/20 14:45 Albumin 3.6 g/dl (3.4-5.0) 05/21/20 14:45 Syphilis Serology Non-reactive (NONREACTIVE) 05/21/20 14:45 COVID-19 ([facility]) Not detected (Not Detected) 05/21/20 15:45 HIV Ag/Ab Combo Qual Negative (NEGATIVE) 05/22/20 09:00 Labs noted still with Leukopenia.( for out patient follow up) Assessment: 05/23/20 14:29 Alert and oriented x3, in no acute respiratory distress. Full ROM, ambulatory on unit. Withdrawal symptoms. Leukopenia. Plan: Continue detox protocol. Out patient follow up Leukopenia.
[2020-05-23] MEDS: THIAMINE HCL 100 MG TABLET (FP) PO SCH (22:31)
[2020-05-23] MEDS: LIDOCAINE PATCH REMOVAL MC SCH (22:32)
[2020-05-24] MEDS ORDERED: chlordiazePOXIDE HCL 10 MG CAPSULE PO PRN
[2020-05-24] MEDS: chlordiazePOXIDE HCL 10 MG CAPSULE PO SCH ×4 (05:58→22:13)
[2020-05-24] MEDS: LIDOCAINE 5% TOPICAL PATCH TP SCH (10:25)
[2020-05-24] MEDS: PRENATAL VITAMINS W/ FOLIC ACID TABLET (FP) PO SCH (10:25)
--- NOTE | 2020-05-24 16:09 | PN ---
S CIWA - CIWA Score Nausea/Vomitin-No Nausea/No Vomiting Muscle Tremors: 2 Anxiety: 2 Agitation: 2 Paroxysmal Sweats: 2 Orientation: 0-Oriented Tacttile Disturbances: 0-None Auditory Disturbances: 0-None Visual Disturbances: 0-None Headache: 0-None Present CIWA-Ar Total Score: 8 BHS Progress Note (SOAP) Subjective: Interrupted sleep, "doesn't need no sleeping pills" Objective: 05/24/20 16:04 Last Vital Signs Temp Pulse Resp BP Pulse Ox 96.9 F L 90 19 136/79 99 05/24/20 12:44 05/24/20 12:44 05/24/20 12:44 05/24/20 12:44 05/24/20 12:44 Elevated b/p noted: denies htn, not on medication Laboratory Tests 05/21/20 05/21/20 05/21/20 14:45 14:45 14:45 WBC 1.8 L* RBC 3.88 L Hgb 12.9 Hct 38.5 MCV 99.1 H MCH 33.1 MCHC 33.4 RDW 15.8 Plt Count 221 MPV 7.4 L Absolute Neuts (auto) Neutrophils % Neutrophils % (Manual) Band Neutrophils % Lymphocytes % Lymphocytes % (Manual) Monocytes % Monocytes % (Manual) Eosinophils % Eosinophils % (Manual) Basophils % Basophils % (Manual) Myelocytes % (Man) Promyelocytes % (Man) Blast Cells % (Manual) Nucleated RBC % Metamyelocytes Platelet Estimate Anisocytosis Ovalocytes Schistocytes Sodium 137 Potassium 3.9 Chloride 104 Carbon Dioxide 27 Anion Gap 6 L BUN 7.3 Creatinine 0.7 Est GFR (CKD-EPI)AfAm 120.56 Est GFR (CKD-EPI)NonAf 104.02 Random Glucose 80 Calcium 8.4 L Total Bilirubin 0.8 AST 14 L ALT 17 Alkaline Phosphatase 79 Total Protein 7.1 Albumin 3.6 Syphilis Serology Non-reactive COVID-19 ([facility]) HIV Ag/Ab Combo Qual 05/21/20 05/22/20 05/23/20 15:45 09:00 07:55 WBC 1.9 L* RBC 3.74 L Hgb 12.6 Hct 37.0 MCV 98.8 H MCH 33.6 MCHC 34.0 RDW 16.1 H Plt Count 181 MPV 7.3 L Absolute Neuts (auto) 0.9 L Neutrophils % 50.8 Neutrophils % (Manual) 49.0 Band Neutrophils % 0.0 Lymphocytes % 33.1 Lymphocytes % (Manual) 37.8 D Monocytes % 11.3 H Monocytes % (Manual) 11 H Eosinophils % 4.2 Eosinophils % (Manual) 1.0 Basophils % 0.6 Basophils % (Manual) 0.0 Myelocytes % (Man) 0 Promyelocytes % (Man) 0 Blast Cells % (Manual) 0 Nucleated RBC % 0 Metamyelocytes 0 Platelet Estimate Normal Anisocytosis 1+ Ovalocytes 1+ Schistocytes 1+ Sodium Potassium Chloride Carbon Dioxide Anion Gap BUN Creatinine Est GFR (CKD-EPI)AfAm Est GFR (CKD-EPI)NonAf Random Glucose Calcium Total Bilirubin AST ALT Alkaline Phosphatase Total Protein Albumin Syphilis Serology COVID-19 ([facility]) Not detected HIV Ag/Ab Combo Qual Negative Labs reviewed: wbc (low), patient to follow up outpatient for further evaluation Assessment: 05/24/20 16:05 Withdrawal sxs Elevated b/p and Leukopenia noted Plan: Continue detox Encouraged PO water intake Elevated b/p: denies htn, most likely withdrawal related, monitor b/p, consider low sodium diet Leukopenia: encouraged to keep hands clean by washing frequently with soap and water in preventing infection; already addressed, patient to follow up with PCP/Specialist post discharge.
[2020-05-24] MEDS: THIAMINE HCL 100 MG TABLET (FP) PO SCH (22:13)
[2020-05-24] MEDS: LIDOCAINE PATCH REMOVAL MC SCH (22:14)
[2020-05-25] MEDS: chlordiazePOXIDE HCL 10 MG CAPSULE PO SCH ×2 (05:53→17:25)
[2020-05-25] MEDS: LIDOCAINE 5% TOPICAL PATCH TP SCH (10:59)
[2020-05-25] MEDS: PRENATAL VITAMINS W/ FOLIC ACID TABLET (FP) PO SCH (11:00)
--- NOTE | 2020-05-25 11:03 | PN ---
S CIWA - CIWA Score Nausea/Vomitin-No Nausea/No Vomiting Muscle Tremors: 2 Anxiety: 1-Mildly Anxious Agitation: 1-Slight > Activity Paroxysmal Sweats: 1-Minimal Palms Moist Orientation: 0-Oriented Tacttile Disturbances: 0-None Auditory Disturbances: 0-None Visual Disturbances: 0-None Headache: 0-None Present CIWA-Ar Total Score: 5 BHS Progress Note (SOAP) Subjective: feeling better Objective: 05/25/20 11:03 Vital Signs Temperature 97.3 F L 05/25/20 09:01 Pulse Rate 91 H 05/25/20 09:01 Respiratory Rate 203 H 05/25/20 09:01 Blood Pressure 129/90 05/25/20 09:01 O2 Sat by Pulse Oximetry (%) 98 05/25/20 05:55 aaox3 ambulating no acute distress Assessment: 05/25/20 11:03 mild withdrawals Plan: continue detox d/c in am
[2020-05-25] MEDS: THIAMINE HCL 100 MG TABLET (FP) PO SCH (22:13)
[2020-05-25] MEDS: LIDOCAINE PATCH REMOVAL MC SCH (22:14)
[2020-05-25] MEDS: hydrOXYzine PAMOATE 25 MG CAPSULE (FP) PO PRN (22:14)
[2020-05-26] MEDS ORDERED: chlordiazePOXIDE HCL 10 MG CAPSULE PO ONE (05:00)
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
[2020-05-26 10:01] VITALS: BP 105/85; PULSE 109; TEMP 97.5
[2020-05-26] MEDS: PRENATAL VITAMINS W/ FOLIC ACID TABLET (FP) PO SCH (10:27)
[2020-05-26] MEDS: LIDOCAINE 5% TOPICAL PATCH TP SCH (10:28)
== END 2020-05-26 11:43 | disposition other institution (70) | DRG 773 ==
LOC: YASAS 12:12 → Y6N 15:41
PROVIDERS: ADMIT Allergy & Immunology; ATTEND Allergy & Immunology
PROC: HZ2ZZZZ Detoxification Services for Substance Abuse Treatment (ICD-10-PCS; principal; 2020-05-21)
DX: F10.230 Alcohol dependence with withdrawal, uncomplicated (principal); F11.20 Opioid dependence, uncomplicated; F17.210 Nicotine dependence, cigarettes, uncomplicated; F31.9 Bipolar disorder, unspecified; F19.24 Other psychoactive substance dependence with psychoactive substance-induced mood disorder; F10.24 Alcohol dependence with alcohol-induced mood disorder; F41.8 Other specified anxiety disorders; F43.10 Post-traumatic stress disorder, unspecified; G47.00 Insomnia, unspecified; I10 Essential (primary) hypertension; D50.8 Other iron deficiency anemias; D72.818 Other decreased white blood cell count; H40.9 Unspecified glaucoma; B35.1 Tinea unguium; R63.4 Abnormal weight loss; Z68.21 Body mass index [BMI] 21.0-21.9, adult; Z87.828 Personal history of other (healed) physical injury and trauma
CPT/HCPCS: 36415; 80053; 85025; 85027; 86780; 87389; 87522; 93005; 93010; U0003

== ENCOUNTER 2020-05-26 11:25 | Inpatient (IN) | payer OTHER ==
--- NOTE | 2020-05-26 11:05 | HP ---
[facility] Re[facility] Assess/Revision - Admission History Ad[facility] - Findings Detox History & Physical reviewed: Yes Concur with findings: Yes Inpatient Rehab Admission - Rehab Decision to Admit Inpatient rehab admission?: Yes - Initial Determination Are CD services needed?: Yes Free of communicable disease: Yes Not in need of hospitalization: Yes - Rehab Admission Criteria Previous failed treatment: Yes Poor recovery environment: Yes Comorbidities: Yes Lacks judgement: Yes Patient is meeting Inpatient Rehab admission criteria:: Yes
[2020-05-26] MEDS ORDERED: guaiFENesin 200 MG/10 ML 10 ML UNIT-DOSE CUPS PO PRN (14:02)
[2020-05-26] MEDS ORDERED: MENTHOL/PHENOL 1 EACH UD MM PRN (14:02)
[2020-05-26] MEDS ORDERED: ACETAMINOPHEN 325 MG TABLET (FP) PO PRN (14:02)
[2020-05-26] MEDS ORDERED: LOPERAMIDE HCL 2 MG CAPSULE PO PRN (14:02)
[2020-05-26] MEDS ORDERED: hydrOXYzine PAMOATE 25 MG CAPSULE (FP) PO PRN (14:02)
[2020-05-26] MEDS ORDERED: P-EPHED 60MG/TRIPROLIDI 2.5MG TABLET PO PRN (14:02)
[2020-05-26] MEDS ORDERED: NICOTINE POLACRILEX 2 MG GUM BUC PRN (14:02)
[2020-05-26] MEDS ORDERED: MAGNESIUM CITRATE 300 ML BOTTLE PO PRN (14:02)
[2020-05-26] MEDS ORDERED: MAGNESIUM HYDROX 2400MG/30ML ORAL SUSPENSION 30 ML CUP PO PRN (14:02)
[2020-05-26] MEDS: THIAMINE HCL 100 MG TABLET (FP) PO SCH (21:34)
[2020-05-26] MEDS ORDERED: MELATONIN 5 MG TABLETS PO SCH (22:00)
[2020-05-27] MEDS: PRENATAL VITAMINS W/ FOLIC ACID TABLET (FP) PO SCH (09:34)
[2020-05-27] MEDS ORDERED: NICOTINE 14 MG/24 HOURS TOPICAL PATCH TD SCH (10:00)
[2020-05-27] MEDS: LIDOCAINE 5% TOPICAL PATCH TP SCH (13:30)
[2020-05-27] MEDS: LIDOCAINE PATCH REMOVAL MC SCH (21:00)
[2020-05-27] MEDS: THIAMINE HCL 100 MG TABLET (FP) PO SCH (21:00)
[2020-05-28] MEDS: LIDOCAINE 5% TOPICAL PATCH TP SCH (09:27)
[2020-05-28] MEDS: PRENATAL VITAMINS W/ FOLIC ACID TABLET (FP) PO SCH (09:28)
[2020-05-28] MEDS: THIAMINE HCL 100 MG TABLET (FP) PO SCH (21:51)
[2020-05-28] MEDS: LIDOCAINE PATCH REMOVAL MC SCH (21:52)
[2020-05-29] MEDS: MAG HYDROX/AL HYDROX/SIMETH 30 ML UNIT-DOSE CUP PO PRN ×2 (00:42→19:40)
[2020-05-29] MEDS: PRENATAL VITAMINS W/ FOLIC ACID TABLET (FP) PO SCH (09:44)
[2020-05-29] MEDS: LIDOCAINE 5% TOPICAL PATCH TP SCH (09:45)
[2020-05-29] MEDS: MELATONIN 5 MG TABLETS PO PRN (21:45)
[2020-05-29] MEDS: THIAMINE HCL 100 MG TABLET (FP) PO SCH (21:45)
[2020-05-29] MEDS: LIDOCAINE PATCH REMOVAL MC SCH (21:45)
[2020-05-29] MEDS ORDERED: PANTOPRAZOLE 20 MG TABLET PO ONE (23:49)
[2020-05-30] MEDS: LIDOCAINE 5% TOPICAL PATCH TP SCH (09:54)
[2020-05-30] MEDS: PANTOPRAZOLE 20 MG TABLET PO SCH ×2 (09:54→22:03)
[2020-05-30] MEDS: PRENATAL VITAMINS W/ FOLIC ACID TABLET (FP) PO SCH (09:54)
[2020-05-30] MEDS: THIAMINE HCL 100 MG TABLET (FP) PO SCH (22:03)
[2020-05-30] MEDS: LIDOCAINE PATCH REMOVAL MC SCH (22:03)
[2020-05-30] MEDS: MELATONIN 5 MG TABLETS PO PRN (22:03)
[2020-05-31] MEDS: LIDOCAINE 5% TOPICAL PATCH TP SCH (09:20)
[2020-05-31] MEDS: PANTOPRAZOLE 20 MG TABLET PO SCH ×2 (09:20→22:05)
[2020-05-31] MEDS: PRENATAL VITAMINS W/ FOLIC ACID TABLET (FP) PO SCH (09:21)
[2020-05-31] MEDS: THIAMINE HCL 100 MG TABLET (FP) PO SCH (22:05)
[2020-05-31] MEDS: LIDOCAINE PATCH REMOVAL MC SCH (22:27)
[2020-06-01] MEDS: PANTOPRAZOLE 20 MG TABLET PO SCH ×2 (10:05→21:46)
[2020-06-01] MEDS: PRENATAL VITAMINS W/ FOLIC ACID TABLET (FP) PO SCH (10:05)
[2020-06-01] MEDS: LIDOCAINE 5% TOPICAL PATCH TP SCH (10:05)
[2020-06-01] MEDS: LIDOCAINE PATCH REMOVAL MC SCH (21:45)
[2020-06-01] MEDS: THIAMINE HCL 100 MG TABLET (FP) PO SCH (21:45)
[2020-06-02] MEDS: LIDOCAINE 5% TOPICAL PATCH TP SCH (09:39)
[2020-06-02] MEDS: PANTOPRAZOLE 20 MG TABLET PO SCH ×2 (09:39→21:35)
[2020-06-02] MEDS: PRENATAL VITAMINS W/ FOLIC ACID TABLET (FP) PO SCH (09:40)
[2020-06-02] MEDS: THIAMINE HCL 100 MG TABLET (FP) PO SCH (21:35)
[2020-06-02] MEDS: LIDOCAINE PATCH REMOVAL MC SCH (21:35)
[2020-06-03] MEDS: LIDOCAINE 5% TOPICAL PATCH TP SCH (09:29)
[2020-06-03] MEDS: PRENATAL VITAMINS W/ FOLIC ACID TABLET (FP) PO SCH (09:30)
[2020-06-03] MEDS: PANTOPRAZOLE 20 MG TABLET PO SCH ×2 (09:30→21:23)
[2020-06-03] MEDS: LIDOCAINE PATCH REMOVAL MC SCH (21:23)
[2020-06-03] MEDS: THIAMINE HCL 100 MG TABLET (FP) PO SCH (21:23)
[2020-06-04] MEDS: PRENATAL VITAMINS W/ FOLIC ACID TABLET (FP) PO SCH (09:33)
[2020-06-04] MEDS: PANTOPRAZOLE 20 MG TABLET PO SCH ×2 (09:33→21:24)
[2020-06-04] MEDS: LIDOCAINE 5% TOPICAL PATCH TP SCH (09:34)
[2020-06-04] MEDS ORDERED: PT OWN MED DRAWER 7, Y5N ONE (21:02)
[2020-06-04] MEDS: LIDOCAINE PATCH REMOVAL MC SCH (21:24)
[2020-06-04] MEDS: THIAMINE HCL 100 MG TABLET (FP) PO SCH (21:24)
[2020-06-05] MEDS: PRENATAL VITAMINS W/ FOLIC ACID TABLET (FP) PO SCH (09:33)
[2020-06-05] MEDS: PANTOPRAZOLE 20 MG TABLET PO SCH ×2 (09:33→21:15)
[2020-06-05] MEDS: LIDOCAINE 5% TOPICAL PATCH TP SCH (09:33)
[2020-06-05] MEDS: THIAMINE HCL 100 MG TABLET (FP) PO SCH (21:14)
[2020-06-05] MEDS: LIDOCAINE PATCH REMOVAL MC SCH (21:15)
[2020-06-06] MEDS: LIDOCAINE 5% TOPICAL PATCH TP SCH (09:37)
[2020-06-06] MEDS: PANTOPRAZOLE 20 MG TABLET PO SCH ×2 (09:37→21:29)
[2020-06-06] MEDS: PRENATAL VITAMINS W/ FOLIC ACID TABLET (FP) PO SCH (09:37)
[2020-06-06] MEDS: MAG HYDROX/AL HYDROX/SIMETH 30 ML UNIT-DOSE CUP PO PRN (15:04)
[2020-06-06] MEDS: IBUPROFEN 400 MG TABLET (FP) PO PRN (19:56)
[2020-06-06] MEDS: THIAMINE HCL 100 MG TABLET (FP) PO SCH (21:29)
[2020-06-06] MEDS: LIDOCAINE PATCH REMOVAL MC SCH (22:28)
[2020-06-07] MEDS: PRENATAL VITAMINS W/ FOLIC ACID TABLET (FP) PO SCH (09:26)
[2020-06-07] MEDS: LIDOCAINE 5% TOPICAL PATCH TP SCH (09:26)
[2020-06-07] MEDS: PANTOPRAZOLE 20 MG TABLET PO SCH ×2 (09:26→21:23)
[2020-06-07] MEDS ORDERED: MASKS NR ONE (12:45)
[2020-06-07] MEDS ORDERED: PT OWN MED DRAWER 7, Y5N ONE (19:08)
[2020-06-07] MEDS: LIDOCAINE PATCH REMOVAL MC SCH (21:23)
[2020-06-07] MEDS: THIAMINE HCL 100 MG TABLET (FP) PO SCH (21:23)
[2020-06-08] MEDS: PRENATAL VITAMINS W/ FOLIC ACID TABLET (FP) PO SCH (09:36)
[2020-06-08] MEDS: LIDOCAINE 5% TOPICAL PATCH TP SCH (09:37)
[2020-06-08] MEDS ORDERED: PT OWN MED DRAWER 7, Y5N ONE ×2 (09:37→16:39)
[2020-06-08] MEDS: PANTOPRAZOLE 20 MG TABLET PO SCH ×2 (11:00→21:24)
[2020-06-08] MEDS: IBUPROFEN 400 MG TABLET (FP) PO PRN ×2 (11:50→18:29)
[2020-06-08] MEDS: METHYL SALICYLATE/MENTHOL OINT 30 GM TUBE TP SCH ×2 (16:34→21:24)
[2020-06-08] MEDS: THIAMINE HCL 100 MG TABLET (FP) PO SCH (21:24)
[2020-06-08] MEDS: LIDOCAINE PATCH REMOVAL MC SCH (21:24)
[2020-06-09 07:03] VITALS: BP 129/86; PULSE 80; TEMP 97.5
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
[2020-06-09] MEDS: PRENATAL VITAMINS W/ FOLIC ACID TABLET (FP) PO SCH (09:09)
[2020-06-09] MEDS: PANTOPRAZOLE 20 MG TABLET PO SCH (09:09)
[2020-06-09] MEDS: LIDOCAINE 5% TOPICAL PATCH TP SCH (09:09)
[2020-06-09] MEDS: METHYL SALICYLATE/MENTHOL OINT 30 GM TUBE TP SCH (09:11)
== END 2020-06-09 09:26 | disposition home or self-care (01) | DRG 772 ==
LOC: YASAS 11:25 → Y3E 11:26
PROVIDERS: ADMIT Allergy & Immunology; ATTEND Allergy & Immunology
PROC: HZ42ZZZ Group Counseling for Substance Abuse Treatment, Cognitive-Behavioral (ICD-10-PCS; principal; 2020-05-26)
DX: F10.20 Alcohol dependence, uncomplicated (principal); F11.20 Opioid dependence, uncomplicated; F14.20 Cocaine dependence, uncomplicated; F41.9 Anxiety disorder, unspecified; D64.9 Anemia, unspecified; I10 Essential (primary) hypertension; Z87.828 Personal history of other (healed) physical injury and trauma; Z88.0 Allergy status to penicillin; Z91.018 Allergy to other foods

== ENCOUNTER 2020-07-26 13:33 | Inpatient (IN) | payer OTHER ==
[2020-07-26 17:16] VITALS: BMI 20.9
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
[2020-07-26] MEDS ORDERED: ACETAMINOPHEN 325 MG TABLET (FP) PO PRN ×2 (20:02)
[2020-07-26] MEDS ORDERED: NICOTINE POLACRILEX 2 MG GUM BUC PRN (20:02)
[2020-07-26] MEDS ORDERED: IBUPROFEN 400 MG TABLET (FP) PO PRN (20:02)
[2020-07-26] MEDS ORDERED: MENTHOL/PHENOL 1 EACH UD MM PRN (20:02)
[2020-07-26] MEDS ORDERED: METHOCARBAMOL 500 MG TABLET PO PRN (20:02)
[2020-07-26] MEDS ORDERED: ONDANSETRON *ODT* 4 MG TABLET SL PRN (20:02)
[2020-07-26] MEDS ORDERED: MAGNESIUM CITRATE 300 ML BOTTLE PO PRN (20:02)
[2020-07-26] MEDS ORDERED: MAGNESIUM HYDROX 2400MG/30ML ORAL SUSPENSION 30 ML CUP PO PRN (20:02)
[2020-07-26] MEDS ORDERED: MAG HYDROX/AL HYDROX/SIMETH 30 ML UNIT-DOSE CUP PO PRN (20:02)
[2020-07-26] MEDS ORDERED: BISMUTH SUBSALICYLATE 524 MG/30 ML UD PO PRN (20:02)
[2020-07-26] MEDS ORDERED: LORazepam 1 MG TABLET PO PRN (20:17)
[2020-07-26] MEDS ORDERED: LORazepam 2 MG TABLET PO ONE (20:17)
[2020-07-26] MEDS ORDERED: hydrOXYzine PAMOATE 25 MG CAPSULE (FP) PO SCH (22:00)
[2020-07-26] MEDS: LORazepam 2 MG TABLET PO SCH (22:45)
[2020-07-26] MEDS: MELATONIN 5 MG TABLETS PO SCH (22:46)
[2020-07-26] MEDS: THIAMINE HCL 100 MG TABLET (FP) PO SCH (22:46)
[2020-07-26] MEDS: TOLNAFTATE 1% CREAM 15 GM TUBE TP SCH (22:47)
[2020-07-27] MEDS: LORazepam 2 MG TABLET PO SCH ×4 (06:49→22:21)
[2020-07-27] MEDS: NICOTINE 7 MG/24 HOURS TOPICAL PATCH TD SCH (10:35)
[2020-07-27] MEDS: PRENATAL VITAMINS W/ FOLIC ACID TABLET (FP) PO SCH (10:36)
[2020-07-27] MEDS: TOLNAFTATE 1% CREAM 15 GM TUBE TP SCH ×2 (10:36→22:23)
[2020-07-27 11:00] LABS: HEMATOCRIT 38.4 % (35.4-49); HEMOGLOBIN 13.1 GM/dL (11.7-16.9); MCH 33.6 pg (25.7-33.7); MCHC 34.2 g/dl (32.0-35.9); MEAN CELL VOLUME 98.1 fl (80-96); MEAN PLT VOLUME 7.3 fl (7.5-11.1); PLATELET COUNT 208 K/MM3 (134-434); RBC 3.91 M/mm3 (4.00-5.60); RDW 14.3 % (11.9-15.9)
--- NOTE | 2020-07-27 11:01 | PN ---
S CIWA - CIWA Score Nausea/Vomitin-No Nausea/No Vomiting Muscle Tremors: 3 Anxiety: 2 Agitation: 2 Paroxysmal Sweats: 2 Orientation: 0-Oriented Tacttile Disturbances: 0-None Auditory Disturbances: 0-None Visual Disturbances: 0-None Headache: 0-None Present CIWA-Ar Total Score: 9 [facility] Progress Note (SOAP) Subjective: sweats body aches irritable interrupted sleep Objective: 07/27/20 11:00 Vital Signs Temperature 97.5 F L 07/27/20 05:30 Pulse Rate 84 07/27/20 05:30 Respiratory Rate 20 07/27/20 05:30 Blood Pressure 132/76 07/27/20 05:30 O2 Sat by Pulse Oximetry (%) 99 07/27/20 05:30 labs pending aaox3 ambulating no acute distress Assessment: 07/27/20 11:01 withdrawals Plan: continue detox
[2020-07-27 11:05] LABS: WHITE BLOOD COUNT 1.6 K/mm3 (4.0-10.0)
[2020-07-27 11:07] LABS: ALBUMIN 3.1 g/dl (3.4-5.0); BILIRUBIN,TOTAL 0.6 mg/dL (0.2-1); BLOOD UREA NITROGEN 10.5 mg/dL (7-18); CALCIUM 8.4 mg/dL (8.5-10.1); CREATININE 0.7 mg/dL (0.55-1.3); POTASSIUM 3.9 mmol/L (3.5-5.1); TOT PROT 7.2 g/dl (6.4-8.2)
[2020-07-27] MEDS ORDERED: MASKS NR ONE (17:11)
[2020-07-27] MEDS: THIAMINE HCL 100 MG TABLET (FP) PO SCH (22:21)
[2020-07-27] MEDS: MELATONIN 5 MG TABLETS PO SCH (22:23)
[2020-07-28] MEDS: LORazepam 1 MG TABLET PO SCH ×4 (06:11→22:34)
[2020-07-28] MEDS: NICOTINE 7 MG/24 HOURS TOPICAL PATCH TD SCH (10:03)
[2020-07-28] MEDS: PRENATAL VITAMINS W/ FOLIC ACID TABLET (FP) PO SCH (10:03)
[2020-07-28] MEDS: TOLNAFTATE 1% CREAM 15 GM TUBE TP SCH ×2 (10:03→22:36)
--- NOTE | 2020-07-28 10:10 | PN ---
S CIWA - CIWA Score Nausea/Vomitin-No Nausea/No Vomiting Muscle Tremors: 2 Anxiety: 1-Mildly Anxious Agitation: 2 Paroxysmal Sweats: 2 Orientation: 0-Oriented Tacttile Disturbances: 0-None Auditory Disturbances: 0-None Visual Disturbances: 0-None Headache: 0-None Present CIWA-Ar Total Score: 7 BHS Progress Note (SOAP) Subjective: sweats interrupted sleep agitation restless Objective: 07/28/20 10:10 Vital Signs Temperature 97.1 F L 07/28/20 08:36 Pulse Rate 80 07/28/20 08:36 Respiratory Rate 18 07/28/20 08:36 Blood Pressure 118/79 07/28/20 08:36 O2 Sat by Pulse Oximetry (%) 100 07/28/20 08:36 Laboratory Tests 07/27/20 07/27/20 07/27/20 07:30 07:40 07:40 WBC 1.6 L* RBC 3.91 L Hgb 13.1 Hct 38.4 MCV 98.1 H MCH 33.6 MCHC 34.2 RDW 14.3 D Plt Count 208 MPV 7.3 L Sodium 137 Potassium 3.9 Chloride 105 Carbon Dioxide 28 Anion Gap 4 L BUN 10.5 Creatinine 0.7 Est GFR (CKD-EPI)AfAm 120.56 Est GFR (CKD-EPI)NonAf 104.02 Random Glucose 93 Calcium 8.4 L Total Bilirubin 0.6 AST 12 L ALT 15 Alkaline Phosphatase 84 Total Protein 7.2 Albumin 3.1 L Syphilis Serology COVID-19 ([facility]) Not detected 07/27/20 07:40 WBC RBC Hgb Hct MCV MCH MCHC RDW Plt Count MPV Sodium Potassium Chloride Carbon Dioxide Anion Gap BUN Creatinine Est GFR (CKD-EPI)AfAm Est GFR (CKD-EPI)NonAf Random Glucose Calcium Total Bilirubin AST ALT Alkaline Phosphatase Total Protein Albumin Syphilis Serology Non-reactive COVID-19 ([facility]) labs noted 1.6 WBC noted; labs repeated aaox3 lying in bed no acute distress Assessment: 07/28/20 10:15 withdrawals Plan: continue detox increase fluids CBC repeated
[2020-07-28] MEDS: MELATONIN 5 MG TABLETS PO SCH (22:34)
[2020-07-28] MEDS: THIAMINE HCL 100 MG TABLET (FP) PO SCH (22:34)
[2020-07-29] MEDS ORDERED: LORazepam 0.5 MG TABLET PO PRN
[2020-07-29] MEDS: LORazepam 0.5 MG TABLET PO SCH ×4 (05:20→22:28)
[2020-07-29] MEDS: TOLNAFTATE 1% CREAM 15 GM TUBE TP SCH ×2 (10:26→22:28)
[2020-07-29] MEDS: PRENATAL VITAMINS W/ FOLIC ACID TABLET (FP) PO SCH (10:26)
[2020-07-29] MEDS: NICOTINE 7 MG/24 HOURS TOPICAL PATCH TD SCH (10:26)
[2020-07-29 10:35] LABS: BASO % 0.7 % (0-2.0); EOS % 7.9 % (0-4.5); HEMATOCRIT 38.5 % (35.4-49); HEMOGLOBIN 13.5 GM/dL (11.7-16.9); LYMPH % 39.8 % (8-40); MCH 34.4 pg (25.7-33.7); MCHC 35.1 g/dl (32.0-35.9); MEAN CELL VOLUME 98.1 fl (80-96); MEAN PLT VOLUME 7.6 fl (7.5-11.1); MONO % 13.9 % (3.8-10.2); NEUT % 37.7 % (42.8-82.8); PLATELET COUNT 196 K/MM3 (134-434); RBC 3.93 M/mm3 (4.00-5.60); RDW 14.4 % (11.9-15.9)
[2020-07-29 10:41] LABS: WHITE BLOOD COUNT 1.9 K/mm3 (4.0-10.0)
--- NOTE | 2020-07-29 13:47 | PN ---
S CIWA - CIWA Score Nausea/Vomitin-No Nausea/No Vomiting Muscle Tremors: 1-None Visible, but [place] Anxiety: 1-Mildly Anxious Agitation: 1-Slight > Activity Paroxysmal Sweats: No Perspiration Orientation: 0-Oriented Tacttile Disturbances: 0-None Auditory Disturbances: 0-None Visual Disturbances: 0-None Headache: 0-None Present CIWA-Ar Total Score: 3 [facility] Progress Note (SOAP) Subjective: sweats Objective: 07/29/20 13:45 Vital Signs Temperature 97.1 F L 07/29/20 08:35 Pulse Rate 80 07/29/20 08:35 Respiratory Rate 16 07/29/20 08:35 Blood Pressure 113/68 07/29/20 08:35 O2 Sat by Pulse Oximetry (%) 96 07/29/20 05:11 Laboratory Tests 07/27/20 07/27/20 07/27/20 07:30 07:40 07:40 WBC 1.6 L* RBC 3.91 L Hgb 13.1 Hct 38.4 MCV 98.1 H MCH 33.6 MCHC 34.2 RDW 14.3 D Plt Count 208 MPV 7.3 L Absolute Neuts (auto) Neutrophils % Lymphocytes % Monocytes % Eosinophils % Basophils % Nucleated RBC % Sodium 137 Potassium 3.9 Chloride 105 Carbon Dioxide 28 Anion Gap 4 L BUN 10.5 Creatinine 0.7 Est GFR (CKD-EPI)AfAm 120.56 Est GFR (CKD-EPI)NonAf 104.02 Random Glucose 93 Calcium 8.4 L Total Bilirubin 0.6 AST 12 L ALT 15 Alkaline Phosphatase 84 Total Protein 7.2 Albumin 3.1 L Syphilis Serology COVID-19 ([facility]) Not detected 07/27/20 07/29/20 07:40 07:45 WBC 1.9 L* RBC 3.93 L Hgb 13.5 Hct 38.5 MCV 98.1 H MCH 34.4 H MCHC 35.1 RDW 14.4 Plt Count 196 MPV 7.6 Absolute Neuts (auto) 0.7 L Neutrophils % 37.7 L D Lymphocytes % 39.8 D Monocytes % 13.9 H Eosinophils % 7.9 H D Basophils % 0.7 Nucleated RBC % 0 Sodium Potassium Chloride Carbon Dioxide Anion Gap BUN Creatinine Est GFR (CKD-EPI)AfAm Est GFR (CKD-EPI)NonAf Random Glucose Calcium Total Bilirubin AST ALT Alkaline Phosphatase Total Protein Albumin Syphilis Serology Non-reactive COVID-19 ([facility]) WBC increase slowly; thrombocytopenia aaox3 ambulating no acute distress Assessment: 07/29/20 13:46 withdrawals Plan: continue detox
[2020-07-29 14:23] LABS: ANISOCYTOSIS 1+; MACROCYTOSIS 0; PLATELET ESTIMATE NORMAL
[2020-07-29] MEDS ORDERED: MASKS NR ONE (18:37)
[2020-07-29] MEDS: THIAMINE HCL 100 MG TABLET (FP) PO SCH (22:28)
[2020-07-29] MEDS: MELATONIN 5 MG TABLETS PO SCH (22:29)
[2020-07-30] MEDS ORDERED: LORazepam 0.5 MG TABLET PO ONE (05:00)
[2020-07-30 09:19] VITALS: BP 122/75; PULSE 89; TEMP 98.1
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
[2020-07-30] MEDS: PRENATAL VITAMINS W/ FOLIC ACID TABLET (FP) PO SCH (10:35)
[2020-07-30] MEDS: NICOTINE 7 MG/24 HOURS TOPICAL PATCH TD SCH (10:35)
[2020-07-30] MEDS: TOLNAFTATE 1% CREAM 15 GM TUBE TP SCH (10:35)
== END 2020-07-30 10:59 | disposition other institution (70) | DRG 773 ==
LOC: YASAS 13:33 → Y6N 18:57
PROVIDERS: ADMIT Allergy & Immunology; ATTEND Allergy & Immunology
PROC: HZ2ZZZZ Detoxification Services for Substance Abuse Treatment (ICD-10-PCS; principal; 2020-07-26)
DX: F10.230 Alcohol dependence with withdrawal, uncomplicated (principal); F11.20 Opioid dependence, uncomplicated; F17.210 Nicotine dependence, cigarettes, uncomplicated; F10.24 Alcohol dependence with alcohol-induced mood disorder; F19.24 Other psychoactive substance dependence with psychoactive substance-induced mood disorder; F32.9 Major depressive disorder, single episode, unspecified; F41.9 Anxiety disorder, unspecified; I10 Essential (primary) hypertension; D50.8 Other iron deficiency anemias; D72.818 Other decreased white blood cell count; H55.00 Unspecified nystagmus; K40.20 Bilateral inguinal hernia, without obstruction or gangrene, not specified as recurrent; B35.3 Tinea pedis; R63.8 Other symptoms and signs concerning food and fluid intake; Z88.0 Allergy status to penicillin; Z91.018 Allergy to other foods; Z87.828 Personal history of other (healed) physical injury and trauma
CPT/HCPCS: 36415; 80053; 85025; 85027; 86780; U0003

== ENCOUNTER 2020-07-30 11:29 | Inpatient (IN) | payer OTHER ==
[2020-07-30] MEDS ORDERED: P-EPHED 60MG/TRIPROLIDI 2.5MG TABLET PO PRN (11:51)
[2020-07-30] MEDS ORDERED: MAGNESIUM CITRATE 300 ML BOTTLE PO PRN (11:51)
[2020-07-30] MEDS ORDERED: MENTHOL/PHENOL 1 EACH UD MM PRN (11:51)
[2020-07-30] MEDS ORDERED: guaiFENesin 200 MG/10 ML 10 ML UNIT-DOSE CUPS PO PRN (11:51)
[2020-07-30] MEDS ORDERED: LOPERAMIDE HCL 2 MG CAPSULE PO PRN (11:51)
[2020-07-30] MEDS ORDERED: ACETAMINOPHEN 325 MG TABLET (FP) PO PRN (11:51)
[2020-07-30] MEDS ORDERED: IBUPROFEN 400 MG TABLET (FP) PO PRN (11:51)
[2020-07-30] MEDS ORDERED: MAGNESIUM HYDROX 2400MG/30ML ORAL SUSPENSION 30 ML CUP PO PRN (11:51)
[2020-07-30] MEDS: METHOCARBAMOL 500 MG TABLET PO SCH ×3 (15:25→21:09)
[2020-07-30] MEDS: TOLNAFTATE 1% CREAM 15 GM TUBE TP SCH (21:09)
[2020-07-30] MEDS: MELATONIN 5 MG TABLETS PO SCH (21:09)
[2020-07-30] MEDS: THIAMINE HCL 100 MG TABLET (FP) PO SCH (21:09)
[2020-07-30] MEDS: MAG HYDROX/AL HYDROX/SIMETH 30 ML UNIT-DOSE CUP PO PRN (23:59)
[2020-07-31] MEDS: METHOCARBAMOL 500 MG TABLET PO SCH ×4 (09:58→21:36)
[2020-07-31] MEDS: PRENATAL VITAMINS W/ FOLIC ACID TABLET (FP) PO SCH (09:58)
[2020-07-31] MEDS: TOLNAFTATE 1% CREAM 15 GM TUBE TP SCH ×2 (09:59→21:37)
[2020-07-31 14:06] LABS: BASO % 0.8 % (0-2.0); EOS % 7.5 % (0-4.5); HEMATOCRIT 41.1 % (35.4-49); LYMPH % 28.4 % (8-40); MCH 33.8 pg (25.7-33.7); MCHC 34.1 g/dl (32.0-35.9); MEAN CELL VOLUME 99.2 fl (80-96); MEAN PLT VOLUME 7.5 fl (7.5-11.1); MONO % 11.5 % (3.8-10.2); NEUT % 51.8 % (42.8-82.8); PLATELET COUNT 214 K/MM3 (134-434); RBC 4.14 M/mm3 (4.00-5.60); RDW 14.6 % (11.9-15.9); WHITE BLOOD COUNT 2.5 K/mm3 (4.0-10.0)
[2020-07-31] MEDS: hydrOXYzine PAMOATE 25 MG CAPSULE (FP) PO PRN (14:50)
[2020-07-31] MEDS: MELATONIN 5 MG TABLETS PO SCH (21:36)
[2020-07-31] MEDS: THIAMINE HCL 100 MG TABLET (FP) PO SCH (21:36)
[2020-08-01] MEDS: PRENATAL VITAMINS W/ FOLIC ACID TABLET (FP) PO SCH (09:11)
[2020-08-01] MEDS: TOLNAFTATE 1% CREAM 15 GM TUBE TP SCH ×2 (09:11→21:11)
[2020-08-01] MEDS: METHOCARBAMOL 500 MG TABLET PO SCH ×4 (09:11→21:10)
[2020-08-01] MEDS: MELATONIN 5 MG TABLETS PO SCH (21:10)
[2020-08-01] MEDS: THIAMINE HCL 100 MG TABLET (FP) PO SCH (21:10)
[2020-08-02] MEDS: TOLNAFTATE 1% CREAM 15 GM TUBE TP SCH ×2 (09:39→21:36)
[2020-08-02] MEDS: METHOCARBAMOL 500 MG TABLET PO SCH ×4 (09:39→21:36)
[2020-08-02] MEDS: PRENATAL VITAMINS W/ FOLIC ACID TABLET (FP) PO SCH (09:39)
[2020-08-02] MEDS: THIAMINE HCL 100 MG TABLET (FP) PO SCH (21:36)
[2020-08-02] MEDS: MELATONIN 5 MG TABLETS PO SCH (21:36)
[2020-08-03] MEDS: PRENATAL VITAMINS W/ FOLIC ACID TABLET (FP) PO SCH (10:18)
[2020-08-03] MEDS: TOLNAFTATE 1% CREAM 15 GM TUBE TP SCH ×2 (10:18→21:24)
[2020-08-03] MEDS: METHOCARBAMOL 500 MG TABLET PO SCH ×4 (10:18→21:24)
[2020-08-03] MEDS ORDERED: MASKS NR ONE (19:11)
[2020-08-03] MEDS: THIAMINE HCL 100 MG TABLET (FP) PO SCH (21:24)
[2020-08-03] MEDS: MELATONIN 5 MG TABLETS PO SCH (21:24)
[2020-08-03] MEDS ORDERED: PT OWN MED DRAWER 7, Y5N ONE (21:26)
[2020-08-04] MEDS: MAG HYDROX/AL HYDROX/SIMETH 30 ML UNIT-DOSE CUP PO PRN (01:48)
[2020-08-04] MEDS: METHOCARBAMOL 500 MG TABLET PO SCH ×4 (10:02→21:29)
[2020-08-04] MEDS: PRENATAL VITAMINS W/ FOLIC ACID TABLET (FP) PO SCH (10:02)
[2020-08-04] MEDS: hydrOXYzine PAMOATE 25 MG CAPSULE (FP) PO PRN ×2 (10:02→14:46)
[2020-08-04] MEDS ORDERED: PT OWN MED DRAWER 7, Y5N ONE (10:04)
[2020-08-04] MEDS: TOLNAFTATE 1% CREAM 15 GM TUBE TP SCH ×2 (10:13→21:31)
[2020-08-04] MEDS: TETRAHYDROZOLINE HCL EYE DROPS OD PRN ×2 (16:12→21:31)
[2020-08-04] MEDS: MELATONIN 5 MG TABLETS PO SCH (21:30)
[2020-08-04] MEDS: THIAMINE HCL 100 MG TABLET (FP) PO SCH (21:31)
[2020-08-05] MEDS: PRENATAL VITAMINS W/ FOLIC ACID TABLET (FP) PO SCH (10:15)
[2020-08-05] MEDS: TOLNAFTATE 1% CREAM 15 GM TUBE TP SCH ×2 (10:15→21:13)
[2020-08-05] MEDS: METHOCARBAMOL 500 MG TABLET PO SCH ×4 (10:15→21:13)
[2020-08-05] MEDS: hydrOXYzine PAMOATE 25 MG CAPSULE (FP) PO PRN (10:15)
[2020-08-05] MEDS: TETRAHYDROZOLINE HCL EYE DROPS OD PRN ×2 (10:16→21:14)
[2020-08-05] MEDS: THIAMINE HCL 100 MG TABLET (FP) PO SCH (21:13)
[2020-08-05] MEDS: MELATONIN 5 MG TABLETS PO SCH (21:13)
[2020-08-06] MEDS: METHOCARBAMOL 500 MG TABLET PO SCH ×4 (09:58→21:32)
[2020-08-06] MEDS: PRENATAL VITAMINS W/ FOLIC ACID TABLET (FP) PO SCH (09:58)
[2020-08-06] MEDS: TETRAHYDROZOLINE HCL EYE DROPS OD PRN (09:59)
[2020-08-06] MEDS: hydrOXYzine PAMOATE 25 MG CAPSULE (FP) PO PRN (10:00)
[2020-08-06] MEDS: TOLNAFTATE 1% CREAM 15 GM TUBE TP SCH ×2 (10:00→21:33)
[2020-08-06] MEDS: THIAMINE HCL 100 MG TABLET (FP) PO SCH (21:32)
[2020-08-06] MEDS: MELATONIN 5 MG TABLETS PO SCH (21:33)
[2020-08-07] MEDS: METHOCARBAMOL 500 MG TABLET PO SCH ×4 (10:33→22:54)
[2020-08-07] MEDS: PRENATAL VITAMINS W/ FOLIC ACID TABLET (FP) PO SCH (10:33)
[2020-08-07] MEDS: hydrOXYzine PAMOATE 25 MG CAPSULE (FP) PO PRN ×3 (10:33→21:43)
[2020-08-07] MEDS: TOLNAFTATE 1% CREAM 15 GM TUBE TP SCH ×2 (10:34→22:54)
[2020-08-07] MEDS: TETRAHYDROZOLINE HCL EYE DROPS OD PRN (12:01)
[2020-08-07] MEDS: MELATONIN 5 MG TABLETS PO SCH (21:41)
[2020-08-07] MEDS: MAG HYDROX/AL HYDROX/SIMETH 30 ML UNIT-DOSE CUP PO PRN (21:42)
[2020-08-07] MEDS: THIAMINE HCL 100 MG TABLET (FP) PO SCH (21:43)
[2020-08-08] MEDS: METHOCARBAMOL 500 MG TABLET PO SCH ×4 (10:08→21:27)
[2020-08-08] MEDS: PRENATAL VITAMINS W/ FOLIC ACID TABLET (FP) PO SCH (10:08)
[2020-08-08] MEDS: hydrOXYzine PAMOATE 25 MG CAPSULE (FP) PO PRN (10:08)
[2020-08-08] MEDS: TOLNAFTATE 1% CREAM 15 GM TUBE TP SCH ×2 (10:09→21:28)
[2020-08-08] MEDS: TETRAHYDROZOLINE HCL EYE DROPS OD PRN ×2 (10:09→21:29)
[2020-08-08] MEDS: MELATONIN 5 MG TABLETS PO SCH (21:27)
[2020-08-08] MEDS: THIAMINE HCL 100 MG TABLET (FP) PO SCH (21:28)
[2020-08-09] MEDS: METHOCARBAMOL 500 MG TABLET PO SCH ×4 (10:17→22:02)
[2020-08-09] MEDS: hydrOXYzine PAMOATE 25 MG CAPSULE (FP) PO PRN ×2 (10:17→14:42)
[2020-08-09] MEDS: PRENATAL VITAMINS W/ FOLIC ACID TABLET (FP) PO SCH (10:17)
[2020-08-09] MEDS: TOLNAFTATE 1% CREAM 15 GM TUBE TP SCH ×2 (10:17→22:02)
[2020-08-09] MEDS: TETRAHYDROZOLINE HCL EYE DROPS OD PRN ×2 (10:18→22:03)
[2020-08-09] MEDS: THIAMINE HCL 100 MG TABLET (FP) PO SCH (22:02)
[2020-08-09] MEDS: MELATONIN 5 MG TABLETS PO SCH (22:03)
[2020-08-10] MEDS: PRENATAL VITAMINS W/ FOLIC ACID TABLET (FP) PO SCH (10:00)
[2020-08-10] MEDS: TETRAHYDROZOLINE HCL EYE DROPS OD PRN (10:00)
[2020-08-10] MEDS: hydrOXYzine PAMOATE 25 MG CAPSULE (FP) PO PRN (10:00)
[2020-08-10] MEDS: TOLNAFTATE 1% CREAM 15 GM TUBE TP SCH ×2 (10:01→21:19)
[2020-08-10] MEDS: METHOCARBAMOL 500 MG TABLET PO SCH ×4 (10:01→21:19)
--- NOTE | 2020-08-10 12:25 | PN ---
[facility] Progress Note Note: Laboratory Tests 07/31/20 11:30 WBC 2.5 L RBC 4.14 Hgb 14.0 Hct 41.1 MCV 99.2 H MCH 33.8 H MCHC 34.1 RDW 14.6 Plt Count 214 MPV 7.5 Absolute Neuts (auto) 1.3 L Neutrophils % 51.8 D Lymphocytes % 28.4 D Monocytes % 11.5 H Eosinophils % 7.5 H Basophils % 0.8 Nucleated RBC % 0 Vital Signs Temperature 96.9 F L 08/10/20 06:27 Pulse Rate 98 H 08/10/20 06:27 Respiratory Rate 18 08/10/20 06:27 Blood Pressure 121/76 08/10/20 06:27 O2 Sat by Pulse Oximetry (%) 97 08/10/20 06:27 Patient c/o right side hip discomfort after cleaning room. PE: alert and oriented x 3 skin warm and dry in nad ext full rom, amb ad major no tremors A/P: right hip discomfort continue robaxin as ordered add lidocaine patch to right hip daily monitor clinically
[2020-08-10] MEDS: LIDOCAINE 5% TOPICAL PATCH TP SCH (14:25)
[2020-08-10] MEDS: MELATONIN 5 MG TABLETS PO SCH (21:19)
[2020-08-10] MEDS: LIDOCAINE PATCH REMOVAL MC SCH (21:19)
[2020-08-10] MEDS: THIAMINE HCL 100 MG TABLET (FP) PO SCH (21:19)
[2020-08-11] MEDS: LIDOCAINE 5% TOPICAL PATCH TP SCH (10:07)
[2020-08-11] MEDS: METHOCARBAMOL 500 MG TABLET PO SCH ×4 (10:07→21:19)
[2020-08-11] MEDS: PRENATAL VITAMINS W/ FOLIC ACID TABLET (FP) PO SCH (10:07)
[2020-08-11] MEDS: TOLNAFTATE 1% CREAM 15 GM TUBE TP SCH ×2 (10:08→21:20)
[2020-08-11] MEDS: hydrOXYzine PAMOATE 25 MG CAPSULE (FP) PO PRN (14:34)
[2020-08-11] MEDS: THIAMINE HCL 100 MG TABLET (FP) PO SCH (21:19)
[2020-08-11] MEDS: LIDOCAINE PATCH REMOVAL MC SCH (21:20)
[2020-08-11] MEDS: MELATONIN 5 MG TABLETS PO SCH (21:20)
[2020-08-12] MEDS: METHOCARBAMOL 500 MG TABLET PO SCH ×4 (10:23→21:28)
[2020-08-12] MEDS: TOLNAFTATE 1% CREAM 15 GM TUBE TP SCH ×2 (10:23→21:30)
[2020-08-12] MEDS: LIDOCAINE 5% TOPICAL PATCH TP SCH (10:23)
[2020-08-12] MEDS: hydrOXYzine PAMOATE 25 MG CAPSULE (FP) PO PRN ×2 (10:23→14:32)
[2020-08-12] MEDS: PRENATAL VITAMINS W/ FOLIC ACID TABLET (FP) PO SCH (10:23)
[2020-08-12] MEDS: THIAMINE HCL 100 MG TABLET (FP) PO SCH (21:28)
[2020-08-12] MEDS: MELATONIN 5 MG TABLETS PO SCH (21:30)
[2020-08-12] MEDS: LIDOCAINE PATCH REMOVAL MC SCH (21:30)
[2020-08-13] MEDS: PRENATAL VITAMINS W/ FOLIC ACID TABLET (FP) PO SCH (09:42)
[2020-08-13] MEDS: hydrOXYzine PAMOATE 25 MG CAPSULE (FP) PO PRN (09:42)
[2020-08-13] MEDS: LIDOCAINE 5% TOPICAL PATCH TP SCH (09:42)
[2020-08-13] MEDS: METHOCARBAMOL 500 MG TABLET PO SCH ×4 (09:42→21:08)
[2020-08-13] MEDS: TETRAHYDROZOLINE HCL EYE DROPS OD PRN (09:44)
[2020-08-13] MEDS: TOLNAFTATE 1% CREAM 15 GM TUBE TP SCH ×2 (10:00→21:08)
--- NOTE | 2020-08-13 11:52 | PN ---
[facility] Progress Note (SOAP) Subjective: Patient with c/o right sided pain. He had similar complaints several days ago and was prescribed a lidoderm patch and roboxin. Objective: P/E: General: no apparent distress ABD: +BS, large protrusion between umbilicus and groin above pubis on right side. Smaller protrusion on left side above groin. PV: 2+ pulses throughout Skin: clear, dry, MSK: full weight bearing, steady gait, pelvis stable BOB Moss was in attendance during the physical examination 08/13/20 11:48 08/13/20 11:51 Assessment: hernia 08/13/20 11:50 Plan: Encouraged patient to take motrin or tylenol as needed for the pain. Advised patient to make an appointment with his PCP for further evaluation. He is to be discharged tomorrow.
[2020-08-13] MEDS: LIDOCAINE PATCH REMOVAL MC SCH (21:08)
[2020-08-13] MEDS: MELATONIN 5 MG TABLETS PO SCH (21:08)
[2020-08-13] MEDS: THIAMINE HCL 100 MG TABLET (FP) PO SCH (21:08)
[2020-08-14 06:28] VITALS: BP 126/81; PULSE 83; TEMP 97.1
--- NOTE | 2020-08-14 09:50 | DS ---
[facility] Rehab Discharge Summary - [facility] Rehab Discharge Summary Admission Date: 07/30/20 Discharge Date: 08/14/20 - History Present History: Alcohol dependence, Opioid dependence - Discharge Physical Exam Vital Signs: Vital Signs Temperature 97.1 F L 08/14/20 06:01 Pulse Rate 83 08/14/20 06:01 Respiratory Rate 18 08/14/20 06:01 Blood Pressure 126/81 08/14/20 06:01 O2 Sat by Pulse Oximetry (%) 97 08/14/20 06:01 ROS: DENIES COUGH, CHEST PAIN, SOB, SHAKES, SWEATS, ALCOHOL/OPIOD CRAVINGS AND N/V/D. PE: ALERT AND ORIENTED X 3 SKIN WARM AND DRY IN NAD GI NT,ND EXT FULL ROM, AMB AD BLAINE NO TREMORS DENIES SI/HI A/P: ETOH/OPIOD DEPENDENCE PATIENT IS MEDICALLY STABLE FOR D/C AFTERCARE ARRANGED FOR [facility], APPT 08/17/2020 AT 10AM - Treatment Discharge Condition: Discharge condition good, Rehabilitated safely, Responded well, Outpatient referral accepted Hospital Course: PATIENT DISCHARGED FROM REHAB TODAY FOR ETOH/OPIOD DEPENDENCE. PATIENT IS MEDICALLY STABLE AND DENIES SI/HI. DURING COURSE OF TREATMENT, PATIENT ATTENDED GROUP MEETINGS AND 1:1 SESSIONS WITH COUNSELING TEAM. AFTERCARE ARRANGED FOR [facility], APPT 08/17/2020 AT 10AM. PATIENT MEDICALLY ADVISED TO FOLLOW UP WITH PCP RECOMMENDED AND TO CONTINUE WITH OUTPATIENT SERVICES TO PREVENT RELAPSE. Ambulatory Orders Tolnaftate 1% Cream [Tinactin 1% Cream -] 1 applic TP BID #1 applic 08/13/20 - Medication Discharge Medications: Ambulatory Orders Tolnaftate 1% Cream [Tinactin 1% Cream -] 1 applic TP BID #1 applic 08/13/20 - Medication-Assisted Treatment (MAT) Medication-Assisted Treatment (MAT): No - Discharge Instructions Diet, activity, other medical instructions: Diet: REG CHIDI Activity: AMB AD BLAINE CHIDI Other medical instructions:F/U WITH PCP RECOMMENDED - Follow-up Referral Minutes to complete discharge: 40 - AMA Did Patient Leave Against Medical Advice: No
[2020-08-14] MEDS: PRENATAL VITAMINS W/ FOLIC ACID TABLET (FP) PO SCH (10:22)
[2020-08-14] MEDS: METHOCARBAMOL 500 MG TABLET PO SCH (10:23)
[2020-08-14] MEDS: hydrOXYzine PAMOATE 25 MG CAPSULE (FP) PO PRN (10:23)
[2020-08-14] MEDS: LIDOCAINE 5% TOPICAL PATCH TP SCH (10:24)
[2020-08-14] MEDS: TOLNAFTATE 1% CREAM 15 GM TUBE TP SCH (10:25)
== END 2020-08-14 10:40 | disposition home or self-care (01) | DRG 772 ==
LOC: YASAS 11:29 → Y3W 11:30
PROVIDERS: ADMIT Allergy & Immunology; ATTEND Allergy & Immunology
PROC: HZ42ZZZ Group Counseling for Substance Abuse Treatment, Cognitive-Behavioral (ICD-10-PCS; principal; 2020-07-30)
DX: F10.20 Alcohol dependence, uncomplicated (principal); F11.20 Opioid dependence, uncomplicated; F17.210 Nicotine dependence, cigarettes, uncomplicated; I10 Essential (primary) hypertension; K40.20 Bilateral inguinal hernia, without obstruction or gangrene, not specified as recurrent; D64.9 Anemia, unspecified; M25.551 Pain in right hip; B35.3 Tinea pedis; Z88.0 Allergy status to penicillin; Z91.018 Allergy to other foods
CPT/HCPCS: 36415; 85025

== ENCOUNTER 2020-10-04 09:56 | Inpatient (IN) | payer OTHER ==
[2020-10-04] MEDS ORDERED: IBUPROFEN 400 MG TABLET (FP) PO PRN (11:14)
[2020-10-04] MEDS ORDERED: MENTHOL/PHENOL 1 EACH UD MM PRN (11:14)
[2020-10-04] MEDS ORDERED: chlordiazePOXIDE HCL 25 MG CAPSULE PO PRN (11:14)
[2020-10-04] MEDS ORDERED: ONDANSETRON *ODT* 4 MG TABLET SL PRN (11:14)
[2020-10-04] MEDS ORDERED: MAGNESIUM HYDROX 2400MG/30ML ORAL SUSPENSION 30 ML CUP PO PRN (11:14)
[2020-10-04] MEDS ORDERED: MAGNESIUM CITRATE 300 ML BOTTLE PO PRN (11:14)
[2020-10-04] MEDS ORDERED: NICOTINE POLACRILEX 2 MG GUM BUC PRN (11:14)
[2020-10-04] MEDS ORDERED: METHOCARBAMOL 500 MG TABLET PO PRN (11:14)
[2020-10-04] MEDS ORDERED: BISMUTH SUBSALICYLATE 524 MG/30 ML UD PO PRN (11:14)
[2020-10-04] MEDS ORDERED: ACETAMINOPHEN 325 MG TABLET (FP) PO PRN ×2 (11:14)
[2020-10-04 11:31] VITALS: BMI 24.3
[2020-10-04] MEDS: hydrOXYzine PAMOATE 25 MG CAPSULE (FP) PO SCH ×3 (13:15→22:24)
[2020-10-04] MEDS: chlordiazePOXIDE HCL 25 MG CAPSULE PO SCH ×2 (17:29→22:24)
[2020-10-04] MEDS: MELATONIN 5 MG TABLETS PO SCH (22:24)
[2020-10-04] MEDS: THIAMINE HCL 100 MG TABLET (FP) PO SCH (22:24)
[2020-10-04] MEDS: TOLNAFTATE 1% CREAM 15 GM TUBE TP SCH (22:25)
[2020-10-05] MEDS: hydrOXYzine PAMOATE 25 MG CAPSULE (FP) PO SCH ×5 (05:47→22:21)
[2020-10-05] MEDS: chlordiazePOXIDE HCL 25 MG CAPSULE PO SCH ×4 (05:48→22:21)
[2020-10-05] MEDS: PRENATAL VITAMINS W/ FOLIC ACID TABLET (FP) PO SCH (10:14)
[2020-10-05] MEDS: TOLNAFTATE 1% CREAM 15 GM TUBE TP SCH ×2 (10:15→22:20)
[2020-10-05] MEDS: NICOTINE 7 MG/24 HOURS TOPICAL PATCH TD SCH (10:16)
[2020-10-05 10:22] LABS: HEMATOCRIT 35.1 % (35.4-49); HEMOGLOBIN 11.9 GM/dL (11.7-16.9); MCH 32.8 pg (25.7-33.7); MCHC 33.8 g/dl (32.0-35.9); MEAN CELL VOLUME 97.1 fl (80-96); MEAN PLT VOLUME 7.7 fl (7.5-11.1); PLATELET COUNT 184 K/MM3 (134-434); RBC 3.61 M/mm3 (4.00-5.60); RDW 13.8 % (11.9-15.9)
[2020-10-05 10:24] LABS: POTASSIUM 3.8 mmol/L (3.5-5.1)
[2020-10-05 10:37] LABS: ALBUMIN 3.3 g/dl (3.4-5.0); BLOOD UREA NITROGEN 14.3 mg/dL (7-18)
[2020-10-05 10:38] LABS: CALCIUM 8.6 mg/dL (8.5-10.1)
[2020-10-05 10:39] LABS: BILIRUBIN,TOTAL 0.3 mg/dL (0.2-1); TOT PROT 6.3 g/dl (6.4-8.2)
[2020-10-05 10:40] LABS: CREATININE 0.7 mg/dL (0.55-1.3)
[2020-10-05] MEDS: MELATONIN 5 MG TABLETS PO SCH (22:21)
[2020-10-05] MEDS: THIAMINE HCL 100 MG TABLET (FP) PO SCH (22:21)
[2020-10-05 23:29] LABS: URINE APPEARANCE CLEAR; URINE BILIRUBIN NEGATIVE (NEGATIVE); URINE COLOR YELLOW; URINE GLUCOSE (UA) NEGATIVE (NEGATIVE); URINE KETONE TRACE (NEGATIVE); URINE LEUK ESTERASE NEGATIVE (NEGATIVE); URINE NITRITE NEGATIVE (NEGATIVE); URINE PROTEIN NEGATIVE (NEGATIVE)
[2020-10-06] MEDS: hydrOXYzine PAMOATE 25 MG CAPSULE (FP) PO SCH ×5 (05:18→22:09)
[2020-10-06] MEDS: chlordiazePOXIDE HCL 25 MG CAPSULE PO SCH ×4 (05:18→22:08)
[2020-10-06] MEDS: NICOTINE 7 MG/24 HOURS TOPICAL PATCH TD SCH (10:12)
[2020-10-06] MEDS: PRENATAL VITAMINS W/ FOLIC ACID TABLET (FP) PO SCH (10:12)
[2020-10-06] MEDS: TOLNAFTATE 1% CREAM 15 GM TUBE TP SCH ×2 (10:13→22:09)
[2020-10-06 10:21] LABS: HEMATOCRIT 34.6 % (35.4-49); HEMOGLOBIN 11.8 GM/dL (11.7-16.9); MCH 32.6 pg (25.7-33.7); MEAN CELL VOLUME 95.8 fl (80-96); MEAN PLT VOLUME 7.7 fl (7.5-11.1); PLATELET COUNT 187 K/MM3 (134-434); RBC 3.61 M/mm3 (4.00-5.60); RDW 13.5 % (11.9-15.9); WHITE BLOOD COUNT 2.1 K/mm3 (4.0-10.0)
[2020-10-06] MEDS: THIAMINE HCL 100 MG TABLET (FP) PO SCH (22:09)
[2020-10-06] MEDS: MELATONIN 5 MG TABLETS PO SCH (22:09)
[2020-10-07] MEDS ORDERED: chlordiazePOXIDE HCL 10 MG CAPSULE PO PRN
[2020-10-07] MEDS: chlordiazePOXIDE HCL 10 MG CAPSULE PO SCH ×4 (05:40→22:10)
[2020-10-07] MEDS: hydrOXYzine PAMOATE 25 MG CAPSULE (FP) PO SCH ×5 (05:40→22:10)
[2020-10-07] MEDS: PRENATAL VITAMINS W/ FOLIC ACID TABLET (FP) PO SCH (10:04)
[2020-10-07] MEDS: NICOTINE 7 MG/24 HOURS TOPICAL PATCH TD SCH (10:04)
[2020-10-07] MEDS: TOLNAFTATE 1% CREAM 15 GM TUBE TP SCH ×2 (10:06→22:10)
[2020-10-07] MEDS: THIAMINE HCL 100 MG TABLET (FP) PO SCH (22:10)
[2020-10-07] MEDS: MELATONIN 5 MG TABLETS PO SCH (22:10)
[2020-10-08] MEDS: MAG HYDROX/AL HYDROX/SIMETH 30 ML UNIT-DOSE CUP PO PRN (03:09)
[2020-10-08] MEDS: chlordiazePOXIDE HCL 10 MG CAPSULE PO SCH ×2 (07:13→17:40)
[2020-10-08] MEDS: hydrOXYzine PAMOATE 25 MG CAPSULE (FP) PO SCH ×5 (07:13→22:11)
[2020-10-08 09:45] LABS: INR 0.94 (0.83-1.09); PROTHROMBIN TIME (PATIENT) 11.4 SEC (9.7-13.0)
[2020-10-08] MEDS: PRENATAL VITAMINS W/ FOLIC ACID TABLET (FP) PO SCH (10:15)
[2020-10-08] MEDS: TOLNAFTATE 1% CREAM 15 GM TUBE TP SCH ×2 (10:15→22:12)
[2020-10-08] MEDS: NICOTINE 7 MG/24 HOURS TOPICAL PATCH TD SCH (10:16)
[2020-10-08] MEDS: MELATONIN 5 MG TABLETS PO SCH (22:11)
[2020-10-08] MEDS: THIAMINE HCL 100 MG TABLET (FP) PO SCH (22:11)
[2020-10-09] MEDS: MAG HYDROX/AL HYDROX/SIMETH 30 ML UNIT-DOSE CUP PO PRN (00:41)
[2020-10-09] MEDS ORDERED: chlordiazePOXIDE HCL 10 MG CAPSULE PO ONE (05:00)
[2020-10-09] MEDS: hydrOXYzine PAMOATE 25 MG CAPSULE (FP) PO SCH ×2 (05:57→11:08)
[2020-10-09 09:06] VITALS: BP 121/83; PULSE 96; TEMP 98.2
[2020-10-09] MEDS: PRENATAL VITAMINS W/ FOLIC ACID TABLET (FP) PO SCH (11:08)
[2020-10-09] MEDS: TOLNAFTATE 1% CREAM 15 GM TUBE TP SCH (11:08)
[2020-10-09] MEDS: NICOTINE 7 MG/24 HOURS TOPICAL PATCH TD SCH (11:08)
== END 2020-10-09 12:07 | disposition other institution (70) | DRG 775 ==
LOC: YASAS 09:56 → Y3N 11:20
PROVIDERS: ADMIT Allergy & Immunology; ATTEND Allergy & Immunology
PROC: HZ2ZZZZ Detoxification Services for Substance Abuse Treatment (ICD-10-PCS; principal; 2020-10-04)
DX: F10.230 Alcohol dependence with withdrawal, uncomplicated (principal); F17.210 Nicotine dependence, cigarettes, uncomplicated; F41.9 Anxiety disorder, unspecified; F32.9 Major depressive disorder, single episode, unspecified; D72.818 Other decreased white blood cell count; D64.9 Anemia, unspecified; B35.3 Tinea pedis; Z88.0 Allergy status to penicillin; Z91.018 Allergy to other foods
CPT/HCPCS: 36415; 80053; 81003; 85027; 85610; 86780; C9803; U0003

== ENCOUNTER 2020-10-09 12:47 | Inpatient (IN) | payer OTHER ==
[2020-10-09] MEDS ORDERED: MAGNESIUM HYDROX 2400MG/30ML ORAL SUSPENSION 30 ML CUP PO PRN (14:28)
[2020-10-09] MEDS ORDERED: LOPERAMIDE HCL 2 MG CAPSULE PO PRN (14:28)
[2020-10-09] MEDS ORDERED: IBUPROFEN 400 MG TABLET (FP) PO PRN (14:28)
[2020-10-09] MEDS ORDERED: NICOTINE POLACRILEX 2 MG GUM BUC PRN (14:28)
[2020-10-09] MEDS ORDERED: guaiFENesin 200 MG/10 ML 10 ML UNIT-DOSE CUPS PO PRN (14:28)
[2020-10-09] MEDS ORDERED: hydrOXYzine PAMOATE 25 MG CAPSULE (FP) PO PRN (14:28)
[2020-10-09] MEDS ORDERED: P-EPHED 60MG/TRIPROLIDI 2.5MG TABLET PO PRN (14:28)
[2020-10-09] MEDS ORDERED: ACETAMINOPHEN 325 MG TABLET (FP) PO PRN (14:28)
[2020-10-09] MEDS ORDERED: MAGNESIUM CITRATE 300 ML BOTTLE PO PRN (14:28)
[2020-10-09] MEDS ORDERED: MENTHOL/PHENOL 1 EACH UD MM PRN (14:28)
[2020-10-09] MEDS: THIAMINE HCL 100 MG TABLET (FP) PO SCH (21:25)
[2020-10-09] MEDS: MELATONIN 5 MG TABLETS PO SCH (21:25)
[2020-10-10] MEDS: MAG HYDROX/AL HYDROX/SIMETH 30 ML UNIT-DOSE CUP PO PRN (05:05)
[2020-10-10] MEDS: PRENATAL VITAMINS W/ FOLIC ACID TABLET (FP) PO SCH (10:15)
[2020-10-10] MEDS: NICOTINE 21 MG/24 HOURS TOPICAL PATCH TD SCH (10:16)
[2020-10-10] MEDS ORDERED: PNEUMOCOCCAL 23 VACCINE 0.5 ML VIAL IM ONE (12:00)
[2020-10-10] MEDS ORDERED: FLU VACCINE (FLULAVAL) PF 60 MCG/0.5 ML SYRINGE 2020-2021 IM ONE (12:00)
[2020-10-10] MEDS ORDERED: PNEUMOC 13-VAL CONJ-DIP CRM/PF 0.5 ML DISP.SYRIN IM ONE (12:00)
[2020-10-10] MEDS ORDERED: ONDANSETRON *ODT* 4 MG TABLET SL PRN (13:33)
[2020-10-10] MEDS ORDERED: TRIMETHOBENZAMIDE HCL 200MG/2ML INJ IM ONE (14:18)
[2020-10-10] MEDS: MELATONIN 5 MG TABLETS PO SCH (21:31)
[2020-10-10] MEDS: THIAMINE HCL 100 MG TABLET (FP) PO SCH (21:31)
[2020-10-11] MEDS: MAG HYDROX/AL HYDROX/SIMETH 30 ML UNIT-DOSE CUP PO PRN (00:38)
[2020-10-11 06:42] VITALS: PULSE 97
[2020-10-11] MEDS ORDERED: TRIMETHOBENZAMIDE HCL 200MG/2ML INJ IM ONE (07:28)
[2020-10-11] MEDS ORDERED: DICYCLOMINE HCL 10 MG CAPSULE PO PRN (07:30)
[2020-10-11] MEDS ORDERED: FAMOTIDINE 20 MG TABLET PO SCH (07:45)
[2020-10-11] MEDS: NICOTINE 21 MG/24 HOURS TOPICAL PATCH TD SCH (11:05)
[2020-10-11] MEDS: PRENATAL VITAMINS W/ FOLIC ACID TABLET (FP) PO SCH (11:05)
[2020-10-11 11:30] VITALS: BP 130/94; TEMP 98.4
[2020-10-11] MEDS: THIAMINE HCL 100 MG TABLET (FP) PO SCH (23:19)
[2020-10-11] MEDS: MELATONIN 5 MG TABLETS PO SCH (23:19)
== END 2020-10-11 11:35 | disposition short-term general hospital (02) | DRG 772 ==
LOC: YASAS 12:47 → Y5N 12:48
PROVIDERS: ADMIT Allergy & Immunology; ATTEND Allergy & Immunology
PROC: HZ42ZZZ Group Counseling for Substance Abuse Treatment, Cognitive-Behavioral (ICD-10-PCS; principal; 2020-10-09)
DX: F10.20 Alcohol dependence, uncomplicated (principal); F17.210 Nicotine dependence, cigarettes, uncomplicated; D64.9 Anemia, unspecified; R10.13 Epigastric pain; R11.2 Nausea with vomiting, unspecified; Z88.0 Allergy status to penicillin; Z91.018 Allergy to other foods
CPT/HCPCS: Q0162

== ENCOUNTER 2020-10-11 11:56 | Inpatient (IN) | payer OTHER ==
[2020-10-11] MEDS ORDERED: METOCLOPRAMIDE HCL INJECTION 10 MG/2 ML VIAL IVPB ONE (13:09)
[2020-10-11] MEDS ORDERED: LACTATED RINGERS SOLUTION 1000 ML INFUS.BAG IV ONE (13:10)
[2020-10-11] MEDS ORDERED: FAMOTIDINE 20 MG/50 ML IVPB 20 MG/50 ML MG IVPB ONE ×2 (13:10→14:16)
[2020-10-11 14:14] LABS: BASO % 0.3 % (0-2.0); EOS % 3.1 % (0-4.5); HEMATOCRIT 40.2 % (35.4-49); HEMOGLOBIN 13.9 GM/dL (11.7-16.9); LYMPH % 21.8 % (8-40); MCH 33.4 pg (25.7-33.7); MCHC 34.5 g/dl (32.0-35.9); MEAN CELL VOLUME 96.9 fl (80-96); MEAN PLT VOLUME 7.4 fl (7.5-11.1); MONO % 10.4 % (3.8-10.2); NEUT % 64.4 % (42.8-82.8); PLATELET COUNT 234 K/MM3 (134-434); RBC 4.15 M/mm3 (4.00-5.60); RDW 14.2 % (11.9-15.9)
[2020-10-11] MEDS ORDERED: METOCLOPRAMIDE HCL INJECTION 10 MG/2 ML VIAL ONE (14:16)
[2020-10-11 14:40] LABS: CHLORIDE 102 mmol/L (98-107); POTASSIUM 4.2 mmol/L (3.5-5.1); SODIUM 138 mmol/L (136-145)
[2020-10-11 14:42] LABS: CALCIUM 9.2 mg/dL (8.5-10.1); GLUCOSE,RANDOM 120 mg/dL (74-106); LIPASE 193 U/L (73-393)
[2020-10-11 14:43] LABS: ANION GAP 6 MMOL/L (8-16); BLOOD UREA NITROGEN 14.3 mg/dL (7-18); CO2 31 mmol/L (21-32); MAGNESIUM 2.5 mg/dL (1.8-2.4)
[2020-10-11 14:45] LABS: CREATININE 0.7 mg/dL (0.55-1.3); SGPT/ALT 26 U/L (13-61)
[2020-10-11 14:46] LABS: SGOT/AST 31 U/L (15-37)
[2020-10-11 14:47] LABS: BILIRUBIN,TOTAL 0.3 mg/dL (0.2-1); TOT PROT 7.6 g/dl (6.4-8.2)
[2020-10-11 14:48] LABS: ALK PHOS 87 U/L (45-117)
[2020-10-11] MEDS ORDERED: TRIMETHOBENZAMIDE HCL 200MG/2ML INJ IM PRN (17:49)
[2020-10-11] MEDS ORDERED: ONDANSETRON 4 MG/2 ML VIAL IVPUSH PRN (17:49)
[2020-10-11] MEDS: LACTATED RINGERS SOLUTION 1,000 ML/1,000 ML INFUS.BAG IV SCH (21:09)
[2020-10-12] MEDS: PANTOPRAZOLE SODIUM 40 MG VIAL IVPUSH SCH (09:57)
[2020-10-12] MEDS: NICOTINE 21 MG/24 HOURS TOPICAL PATCH TD SCH (15:20)
[2020-10-12] MEDS: LACTATED RINGERS SOLUTION 1,000 ML/1,000 ML INFUS.BAG IV SCH (21:23)
[2020-10-13 07:07] LABS: BASO % 0.8 % (0-2.0); EOS % 4.7 % (0-4.5); HEMOGLOBIN 11.8 GM/dL (11.7-16.9); LYMPH % 38.7 % (8-40); MCH 32.5 pg (25.7-33.7); MCHC 33.7 g/dl (32.0-35.9); MEAN CELL VOLUME 96.3 fl (80-96); MEAN PLT VOLUME 7.1 fl (7.5-11.1); MONO % 9.1 % (3.8-10.2); NEUT % 46.7 % (42.8-82.8); PLATELET COUNT 208 K/MM3 (134-434); RBC 3.63 M/mm3 (4.00-5.60); RDW 13.4 % (11.9-15.9); WHITE BLOOD COUNT 2.8 K/mm3 (4.0-10.0)
[2020-10-13 07:09] LABS: INR 1.08 (0.83-1.09)
[2020-10-13 07:26] LABS: POTASSIUM 4.2 mmol/L (3.5-5.1)
[2020-10-13 07:28] LABS: CALCIUM 8.5 mg/dL (8.5-10.1); MAGNESIUM 2.3 mg/dL (1.8-2.4)
[2020-10-13 07:31] LABS: CREATININE 0.6 mg/dL (0.55-1.3)
[2020-10-13 07:33] LABS: BILIRUBIN,TOTAL 0.5 mg/dL (0.2-1); TOT PROT 6.2 g/dl (6.4-8.2)
[2020-10-13] MEDS: PANTOPRAZOLE SODIUM 40 MG VIAL IVPUSH SCH (10:11)
[2020-10-13] MEDS: NICOTINE 21 MG/24 HOURS TOPICAL PATCH TD SCH ×2 (10:11→10:16)
[2020-10-13] MEDS: LACTATED RINGERS SOLUTION 1,000 ML/1,000 ML INFUS.BAG IV SCH (13:51)
[2020-10-13 16:18] VITALS: BMI 25.0
[2020-10-14] MEDS ORDERED: LACTATED RINGERS SOLUTION 1,000 ML/1,000 ML INFUS.BAG IV SCH (00:01)
[2020-10-14 08:03] LABS: INR 1.13 (0.83-1.09); PROTHROMBIN TIME (PATIENT) 13.9 SEC (9.7-13.0)
[2020-10-14 08:06] LABS: BASO % 0.6 % (0-2.0); EOS % 5.2 % (0-4.5); HEMATOCRIT 33.6 % (35.4-49); HEMOGLOBIN 11.7 GM/dL (11.7-16.9); LYMPH % 42.3 % (8-40); MCH 33.5 pg (25.7-33.7); MEAN CELL VOLUME 95.7 fl (80-96); MEAN PLT VOLUME 7.6 fl (7.5-11.1); MONO % 9.2 % (3.8-10.2); NEUT % 42.7 % (42.8-82.8); PLATELET COUNT 198 K/MM3 (134-434); RBC 3.51 M/mm3 (4.00-5.60); RDW 13.4 % (11.9-15.9); WHITE BLOOD COUNT 2.1 K/mm3 (4.0-10.0)
[2020-10-14 08:20] LABS: POTASSIUM 4.1 mmol/L (3.5-5.1)
[2020-10-14 08:27] LABS: CALCIUM 8.1 mg/dL (8.5-10.1)
[2020-10-14 08:28] LABS: ALBUMIN 3.2 g/dl (3.4-5.0); MAGNESIUM 2.2 mg/dL (1.8-2.4)
[2020-10-14 08:29] LABS: BLOOD UREA NITROGEN 9.6 mg/dL (7-18)
[2020-10-14 08:31] LABS: CREATININE 0.7 mg/dL (0.55-1.3)
[2020-10-14 08:33] LABS: TOT PROT 6.3 g/dl (6.4-8.2)
[2020-10-14 08:34] LABS: BILIRUBIN,TOTAL 0.6 mg/dL (0.2-1)
[2020-10-14] MEDS: PANTOPRAZOLE SODIUM 40 MG VIAL IVPUSH SCH (11:22)
[2020-10-14] MEDS: NICOTINE 21 MG/24 HOURS TOPICAL PATCH TD SCH (11:22)
[2020-10-14 14:30] VITALS: BP 123/76; PULSE 88; TEMP 97.9
[2020-10-15] MEDS ORDERED: PANTOPRAZOLE 40 MG TABLET PO SCH (10:00)
== END 2020-10-14 16:00 | disposition other institution (70) | DRG 241 ==
LOC: JER 11:56 → JERBED 17:34 → J6WEST-2 10-12 01:02
PROVIDERS: ADMIT Internal Medicine; ATTEND Nurse Practitioner Acute Care
PROC: 0DB78ZX Excision of Stomach, Pylorus, Via Natural or Artificial Opening Endoscopic, Diagnostic (ICD-10-PCS; 2020-10-14)
PROC: 0DB48ZX Excision of Esophagogastric Junction, Via Natural or Artificial Opening Endoscopic, Diagnostic (ICD-10-PCS; 2020-10-14)
PROC: 0DB98ZX Excision of Duodenum, Via Natural or Artificial Opening Endoscopic, Diagnostic (ICD-10-PCS; principal; 2020-10-14 08:30)
DX: K29.60 Other gastritis without bleeding (principal); I10 Essential (primary) hypertension; D64.9 Anemia, unspecified; Z88.0 Allergy status to penicillin; K44.9 Diaphragmatic hernia without obstruction or gangrene; K59.00 Constipation, unspecified; F41.9 Anxiety disorder, unspecified; K80.20 Calculus of gallbladder without cholecystitis without obstruction; F10.20 Alcohol dependence, uncomplicated; F41.8 Other specified anxiety disorders; Z20.828 Contact with and (suspected) exposure to other viral communicable diseases
CPT/HCPCS: 36415; 71046-TC-FY; 74177-TC; 76705-TC; 80053; 82962; 83690; 83735; 84100; 84484; 85025; 85610; 88305-TC; 93005; 93010; 99285-25; C9803; Q9967; U0003

== ENCOUNTER 2020-10-14 16:32 | Inpatient (IN) | payer OTHER ==
[2020-10-14 17:58] VITALS: BMI 20.9
[2020-10-14] MEDS ORDERED: guaiFENesin 200 MG/10 ML 10 ML UNIT-DOSE CUPS PO PRN (18:01)
[2020-10-14] MEDS ORDERED: P-EPHED 60MG/TRIPROLIDI 2.5MG TABLET PO PRN (18:01)
[2020-10-14] MEDS ORDERED: MENTHOL/PHENOL 1 EACH UD MM PRN (18:01)
[2020-10-14] MEDS ORDERED: MAGNESIUM CITRATE 300 ML BOTTLE PO PRN (18:01)
[2020-10-14] MEDS ORDERED: MAGNESIUM HYDROX 2400MG/30ML ORAL SUSPENSION 30 ML CUP PO PRN (18:01)
[2020-10-14] MEDS ORDERED: LOPERAMIDE HCL 2 MG CAPSULE PO PRN (18:01)
[2020-10-14] MEDS: MELATONIN 5 MG TABLETS PO SCH (21:24)
[2020-10-14] MEDS: THIAMINE HCL 100 MG TABLET (FP) PO SCH (21:24)
[2020-10-15] MEDS: IBUPROFEN 400 MG TABLET (FP) PO PRN (07:08)
[2020-10-15] MEDS: PRENATAL VITAMINS W/ FOLIC ACID TABLET (FP) PO SCH (10:30)
[2020-10-15] MEDS ORDERED: FLU VACCINE (FLULAVAL) PF 60 MCG/0.5 ML SYRINGE 2020-2021 IM ONE (12:00)
[2020-10-15] MEDS ORDERED: PNEUMOC 13-VAL CONJ-DIP CRM/PF 0.5 ML DISP.SYRIN IM ONE (12:00)
[2020-10-15] MEDS ORDERED: PNEUMOCOCCAL 23 VACCINE 0.5 ML VIAL IM ONE (12:00)
[2020-10-15] MEDS: THIAMINE HCL 100 MG TABLET (FP) PO SCH (21:49)
[2020-10-15] MEDS: MELATONIN 5 MG TABLETS PO SCH (21:49)
[2020-10-16] MEDS: PRENATAL VITAMINS W/ FOLIC ACID TABLET (FP) PO SCH (10:26)
[2020-10-16] MEDS: ARTIFICIAL TEARS (POLYVINYL ALCOHOL) OPTH DROPS OU SCH ×2 (14:10→21:27)
[2020-10-16] MEDS: MELATONIN 5 MG TABLETS PO SCH (21:27)
[2020-10-16] MEDS: THIAMINE HCL 100 MG TABLET (FP) PO SCH (21:27)
[2020-10-17] MEDS: ARTIFICIAL TEARS (POLYVINYL ALCOHOL) OPTH DROPS OU SCH ×3 (06:45→21:30)
[2020-10-17] MEDS: IBUPROFEN 400 MG TABLET (FP) PO PRN ×2 (06:46→18:24)
[2020-10-17] MEDS: PRENATAL VITAMINS W/ FOLIC ACID TABLET (FP) PO SCH (09:44)
[2020-10-17] MEDS: MELATONIN 5 MG TABLETS PO SCH (21:30)
[2020-10-17] MEDS: THIAMINE HCL 100 MG TABLET (FP) PO SCH (21:30)
[2020-10-18] MEDS: ARTIFICIAL TEARS (POLYVINYL ALCOHOL) OPTH DROPS OU SCH ×3 (06:22→21:42)
[2020-10-18] MEDS: PRENATAL VITAMINS W/ FOLIC ACID TABLET (FP) PO SCH (09:41)
[2020-10-18] MEDS: IBUPROFEN 400 MG TABLET (FP) PO PRN (09:42)
[2020-10-18] MEDS: ACETAMINOPHEN 325 MG TABLET (FP) PO PRN (21:42)
[2020-10-18] MEDS: MELATONIN 5 MG TABLETS PO SCH (21:42)
[2020-10-18] MEDS: THIAMINE HCL 100 MG TABLET (FP) PO SCH (21:42)
[2020-10-19] MEDS: ARTIFICIAL TEARS (POLYVINYL ALCOHOL) OPTH DROPS OU SCH ×3 (06:35→21:45)
[2020-10-19] MEDS: PRENATAL VITAMINS W/ FOLIC ACID TABLET (FP) PO SCH (09:56)
[2020-10-19] MEDS: IBUPROFEN 400 MG TABLET (FP) PO PRN (09:58)
[2020-10-19] MEDS ORDERED: COLLOIDAL OATMEAL 1 BAR EACH TP PRN (10:08)
[2020-10-19] MEDS: ACETAMINOPHEN 325 MG TABLET (FP) PO PRN (14:24)
[2020-10-19] MEDS: MELATONIN 5 MG TABLETS PO SCH (21:45)
[2020-10-19] MEDS: THIAMINE HCL 100 MG TABLET (FP) PO SCH (21:45)
[2020-10-19] MEDS: MAG HYDROX/AL HYDROX/SIMETH 30 ML UNIT-DOSE CUP PO PRN (23:13)
[2020-10-20] MEDS: MAG HYDROX/AL HYDROX/SIMETH 30 ML UNIT-DOSE CUP PO PRN (04:17)
[2020-10-20] MEDS: ARTIFICIAL TEARS (POLYVINYL ALCOHOL) OPTH DROPS OU SCH ×3 (07:08→21:43)
[2020-10-20] MEDS: PRENATAL VITAMINS W/ FOLIC ACID TABLET (FP) PO SCH (10:07)
[2020-10-20] MEDS ORDERED: ONDANSETRON *ODT* 4 MG TABLET SL PRN (12:40)
[2020-10-20] MEDS: PANTOPRAZOLE 40 MG TABLET PO SCH (13:44)
[2020-10-20] MEDS: THIAMINE HCL 100 MG TABLET (FP) PO SCH (21:42)
[2020-10-20] MEDS: MELATONIN 5 MG TABLETS PO SCH (21:43)
[2020-10-21] MEDS: ARTIFICIAL TEARS (POLYVINYL ALCOHOL) OPTH DROPS OU SCH ×3 (07:01→21:29)
[2020-10-21] MEDS: PRENATAL VITAMINS W/ FOLIC ACID TABLET (FP) PO SCH (10:25)
[2020-10-21] MEDS: ACETAMINOPHEN 325 MG TABLET (FP) PO PRN ×2 (10:26→21:29)
[2020-10-21] MEDS: PANTOPRAZOLE 40 MG TABLET PO SCH (10:27)
[2020-10-21] MEDS: THIAMINE HCL 100 MG TABLET (FP) PO SCH (21:29)
[2020-10-21] MEDS: MELATONIN 5 MG TABLETS PO SCH (21:29)
[2020-10-22] MEDS: ARTIFICIAL TEARS (POLYVINYL ALCOHOL) OPTH DROPS OU SCH ×3 (06:44→21:54)
[2020-10-22] MEDS: ACETAMINOPHEN 325 MG TABLET (FP) PO PRN (07:07)
[2020-10-22] MEDS: PRENATAL VITAMINS W/ FOLIC ACID TABLET (FP) PO SCH (10:04)
[2020-10-22] MEDS: PANTOPRAZOLE 40 MG TABLET PO SCH (10:05)
[2020-10-22] MEDS: MAG HYDROX/AL HYDROX/SIMETH 30 ML UNIT-DOSE CUP PO PRN (19:23)
[2020-10-22] MEDS: THIAMINE HCL 100 MG TABLET (FP) PO SCH (21:53)
[2020-10-22] MEDS: MELATONIN 5 MG TABLETS PO SCH (21:53)
[2020-10-22] MEDS: SUCRALFATE 1 GM TABLET (FP) PO SCH (21:53)
[2020-10-23] MEDS: ARTIFICIAL TEARS (POLYVINYL ALCOHOL) OPTH DROPS OU SCH ×3 (07:35→21:32)
[2020-10-23] MEDS: PRENATAL VITAMINS W/ FOLIC ACID TABLET (FP) PO SCH (10:28)
[2020-10-23] MEDS: PANTOPRAZOLE 40 MG TABLET PO SCH (10:28)
[2020-10-23] MEDS: ACETAMINOPHEN 325 MG TABLET (FP) PO PRN (14:34)
[2020-10-23] MEDS: THIAMINE HCL 100 MG TABLET (FP) PO SCH (21:33)
[2020-10-23] MEDS: MELATONIN 5 MG TABLETS PO SCH (21:33)
[2020-10-24] MEDS: SUCRALFATE 1 GM TABLET (FP) PO SCH ×2 (00:14→21:25)
[2020-10-24] MEDS: ARTIFICIAL TEARS (POLYVINYL ALCOHOL) OPTH DROPS OU SCH ×4 (06:58→21:25)
[2020-10-24] MEDS: PRENATAL VITAMINS W/ FOLIC ACID TABLET (FP) PO SCH (10:08)
[2020-10-24] MEDS: PANTOPRAZOLE 40 MG TABLET PO SCH (10:10)
[2020-10-24] MEDS: THIAMINE HCL 100 MG TABLET (FP) PO SCH (21:25)
[2020-10-24] MEDS: MELATONIN 5 MG TABLETS PO SCH (21:25)
[2020-10-25] MEDS: ARTIFICIAL TEARS (POLYVINYL ALCOHOL) OPTH DROPS OU SCH ×3 (06:39→21:55)
[2020-10-25] MEDS: PRENATAL VITAMINS W/ FOLIC ACID TABLET (FP) PO SCH (09:52)
[2020-10-25] MEDS: PANTOPRAZOLE 40 MG TABLET PO SCH (09:52)
[2020-10-25] MEDS: SUCRALFATE 1 GM TABLET (FP) PO SCH (21:55)
[2020-10-25] MEDS: MELATONIN 5 MG TABLETS PO SCH (21:55)
[2020-10-25] MEDS: THIAMINE HCL 100 MG TABLET (FP) PO SCH (21:55)
[2020-10-26] MEDS: ARTIFICIAL TEARS (POLYVINYL ALCOHOL) OPTH DROPS OU SCH ×3 (06:42→21:41)
[2020-10-26] MEDS: PANTOPRAZOLE 40 MG TABLET PO SCH (10:11)
[2020-10-26] MEDS: PRENATAL VITAMINS W/ FOLIC ACID TABLET (FP) PO SCH (10:11)
[2020-10-26] MEDS: MELATONIN 5 MG TABLETS PO SCH (21:40)
[2020-10-26] MEDS: THIAMINE HCL 100 MG TABLET (FP) PO SCH (21:40)
[2020-10-26] MEDS: SUCRALFATE 1 GM TABLET (FP) PO SCH (21:40)
[2020-10-27] MEDS: ARTIFICIAL TEARS (POLYVINYL ALCOHOL) OPTH DROPS OU SCH ×3 (06:43→21:19)
[2020-10-27] MEDS: PRENATAL VITAMINS W/ FOLIC ACID TABLET (FP) PO SCH (09:36)
[2020-10-27] MEDS: PANTOPRAZOLE 40 MG TABLET PO SCH (09:37)
[2020-10-27] MEDS: SUCRALFATE 1 GM TABLET (FP) PO SCH (20:20)
[2020-10-27] MEDS ORDERED: MASKS NR ONE (21:00)
[2020-10-27] MEDS: MELATONIN 5 MG TABLETS PO SCH (21:19)
[2020-10-27] MEDS: THIAMINE HCL 100 MG TABLET (FP) PO SCH (21:19)
[2020-10-28] MEDS: ARTIFICIAL TEARS (POLYVINYL ALCOHOL) OPTH DROPS OU SCH (06:32)
[2020-10-28 06:39] VITALS: BP 129/80; PULSE 85; TEMP 97.3
[2020-10-28] MEDS: PRENATAL VITAMINS W/ FOLIC ACID TABLET (FP) PO SCH (10:13)
[2020-10-28] MEDS: PANTOPRAZOLE 40 MG TABLET PO SCH (10:14)
== END 2020-10-28 11:00 | disposition home or self-care (01) | DRG 772 ==
LOC: YASAS 16:32 → Y5N 18:21
PROVIDERS: ADMIT Allergy & Immunology; ATTEND Allergy & Immunology
PROC: HZ42ZZZ Group Counseling for Substance Abuse Treatment, Cognitive-Behavioral (ICD-10-PCS; principal; 2020-10-14)
DX: F10.20 Alcohol dependence, uncomplicated (principal); F10.280 Alcohol dependence with alcohol-induced anxiety disorder; F17.210 Nicotine dependence, cigarettes, uncomplicated; F19.24 Other psychoactive substance dependence with psychoactive substance-induced mood disorder; K40.20 Bilateral inguinal hernia, without obstruction or gangrene, not specified as recurrent; K29.70 Gastritis, unspecified, without bleeding; K44.9 Diaphragmatic hernia without obstruction or gangrene
CPT/HCPCS: C9803; Q0162; U0003

== ENCOUNTER 2020-11-26 11:19 | Inpatient (IN) | payer OTHER ==
[2020-11-26 13:52] VITALS: BMI 22.7
[2020-11-26] MEDS ORDERED: METHOCARBAMOL 500 MG TABLET PO PRN (13:54)
[2020-11-26] MEDS ORDERED: chlordiazePOXIDE HCL 25 MG CAPSULE PO PRN (13:54)
[2020-11-26] MEDS ORDERED: NICOTINE POLACRILEX 2 MG GUM BUC PRN (13:54)
[2020-11-26] MEDS ORDERED: ACETAMINOPHEN 325 MG TABLET (FP) PO PRN ×2 (13:54)
[2020-11-26] MEDS ORDERED: ONDANSETRON *ODT* 4 MG TABLET SL PRN (13:54)
[2020-11-26] MEDS ORDERED: IBUPROFEN 400 MG TABLET (FP) PO PRN (13:54)
[2020-11-26] MEDS ORDERED: MAGNESIUM CITRATE 300 ML BOTTLE PO PRN (13:54)
[2020-11-26] MEDS ORDERED: MAG HYDROX/AL HYDROX/SIMETH 30 ML UNIT-DOSE CUP PO PRN (13:54)
[2020-11-26] MEDS ORDERED: MAGNESIUM HYDROX 2400MG/30ML ORAL SUSPENSION 30 ML CUP PO PRN (13:54)
[2020-11-26] MEDS ORDERED: MENTHOL/PHENOL 1 EACH UD MM PRN (13:54)
[2020-11-26] MEDS ORDERED: BISMUTH SUBSALICYLATE 262 MG/15 ML BTL PO PRN (13:54)
[2020-11-26] MEDS: PRENATAL VITAMINS W/ FOLIC ACID TABLET (FP) PO SCH (15:58)
[2020-11-26] MEDS: hydrOXYzine PAMOATE 25 MG CAPSULE (FP) PO SCH ×3 (15:58→22:23)
[2020-11-26 16:32] LABS: POTASSIUM 4.2 mmol/L (3.5-5.1)
[2020-11-26 16:33] LABS: HEMATOCRIT 35.6 % (35.4-49); HEMOGLOBIN 12.2 GM/dL (11.7-16.9); MCH 33.3 pg (25.7-33.7); MCHC 34.2 g/dl (32.0-35.9); MEAN CELL VOLUME 97.2 fl (80-96); MEAN PLT VOLUME 7.2 fl (7.5-11.1); PLATELET COUNT 254 K/MM3 (134-434); RBC 3.66 M/mm3 (4.00-5.60); RDW 14.2 % (11.9-15.9)
[2020-11-26 16:57] LABS: ALBUMIN 3.7 g/dl (3.4-5.0); BLOOD UREA NITROGEN 11.2 mg/dL (7-18); CALCIUM 8.6 mg/dL (8.5-10.1)
[2020-11-26 17:00] LABS: CREATININE 0.8 mg/dL (0.55-1.3)
[2020-11-26 17:01] LABS: BILIRUBIN,TOTAL 0.7 mg/dL (0.2-1); TOT PROT 7.1 g/dl (6.4-8.2)
[2020-11-26 17:29] LABS: WHITE BLOOD COUNT 1.9 K/mm3 (4.0-10.0)
[2020-11-26] MEDS: chlordiazePOXIDE HCL 25 MG CAPSULE PO SCH ×2 (17:45→22:24)
[2020-11-26] MEDS: MELATONIN 5 MG TABLETS PO SCH (22:23)
[2020-11-26] MEDS: THIAMINE HCL 100 MG TABLET (FP) PO SCH (22:23)
[2020-11-26] MEDS: TOLNAFTATE 1% CREAM 15 GM TUBE TP SCH (22:24)
[2020-11-27] MEDS: hydrOXYzine PAMOATE 25 MG CAPSULE (FP) PO SCH ×6 (06:58→23:29)
[2020-11-27] MEDS: chlordiazePOXIDE HCL 25 MG CAPSULE PO SCH ×4 (06:58→22:32)
[2020-11-27] MEDS ORDERED: NICOTINE 14 MG/24 HOURS TOPICAL PATCH TD SCH (10:00)
[2020-11-27] MEDS: PANTOPRAZOLE 40 MG TABLET PO SCH (10:24)
[2020-11-27] MEDS: TOLNAFTATE 1% CREAM 15 GM TUBE TP SCH ×2 (10:46→22:47)
[2020-11-27] MEDS: PRENATAL VITAMINS W/ FOLIC ACID TABLET (FP) PO SCH (10:46)
[2020-11-27] MEDS: THIAMINE HCL 100 MG TABLET (FP) PO SCH (22:32)
[2020-11-27] MEDS: MELATONIN 5 MG TABLETS PO SCH ×2 (22:32→23:29)
[2020-11-28] MEDS: hydrOXYzine PAMOATE 25 MG CAPSULE (FP) PO SCH ×5 (06:27→22:17)
[2020-11-28] MEDS: chlordiazePOXIDE HCL 25 MG CAPSULE PO SCH ×4 (06:27→22:17)
[2020-11-28] MEDS: PRENATAL VITAMINS W/ FOLIC ACID TABLET (FP) PO SCH (10:12)
[2020-11-28] MEDS: PANTOPRAZOLE 40 MG TABLET PO SCH (10:12)
[2020-11-28] MEDS: TOLNAFTATE 1% CREAM 15 GM TUBE TP SCH ×2 (10:15→22:18)
[2020-11-28] MEDS: MELATONIN 5 MG TABLETS PO SCH (22:16)
[2020-11-28] MEDS: THIAMINE HCL 100 MG TABLET (FP) PO SCH (22:18)
[2020-11-29] MEDS ORDERED: chlordiazePOXIDE HCL 10 MG CAPSULE PO PRN
[2020-11-29] MEDS: hydrOXYzine PAMOATE 25 MG CAPSULE (FP) PO SCH ×5 (06:16→22:04)
[2020-11-29] MEDS: chlordiazePOXIDE HCL 10 MG CAPSULE PO SCH ×4 (06:16→22:05)
[2020-11-29] MEDS: PRENATAL VITAMINS W/ FOLIC ACID TABLET (FP) PO SCH (10:12)
[2020-11-29] MEDS: PANTOPRAZOLE 40 MG TABLET PO SCH (10:13)
[2020-11-29] MEDS: TOLNAFTATE 1% CREAM 15 GM TUBE TP SCH ×2 (10:15→22:05)
[2020-11-29] MEDS: MELATONIN 5 MG TABLETS PO SCH (22:04)
[2020-11-29] MEDS: THIAMINE HCL 100 MG TABLET (FP) PO SCH (22:04)
[2020-11-30] MEDS: hydrOXYzine PAMOATE 25 MG CAPSULE (FP) PO SCH ×5 (06:45→22:21)
[2020-11-30] MEDS: chlordiazePOXIDE HCL 10 MG CAPSULE PO SCH ×2 (06:46→18:23)
[2020-11-30] MEDS: PRENATAL VITAMINS W/ FOLIC ACID TABLET (FP) PO SCH (10:03)
[2020-11-30] MEDS: PANTOPRAZOLE 40 MG TABLET PO SCH (10:03)
[2020-11-30] MEDS: TOLNAFTATE 1% CREAM 15 GM TUBE TP SCH ×2 (10:04→22:21)
[2020-11-30] MEDS: THIAMINE HCL 100 MG TABLET (FP) PO SCH (22:20)
[2020-11-30] MEDS: MELATONIN 5 MG TABLETS PO SCH (22:20)
[2020-12-01] MEDS ORDERED: chlordiazePOXIDE HCL 10 MG CAPSULE PO ONE (05:00)
[2020-12-01] MEDS: hydrOXYzine PAMOATE 25 MG CAPSULE (FP) PO SCH ×5 (06:07→22:14)
[2020-12-01] MEDS: PANTOPRAZOLE 40 MG TABLET PO SCH (10:27)
[2020-12-01] MEDS: TOLNAFTATE 1% CREAM 15 GM TUBE TP SCH ×2 (10:27→22:15)
[2020-12-01] MEDS: PRENATAL VITAMINS W/ FOLIC ACID TABLET (FP) PO SCH (10:27)
[2020-12-01] MEDS: MELATONIN 5 MG TABLETS PO SCH (22:14)
[2020-12-01] MEDS: THIAMINE HCL 100 MG TABLET (FP) PO SCH (22:14)
[2020-12-02] MEDS: hydrOXYzine PAMOATE 25 MG CAPSULE (FP) PO SCH ×2 (07:20→10:03)
[2020-12-02] MEDS: PANTOPRAZOLE 40 MG TABLET PO SCH (10:03)
[2020-12-02] MEDS: PRENATAL VITAMINS W/ FOLIC ACID TABLET (FP) PO SCH (10:03)
[2020-12-02] MEDS: TOLNAFTATE 1% CREAM 15 GM TUBE TP SCH (10:03)
[2020-12-02 13:11] VITALS: BP 120/64; PULSE 102; TEMP 98.4
== END 2020-12-02 13:44 | disposition home or self-care (01) | DRG 773 ==
LOC: YASAS 11:19 → Y6N 15:12
PROVIDERS: ADMIT Allergy & Immunology; ATTEND Allergy & Immunology
PROC: HZ2ZZZZ Detoxification Services for Substance Abuse Treatment (ICD-10-PCS; principal; 2020-11-26)
DX: F10.230 Alcohol dependence with withdrawal, uncomplicated (principal); F11.20 Opioid dependence, uncomplicated; F17.213 Nicotine dependence, cigarettes, with withdrawal; F19.24 Other psychoactive substance dependence with psychoactive substance-induced mood disorder; F31.9 Bipolar disorder, unspecified; F43.10 Post-traumatic stress disorder, unspecified; I10 Essential (primary) hypertension; D72.818 Other decreased white blood cell count; H40.9 Unspecified glaucoma; G47.00 Insomnia, unspecified; K40.20 Bilateral inguinal hernia, without obstruction or gangrene, not specified as recurrent; B35.3 Tinea pedis; Z88.0 Allergy status to penicillin; Z91.018 Allergy to other foods
CPT/HCPCS: 36415; 80053; 85027; 86780; C9803; U0003

== ENCOUNTER 2020-12-25 08:57 | Inpatient (IN) | payer OTHER ==
[2020-12-25 09:49] VITALS: BMI 23.3
[2020-12-25] MEDS ORDERED: ACETAMINOPHEN 325 MG TABLET (FP) PO PRN ×2 (11:46)
[2020-12-25] MEDS ORDERED: chlordiazePOXIDE HCL 25 MG CAPSULE PO PRN (11:46)
[2020-12-25] MEDS ORDERED: METHOCARBAMOL 500 MG TABLET PO PRN (11:46)
[2020-12-25] MEDS ORDERED: IBUPROFEN 400 MG TABLET (FP) PO PRN (11:46)
[2020-12-25] MEDS ORDERED: NICOTINE POLACRILEX 2 MG GUM BUC PRN (11:46)
[2020-12-25] MEDS ORDERED: MENTHOL/PHENOL 1 EACH UD MM PRN (11:46)
[2020-12-25] MEDS ORDERED: BISMUTH SUBSALICYLATE 262 MG/15 ML BTL PO PRN (11:46)
[2020-12-25] MEDS ORDERED: ONDANSETRON *ODT* 4 MG TABLET SL PRN (11:46)
[2020-12-25] MEDS ORDERED: MAGNESIUM CITRATE 300 ML BOTTLE PO PRN (11:46)
[2020-12-25] MEDS ORDERED: MAG HYDROX/AL HYDROX/SIMETH 30 ML UNIT-DOSE CUP PO PRN (11:46)
[2020-12-25] MEDS ORDERED: MAGNESIUM HYDROX 2400MG/30ML ORAL SUSPENSION 30 ML CUP PO PRN (11:46)
[2020-12-25] MEDS: chlordiazePOXIDE HCL 25 MG CAPSULE PO SCH ×3 (13:05→22:17)
[2020-12-25] MEDS: hydrOXYzine PAMOATE 25 MG CAPSULE (FP) PO SCH ×3 (13:05→22:16)
[2020-12-25] MEDS: PRENATAL VITAMINS W/ FOLIC ACID TABLET (FP) PO SCH (13:07)
[2020-12-25 17:59] LABS: POTASSIUM 3.9 mmol/L (3.5-5.1)
[2020-12-25 18:01] LABS: HEMATOCRIT 36.8 % (35.4-49); HEMOGLOBIN 12.7 GM/dL (11.7-16.9); MCH 33.4 pg (25.7-33.7); MCHC 34.4 g/dl (32.0-35.9); MEAN PLT VOLUME 6.9 fl (7.5-11.1); PLATELET COUNT 241 K/MM3 (134-434); RBC 3.79 M/mm3 (4.00-5.60); RDW 14.3 % (11.9-15.9); WHITE BLOOD COUNT 2.2 K/mm3 (4.0-10.0)
[2020-12-25 18:03] LABS: ALBUMIN 3.8 g/dl (3.4-5.0); CALCIUM 8.2 mg/dL (8.5-10.1)
[2020-12-25 18:04] LABS: BLOOD UREA NITROGEN 12.4 mg/dL (7-18)
[2020-12-25 18:07] LABS: CREATININE 0.7 mg/dL (0.55-1.3)
[2020-12-25 18:08] LABS: BILIRUBIN,TOTAL 0.7 mg/dL (0.2-1)
[2020-12-25 18:09] LABS: TOT PROT 7.1 g/dl (6.4-8.2)
[2020-12-25] MEDS: MELATONIN 5 MG TABLETS PO SCH (22:16)
[2020-12-25] MEDS: THIAMINE HCL 100 MG TABLET (FP) PO SCH (22:16)
[2020-12-26] MEDS: chlordiazePOXIDE HCL 25 MG CAPSULE PO SCH ×4 (06:07→22:31)
[2020-12-26] MEDS: hydrOXYzine PAMOATE 25 MG CAPSULE (FP) PO SCH ×5 (06:07→22:30)
[2020-12-26] MEDS: PRENATAL VITAMINS W/ FOLIC ACID TABLET (FP) PO SCH (10:21)
[2020-12-26] MEDS: PANTOPRAZOLE 40 MG TABLET PO SCH (10:21)
[2020-12-26] MEDS: MELATONIN 5 MG TABLETS PO SCH (22:30)
[2020-12-26] MEDS: THIAMINE HCL 100 MG TABLET (FP) PO SCH (22:31)
[2020-12-27] MEDS: hydrOXYzine PAMOATE 25 MG CAPSULE (FP) PO SCH ×5 (06:16→23:14)
[2020-12-27] MEDS: chlordiazePOXIDE HCL 25 MG CAPSULE PO SCH ×4 (06:17→23:13)
[2020-12-27] MEDS: PRENATAL VITAMINS W/ FOLIC ACID TABLET (FP) PO SCH (10:20)
[2020-12-27] MEDS: PANTOPRAZOLE 40 MG TABLET PO SCH (10:20)
[2020-12-27] MEDS ORDERED: PNEUMOC 13-VAL CONJ-DIP CRM/PF 0.5 ML DISP.SYRIN IM ONE (12:00)
[2020-12-27] MEDS ORDERED: PNEUMOCOCCAL 23 VACCINE 0.5 ML VIAL IM ONE (12:01)
[2020-12-27 12:42] LABS: BASO % 0.9 % (0-2.0); EOS % 3.6 % (0-4.5); HEMATOCRIT 36.9 % (35.4-49); HEMOGLOBIN 12.5 GM/dL (11.7-16.9); LYMPH % 29.5 % (8-40); MCHC 33.9 g/dl (32.0-35.9); MEAN CELL VOLUME 97.3 fl (80-96); MONO % 9.8 % (3.8-10.2); NEUT % 56.2 % (42.8-82.8); PLATELET COUNT 190 K/MM3 (134-434); RBC 3.79 M/mm3 (4.00-5.60); RDW 14.1 % (11.9-15.9); WHITE BLOOD COUNT 2.3 K/mm3 (4.0-10.0)
[2020-12-27] MEDS: THIAMINE HCL 100 MG TABLET (FP) PO SCH (23:14)
[2020-12-27] MEDS: MELATONIN 5 MG TABLETS PO SCH (23:14)
[2020-12-28] MEDS ORDERED: chlordiazePOXIDE HCL 10 MG CAPSULE PO PRN
[2020-12-28] MEDS: hydrOXYzine PAMOATE 25 MG CAPSULE (FP) PO SCH ×2 (06:20→10:25)
[2020-12-28] MEDS: chlordiazePOXIDE HCL 10 MG CAPSULE PO SCH ×4 (06:20→22:41)
[2020-12-28] MEDS: PRENATAL VITAMINS W/ FOLIC ACID TABLET (FP) PO SCH (10:23)
[2020-12-28] MEDS: PANTOPRAZOLE 40 MG TABLET PO SCH (10:23)
[2020-12-28] MEDS ORDERED: hydrOXYzine PAMOATE 25 MG CAPSULE (FP) PO PRN (13:05)
[2020-12-28] MEDS: MELATONIN 5 MG TABLETS PO SCH (22:41)
[2020-12-28] MEDS: THIAMINE HCL 100 MG TABLET (FP) PO SCH (22:41)
[2020-12-29] MEDS: chlordiazePOXIDE HCL 10 MG CAPSULE PO SCH ×2 (06:09→17:15)
[2020-12-29] MEDS: PRENATAL VITAMINS W/ FOLIC ACID TABLET (FP) PO SCH (10:17)
[2020-12-29] MEDS: PANTOPRAZOLE 40 MG TABLET PO SCH (10:17)
[2020-12-29] MEDS: THIAMINE HCL 100 MG TABLET (FP) PO SCH (22:01)
[2020-12-29] MEDS: MELATONIN 5 MG TABLETS PO SCH (22:01)
[2020-12-30] MEDS ORDERED: chlordiazePOXIDE HCL 10 MG CAPSULE PO ONE (05:00)
[2020-12-30 09:25] VITALS: BP 111/77; PULSE 93; TEMP 97.1
[2020-12-30] MEDS: PANTOPRAZOLE 40 MG TABLET PO SCH (10:37)
[2020-12-30] MEDS: PRENATAL VITAMINS W/ FOLIC ACID TABLET (FP) PO SCH (10:37)
[2020-12-30 11:19] LABS: BASO % 0.7 % (0-2.0); EOS % 7.6 % (0-4.5); HEMOGLOBIN 13.4 GM/dL (11.7-16.9); LYMPH % 44.9 % (8-40); MCH 33.4 pg (25.7-33.7); MCHC 34.4 g/dl (32.0-35.9); MEAN CELL VOLUME 96.9 fl (80-96); MEAN PLT VOLUME 6.9 fl (7.5-11.1); NEUT % 35.8 % (42.8-82.8); PLATELET COUNT 209 K/MM3 (134-434); RBC 4.02 M/mm3 (4.00-5.60); RDW 14.4 % (11.9-15.9)
[2020-12-30 11:29] LABS: WHITE BLOOD COUNT 1.6 K/mm3 (4.0-10.0)
== END 2020-12-30 12:26 | disposition other institution (70) | DRG 773 ==
LOC: YASAS 08:57 → Y3N 11:08
PROVIDERS: ADMIT Allergy & Immunology; ATTEND Allergy & Immunology
PROC: HZ2ZZZZ Detoxification Services for Substance Abuse Treatment (ICD-10-PCS; principal; 2020-12-25)
DX: F10.230 Alcohol dependence with withdrawal, uncomplicated (principal); F11.20 Opioid dependence, uncomplicated; F14.20 Cocaine dependence, uncomplicated; F17.210 Nicotine dependence, cigarettes, uncomplicated; F19.24 Other psychoactive substance dependence with psychoactive substance-induced mood disorder; F10.24 Alcohol dependence with alcohol-induced mood disorder; F31.9 Bipolar disorder, unspecified; F41.8 Other specified anxiety disorders; F43.10 Post-traumatic stress disorder, unspecified; D50.8 Other iron deficiency anemias; D72.819 Decreased white blood cell count, unspecified; I10 Essential (primary) hypertension; H40.9 Unspecified glaucoma; K40.20 Bilateral inguinal hernia, without obstruction or gangrene, not specified as recurrent; K44.9 Diaphragmatic hernia without obstruction or gangrene; Z87.19 Personal history of other diseases of the digestive system; Z88.0 Allergy status to penicillin; Z91.018 Allergy to other foods; Z87.828 Personal history of other (healed) physical injury and trauma
CPT/HCPCS: 36415; 80053; 85025; 85027; 86780; C9803; U0003

== ENCOUNTER 2020-12-30 12:29 | Inpatient (IN) | payer OTHER ==
[2020-12-30] MEDS ORDERED: MAGNESIUM CITRATE 300 ML BOTTLE PO PRN (13:38)
[2020-12-30] MEDS ORDERED: guaiFENesin 200 MG/10 ML 10 ML UNIT-DOSE CUPS PO PRN (13:38)
[2020-12-30] MEDS ORDERED: MENTHOL/PHENOL 1 EACH UD MM PRN (13:38)
[2020-12-30] MEDS ORDERED: ACETAMINOPHEN 325 MG TABLET (FP) PO PRN (13:38)
[2020-12-30] MEDS ORDERED: MAG HYDROX/AL HYDROX/SIMETH 30 ML UNIT-DOSE CUP PO PRN (13:38)
[2020-12-30] MEDS ORDERED: MAGNESIUM HYDROX 2400MG/30ML ORAL SUSPENSION 30 ML CUP PO PRN (13:38)
[2020-12-30] MEDS ORDERED: LOPERAMIDE HCL 2 MG CAPSULE PO PRN (13:38)
[2020-12-30] MEDS ORDERED: P-EPHED 60MG/TRIPROLIDI 2.5MG TABLET PO PRN (13:38)
[2020-12-30] MEDS: MELATONIN 5 MG TABLETS PO SCH (21:11)
[2020-12-30] MEDS: THIAMINE HCL 100 MG TABLET (FP) PO SCH (21:11)
[2020-12-31] MEDS: PRENATAL VITAMINS W/ FOLIC ACID TABLET (FP) PO SCH (10:16)
[2020-12-31] MEDS: PANTOPRAZOLE 40 MG TABLET PO SCH (10:16)
[2020-12-31] MEDS: hydrOXYzine PAMOATE 25 MG CAPSULE (FP) PO PRN (10:17)
[2020-12-31] MEDS: MELATONIN 5 MG TABLETS PO SCH (21:11)
[2020-12-31] MEDS: THIAMINE HCL 100 MG TABLET (FP) PO SCH (21:11)
[2021-01-01] MEDS: PRENATAL VITAMINS W/ FOLIC ACID TABLET (FP) PO SCH (09:49)
[2021-01-01] MEDS: PANTOPRAZOLE 40 MG TABLET PO SCH (09:49)
[2021-01-01] MEDS: hydrOXYzine PAMOATE 25 MG CAPSULE (FP) PO PRN (09:49)
[2021-01-01] MEDS: MELATONIN 5 MG TABLETS PO SCH (21:06)
[2021-01-01] MEDS: THIAMINE HCL 100 MG TABLET (FP) PO SCH (21:06)
[2021-01-01] MEDS: TETRAHYDROZOLINE HCL EYE DROPS OU PRN (21:27)
[2021-01-02] MEDS: PANTOPRAZOLE 40 MG TABLET PO SCH (09:04)
[2021-01-02] MEDS: TETRAHYDROZOLINE HCL EYE DROPS OU PRN ×2 (09:04→21:24)
[2021-01-02] MEDS: PRENATAL VITAMINS W/ FOLIC ACID TABLET (FP) PO SCH (09:04)
[2021-01-02] MEDS: THIAMINE HCL 100 MG TABLET (FP) PO SCH (21:23)
[2021-01-02] MEDS: MELATONIN 5 MG TABLETS PO SCH (21:23)
[2021-01-03] MEDS: PANTOPRAZOLE 40 MG TABLET PO SCH (09:53)
[2021-01-03] MEDS: PRENATAL VITAMINS W/ FOLIC ACID TABLET (FP) PO SCH (09:53)
[2021-01-03] MEDS: TETRAHYDROZOLINE HCL EYE DROPS OU PRN (21:15)
[2021-01-03] MEDS: MELATONIN 5 MG TABLETS PO SCH (21:15)
[2021-01-03] MEDS: THIAMINE HCL 100 MG TABLET (FP) PO SCH (21:15)
[2021-01-04] MEDS: PRENATAL VITAMINS W/ FOLIC ACID TABLET (FP) PO SCH (09:57)
[2021-01-04] MEDS: COLLOIDAL OATMEAL 1 BAR EACH TP PRN (09:57)
[2021-01-04] MEDS: PANTOPRAZOLE 40 MG TABLET PO SCH (09:57)
[2021-01-04] MEDS: hydrOXYzine PAMOATE 25 MG CAPSULE (FP) PO PRN (09:57)
[2021-01-04] MEDS: THIAMINE HCL 100 MG TABLET (FP) PO SCH (21:33)
[2021-01-04] MEDS: MELATONIN 5 MG TABLETS PO SCH (21:33)
[2021-01-05] MEDS: PRENATAL VITAMINS W/ FOLIC ACID TABLET (FP) PO SCH (09:56)
[2021-01-05] MEDS: hydrOXYzine PAMOATE 25 MG CAPSULE (FP) PO PRN (09:56)
[2021-01-05] MEDS: TETRAHYDROZOLINE HCL EYE DROPS OU PRN (09:56)
[2021-01-05] MEDS: PANTOPRAZOLE 40 MG TABLET PO SCH (09:56)
[2021-01-05] MEDS: THIAMINE HCL 100 MG TABLET (FP) PO SCH (21:04)
[2021-01-05] MEDS: MELATONIN 5 MG TABLETS PO SCH (21:04)
[2021-01-06] MEDS: PANTOPRAZOLE 40 MG TABLET PO SCH (09:53)
[2021-01-06] MEDS: TETRAHYDROZOLINE HCL EYE DROPS OU PRN ×2 (09:53→21:26)
[2021-01-06] MEDS: PRENATAL VITAMINS W/ FOLIC ACID TABLET (FP) PO SCH (09:53)
[2021-01-06] MEDS: hydrOXYzine PAMOATE 25 MG CAPSULE (FP) PO PRN (09:53)
[2021-01-06] MEDS: THIAMINE HCL 100 MG TABLET (FP) PO SCH (21:25)
[2021-01-06] MEDS: MELATONIN 5 MG TABLETS PO SCH (21:25)
[2021-01-06] MEDS: IBUPROFEN 400 MG TABLET (FP) PO PRN (23:03)
[2021-01-07] MEDS: hydrOXYzine PAMOATE 25 MG CAPSULE (FP) PO PRN (10:07)
[2021-01-07] MEDS: PRENATAL VITAMINS W/ FOLIC ACID TABLET (FP) PO SCH (10:07)
[2021-01-07] MEDS: PANTOPRAZOLE 40 MG TABLET PO SCH (10:07)
[2021-01-07] MEDS: IBUPROFEN 400 MG TABLET (FP) PO PRN ×2 (10:08→21:29)
[2021-01-07] MEDS: TETRAHYDROZOLINE HCL EYE DROPS OU PRN (21:29)
[2021-01-07] MEDS: MELATONIN 5 MG TABLETS PO SCH (21:29)
[2021-01-07] MEDS: THIAMINE HCL 100 MG TABLET (FP) PO SCH (21:29)
[2021-01-08] MEDS: PANTOPRAZOLE 40 MG TABLET PO SCH (09:41)
[2021-01-08] MEDS: PRENATAL VITAMINS W/ FOLIC ACID TABLET (FP) PO SCH (09:41)
[2021-01-08] MEDS: hydrOXYzine PAMOATE 25 MG CAPSULE (FP) PO PRN (09:41)
[2021-01-08] MEDS: IBUPROFEN 400 MG TABLET (FP) PO PRN ×2 (09:43→21:31)
[2021-01-08] MEDS: MELATONIN 5 MG TABLETS PO SCH (21:31)
[2021-01-08] MEDS: THIAMINE HCL 100 MG TABLET (FP) PO SCH (21:31)
[2021-01-09] MEDS: PANTOPRAZOLE 40 MG TABLET PO SCH (09:56)
[2021-01-09] MEDS: PRENATAL VITAMINS W/ FOLIC ACID TABLET (FP) PO SCH (09:56)
[2021-01-09] MEDS: IBUPROFEN 400 MG TABLET (FP) PO PRN ×2 (09:56→21:13)
[2021-01-09] MEDS: TETRAHYDROZOLINE HCL EYE DROPS OU PRN (09:58)
[2021-01-09] MEDS: MELATONIN 5 MG TABLETS PO SCH (21:12)
[2021-01-09] MEDS: THIAMINE HCL 100 MG TABLET (FP) PO SCH (21:12)
[2021-01-10] MEDS: TETRAHYDROZOLINE HCL EYE DROPS OU PRN ×2 (09:50→21:28)
[2021-01-10] MEDS: PRENATAL VITAMINS W/ FOLIC ACID TABLET (FP) PO SCH (09:50)
[2021-01-10] MEDS: IBUPROFEN 400 MG TABLET (FP) PO PRN ×2 (09:50→21:28)
[2021-01-10] MEDS: PANTOPRAZOLE 40 MG TABLET PO SCH (09:50)
[2021-01-10] MEDS: MELATONIN 5 MG TABLETS PO SCH (21:27)
[2021-01-10] MEDS: THIAMINE HCL 100 MG TABLET (FP) PO SCH (21:28)
[2021-01-11] MEDS: PRENATAL VITAMINS W/ FOLIC ACID TABLET (FP) PO SCH (09:53)
[2021-01-11] MEDS: PANTOPRAZOLE 40 MG TABLET PO SCH (09:53)
[2021-01-11] MEDS: hydrOXYzine PAMOATE 25 MG CAPSULE (FP) PO PRN ×2 (09:53→09:57)
[2021-01-11] MEDS: TETRAHYDROZOLINE HCL EYE DROPS OU PRN (09:54)
[2021-01-11] MEDS: IBUPROFEN 400 MG TABLET (FP) PO PRN ×2 (09:56→21:26)
[2021-01-11] MEDS: MELATONIN 5 MG TABLETS PO SCH (21:25)
[2021-01-11] MEDS: THIAMINE HCL 100 MG TABLET (FP) PO SCH (21:25)
[2021-01-12] MEDS: PANTOPRAZOLE 40 MG TABLET PO SCH (09:54)
[2021-01-12] MEDS: hydrOXYzine PAMOATE 25 MG CAPSULE (FP) PO PRN (09:54)
[2021-01-12] MEDS: PRENATAL VITAMINS W/ FOLIC ACID TABLET (FP) PO SCH (09:54)
[2021-01-12] MEDS: TETRAHYDROZOLINE HCL EYE DROPS OU PRN (09:54)
[2021-01-12] MEDS: IBUPROFEN 400 MG TABLET (FP) PO PRN ×2 (09:56→21:16)
[2021-01-12] MEDS: THIAMINE HCL 100 MG TABLET (FP) PO SCH (21:16)
[2021-01-12] MEDS: MELATONIN 5 MG TABLETS PO SCH (21:16)
[2021-01-13] MEDS: COLLOIDAL OATMEAL 1 BAR EACH TP PRN (06:34)
[2021-01-13] MEDS: TETRAHYDROZOLINE HCL EYE DROPS OU PRN (09:51)
[2021-01-13] MEDS: hydrOXYzine PAMOATE 25 MG CAPSULE (FP) PO PRN (09:52)
[2021-01-13] MEDS: IBUPROFEN 400 MG TABLET (FP) PO PRN ×2 (09:52→21:28)
[2021-01-13] MEDS: PRENATAL VITAMINS W/ FOLIC ACID TABLET (FP) PO SCH (09:52)
[2021-01-13] MEDS: PANTOPRAZOLE 40 MG TABLET PO SCH (09:52)
[2021-01-13] MEDS: THIAMINE HCL 100 MG TABLET (FP) PO SCH (21:27)
[2021-01-13] MEDS: MELATONIN 5 MG TABLETS PO SCH (21:27)
[2021-01-14] MEDS: PRENATAL VITAMINS W/ FOLIC ACID TABLET (FP) PO SCH (10:14)
[2021-01-14] MEDS: IBUPROFEN 400 MG TABLET (FP) PO PRN ×2 (10:16→21:17)
[2021-01-14] MEDS: PANTOPRAZOLE 40 MG TABLET PO SCH (10:50)
[2021-01-14] MEDS: MELATONIN 5 MG TABLETS PO SCH (21:17)
[2021-01-14] MEDS: THIAMINE HCL 100 MG TABLET (FP) PO SCH (21:17)
[2021-01-15] MEDS: TETRAHYDROZOLINE HCL EYE DROPS OU PRN (10:04)
[2021-01-15] MEDS: PRENATAL VITAMINS W/ FOLIC ACID TABLET (FP) PO SCH (10:04)
[2021-01-15] MEDS: PANTOPRAZOLE 40 MG TABLET PO SCH (10:04)
[2021-01-15] MEDS: THIAMINE HCL 100 MG TABLET (FP) PO SCH (21:10)
[2021-01-15] MEDS: IBUPROFEN 400 MG TABLET (FP) PO PRN (21:10)
[2021-01-15] MEDS: MELATONIN 5 MG TABLETS PO SCH (21:10)
[2021-01-16] MEDS: PRENATAL VITAMINS W/ FOLIC ACID TABLET (FP) PO SCH (09:41)
[2021-01-16] MEDS: PANTOPRAZOLE 40 MG TABLET PO SCH (09:41)
[2021-01-16] MEDS: IBUPROFEN 400 MG TABLET (FP) PO PRN ×2 (09:43→21:19)
[2021-01-16] MEDS: TETRAHYDROZOLINE HCL EYE DROPS OU PRN (09:44)
[2021-01-16] MEDS: THIAMINE HCL 100 MG TABLET (FP) PO SCH (21:19)
[2021-01-16] MEDS: MELATONIN 5 MG TABLETS PO SCH (21:19)
[2021-01-17] MEDS: PANTOPRAZOLE 40 MG TABLET PO SCH (09:58)
[2021-01-17] MEDS: PRENATAL VITAMINS W/ FOLIC ACID TABLET (FP) PO SCH (09:58)
[2021-01-17] MEDS: IBUPROFEN 400 MG TABLET (FP) PO PRN ×2 (09:59→21:19)
[2021-01-17] MEDS: TETRAHYDROZOLINE HCL EYE DROPS OU PRN (10:00)
[2021-01-17] MEDS: THIAMINE HCL 100 MG TABLET (FP) PO SCH (21:19)
[2021-01-17] MEDS: MELATONIN 5 MG TABLETS PO SCH (21:19)
[2021-01-18] MEDS: PANTOPRAZOLE 40 MG TABLET PO SCH (10:02)
[2021-01-18] MEDS: PRENATAL VITAMINS W/ FOLIC ACID TABLET (FP) PO SCH (10:02)
[2021-01-18] MEDS: hydrOXYzine PAMOATE 25 MG CAPSULE (FP) PO PRN (10:02)
[2021-01-18] MEDS: TETRAHYDROZOLINE HCL EYE DROPS OU PRN (10:03)
[2021-01-18] MEDS: THIAMINE HCL 100 MG TABLET (FP) PO SCH (21:22)
[2021-01-18] MEDS: IBUPROFEN 400 MG TABLET (FP) PO PRN (21:22)
[2021-01-18] MEDS: MELATONIN 5 MG TABLETS PO SCH (21:22)
[2021-01-19] MEDS: hydrOXYzine PAMOATE 25 MG CAPSULE (FP) PO PRN (10:08)
[2021-01-19] MEDS: PRENATAL VITAMINS W/ FOLIC ACID TABLET (FP) PO SCH (10:08)
[2021-01-19] MEDS: PANTOPRAZOLE 40 MG TABLET PO SCH (10:08)
[2021-01-19] MEDS: IBUPROFEN 400 MG TABLET (FP) PO PRN ×2 (10:09→21:24)
[2021-01-19] MEDS: MELATONIN 5 MG TABLETS PO SCH (21:24)
[2021-01-19] MEDS: THIAMINE HCL 100 MG TABLET (FP) PO SCH (21:24)
[2021-01-20] MEDS: hydrOXYzine PAMOATE 25 MG CAPSULE (FP) PO PRN (09:57)
[2021-01-20] MEDS: PRENATAL VITAMINS W/ FOLIC ACID TABLET (FP) PO SCH (09:57)
[2021-01-20] MEDS: PANTOPRAZOLE 40 MG TABLET PO SCH (09:57)
[2021-01-20] MEDS: TETRAHYDROZOLINE HCL EYE DROPS OU PRN (09:57)
[2021-01-20] MEDS: IBUPROFEN 400 MG TABLET (FP) PO PRN ×2 (09:58→21:21)
[2021-01-20] MEDS: THIAMINE HCL 100 MG TABLET (FP) PO SCH (21:21)
[2021-01-20] MEDS: MELATONIN 5 MG TABLETS PO SCH (21:21)
[2021-01-21] MEDS: PANTOPRAZOLE 40 MG TABLET PO SCH (09:58)
[2021-01-21] MEDS: PRENATAL VITAMINS W/ FOLIC ACID TABLET (FP) PO SCH (09:58)
[2021-01-21] MEDS: hydrOXYzine PAMOATE 25 MG CAPSULE (FP) PO PRN (09:58)
[2021-01-21] MEDS: TETRAHYDROZOLINE HCL EYE DROPS OU PRN (09:59)
[2021-01-21] MEDS: IBUPROFEN 400 MG TABLET (FP) PO PRN ×2 (09:59→21:20)
[2021-01-21] MEDS: THIAMINE HCL 100 MG TABLET (FP) PO SCH (21:20)
[2021-01-21] MEDS: MELATONIN 5 MG TABLETS PO SCH (21:20)
[2021-01-22] MEDS: hydrOXYzine PAMOATE 25 MG CAPSULE (FP) PO PRN (10:14)
[2021-01-22] MEDS: PRENATAL VITAMINS W/ FOLIC ACID TABLET (FP) PO SCH (10:14)
[2021-01-22] MEDS: PANTOPRAZOLE 40 MG TABLET PO SCH (10:14)
[2021-01-22] MEDS: THIAMINE HCL 100 MG TABLET (FP) PO SCH (21:34)
[2021-01-22] MEDS: MELATONIN 5 MG TABLETS PO SCH (21:34)
[2021-01-22] MEDS: IBUPROFEN 400 MG TABLET (FP) PO PRN (21:35)
[2021-01-22] MEDS: TETRAHYDROZOLINE HCL EYE DROPS OU PRN (21:36)
[2021-01-23] MEDS: TETRAHYDROZOLINE HCL EYE DROPS OU PRN (09:58)
[2021-01-23] MEDS: PRENATAL VITAMINS W/ FOLIC ACID TABLET (FP) PO SCH (09:58)
[2021-01-23] MEDS: PANTOPRAZOLE 40 MG TABLET PO SCH (09:58)
[2021-01-23] MEDS: hydrOXYzine PAMOATE 25 MG CAPSULE (FP) PO PRN (09:58)
[2021-01-23] MEDS: THIAMINE HCL 100 MG TABLET (FP) PO SCH (21:18)
[2021-01-23] MEDS: MELATONIN 5 MG TABLETS PO SCH (21:19)
[2021-01-23] MEDS: IBUPROFEN 400 MG TABLET (FP) PO PRN (21:19)
[2021-01-24] MEDS: TETRAHYDROZOLINE HCL EYE DROPS OU PRN (10:14)
[2021-01-24] MEDS: PANTOPRAZOLE 40 MG TABLET PO SCH (10:15)
[2021-01-24] MEDS: hydrOXYzine PAMOATE 25 MG CAPSULE (FP) PO PRN (10:15)
[2021-01-24] MEDS: PRENATAL VITAMINS W/ FOLIC ACID TABLET (FP) PO SCH (10:15)
[2021-01-24] MEDS: IBUPROFEN 400 MG TABLET (FP) PO PRN ×2 (10:15→21:30)
[2021-01-24] MEDS: THIAMINE HCL 100 MG TABLET (FP) PO SCH (21:30)
[2021-01-24] MEDS: MELATONIN 5 MG TABLETS PO SCH (21:30)
[2021-01-25] MEDS: PANTOPRAZOLE 40 MG TABLET PO SCH (09:55)
[2021-01-25] MEDS: IBUPROFEN 400 MG TABLET (FP) PO PRN (09:55)
[2021-01-25] MEDS: hydrOXYzine PAMOATE 25 MG CAPSULE (FP) PO PRN (09:55)
[2021-01-25] MEDS: PRENATAL VITAMINS W/ FOLIC ACID TABLET (FP) PO SCH (09:55)
[2021-01-25] MEDS: MELATONIN 5 MG TABLETS PO SCH (21:14)
[2021-01-25] MEDS: IBUPROFEN 600 MG TABLET (FP) PO PRN (21:14)
[2021-01-25] MEDS: THIAMINE HCL 100 MG TABLET (FP) PO SCH (21:14)
[2021-01-26 06:34] VITALS: BP 104/75; PULSE 86
[2021-01-26] MEDS: PRENATAL VITAMINS W/ FOLIC ACID TABLET (FP) PO SCH (10:00)
[2021-01-26] MEDS: PANTOPRAZOLE 40 MG TABLET PO SCH (10:00)
[2021-01-26] MEDS: hydrOXYzine PAMOATE 25 MG CAPSULE (FP) PO PRN ×2 (10:00→21:33)
[2021-01-26 20:26] VITALS: TEMP 97.7
[2021-01-26] MEDS: MELATONIN 5 MG TABLETS PO SCH (21:32)
[2021-01-26] MEDS: THIAMINE HCL 100 MG TABLET (FP) PO SCH (21:33)
[2021-01-26] MEDS: TETRAHYDROZOLINE HCL EYE DROPS OU PRN (21:33)
[2021-01-26] MEDS: IBUPROFEN 600 MG TABLET (FP) PO PRN (21:34)
[2021-01-27] MEDS ORDERED: PT OWN MED DRAWER 7, Y5N ONE (10:35)
[2021-01-27] MEDS: hydrOXYzine PAMOATE 25 MG CAPSULE (FP) PO PRN (10:57)
[2021-01-27] MEDS: PRENATAL VITAMINS W/ FOLIC ACID TABLET (FP) PO SCH (10:57)
[2021-01-27] MEDS: PANTOPRAZOLE 40 MG TABLET PO SCH (10:57)
== END 2021-01-27 11:20 | disposition home or self-care (01) | DRG 772 ==
LOC: YASAS 12:29 → Y3W 12:30
PROVIDERS: ADMIT Allergy & Immunology; ATTEND Allergy & Immunology
PROC: HZ42ZZZ Group Counseling for Substance Abuse Treatment, Cognitive-Behavioral (ICD-10-PCS; principal; 2020-12-30)
DX: F10.20 Alcohol dependence, uncomplicated (principal); F14.20 Cocaine dependence, uncomplicated; F17.210 Nicotine dependence, cigarettes, uncomplicated; D64.9 Anemia, unspecified; I10 Essential (primary) hypertension; H53.8 Other visual disturbances; Z87.828 Personal history of other (healed) physical injury and trauma; Z98.890 Other specified postprocedural states; Z88.0 Allergy status to penicillin; Z91.018 Allergy to other foods
CPT/HCPCS: C9803; U0003

== ENCOUNTER 2021-04-03 09:04 | Inpatient (IN) | payer OTHER ==
[2021-04-03 10:16] VITALS: BMI 23.3
[2021-04-03] MEDS ORDERED: NICOTINE POLACRILEX 2 MG GUM BUC PRN (10:48)
[2021-04-03] MEDS ORDERED: MAG HYDROX/AL HYDROX/SIMETH 30 ML UNIT-DOSE CUP PO PRN (10:48)
[2021-04-03] MEDS ORDERED: chlordiazePOXIDE HCL 25 MG CAPSULE PO PRN (10:48)
[2021-04-03] MEDS ORDERED: MAGNESIUM CITRATE 300 ML BOTTLE PO PRN (10:48)
[2021-04-03] MEDS ORDERED: MENTHOL/PHENOL 1 EACH UD MM PRN (10:48)
[2021-04-03] MEDS ORDERED: BISMUTH SUBSALICYLATE 524 MG/30 ML PO PRN (10:48)
[2021-04-03] MEDS ORDERED: MAGNESIUM HYDROX 2400MG/30ML ORAL SUSPENSION 30 ML CUP PO PRN (10:48)
[2021-04-03] MEDS ORDERED: ONDANSETRON *ODT* 4 MG TABLET SL PRN (10:48)
[2021-04-03] MEDS ORDERED: IBUPROFEN 400 MG TABLET (FP) PO PRN (10:48)
[2021-04-03] MEDS ORDERED: ACETAMINOPHEN 325 MG TABLET (FP) PO PRN ×2 (10:48)
[2021-04-03] MEDS ORDERED: METHOCARBAMOL 500 MG TABLET PO PRN (10:48)
[2021-04-03] MEDS ORDERED: chlordiazePOXIDE HCL 25 MG CAPSULE PO SCH (11:00)
[2021-04-03] MEDS ORDERED: LORazepam 1 MG TABLET PO PRN (12:06)
[2021-04-03] MEDS: LORazepam 2 MG TABLET PO SCH ×3 (12:27→23:31)
[2021-04-03] MEDS ORDERED: LORazepam 2 MG TABLET ONE (12:27)
[2021-04-03] MEDS: hydrOXYzine PAMOATE 25 MG CAPSULE (FP) PO SCH ×3 (19:31→23:31)
[2021-04-03] MEDS: MELATONIN 5 MG TABLETS PO SCH (23:31)
[2021-04-03] MEDS: THIAMINE HCL 100 MG TABLET (FP) PO SCH (23:31)
[2021-04-04] MEDS: LORazepam 2 MG TABLET PO SCH ×4 (08:18→22:52)
[2021-04-04] MEDS: hydrOXYzine PAMOATE 25 MG CAPSULE (FP) PO SCH ×5 (08:18→22:51)
[2021-04-04] MEDS: PRENATAL VITAMINS W/ FOLIC ACID TABLET (FP) PO SCH (10:20)
[2021-04-04] MEDS: PANTOPRAZOLE 40 MG TABLET PO SCH (10:20)
[2021-04-04 11:04] LABS: HEMATOCRIT 35.5 % (35.4-49); HEMOGLOBIN 12.1 GM/dL (11.7-16.9); MCH 32.8 pg (25.7-33.7); MCHC 34.1 g/dl (32.0-35.9); MEAN CELL VOLUME 96.1 fl (80-96); MEAN PLT VOLUME 7.8 fl (7.5-11.1); PLATELET COUNT 262 K/MM3 (134-434); RBC 3.69 M/mm3 (4.00-5.60); RDW 15.2 % (11.9-15.9); WHITE BLOOD COUNT 2.6 K/mm3 (4.0-10.0)
[2021-04-04 11:16] LABS: ALBUMIN 3.8 g/dl (3.4-5.0); BLOOD UREA NITROGEN 7.6 mg/dL (7-18)
[2021-04-04 11:19] LABS: CALCIUM 8.2 mg/dL (8.5-10.1); CREATININE 0.6 mg/dL (0.55-1.3)
[2021-04-04 11:21] LABS: BILIRUBIN,TOTAL 0.2 mg/dL (0.2-1)
[2021-04-04 12:08] LABS: HIV INTERPRETATION NEGATIVE (NEGATIVE)
[2021-04-04] MEDS: CALCIUM CARBONATE 650 MG TABLET PO SCH (22:51)
[2021-04-04] MEDS: MELATONIN 5 MG TABLETS PO SCH (22:51)
[2021-04-04] MEDS: THIAMINE HCL 100 MG TABLET (FP) PO SCH (22:52)
[2021-04-05] MEDS ORDERED: chlordiazePOXIDE HCL 25 MG CAPSULE PO SCH (05:00)
[2021-04-05] MEDS: LORazepam 1 MG TABLET PO SCH ×4 (05:58→22:28)
[2021-04-05] MEDS: hydrOXYzine PAMOATE 25 MG CAPSULE (FP) PO SCH ×5 (05:58→22:28)
[2021-04-05] MEDS: PANTOPRAZOLE 40 MG TABLET PO SCH (10:16)
[2021-04-05] MEDS: CALCIUM CARBONATE 650 MG TABLET PO SCH ×2 (10:16→22:28)
[2021-04-05] MEDS: PRENATAL VITAMINS W/ FOLIC ACID TABLET (FP) PO SCH (10:16)
[2021-04-05] MEDS: THIAMINE HCL 100 MG TABLET (FP) PO SCH (22:28)
[2021-04-05] MEDS: MELATONIN 5 MG TABLETS PO SCH (22:28)
[2021-04-06] MEDS ORDERED: chlordiazePOXIDE HCL 10 MG CAPSULE PO PRN
[2021-04-06] MEDS ORDERED: LORazepam 0.5 MG TABLET PO PRN
[2021-04-06] MEDS ORDERED: chlordiazePOXIDE HCL 10 MG CAPSULE PO SCH (05:00)
[2021-04-06] MEDS: hydrOXYzine PAMOATE 25 MG CAPSULE (FP) PO SCH ×5 (05:21→22:10)
[2021-04-06] MEDS: LORazepam 0.5 MG TABLET PO SCH ×4 (05:21→22:11)
[2021-04-06 06:08] LABS: SARS-CoV-2 NAA Not Detected (Not Detected)
[2021-04-06] MEDS: PRENATAL VITAMINS W/ FOLIC ACID TABLET (FP) PO SCH (10:32)
[2021-04-06] MEDS: CALCIUM CARBONATE 650 MG TABLET PO SCH ×2 (10:32→22:11)
[2021-04-06] MEDS: PANTOPRAZOLE 40 MG TABLET PO SCH (10:32)
[2021-04-06] MEDS ORDERED: MASKS NR ONE (13:41)
[2021-04-06] MEDS: THIAMINE HCL 100 MG TABLET (FP) PO SCH (22:10)
[2021-04-06] MEDS: MELATONIN 5 MG TABLETS PO SCH (22:10)
[2021-04-07] MEDS ORDERED: chlordiazePOXIDE HCL 10 MG CAPSULE PO SCH (05:00)
[2021-04-07] MEDS ORDERED: LORazepam 0.5 MG TABLET PO ONE (05:00)
[2021-04-07] MEDS: hydrOXYzine PAMOATE 25 MG CAPSULE (FP) PO SCH ×3 (05:36→14:43)
[2021-04-07] MEDS: PRENATAL VITAMINS W/ FOLIC ACID TABLET (FP) PO SCH (10:30)
[2021-04-07] MEDS: CALCIUM CARBONATE 650 MG TABLET PO SCH (10:30)
[2021-04-07] MEDS: PANTOPRAZOLE 40 MG TABLET PO SCH (10:30)
[2021-04-07 12:52] VITALS: BP 115/82; PULSE 98; TEMP 98
[2021-04-08] MEDS ORDERED: chlordiazePOXIDE HCL 10 MG CAPSULE PO ONE (05:00)
== END 2021-04-07 15:00 | disposition other institution (70) | DRG 775 ==
LOC: YASAS 09:04 → Y3N 15:17
PROVIDERS: ADMIT Allergy & Immunology; ATTEND Allergy & Immunology
PROC: HZ2ZZZZ Detoxification Services for Substance Abuse Treatment (ICD-10-PCS; principal; 2021-04-03)
DX: F10.230 Alcohol dependence with withdrawal, uncomplicated (principal); F17.210 Nicotine dependence, cigarettes, uncomplicated; F31.9 Bipolar disorder, unspecified; D64.9 Anemia, unspecified; D72.819 Decreased white blood cell count, unspecified; E83.51 Hypocalcemia; I10 Essential (primary) hypertension; K21.9 Gastro-esophageal reflux disease without esophagitis; Z87.828 Personal history of other (healed) physical injury and trauma; Z88.0 Allergy status to penicillin; Z91.018 Allergy to other foods
CPT/HCPCS: 36415; 80053; 85027; 86780; 87389; C9803; U0003; U0005

== ENCOUNTER 2021-04-07 14:48 | Inpatient (IN) | payer OTHER ==
[2021-04-07] MEDS ORDERED: MAGNESIUM HYDROX 2400MG/30ML ORAL SUSPENSION 30 ML CUP PO PRN (15:35)
[2021-04-07] MEDS ORDERED: LOPERAMIDE HCL 2 MG CAPSULE PO PRN (15:35)
[2021-04-07] MEDS ORDERED: MAGNESIUM CITRATE 300 ML BOTTLE PO PRN (15:35)
[2021-04-07] MEDS ORDERED: guaiFENesin 200 MG/10 ML 10 ML UNIT-DOSE CUPS PO PRN (15:35)
[2021-04-07] MEDS ORDERED: P-EPHED 60MG/TRIPROLIDI 2.5MG TABLET PO PRN (15:35)
[2021-04-07] MEDS ORDERED: MAG HYDROX/AL HYDROX/SIMETH 30 ML UNIT-DOSE CUP PO PRN (15:35)
[2021-04-07] MEDS ORDERED: NICOTINE POLACRILEX 2 MG GUM BC PRN (15:35)
[2021-04-07] MEDS ORDERED: hydrOXYzine PAMOATE 25 MG CAPSULE (FP) PO PRN (15:38)
[2021-04-07] MEDS ORDERED: hydrOXYzine PAMOATE 25 MG CAPSULE (FP) PO SCH (18:00)
[2021-04-07] MEDS: MELATONIN 5 MG TABLETS PO SCH (21:31)
[2021-04-07] MEDS: THIAMINE HCL 100 MG TABLET (FP) PO SCH (21:31)
[2021-04-07] MEDS: CALCIUM CARBONATE 650 MG TABLET PO SCH (21:32)
[2021-04-08] MEDS: PANTOPRAZOLE 40 MG TABLET PO SCH (10:21)
[2021-04-08] MEDS: NICOTINE 7 MG/24 HOURS TOPICAL PATCH TD SCH (10:21)
[2021-04-08] MEDS: PRENATAL VITAMINS W/ FOLIC ACID TABLET (FP) PO SCH (10:21)
[2021-04-08] MEDS: CALCIUM CARBONATE 650 MG TABLET PO SCH ×2 (10:22→22:21)
[2021-04-08 15:07] LABS: PH,URINE 8.5 (5.0-8.0); URINE APPEARANCE TURBID; URINE BILIRUBIN NEGATIVE (NEGATIVE); URINE COLOR YELLOW; URINE GLUCOSE (UA) NEGATIVE (NEGATIVE); URINE KETONE NEGATIVE (NEGATIVE); URINE LEUK ESTERASE NEGATIVE (NEGATIVE); URINE NITRITE NEGATIVE (NEGATIVE); URINE PROTEIN NEGATIVE (NEGATIVE); URINE UROBILINOGEN 0.2 mg/dL (0.2-1.0)
[2021-04-08] MEDS: TETRAHYDROZOLINE HCL EYE DROPS OU PRN (22:19)
[2021-04-08] MEDS: THIAMINE HCL 100 MG TABLET (FP) PO SCH (22:20)
[2021-04-08] MEDS: MELATONIN 5 MG TABLETS PO SCH (22:20)
[2021-04-09] MEDS: PRENATAL VITAMINS W/ FOLIC ACID TABLET (FP) PO SCH (10:41)
[2021-04-09] MEDS: NICOTINE 7 MG/24 HOURS TOPICAL PATCH TD SCH (10:41)
[2021-04-09] MEDS: TETRAHYDROZOLINE HCL EYE DROPS OU PRN ×2 (10:41→21:10)
[2021-04-09] MEDS: PANTOPRAZOLE 40 MG TABLET PO SCH (10:41)
[2021-04-09] MEDS: CALCIUM CARBONATE 650 MG TABLET PO SCH ×2 (10:42→21:11)
[2021-04-09] MEDS: IBUPROFEN 400 MG TABLET (FP) PO PRN (19:08)
[2021-04-09] MEDS: THIAMINE HCL 100 MG TABLET (FP) PO SCH (21:09)
[2021-04-09] MEDS: MELATONIN 5 MG TABLETS PO SCH (21:09)
[2021-04-09] MEDS: METHOCARBAMOL 500 MG TABLET PO SCH (21:10)
[2021-04-10] MEDS: IBUPROFEN 400 MG TABLET (FP) PO PRN (07:20)
[2021-04-10] MEDS: METHOCARBAMOL 500 MG TABLET PO SCH ×3 (07:20→21:46)
[2021-04-10] MEDS: PANTOPRAZOLE 40 MG TABLET PO SCH (10:13)
[2021-04-10] MEDS: PRENATAL VITAMINS W/ FOLIC ACID TABLET (FP) PO SCH (10:13)
[2021-04-10] MEDS: NICOTINE 7 MG/24 HOURS TOPICAL PATCH TD SCH (10:14)
[2021-04-10] MEDS: CALCIUM CARBONATE 650 MG TABLET PO SCH ×2 (10:14→21:47)
[2021-04-10] MEDS: TETRAHYDROZOLINE HCL EYE DROPS OU PRN (10:15)
[2021-04-10] MEDS: THIAMINE HCL 100 MG TABLET (FP) PO SCH (21:46)
[2021-04-10] MEDS: MELATONIN 5 MG TABLETS PO SCH (21:46)
[2021-04-11] MEDS: METHOCARBAMOL 500 MG TABLET PO SCH ×3 (06:27→21:02)
[2021-04-11] MEDS: CALCIUM CARBONATE 650 MG TABLET PO SCH ×2 (10:02→21:02)
[2021-04-11] MEDS: NICOTINE 7 MG/24 HOURS TOPICAL PATCH TD SCH (10:02)
[2021-04-11] MEDS: PRENATAL VITAMINS W/ FOLIC ACID TABLET (FP) PO SCH (10:02)
[2021-04-11] MEDS: PANTOPRAZOLE 40 MG TABLET PO SCH (10:02)
[2021-04-11] MEDS: TETRAHYDROZOLINE HCL EYE DROPS OU PRN (10:04)
[2021-04-11 14:07] LABS: SARS-CoV-2 NAA Not Detected (Not Detected)
[2021-04-11] MEDS ORDERED: MASKS NR ONE (18:27)
[2021-04-11] MEDS: MELATONIN 5 MG TABLETS PO SCH (21:02)
[2021-04-11] MEDS: THIAMINE HCL 100 MG TABLET (FP) PO SCH (21:02)
[2021-04-12] MEDS: METHOCARBAMOL 500 MG TABLET PO SCH ×3 (06:48→21:47)
[2021-04-12] MEDS: NICOTINE 7 MG/24 HOURS TOPICAL PATCH TD SCH (10:38)
[2021-04-12] MEDS: PRENATAL VITAMINS W/ FOLIC ACID TABLET (FP) PO SCH (10:38)
[2021-04-12] MEDS: PANTOPRAZOLE 40 MG TABLET PO SCH (10:38)
[2021-04-12] MEDS: CALCIUM CARBONATE 650 MG TABLET PO SCH ×2 (10:38→21:48)
[2021-04-12] MEDS: THIAMINE HCL 100 MG TABLET (FP) PO SCH (21:48)
[2021-04-12] MEDS: MELATONIN 5 MG TABLETS PO SCH (21:48)
[2021-04-13] MEDS: METHOCARBAMOL 500 MG TABLET PO SCH ×3 (06:17→21:05)
[2021-04-13] MEDS: PRENATAL VITAMINS W/ FOLIC ACID TABLET (FP) PO SCH (10:00)
[2021-04-13] MEDS: PANTOPRAZOLE 40 MG TABLET PO SCH (10:00)
[2021-04-13] MEDS: CALCIUM CARBONATE 650 MG TABLET PO SCH ×2 (10:00→21:05)
[2021-04-13] MEDS: NICOTINE 7 MG/24 HOURS TOPICAL PATCH TD SCH (10:00)
[2021-04-13] MEDS: TETRAHYDROZOLINE HCL EYE DROPS OU PRN ×2 (10:01→21:05)
[2021-04-13] MEDS: THIAMINE HCL 100 MG TABLET (FP) PO SCH (21:05)
[2021-04-13] MEDS: MELATONIN 5 MG TABLETS PO SCH (21:05)
[2021-04-14] MEDS: METHOCARBAMOL 500 MG TABLET PO SCH ×3 (07:00→21:20)
[2021-04-14] MEDS: NICOTINE 7 MG/24 HOURS TOPICAL PATCH TD SCH (09:56)
[2021-04-14] MEDS: PRENATAL VITAMINS W/ FOLIC ACID TABLET (FP) PO SCH (09:56)
[2021-04-14] MEDS: CALCIUM CARBONATE 650 MG TABLET PO SCH ×2 (09:57→21:20)
[2021-04-14] MEDS: PANTOPRAZOLE 40 MG TABLET PO SCH (09:57)
[2021-04-14] MEDS: THIAMINE HCL 100 MG TABLET (FP) PO SCH (21:19)
[2021-04-14] MEDS: MELATONIN 5 MG TABLETS PO SCH (21:20)
[2021-04-15] MEDS: METHOCARBAMOL 500 MG TABLET PO SCH ×3 (06:34→21:04)
[2021-04-15] MEDS: PANTOPRAZOLE 40 MG TABLET PO SCH (10:42)
[2021-04-15] MEDS: PRENATAL VITAMINS W/ FOLIC ACID TABLET (FP) PO SCH (10:42)
[2021-04-15] MEDS: CALCIUM CARBONATE 650 MG TABLET PO SCH ×2 (10:42→21:04)
[2021-04-15] MEDS: ACETAMINOPHEN 325 MG TABLET (FP) PO PRN (10:43)
[2021-04-15] MEDS: TETRAHYDROZOLINE HCL EYE DROPS OU PRN ×2 (10:44→14:11)
[2021-04-15] MEDS: NICOTINE 7 MG/24 HOURS TOPICAL PATCH TD SCH (10:45)
[2021-04-15] MEDS: IBUPROFEN 400 MG TABLET (FP) PO PRN ×2 (14:09→21:05)
[2021-04-15] MEDS: MELATONIN 5 MG TABLETS PO SCH (21:04)
[2021-04-15] MEDS: THIAMINE HCL 100 MG TABLET (FP) PO SCH (21:04)
[2021-04-16] MEDS: METHOCARBAMOL 500 MG TABLET PO SCH ×3 (06:44→21:52)
[2021-04-16] MEDS: TETRAHYDROZOLINE HCL EYE DROPS OU PRN ×2 (06:46→21:53)
[2021-04-16] MEDS: PANTOPRAZOLE 40 MG TABLET PO SCH (10:20)
[2021-04-16] MEDS: CALCIUM CARBONATE 650 MG TABLET PO SCH ×2 (10:20→21:52)
[2021-04-16] MEDS: PRENATAL VITAMINS W/ FOLIC ACID TABLET (FP) PO SCH (10:20)
[2021-04-16] MEDS: NICOTINE 7 MG/24 HOURS TOPICAL PATCH TD SCH (10:26)
[2021-04-16] MEDS: MELATONIN 5 MG TABLETS PO SCH (21:52)
[2021-04-16] MEDS: THIAMINE HCL 100 MG TABLET (FP) PO SCH (21:52)
[2021-04-17] MEDS: METHOCARBAMOL 500 MG TABLET PO SCH ×3 (07:09→21:50)
[2021-04-17] MEDS: ACETAMINOPHEN 325 MG TABLET (FP) PO PRN ×2 (08:31→23:15)
[2021-04-17] MEDS: PANTOPRAZOLE 40 MG TABLET PO SCH (10:32)
[2021-04-17] MEDS: PRENATAL VITAMINS W/ FOLIC ACID TABLET (FP) PO SCH (10:33)
[2021-04-17] MEDS: NICOTINE 7 MG/24 HOURS TOPICAL PATCH TD SCH (10:33)
[2021-04-17] MEDS: CALCIUM CARBONATE 650 MG TABLET PO SCH ×2 (10:33→21:50)
[2021-04-17] MEDS: TETRAHYDROZOLINE HCL EYE DROPS OU PRN (10:33)
[2021-04-17] MEDS: MELATONIN 5 MG TABLETS PO SCH (21:50)
[2021-04-17] MEDS: THIAMINE HCL 100 MG TABLET (FP) PO SCH (21:50)
[2021-04-17] MEDS: IBUPROFEN 400 MG TABLET (FP) PO PRN (21:50)
[2021-04-18] MEDS: IBUPROFEN 400 MG TABLET (FP) PO PRN ×3 (06:49→21:40)
[2021-04-18] MEDS: METHOCARBAMOL 500 MG TABLET PO SCH ×3 (06:49→21:39)
[2021-04-18] MEDS: PANTOPRAZOLE 40 MG TABLET PO SCH (10:06)
[2021-04-18] MEDS: CALCIUM CARBONATE 650 MG TABLET PO SCH ×2 (10:06→21:40)
[2021-04-18] MEDS: PRENATAL VITAMINS W/ FOLIC ACID TABLET (FP) PO SCH (10:06)
[2021-04-18] MEDS: NICOTINE 7 MG/24 HOURS TOPICAL PATCH TD SCH (10:07)
[2021-04-18] MEDS: TETRAHYDROZOLINE HCL EYE DROPS OU PRN (10:08)
[2021-04-18] MEDS: MELATONIN 5 MG TABLETS PO SCH (21:39)
[2021-04-18] MEDS: THIAMINE HCL 100 MG TABLET (FP) PO SCH (21:40)
[2021-04-19] MEDS: METHOCARBAMOL 500 MG TABLET PO SCH ×3 (06:19→21:10)
[2021-04-19] MEDS: IBUPROFEN 400 MG TABLET (FP) PO PRN ×2 (06:19→14:48)
[2021-04-19] MEDS: NICOTINE 7 MG/24 HOURS TOPICAL PATCH TD SCH (10:16)
[2021-04-19] MEDS: PANTOPRAZOLE 40 MG TABLET PO SCH (10:18)
[2021-04-19] MEDS: ACETAMINOPHEN 325 MG TABLET (FP) PO PRN (10:18)
[2021-04-19] MEDS: PRENATAL VITAMINS W/ FOLIC ACID TABLET (FP) PO SCH (10:19)
[2021-04-19] MEDS: CALCIUM CARBONATE 650 MG TABLET PO SCH ×2 (10:19→21:10)
[2021-04-19] MEDS: TETRAHYDROZOLINE HCL EYE DROPS OU PRN ×2 (10:20→14:47)
[2021-04-19] MEDS: THIAMINE HCL 100 MG TABLET (FP) PO SCH (21:09)
[2021-04-19] MEDS: MELATONIN 5 MG TABLETS PO SCH (21:09)
[2021-04-20] MEDS: METHOCARBAMOL 500 MG TABLET PO SCH ×3 (06:53→21:34)
[2021-04-20] MEDS: IBUPROFEN 400 MG TABLET (FP) PO PRN (06:53)
[2021-04-20] MEDS: CALCIUM CARBONATE 650 MG TABLET PO SCH ×2 (10:06→21:34)
[2021-04-20] MEDS: PRENATAL VITAMINS W/ FOLIC ACID TABLET (FP) PO SCH (10:06)
[2021-04-20] MEDS: PANTOPRAZOLE 40 MG TABLET PO SCH (10:06)
[2021-04-20] MEDS: NICOTINE 7 MG/24 HOURS TOPICAL PATCH TD SCH (10:08)
[2021-04-20] MEDS: THIAMINE HCL 100 MG TABLET (FP) PO SCH (21:34)
[2021-04-20] MEDS: MELATONIN 5 MG TABLETS PO SCH (21:34)
[2021-04-21] MEDS: METHOCARBAMOL 500 MG TABLET PO SCH ×3 (06:46→21:08)
[2021-04-21] MEDS: IBUPROFEN 400 MG TABLET (FP) PO PRN (06:46)
[2021-04-21] MEDS: PANTOPRAZOLE 40 MG TABLET PO SCH (10:36)
[2021-04-21] MEDS: PRENATAL VITAMINS W/ FOLIC ACID TABLET (FP) PO SCH (10:36)
[2021-04-21] MEDS: CALCIUM CARBONATE 650 MG TABLET PO SCH ×2 (10:36→21:08)
[2021-04-21] MEDS: NICOTINE 7 MG/24 HOURS TOPICAL PATCH TD SCH (10:36)
[2021-04-21] MEDS: TETRAHYDROZOLINE HCL EYE DROPS OU PRN (10:37)
[2021-04-21] MEDS: MELATONIN 5 MG TABLETS PO SCH (21:08)
[2021-04-21] MEDS: THIAMINE HCL 100 MG TABLET (FP) PO SCH (21:08)
[2021-04-22] MEDS: METHOCARBAMOL 500 MG TABLET PO SCH ×3 (06:49→21:41)
[2021-04-22] MEDS: IBUPROFEN 400 MG TABLET (FP) PO PRN ×2 (06:49→21:42)
[2021-04-22] MEDS: CALCIUM CARBONATE 650 MG TABLET PO SCH ×2 (10:59→21:42)
[2021-04-22] MEDS: PRENATAL VITAMINS W/ FOLIC ACID TABLET (FP) PO SCH (10:59)
[2021-04-22] MEDS: PANTOPRAZOLE 40 MG TABLET PO SCH (10:59)
[2021-04-22] MEDS: NICOTINE 7 MG/24 HOURS TOPICAL PATCH TD SCH (11:00)
[2021-04-22] MEDS: TETRAHYDROZOLINE HCL EYE DROPS OU PRN (11:01)
[2021-04-22] MEDS: THIAMINE HCL 100 MG TABLET (FP) PO SCH (21:41)
[2021-04-22] MEDS: MELATONIN 5 MG TABLETS PO SCH (21:42)
[2021-04-23] MEDS: METHOCARBAMOL 500 MG TABLET PO SCH (06:37)
[2021-04-23] MEDS: CALCIUM CARBONATE 650 MG TABLET PO SCH ×2 (09:36→21:11)
[2021-04-23] MEDS: PRENATAL VITAMINS W/ FOLIC ACID TABLET (FP) PO SCH (09:36)
[2021-04-23] MEDS: PANTOPRAZOLE 40 MG TABLET PO SCH (09:36)
[2021-04-23] MEDS: TETRAHYDROZOLINE HCL EYE DROPS OU PRN ×2 (09:37→21:12)
[2021-04-23] MEDS: NICOTINE 7 MG/24 HOURS TOPICAL PATCH TD SCH (09:37)
[2021-04-23] MEDS: METHOCARBAMOL 750 MG TABLET PO SCH ×2 (14:46→21:11)
[2021-04-23] MEDS: THIAMINE HCL 100 MG TABLET (FP) PO SCH (21:11)
[2021-04-23] MEDS: MELATONIN 5 MG TABLETS PO SCH (21:11)
[2021-04-24] MEDS: METHOCARBAMOL 750 MG TABLET PO SCH ×3 (06:33→22:20)
[2021-04-24] MEDS: NICOTINE 7 MG/24 HOURS TOPICAL PATCH TD SCH (10:05)
[2021-04-24] MEDS: PANTOPRAZOLE 40 MG TABLET PO SCH (10:05)
[2021-04-24] MEDS: CALCIUM CARBONATE 650 MG TABLET PO SCH ×2 (10:05→22:20)
[2021-04-24] MEDS: PRENATAL VITAMINS W/ FOLIC ACID TABLET (FP) PO SCH (10:05)
[2021-04-24] MEDS: TETRAHYDROZOLINE HCL EYE DROPS OU PRN (13:55)
[2021-04-24] MEDS: THIAMINE HCL 100 MG TABLET (FP) PO SCH (22:20)
[2021-04-24] MEDS: MELATONIN 5 MG TABLETS PO SCH (22:20)
[2021-04-25] MEDS: METHOCARBAMOL 750 MG TABLET PO SCH ×3 (06:26→21:04)
[2021-04-25] MEDS: CALCIUM CARBONATE 650 MG TABLET PO SCH ×2 (10:22→21:04)
[2021-04-25] MEDS: NICOTINE 7 MG/24 HOURS TOPICAL PATCH TD SCH (10:22)
[2021-04-25] MEDS: PANTOPRAZOLE 40 MG TABLET PO SCH (10:22)
[2021-04-25] MEDS: PRENATAL VITAMINS W/ FOLIC ACID TABLET (FP) PO SCH (10:22)
[2021-04-25] MEDS: TETRAHYDROZOLINE HCL EYE DROPS OU PRN ×2 (10:23→14:27)
[2021-04-25] MEDS: THIAMINE HCL 100 MG TABLET (FP) PO SCH (21:04)
[2021-04-25] MEDS: MELATONIN 5 MG TABLETS PO SCH (21:04)
[2021-04-26] MEDS: METHOCARBAMOL 750 MG TABLET PO SCH ×3 (06:27→21:52)
[2021-04-26] MEDS: PANTOPRAZOLE 40 MG TABLET PO SCH (10:33)
[2021-04-26] MEDS: PRENATAL VITAMINS W/ FOLIC ACID TABLET (FP) PO SCH (10:33)
[2021-04-26] MEDS: NICOTINE 7 MG/24 HOURS TOPICAL PATCH TD SCH (10:34)
[2021-04-26] MEDS: CALCIUM CARBONATE 650 MG TABLET PO SCH ×2 (10:34→21:53)
[2021-04-26] MEDS: TETRAHYDROZOLINE HCL EYE DROPS OU PRN (10:36)
[2021-04-26] MEDS: THIAMINE HCL 100 MG TABLET (FP) PO SCH (21:52)
[2021-04-26] MEDS: MELATONIN 5 MG TABLETS PO SCH (21:52)
[2021-04-27] MEDS: METHOCARBAMOL 750 MG TABLET PO SCH ×3 (06:36→21:23)
[2021-04-27] MEDS: PANTOPRAZOLE 40 MG TABLET PO SCH (09:52)
[2021-04-27] MEDS: PRENATAL VITAMINS W/ FOLIC ACID TABLET (FP) PO SCH (09:52)
[2021-04-27] MEDS: CALCIUM CARBONATE 650 MG TABLET PO SCH ×2 (09:52→21:23)
[2021-04-27] MEDS: NICOTINE 7 MG/24 HOURS TOPICAL PATCH TD SCH (09:52)
[2021-04-27] MEDS: MELATONIN 5 MG TABLETS PO SCH (21:23)
[2021-04-27] MEDS: THIAMINE HCL 100 MG TABLET (FP) PO SCH (21:23)
[2021-04-28] MEDS: METHOCARBAMOL 750 MG TABLET PO SCH ×3 (06:48→21:01)
[2021-04-28] MEDS: PANTOPRAZOLE 40 MG TABLET PO SCH (10:19)
[2021-04-28] MEDS: NICOTINE 7 MG/24 HOURS TOPICAL PATCH TD SCH (10:19)
[2021-04-28] MEDS: PRENATAL VITAMINS W/ FOLIC ACID TABLET (FP) PO SCH (10:19)
[2021-04-28] MEDS: CALCIUM CARBONATE 650 MG TABLET PO SCH ×2 (10:20→21:01)
[2021-04-28] MEDS ORDERED: IBUPROFEN 600 MG TABLET (FP) PO PRN (10:55)
[2021-04-28] MEDS: LIDOCAINE 5% TOPICAL PATCH TP SCH (14:13)
[2021-04-28] MEDS: TETRAHYDROZOLINE HCL EYE DROPS OU PRN (14:14)
[2021-04-28] MEDS: LIDOCAINE PATCH REMOVAL MC SCH (21:01)
[2021-04-28] MEDS: THIAMINE HCL 100 MG TABLET (FP) PO SCH (21:01)
[2021-04-28] MEDS: MELATONIN 5 MG TABLETS PO SCH (21:01)
[2021-04-29] MEDS: METHOCARBAMOL 750 MG TABLET PO SCH ×3 (06:39→21:28)
[2021-04-29] MEDS: LIDOCAINE 5% TOPICAL PATCH TP SCH (10:14)
[2021-04-29] MEDS: CALCIUM CARBONATE 650 MG TABLET PO SCH ×2 (10:14→21:28)
[2021-04-29] MEDS: NICOTINE 7 MG/24 HOURS TOPICAL PATCH TD SCH (10:14)
[2021-04-29] MEDS: PANTOPRAZOLE 40 MG TABLET PO SCH (10:14)
[2021-04-29] MEDS: PRENATAL VITAMINS W/ FOLIC ACID TABLET (FP) PO SCH (10:14)
[2021-04-29] MEDS: TETRAHYDROZOLINE HCL EYE DROPS OU PRN ×2 (10:15→14:56)
[2021-04-29] MEDS: LIDOCAINE PATCH REMOVAL MC SCH (21:28)
[2021-04-29] MEDS: MELATONIN 5 MG TABLETS PO SCH (21:28)
[2021-04-29] MEDS: THIAMINE HCL 100 MG TABLET (FP) PO SCH (21:28)
[2021-04-30] MEDS: METHOCARBAMOL 750 MG TABLET PO SCH ×3 (06:38→21:04)
[2021-04-30] MEDS: PRENATAL VITAMINS W/ FOLIC ACID TABLET (FP) PO SCH (10:22)
[2021-04-30] MEDS: CALCIUM CARBONATE 650 MG TABLET PO SCH ×2 (10:22→21:05)
[2021-04-30] MEDS: LIDOCAINE 5% TOPICAL PATCH TP SCH (10:22)
[2021-04-30] MEDS: PANTOPRAZOLE 40 MG TABLET PO SCH (10:22)
[2021-04-30] MEDS: NICOTINE 7 MG/24 HOURS TOPICAL PATCH TD SCH (10:22)
[2021-04-30] MEDS: MELATONIN 5 MG TABLETS PO SCH (21:04)
[2021-04-30] MEDS: THIAMINE HCL 100 MG TABLET (FP) PO SCH (21:04)
[2021-04-30] MEDS: LIDOCAINE PATCH REMOVAL MC SCH (21:05)
[2021-04-30] MEDS: TETRAHYDROZOLINE HCL EYE DROPS OU PRN (21:05)
[2021-05-01] MEDS: METHOCARBAMOL 750 MG TABLET PO SCH ×3 (06:17→21:40)
[2021-05-01] MEDS: PANTOPRAZOLE 40 MG TABLET PO SCH (10:28)
[2021-05-01] MEDS: LIDOCAINE 5% TOPICAL PATCH TP SCH (10:28)
[2021-05-01] MEDS: CALCIUM CARBONATE 650 MG TABLET PO SCH ×2 (10:28→21:41)
[2021-05-01] MEDS: PRENATAL VITAMINS W/ FOLIC ACID TABLET (FP) PO SCH (10:28)
[2021-05-01] MEDS: TETRAHYDROZOLINE HCL EYE DROPS OU PRN (10:29)
[2021-05-01] MEDS: NICOTINE 7 MG/24 HOURS TOPICAL PATCH TD SCH (10:29)
[2021-05-01] MEDS: MELATONIN 5 MG TABLETS PO SCH (21:41)
[2021-05-01] MEDS: LIDOCAINE PATCH REMOVAL MC SCH (21:41)
[2021-05-01] MEDS: THIAMINE HCL 100 MG TABLET (FP) PO SCH (21:41)
[2021-05-02] MEDS: METHOCARBAMOL 750 MG TABLET PO SCH ×3 (06:36→21:09)
[2021-05-02] MEDS: TETRAHYDROZOLINE HCL EYE DROPS OU PRN (10:10)
[2021-05-02] MEDS: PRENATAL VITAMINS W/ FOLIC ACID TABLET (FP) PO SCH (10:11)
[2021-05-02] MEDS: NICOTINE 7 MG/24 HOURS TOPICAL PATCH TD SCH (10:11)
[2021-05-02] MEDS: LIDOCAINE 5% TOPICAL PATCH TP SCH (10:11)
[2021-05-02] MEDS: CALCIUM CARBONATE 650 MG TABLET PO SCH ×2 (10:11→21:10)
[2021-05-02] MEDS: PANTOPRAZOLE 40 MG TABLET PO SCH (10:11)
[2021-05-02] MEDS: MELATONIN 5 MG TABLETS PO SCH (21:09)
[2021-05-02] MEDS: LIDOCAINE PATCH REMOVAL MC SCH (21:10)
[2021-05-02] MEDS: THIAMINE HCL 100 MG TABLET (FP) PO SCH (21:10)
[2021-05-03] MEDS: METHOCARBAMOL 750 MG TABLET PO SCH ×3 (06:36→21:39)
[2021-05-03] MEDS: LIDOCAINE 5% TOPICAL PATCH TP SCH (10:30)
[2021-05-03] MEDS: CALCIUM CARBONATE 650 MG TABLET PO SCH ×2 (10:30→21:39)
[2021-05-03] MEDS: NICOTINE 7 MG/24 HOURS TOPICAL PATCH TD SCH (10:31)
[2021-05-03] MEDS: PRENATAL VITAMINS W/ FOLIC ACID TABLET (FP) PO SCH (10:31)
[2021-05-03] MEDS: PANTOPRAZOLE 40 MG TABLET PO SCH (10:31)
[2021-05-03] MEDS: TETRAHYDROZOLINE HCL EYE DROPS OU PRN ×2 (10:32→21:40)
[2021-05-03] MEDS: LIDOCAINE PATCH REMOVAL MC SCH (21:39)
[2021-05-03] MEDS: MELATONIN 5 MG TABLETS PO SCH (21:39)
[2021-05-03] MEDS: THIAMINE HCL 100 MG TABLET (FP) PO SCH (21:39)
[2021-05-04] MEDS: METHOCARBAMOL 750 MG TABLET PO SCH ×3 (06:40→21:03)
[2021-05-04] MEDS: PRENATAL VITAMINS W/ FOLIC ACID TABLET (FP) PO SCH (10:17)
[2021-05-04] MEDS: NICOTINE 7 MG/24 HOURS TOPICAL PATCH TD SCH (10:17)
[2021-05-04] MEDS: LIDOCAINE 5% TOPICAL PATCH TP SCH (10:17)
[2021-05-04] MEDS: PANTOPRAZOLE 40 MG TABLET PO SCH (10:17)
[2021-05-04] MEDS: CALCIUM CARBONATE 650 MG TABLET PO SCH ×2 (10:18→21:03)
[2021-05-04] MEDS: TETRAHYDROZOLINE HCL EYE DROPS OU PRN (10:19)
[2021-05-04] MEDS: MELATONIN 5 MG TABLETS PO SCH (21:03)
[2021-05-04] MEDS: THIAMINE HCL 100 MG TABLET (FP) PO SCH (21:03)
[2021-05-04] MEDS: LIDOCAINE PATCH REMOVAL MC SCH (21:04)
[2021-05-05] MEDS: METHOCARBAMOL 750 MG TABLET PO SCH ×3 (06:19→22:50)
[2021-05-05] MEDS: CALCIUM CARBONATE 650 MG TABLET PO SCH ×2 (09:13→22:50)
[2021-05-05] MEDS: PANTOPRAZOLE 40 MG TABLET PO SCH (09:13)
[2021-05-05] MEDS: LIDOCAINE 5% TOPICAL PATCH TP SCH (09:14)
[2021-05-05] MEDS: PRENATAL VITAMINS W/ FOLIC ACID TABLET (FP) PO SCH (09:14)
[2021-05-05] MEDS: NICOTINE 7 MG/24 HOURS TOPICAL PATCH TD SCH (09:14)
[2021-05-05] MEDS: TETRAHYDROZOLINE HCL EYE DROPS OU PRN (09:14)
[2021-05-05] MEDS ORDERED: PT OWN MED DRAWER 7, Y5N ONE ×2 (18:36→21:34)
[2021-05-05] MEDS: THIAMINE HCL 100 MG TABLET (FP) PO SCH (21:32)
[2021-05-05] MEDS: MELATONIN 5 MG TABLETS PO SCH (21:32)
[2021-05-05] MEDS: LIDOCAINE PATCH REMOVAL MC SCH (21:35)
[2021-05-06] MEDS: METHOCARBAMOL 750 MG TABLET PO SCH (06:14)
[2021-05-06 06:49] VITALS: BP 108/76; PULSE 78; TEMP 96.9
[2021-05-06] MEDS: LIDOCAINE 5% TOPICAL PATCH TP SCH (09:31)
[2021-05-06] MEDS: PANTOPRAZOLE 40 MG TABLET PO SCH (09:31)
[2021-05-06] MEDS: PRENATAL VITAMINS W/ FOLIC ACID TABLET (FP) PO SCH (09:32)
[2021-05-06] MEDS: NICOTINE 7 MG/24 HOURS TOPICAL PATCH TD SCH (09:33)
== END 2021-05-06 10:18 | disposition home or self-care (01) | DRG 772 ==
LOC: YASAS 14:48 → Y3W 14:49
PROVIDERS: ADMIT Allergy & Immunology; ATTEND Allergy & Immunology
PROC: HZ42ZZZ Group Counseling for Substance Abuse Treatment, Cognitive-Behavioral (ICD-10-PCS; principal; 2021-04-07)
DX: F14.20 Cocaine dependence, uncomplicated (principal); F17.210 Nicotine dependence, cigarettes, uncomplicated; F19.24 Other psychoactive substance dependence with psychoactive substance-induced mood disorder; F43.10 Post-traumatic stress disorder, unspecified; F41.9 Anxiety disorder, unspecified; I10 Essential (primary) hypertension; H40.9 Unspecified glaucoma; K40.20 Bilateral inguinal hernia, without obstruction or gangrene, not specified as recurrent; K21.9 Gastro-esophageal reflux disease without esophagitis; K44.9 Diaphragmatic hernia without obstruction or gangrene; Z98.890 Other specified postprocedural states; W07.XXXA Fall from chair, initial encounter; Y93.89 Activity, other specified; Y92.238 Other place in hospital as the place of occurrence of the external cause; Z86.2 Personal history of diseases of the blood and blood-forming organs and certain disorders involving the immune mechanism; Z88.0 Allergy status to penicillin
CPT/HCPCS: 81003; 82962; C9803; U0003; U0005

== ENCOUNTER 2021-07-29 09:04 | Inpatient (IN) | payer OTHER ==
[2021-07-29 12:33] VITALS: BMI 23.6
[2021-07-29] MEDS ORDERED: BISMUTH SUBSALICYLATE 524 MG/30 ML PO PRN (13:38)
[2021-07-29] MEDS ORDERED: ACETAMINOPHEN 325 MG TABLET (FP) PO PRN ×2 (13:38)
[2021-07-29] MEDS ORDERED: MAGNESIUM HYDROX 2400MG/30ML ORAL SUSPENSION 30 ML CUP PO PRN (13:38)
[2021-07-29] MEDS ORDERED: MAGNESIUM CITRATE 300 ML BOTTLE PO PRN (13:38)
[2021-07-29] MEDS ORDERED: hydrOXYzine PAMOATE 25 MG CAPSULE (FP) PO PRN (13:38)
[2021-07-29] MEDS ORDERED: MAG HYDROX/AL HYDROX/SIMETH 30 ML UNIT-DOSE CUP PO PRN (13:38)
[2021-07-29] MEDS ORDERED: IBUPROFEN 400 MG TABLET (FP) PO PRN (13:38)
[2021-07-29] MEDS ORDERED: NICOTINE 10 MG CARTRIDGE (INHALER) IH PRN (13:38)
[2021-07-29] MEDS ORDERED: MENTHOL/PHENOL 1 EACH UD MM PRN (13:38)
[2021-07-29] MEDS: ONDANSETRON *ODT* 4 MG TABLET SL PRN ×2 (14:36→22:53)
[2021-07-29 16:46] LABS: HEMATOCRIT 39.6 % (35.4-49); HEMOGLOBIN 13.9 GM/dL (11.7-16.9); MCH 33.6 pg (25.7-33.7); MCHC 35.2 g/dl (32.0-35.9); MEAN CELL VOLUME 95.4 fl (80-96); MEAN PLT VOLUME 6.8 fl (7.5-11.1); PLATELET COUNT 273 10^3/uL (134-434); RBC 4.15 M/mm3 (4.00-5.60); RDW 14.4 % (11.9-15.9); WHITE BLOOD COUNT 3.6 K/mm3 (4.0-10.0)
[2021-07-29 16:47] LABS: MAGNESIUM 2.1 mg/dL (1.8-2.4)
[2021-07-29 16:50] LABS: PHOSPHOROUS 3.1 mg/dL (2.5-4.9)
[2021-07-29 16:51] LABS: INR 0.95 (0.83-1.09); PROTHROMBIN TIME (PATIENT) 11.5 SEC (9.7-13.0)
[2021-07-29 16:59] LABS: CALCIUM 9.4 mg/dL (8.5-10.1)
[2021-07-29 17:00] LABS: ALBUMIN 4.4 g/dl (3.4-5.0); BLOOD UREA NITROGEN 11.8 mg/dL (7-18)
[2021-07-29 17:03] LABS: CREATININE 0.8 mg/dL (0.55-1.3)
[2021-07-29 17:06] LABS: BILIRUBIN,TOTAL 0.8 mg/dL (0.2-1); TOT PROT 8.1 g/dl (6.4-8.2)
[2021-07-29] MEDS: LORazepam 2 MG TABLET PO SCH ×2 (18:29→22:54)
[2021-07-29] MEDS: METHOCARBAMOL 500 MG TABLET PO PRN (18:31)
[2021-07-29] MEDS: MELATONIN 5 MG TABLETS PO SCH (22:53)
[2021-07-29] MEDS: THIAMINE HCL 100 MG TABLET (FP) PO SCH (22:54)
[2021-07-30] MEDS: LORazepam 2 MG TABLET PO SCH ×4 (05:55→22:42)
[2021-07-30] MEDS: PRENATAL VITAMINS W/ FOLIC ACID TABLET (FP) PO SCH (10:19)
[2021-07-30] MEDS ORDERED: TRIMETHOBENZAMIDE HCL 200MG/2ML INJ IM ONE (18:05)
[2021-07-30] MEDS: THIAMINE HCL 100 MG TABLET (FP) PO SCH (22:42)
[2021-07-30] MEDS: MELATONIN 5 MG TABLETS PO SCH (22:42)
[2021-07-31] MEDS: LORazepam 1 MG TABLET PO SCH ×4 (06:03→22:28)
[2021-07-31] MEDS: METHOCARBAMOL 500 MG TABLET PO PRN (06:04)
[2021-07-31] MEDS: PRENATAL VITAMINS W/ FOLIC ACID TABLET (FP) PO SCH (10:41)
[2021-07-31] MEDS: MELATONIN 5 MG TABLETS PO SCH (22:28)
[2021-07-31] MEDS: THIAMINE HCL 100 MG TABLET (FP) PO SCH (22:28)
[2021-08-01] MEDS ORDERED: LORazepam 0.5 MG TABLET PO PRN
[2021-08-01] MEDS: LORazepam 0.5 MG TABLET PO SCH ×4 (05:47→22:22)
[2021-08-01] MEDS: PRENATAL VITAMINS W/ FOLIC ACID TABLET (FP) PO SCH (10:46)
[2021-08-01] MEDS: MELATONIN 5 MG TABLETS PO SCH (22:22)
[2021-08-01] MEDS: THIAMINE HCL 100 MG TABLET (FP) PO SCH (22:22)
[2021-08-02] MEDS ORDERED: LORazepam 0.5 MG TABLET PO ONE (05:00)
[2021-08-02 09:39] VITALS: BP 125/62; PULSE 88; TEMP 98.2
[2021-08-02] MEDS: PRENATAL VITAMINS W/ FOLIC ACID TABLET (FP) PO SCH (11:39)
== END 2021-08-02 11:44 | disposition home or self-care (01) | DRG 775 ==
LOC: YASAS 09:04 → Y6N 15:18
PROVIDERS: ADMIT Allergy & Immunology; ATTEND Allergy & Immunology
PROC: HZ2ZZZZ Detoxification Services for Substance Abuse Treatment (ICD-10-PCS; principal; 2021-07-29)
DX: F10.230 Alcohol dependence with withdrawal, uncomplicated (principal); F17.210 Nicotine dependence, cigarettes, uncomplicated; I10 Essential (primary) hypertension; K21.9 Gastro-esophageal reflux disease without esophagitis; Z86.2 Personal history of diseases of the blood and blood-forming organs and certain disorders involving the immune mechanism; Z86.59 Personal history of other mental and behavioral disorders; Z88.0 Allergy status to penicillin; Z91.018 Allergy to other foods
CPT/HCPCS: 36415; 80053; 83735; 84100; 85027; 85610; 86780; C9803; Q0162; U0003; U0005

== ENCOUNTER 2021-08-29 12:41 | Inpatient (IN) | payer OTHER ==
[2021-08-29 14:54] VITALS: BMI 22.6
[2021-08-29] MEDS ORDERED: IBUPROFEN 400 MG TABLET (FP) PO PRN (20:42)
[2021-08-29] MEDS ORDERED: MAGNESIUM CITRATE 300 ML BOTTLE PO PRN (20:42)
[2021-08-29] MEDS ORDERED: MAGNESIUM HYDROX 2400MG/30ML ORAL SUSPENSION 30 ML CUP PO PRN (20:42)
[2021-08-29] MEDS ORDERED: LOPERAMIDE HCL 2 MG CAPSULE PO PRN (20:42)
[2021-08-29] MEDS ORDERED: guaiFENesin 200 MG/10 ML 10 ML UNIT-DOSE CUPS PO PRN (20:42)
[2021-08-29] MEDS ORDERED: P-EPHED 60MG/TRIPROLIDI 2.5MG TABLET PO PRN (20:42)
[2021-08-29] MEDS ORDERED: ACETAMINOPHEN 325 MG TABLET (FP) PO PRN (20:42)
[2021-08-29] MEDS: MELATONIN 5 MG TABLETS PO SCH (23:17)
[2021-08-29] MEDS: THIAMINE HCL 100 MG TABLET (FP) PO SCH (23:17)
[2021-08-30] MEDS: PRENATAL VITAMINS W/ FOLIC ACID TABLET (FP) PO SCH (10:03)
[2021-08-30 12:06] LABS: ALBUMIN 3.6 g/dl (3.4-5.0); CALCIUM 8.4 mg/dL (8.5-10.1)
[2021-08-30 12:07] LABS: BLOOD UREA NITROGEN 16.7 mg/dL (7-18)
[2021-08-30 12:11] LABS: CREATININE 0.8 mg/dL (0.55-1.3)
[2021-08-30 12:13] LABS: BILIRUBIN,TOTAL 0.5 mg/dL (0.2-1); TOT PROT 7.5 g/dl (6.4-8.2)
[2021-08-30 12:19] LABS: HEMATOCRIT 39.8 % (35.4-49); HEMOGLOBIN 13.9 GM/dL (11.7-16.9); MCH 34.2 pg (25.7-33.7); MEAN CELL VOLUME 97.5 fl (80-96); MEAN PLT VOLUME 6.5 fl (7.5-11.1); PLATELET COUNT 312 10^3/uL (134-434); RBC 4.08 M/mm3 (4.00-5.60); RDW 14.8 % (11.9-15.9); WHITE BLOOD COUNT 2.6 K/mm3 (4.0-10.0)
[2021-08-30] MEDS ORDERED: FLU VACC QS2021-22(6MOS UP)/PF 60 MCG/0.5 ML SYRINGE IM ONE (13:00)
[2021-08-30 17:46] LABS: URINE APPEARANCE CLEAR; URINE BILIRUBIN NEGATIVE (NEGATIVE); URINE COLOR YELLOW; URINE GLUCOSE (UA) NEGATIVE (NEGATIVE); URINE KETONE NEGATIVE (NEGATIVE); URINE LEUK ESTERASE NEGATIVE (NEGATIVE); URINE NITRITE NEGATIVE (NEGATIVE); URINE PROTEIN NEGATIVE (NEGATIVE); URINE UROBILINOGEN 0.2 mg/dL (0.2-1.0)
[2021-08-30] MEDS: THIAMINE HCL 100 MG TABLET (FP) PO SCH (21:59)
[2021-08-30] MEDS: MELATONIN 5 MG TABLETS PO SCH (21:59)
[2021-08-30] MEDS ORDERED: TOLNAFTATE 1% CREAM 15 GM TUBE TP SCH (22:00)
[2021-08-31] MEDS: PRENATAL VITAMINS W/ FOLIC ACID TABLET (FP) PO SCH (10:16)
[2021-08-31] MEDS: MELATONIN 5 MG TABLETS PO SCH (22:26)
[2021-08-31] MEDS: THIAMINE HCL 100 MG TABLET (FP) PO SCH (22:26)
[2021-09-01] MEDS: PRENATAL VITAMINS W/ FOLIC ACID TABLET (FP) PO SCH (09:58)
[2021-09-01] MEDS: THIAMINE HCL 100 MG TABLET (FP) PO SCH (21:44)
[2021-09-01] MEDS: MELATONIN 5 MG TABLETS PO SCH (21:44)
[2021-09-01] MEDS ORDERED: PT OWN MED DRAWER 7, Y5N ONE (21:44)
[2021-09-01] MEDS: TOLNAFTATE 1% CREAM 15 GM TUBE TP SCH (21:45)
[2021-09-02] MEDS: PRENATAL VITAMINS W/ FOLIC ACID TABLET (FP) PO SCH (09:53)
[2021-09-02] MEDS: TOLNAFTATE 1% CREAM 15 GM TUBE TP SCH ×2 (09:55→21:48)
[2021-09-02] MEDS: MAG HYDROX/AL HYDROX/SIMETH 30 ML UNIT-DOSE CUP PO PRN (18:59)
[2021-09-02] MEDS: THIAMINE HCL 100 MG TABLET (FP) PO SCH (21:47)
[2021-09-02] MEDS: MELATONIN 5 MG TABLETS PO SCH (21:47)
[2021-09-03] MEDS: PRENATAL VITAMINS W/ FOLIC ACID TABLET (FP) PO SCH (09:26)
[2021-09-03] MEDS: TOLNAFTATE 1% CREAM 15 GM TUBE TP SCH ×2 (09:26→21:35)
[2021-09-03] MEDS ORDERED: PT OWN MED DRAWER 7, Y5N ONE ×2 (21:34→22:05)
[2021-09-03] MEDS: ARTIFICIAL TEARS (POLYVINYL ALCOHOL) OPTH DROPS OU PRN (21:34)
[2021-09-03] MEDS: MELATONIN 5 MG TABLETS PO SCH (21:35)
[2021-09-03] MEDS: THIAMINE HCL 100 MG TABLET (FP) PO SCH (21:35)
[2021-09-04] MEDS: MAG HYDROX/AL HYDROX/SIMETH 30 ML UNIT-DOSE CUP PO PRN (00:35)
[2021-09-04] MEDS: ARTIFICIAL TEARS (POLYVINYL ALCOHOL) OPTH DROPS OU PRN ×2 (09:49→22:16)
[2021-09-04] MEDS: PRENATAL VITAMINS W/ FOLIC ACID TABLET (FP) PO SCH (09:49)
[2021-09-04] MEDS: TOLNAFTATE 1% CREAM 15 GM TUBE TP SCH ×2 (09:50→22:15)
[2021-09-04] MEDS: MELATONIN 5 MG TABLETS PO SCH (22:13)
[2021-09-04] MEDS: THIAMINE HCL 100 MG TABLET (FP) PO SCH (22:13)
[2021-09-04] MEDS ORDERED: PT OWN MED DRAWER 7, Y5N ONE (22:16)
[2021-09-05] MEDS: TOLNAFTATE 1% CREAM 15 GM TUBE TP SCH ×2 (09:42→22:53)
[2021-09-05] MEDS: ARTIFICIAL TEARS (POLYVINYL ALCOHOL) OPTH DROPS OU PRN (09:42)
[2021-09-05] MEDS: PRENATAL VITAMINS W/ FOLIC ACID TABLET (FP) PO SCH (09:42)
[2021-09-05] MEDS ORDERED: PT OWN MED DRAWER 7, Y5N ONE ×2 (19:19→22:21)
[2021-09-05] MEDS: MELATONIN 5 MG TABLETS PO SCH (22:53)
[2021-09-05] MEDS: THIAMINE HCL 100 MG TABLET (FP) PO SCH (22:53)
[2021-09-06] MEDS: PRENATAL VITAMINS W/ FOLIC ACID TABLET (FP) PO SCH (09:56)
[2021-09-06] MEDS: TOLNAFTATE 1% CREAM 15 GM TUBE TP SCH ×2 (09:57→21:27)
[2021-09-06] MEDS ORDERED: PT OWN MED DRAWER 7, Y5N ONE (09:57)
[2021-09-06] MEDS: ARTIFICIAL TEARS (POLYVINYL ALCOHOL) OPTH DROPS OU PRN (09:57)
[2021-09-06] MEDS: MELATONIN 5 MG TABLETS PO SCH (21:25)
[2021-09-06] MEDS: THIAMINE HCL 100 MG TABLET (FP) PO SCH (21:25)
[2021-09-07] MEDS: PRENATAL VITAMINS W/ FOLIC ACID TABLET (FP) PO SCH (10:03)
[2021-09-07] MEDS: TOLNAFTATE 1% CREAM 15 GM TUBE TP SCH ×2 (10:04→22:01)
[2021-09-07] MEDS ORDERED: PT OWN MED DRAWER 7, Y5N ONE ×2 (10:05→19:40)
[2021-09-07] MEDS: ARTIFICIAL TEARS (POLYVINYL ALCOHOL) OPTH DROPS OU PRN ×2 (10:05→22:01)
[2021-09-07] MEDS: MELATONIN 5 MG TABLETS PO SCH (22:01)
[2021-09-07] MEDS: THIAMINE HCL 100 MG TABLET (FP) PO SCH (22:01)
[2021-09-08] MEDS: ARTIFICIAL TEARS (POLYVINYL ALCOHOL) OPTH DROPS OU PRN ×2 (09:40→21:57)
[2021-09-08] MEDS: TOLNAFTATE 1% CREAM 15 GM TUBE TP SCH ×2 (09:40→21:56)
[2021-09-08] MEDS: PRENATAL VITAMINS W/ FOLIC ACID TABLET (FP) PO SCH (09:40)
[2021-09-08] MEDS: MELATONIN 5 MG TABLETS PO SCH (21:55)
[2021-09-08] MEDS: THIAMINE HCL 100 MG TABLET (FP) PO SCH (21:55)
[2021-09-08] MEDS ORDERED: PT OWN MED DRAWER 7, Y5N ONE (21:57)
[2021-09-09] MEDS: PRENATAL VITAMINS W/ FOLIC ACID TABLET (FP) PO SCH (09:46)
[2021-09-09] MEDS: TOLNAFTATE 1% CREAM 15 GM TUBE TP SCH ×2 (09:48→21:51)
[2021-09-09] MEDS: ARTIFICIAL TEARS (POLYVINYL ALCOHOL) OPTH DROPS OU PRN ×2 (09:50→21:49)
[2021-09-09] MEDS ORDERED: PT OWN MED DRAWER 7, Y5N ONE (19:48)
[2021-09-09] MEDS: MELATONIN 5 MG TABLETS PO SCH (21:50)
[2021-09-09] MEDS: THIAMINE HCL 100 MG TABLET (FP) PO SCH (21:50)
[2021-09-10] MEDS ORDERED: PT OWN MED DRAWER 7, Y5N ONE (09:02)
[2021-09-10] MEDS: TOLNAFTATE 1% CREAM 15 GM TUBE TP SCH ×2 (09:38→21:15)
[2021-09-10] MEDS: ARTIFICIAL TEARS (POLYVINYL ALCOHOL) OPTH DROPS OU PRN ×2 (09:38→21:16)
[2021-09-10] MEDS: PRENATAL VITAMINS W/ FOLIC ACID TABLET (FP) PO SCH (09:38)
[2021-09-10] MEDS: MELATONIN 5 MG TABLETS PO SCH (21:15)
[2021-09-10] MEDS: THIAMINE HCL 100 MG TABLET (FP) PO SCH (21:15)
[2021-09-11 06:24] VITALS: PULSE 86
[2021-09-11] MEDS: PRENATAL VITAMINS W/ FOLIC ACID TABLET (FP) PO SCH (09:34)
[2021-09-11] MEDS: ARTIFICIAL TEARS (POLYVINYL ALCOHOL) OPTH DROPS OU PRN ×2 (09:34→21:11)
[2021-09-11] MEDS: TOLNAFTATE 1% CREAM 15 GM TUBE TP SCH ×2 (09:38→21:11)
[2021-09-11] MEDS: THIAMINE HCL 100 MG TABLET (FP) PO SCH (21:08)
[2021-09-11] MEDS: MELATONIN 5 MG TABLETS PO SCH (21:08)
[2021-09-11] MEDS ORDERED: PT OWN MED DRAWER 7, Y5N ONE (21:11)
[2021-09-12] MEDS ORDERED: PT OWN MED DRAWER 7, Y5N ONE (08:54)
[2021-09-12] MEDS: PRENATAL VITAMINS W/ FOLIC ACID TABLET (FP) PO SCH (09:29)
[2021-09-12] MEDS: ARTIFICIAL TEARS (POLYVINYL ALCOHOL) OPTH DROPS OU PRN ×2 (09:29→21:37)
[2021-09-12] MEDS: TOLNAFTATE 1% CREAM 15 GM TUBE TP SCH ×2 (09:29→21:36)
[2021-09-12] MEDS: MELATONIN 5 MG TABLETS PO SCH (21:35)
[2021-09-12] MEDS: THIAMINE HCL 100 MG TABLET (FP) PO SCH (21:35)
[2021-09-13 07:04] VITALS: BP 121/80; TEMP 97.3
[2021-09-13] MEDS: PRENATAL VITAMINS W/ FOLIC ACID TABLET (FP) PO SCH (10:00)
[2021-09-13] MEDS: TOLNAFTATE 1% CREAM 15 GM TUBE TP SCH (10:01)
== END 2021-09-13 10:07 | disposition home or self-care (01) | DRG 772 ==
LOC: YASAS 12:41 → Y3E 20:53
PROVIDERS: ADMIT Allergy & Immunology; ATTEND Allergy & Immunology
PROC: HZ42ZZZ Group Counseling for Substance Abuse Treatment, Cognitive-Behavioral (ICD-10-PCS; principal; 2021-08-29)
DX: F11.20 Opioid dependence, uncomplicated (principal); F10.20 Alcohol dependence, uncomplicated; F14.20 Cocaine dependence, uncomplicated; F17.210 Nicotine dependence, cigarettes, uncomplicated; F31.9 Bipolar disorder, unspecified; F43.10 Post-traumatic stress disorder, unspecified; I10 Essential (primary) hypertension; D50.8 Other iron deficiency anemias; D72.819 Decreased white blood cell count, unspecified; Z98.890 Other specified postprocedural states; Z56.0 Unemployment, unspecified; Z88.0 Allergy status to penicillin; Z91.018 Allergy to other foods
CPT/HCPCS: 36415; 80053; 81003; 85027; 86780; 90686; C9803; G0008; U0003; U0005

== ENCOUNTER 2021-12-08 09:20 | Inpatient (IN) | payer OTHER ==
[2021-12-08] MEDS ORDERED: P-EPHED 60MG/TRIPROLIDI 2.5MG TABLET PO PRN (11:09)
[2021-12-08] MEDS ORDERED: MAGNESIUM CITRATE 300 ML BOTTLE PO PRN (11:09)
[2021-12-08] MEDS ORDERED: LOPERAMIDE HCL 2 MG CAPSULE PO PRN (11:09)
[2021-12-08] MEDS ORDERED: NICOTINE 10 MG CARTRIDGE (INHALER) IH PRN (11:09)
[2021-12-08] MEDS ORDERED: guaiFENesin 200 MG/10 ML 10 ML UNIT-DOSE CUPS PO PRN (11:09)
[2021-12-08] MEDS ORDERED: MAGNESIUM HYDROX 2400MG/30ML ORAL SUSPENSION 30 ML CUP PO PRN (11:09)
[2021-12-08] MEDS ORDERED: ACETAMINOPHEN 325 MG TABLET (FP) PO PRN (11:09)
[2021-12-08 11:19] VITALS: BMI 22.8
[2021-12-08] MEDS ORDERED: hydrOXYzine PAMOATE 25 MG CAPSULE (FP) PO SCH (14:00)
[2021-12-08] MEDS: PRENATAL VITAMINS W/ FOLIC ACID TABLET (FP) PO SCH (14:41)
[2021-12-08] MEDS: NICOTINE 7 MG/24 HOURS TOPICAL PATCH TD SCH (14:41)
[2021-12-08] MEDS ORDERED: hydrOXYzine PAMOATE 25 MG CAPSULE (FP) PO PRN (14:43)
[2021-12-08 15:07] LABS: HEMATOCRIT 37.7 % (35.4-49); MCH 32.7 pg (25.7-33.7); MCHC 34.6 g/dl (32.0-35.9); MEAN CELL VOLUME 94.5 fl (80-96); MEAN PLT VOLUME 7.3 fl (7.5-11.1); PLATELET COUNT 219 10^3/uL (134-434); RBC 3.99 M/mm3 (4.00-5.60); RDW 13.9 % (11.9-15.9); WHITE BLOOD COUNT 3.5 K/mm3 (4.0-10.0)
[2021-12-08 15:17] LABS: ALBUMIN 4.1 g/dl (3.4-5.0); CALCIUM 9.2 mg/dL (8.5-10.1)
[2021-12-08 15:22] LABS: CREATININE 0.7 mg/dL (0.55-1.3)
[2021-12-08 15:25] LABS: TOT PROT 7.3 g/dl (6.4-8.2)
[2021-12-08 15:28] LABS: BILIRUBIN,TOTAL 0.5 mg/dL (0.2-1)
[2021-12-08 15:41] LABS: SYPHILIS W/ RPR CONF NON-REACTIVE (NONREACTIVE)
[2021-12-08] MEDS: MELATONIN 5 MG TABLETS PO SCH (21:35)
[2021-12-08] MEDS: THIAMINE HCL 100 MG TABLET (FP) PO SCH (21:35)
[2021-12-09 10:41] LABS: URINE APPEARANCE CLEAR; URINE BILIRUBIN NEGATIVE (NEGATIVE); URINE COLOR YELLOW; URINE GLUCOSE (UA) NEGATIVE (NEGATIVE); URINE KETONE NEGATIVE (NEGATIVE); URINE LEUK ESTERASE NEGATIVE (NEGATIVE); URINE NITRITE NEGATIVE (NEGATIVE); URINE PROTEIN NEGATIVE (NEGATIVE); URINE UROBILINOGEN 0.2 mg/dL (0.2-1.0)
[2021-12-09] MEDS: NICOTINE 7 MG/24 HOURS TOPICAL PATCH TD SCH (10:43)
[2021-12-09] MEDS: PRENATAL VITAMINS W/ FOLIC ACID TABLET (FP) PO SCH (10:43)
[2021-12-09] MEDS: THIAMINE HCL 100 MG TABLET (FP) PO SCH (21:33)
[2021-12-09] MEDS: MELATONIN 5 MG TABLETS PO SCH (21:33)
[2021-12-10] MEDS: PRENATAL VITAMINS W/ FOLIC ACID TABLET (FP) PO SCH (09:15)
[2021-12-10] MEDS: NICOTINE 7 MG/24 HOURS TOPICAL PATCH TD SCH (09:16)
[2021-12-10] MEDS: THIAMINE HCL 100 MG TABLET (FP) PO SCH (21:37)
[2021-12-10] MEDS: MELATONIN 5 MG TABLETS PO SCH (21:37)
[2021-12-11] MEDS: NICOTINE 7 MG/24 HOURS TOPICAL PATCH TD SCH (09:56)
[2021-12-11] MEDS: PRENATAL VITAMINS W/ FOLIC ACID TABLET (FP) PO SCH (09:56)
[2021-12-11] MEDS: THIAMINE HCL 100 MG TABLET (FP) PO SCH (22:20)
[2021-12-11] MEDS: MELATONIN 5 MG TABLETS PO SCH (22:20)
[2021-12-12] MEDS: NICOTINE 7 MG/24 HOURS TOPICAL PATCH TD SCH (09:46)
[2021-12-12] MEDS: PRENATAL VITAMINS W/ FOLIC ACID TABLET (FP) PO SCH (09:46)
[2021-12-12] MEDS: THIAMINE HCL 100 MG TABLET (FP) PO SCH (21:53)
[2021-12-12] MEDS: MELATONIN 5 MG TABLETS PO SCH (21:53)
[2021-12-13] MEDS: NICOTINE 7 MG/24 HOURS TOPICAL PATCH TD SCH (09:55)
[2021-12-13] MEDS: PRENATAL VITAMINS W/ FOLIC ACID TABLET (FP) PO SCH (09:55)
[2021-12-13] MEDS: THIAMINE HCL 100 MG TABLET (FP) PO SCH (21:58)
[2021-12-13] MEDS: MELATONIN 5 MG TABLETS PO SCH (21:58)
[2021-12-14] MEDS: NICOTINE 7 MG/24 HOURS TOPICAL PATCH TD SCH (09:59)
[2021-12-14] MEDS: ARTIFICIAL TEARS (POLYVINYL ALCOHOL) OPTH DROPS OU PRN (10:00)
[2021-12-14] MEDS: PRENATAL VITAMINS W/ FOLIC ACID TABLET (FP) PO SCH (10:02)
[2021-12-14] MEDS: THIAMINE HCL 100 MG TABLET (FP) PO SCH (22:15)
[2021-12-14] MEDS: MELATONIN 5 MG TABLETS PO SCH (22:15)
[2021-12-15] MEDS: NICOTINE 7 MG/24 HOURS TOPICAL PATCH TD SCH (09:58)
[2021-12-15] MEDS: PRENATAL VITAMINS W/ FOLIC ACID TABLET (FP) PO SCH (09:58)
[2021-12-15] MEDS: ARTIFICIAL TEARS (POLYVINYL ALCOHOL) OPTH DROPS OU PRN ×2 (09:59→21:17)
[2021-12-15] MEDS: MELATONIN 5 MG TABLETS PO SCH (21:18)
[2021-12-15] MEDS: THIAMINE HCL 100 MG TABLET (FP) PO SCH (21:18)
[2021-12-16] MEDS: MAG HYDROX/AL HYDROX/SIMETH 30 ML UNIT-DOSE CUP PO PRN (02:51)
[2021-12-16] MEDS: IBUPROFEN 400 MG TABLET (FP) PO PRN ×2 (10:19→19:20)
[2021-12-16] MEDS: NICOTINE 7 MG/24 HOURS TOPICAL PATCH TD SCH (10:20)
[2021-12-16] MEDS: ARTIFICIAL TEARS (POLYVINYL ALCOHOL) OPTH DROPS OU PRN ×2 (10:21→21:16)
[2021-12-16] MEDS: PRENATAL VITAMINS W/ FOLIC ACID TABLET (FP) PO SCH (10:21)
[2021-12-16] MEDS: THIAMINE HCL 100 MG TABLET (FP) PO SCH (21:17)
[2021-12-16] MEDS: MELATONIN 5 MG TABLETS PO SCH (21:17)
[2021-12-17] MEDS: ARTIFICIAL TEARS (POLYVINYL ALCOHOL) OPTH DROPS OU PRN ×2 (10:13→21:47)
[2021-12-17] MEDS: IBUPROFEN 400 MG TABLET (FP) PO PRN ×2 (10:14→21:46)
[2021-12-17] MEDS: PRENATAL VITAMINS W/ FOLIC ACID TABLET (FP) PO SCH (10:15)
[2021-12-17] MEDS: NICOTINE 7 MG/24 HOURS TOPICAL PATCH TD SCH (10:15)
[2021-12-17] MEDS: MELATONIN 5 MG TABLETS PO SCH (21:49)
[2021-12-17] MEDS: THIAMINE HCL 100 MG TABLET (FP) PO SCH (21:49)
[2021-12-18] MEDS: IBUPROFEN 400 MG TABLET (FP) PO PRN ×2 (08:41→21:17)
[2021-12-18] MEDS: NICOTINE 7 MG/24 HOURS TOPICAL PATCH TD SCH (09:44)
[2021-12-18] MEDS: PRENATAL VITAMINS W/ FOLIC ACID TABLET (FP) PO SCH (09:44)
[2021-12-18] MEDS: METHYL SALICYLATE/MENTHOL OINT 30 GM TUBE TP SCH ×2 (10:05→21:18)
[2021-12-18] MEDS: ARTIFICIAL TEARS (POLYVINYL ALCOHOL) OPTH DROPS OU PRN (21:17)
[2021-12-18] MEDS: THIAMINE HCL 100 MG TABLET (FP) PO SCH (21:18)
[2021-12-18] MEDS: MELATONIN 5 MG TABLETS PO SCH (21:18)
[2021-12-19] MEDS: ARTIFICIAL TEARS (POLYVINYL ALCOHOL) OPTH DROPS OU PRN ×2 (09:51→22:11)
[2021-12-19] MEDS: PRENATAL VITAMINS W/ FOLIC ACID TABLET (FP) PO SCH (09:52)
[2021-12-19] MEDS: IBUPROFEN 400 MG TABLET (FP) PO PRN ×2 (09:52→22:10)
[2021-12-19] MEDS: NICOTINE 7 MG/24 HOURS TOPICAL PATCH TD SCH (09:53)
[2021-12-19] MEDS: METHYL SALICYLATE/MENTHOL OINT 30 GM TUBE TP SCH ×2 (09:53→23:01)
[2021-12-19] MEDS: THIAMINE HCL 100 MG TABLET (FP) PO SCH (23:01)
[2021-12-19] MEDS: MELATONIN 5 MG TABLETS PO SCH (23:01)
[2021-12-20] MEDS: NICOTINE 7 MG/24 HOURS TOPICAL PATCH TD SCH (09:27)
[2021-12-20] MEDS: PRENATAL VITAMINS W/ FOLIC ACID TABLET (FP) PO SCH (09:27)
[2021-12-20] MEDS: IBUPROFEN 400 MG TABLET (FP) PO PRN (09:28)
[2021-12-20] MEDS: METHYL SALICYLATE/MENTHOL OINT 30 GM TUBE TP SCH ×2 (09:29→21:15)
[2021-12-20] MEDS: ARTIFICIAL TEARS (POLYVINYL ALCOHOL) OPTH DROPS OU PRN ×2 (09:32→21:16)
[2021-12-20] MEDS: IBUPROFEN 600 MG TABLET (FP) PO PRN (21:14)
[2021-12-20] MEDS: METHOCARBAMOL 500 MG TABLET PO PRN (21:15)
[2021-12-20] MEDS: MELATONIN 5 MG TABLETS PO SCH (21:15)
[2021-12-20] MEDS: THIAMINE HCL 100 MG TABLET (FP) PO SCH (21:15)
[2021-12-21] MEDS: NICOTINE 7 MG/24 HOURS TOPICAL PATCH TD SCH (10:06)
[2021-12-21] MEDS: METHYL SALICYLATE/MENTHOL OINT 30 GM TUBE TP SCH ×2 (10:07→21:46)
[2021-12-21] MEDS: IBUPROFEN 600 MG TABLET (FP) PO PRN (10:07)
[2021-12-21] MEDS: ARTIFICIAL TEARS (POLYVINYL ALCOHOL) OPTH DROPS OU PRN ×2 (10:08→21:46)
[2021-12-21] MEDS: PRENATAL VITAMINS W/ FOLIC ACID TABLET (FP) PO SCH (10:08)
[2021-12-21] MEDS: MELATONIN 5 MG TABLETS PO SCH (21:45)
[2021-12-21] MEDS: METHOCARBAMOL 500 MG TABLET PO PRN (21:45)
[2021-12-21] MEDS: THIAMINE HCL 100 MG TABLET (FP) PO SCH (21:46)
[2021-12-22] MEDS: IBUPROFEN 600 MG TABLET (FP) PO PRN ×2 (09:57→21:26)
[2021-12-22] MEDS: METHOCARBAMOL 500 MG TABLET PO PRN ×2 (09:57→23:31)
[2021-12-22] MEDS: METHYL SALICYLATE/MENTHOL OINT 30 GM TUBE TP SCH ×2 (09:58→21:24)
[2021-12-22] MEDS: NICOTINE 7 MG/24 HOURS TOPICAL PATCH TD SCH (09:58)
[2021-12-22] MEDS: PRENATAL VITAMINS W/ FOLIC ACID TABLET (FP) PO SCH (09:58)
[2021-12-22] MEDS: ARTIFICIAL TEARS (POLYVINYL ALCOHOL) OPTH DROPS OU PRN ×2 (09:59→21:26)
[2021-12-22] MEDS: THIAMINE HCL 100 MG TABLET (FP) PO SCH (21:28)
[2021-12-22] MEDS: MELATONIN 5 MG TABLETS PO SCH (21:28)
[2021-12-23] MEDS: METHOCARBAMOL 500 MG TABLET PO PRN ×2 (10:32→21:23)
[2021-12-23] MEDS: IBUPROFEN 600 MG TABLET (FP) PO PRN (10:32)
[2021-12-23] MEDS: NICOTINE 7 MG/24 HOURS TOPICAL PATCH TD SCH (10:33)
[2021-12-23] MEDS: METHYL SALICYLATE/MENTHOL OINT 30 GM TUBE TP SCH ×2 (10:33→21:21)
[2021-12-23] MEDS: PRENATAL VITAMINS W/ FOLIC ACID TABLET (FP) PO SCH (10:34)
[2021-12-23] MEDS: ARTIFICIAL TEARS (POLYVINYL ALCOHOL) OPTH DROPS OU PRN ×2 (10:34→21:22)
[2021-12-23] MEDS: MELATONIN 5 MG TABLETS PO SCH (21:23)
[2021-12-23] MEDS: THIAMINE HCL 100 MG TABLET (FP) PO SCH (21:24)
[2021-12-24] MEDS: METHOCARBAMOL 500 MG TABLET PO PRN ×2 (09:46→21:46)
[2021-12-24] MEDS: IBUPROFEN 600 MG TABLET (FP) PO PRN (09:46)
[2021-12-24] MEDS: ARTIFICIAL TEARS (POLYVINYL ALCOHOL) OPTH DROPS OU PRN ×2 (09:47→21:45)
[2021-12-24] MEDS: METHYL SALICYLATE/MENTHOL OINT 30 GM TUBE TP SCH ×2 (09:47→21:44)
[2021-12-24] MEDS: NICOTINE 7 MG/24 HOURS TOPICAL PATCH TD SCH (09:48)
[2021-12-24] MEDS: PRENATAL VITAMINS W/ FOLIC ACID TABLET (FP) PO SCH (09:48)
[2021-12-24] MEDS: MELATONIN 5 MG TABLETS PO SCH (21:44)
[2021-12-24] MEDS: THIAMINE HCL 100 MG TABLET (FP) PO SCH (21:44)
[2021-12-25] MEDS: PRENATAL VITAMINS W/ FOLIC ACID TABLET (FP) PO SCH (10:30)
[2021-12-25] MEDS: METHYL SALICYLATE/MENTHOL OINT 30 GM TUBE TP SCH ×2 (10:30→22:01)
[2021-12-25] MEDS: NICOTINE 7 MG/24 HOURS TOPICAL PATCH TD SCH (10:30)
[2021-12-25] MEDS: ARTIFICIAL TEARS (POLYVINYL ALCOHOL) OPTH DROPS OU PRN ×2 (10:31→22:04)
[2021-12-25] MEDS: METHOCARBAMOL 500 MG TABLET PO PRN ×2 (10:32→22:03)
[2021-12-25] MEDS: MELATONIN 5 MG TABLETS PO SCH (22:02)
[2021-12-25] MEDS: THIAMINE HCL 100 MG TABLET (FP) PO SCH (22:02)
[2021-12-25] MEDS: IBUPROFEN 600 MG TABLET (FP) PO PRN (22:02)
[2021-12-26] MEDS: ARTIFICIAL TEARS (POLYVINYL ALCOHOL) OPTH DROPS OU PRN ×2 (10:11→21:27)
[2021-12-26] MEDS: PRENATAL VITAMINS W/ FOLIC ACID TABLET (FP) PO SCH (10:12)
[2021-12-26] MEDS: NICOTINE 7 MG/24 HOURS TOPICAL PATCH TD SCH (10:12)
[2021-12-26] MEDS: METHOCARBAMOL 500 MG TABLET PO PRN ×2 (10:12→21:26)
[2021-12-26] MEDS: METHYL SALICYLATE/MENTHOL OINT 30 GM TUBE TP SCH ×2 (10:18→21:26)
[2021-12-26] MEDS: THIAMINE HCL 100 MG TABLET (FP) PO SCH (21:26)
[2021-12-26] MEDS: MELATONIN 5 MG TABLETS PO SCH (21:26)
[2021-12-26] MEDS: IBUPROFEN 600 MG TABLET (FP) PO PRN (21:26)
[2021-12-27] MEDS: ARTIFICIAL TEARS (POLYVINYL ALCOHOL) OPTH DROPS OU PRN ×2 (09:56→21:31)
[2021-12-27] MEDS: METHYL SALICYLATE/MENTHOL OINT 30 GM TUBE TP SCH ×2 (09:56→21:31)
[2021-12-27] MEDS: PRENATAL VITAMINS W/ FOLIC ACID TABLET (FP) PO SCH (09:56)
[2021-12-27] MEDS: NICOTINE 7 MG/24 HOURS TOPICAL PATCH TD SCH (09:57)
[2021-12-27] MEDS: METHOCARBAMOL 500 MG TABLET PO PRN ×2 (09:58→21:32)
[2021-12-27] MEDS: IBUPROFEN 600 MG TABLET (FP) PO PRN (21:32)
[2021-12-27] MEDS: MELATONIN 5 MG TABLETS PO SCH (22:01)
[2021-12-27] MEDS: THIAMINE HCL 100 MG TABLET (FP) PO SCH (22:01)
[2021-12-28] MEDS: NICOTINE 7 MG/24 HOURS TOPICAL PATCH TD SCH (09:42)
[2021-12-28] MEDS: PRENATAL VITAMINS W/ FOLIC ACID TABLET (FP) PO SCH (09:42)
[2021-12-28] MEDS: ARTIFICIAL TEARS (POLYVINYL ALCOHOL) OPTH DROPS OU PRN ×2 (09:42→21:25)
[2021-12-28] MEDS: METHOCARBAMOL 500 MG TABLET PO PRN ×2 (09:43→21:25)
[2021-12-28] MEDS: METHYL SALICYLATE/MENTHOL OINT 30 GM TUBE TP SCH ×2 (09:43→21:26)
[2021-12-28] MEDS: IBUPROFEN 600 MG TABLET (FP) PO PRN (21:25)
[2021-12-28] MEDS: MELATONIN 5 MG TABLETS PO SCH (21:26)
[2021-12-28] MEDS: THIAMINE HCL 100 MG TABLET (FP) PO SCH (21:26)
[2021-12-29] MEDS: NICOTINE 7 MG/24 HOURS TOPICAL PATCH TD SCH (09:50)
[2021-12-29] MEDS: METHYL SALICYLATE/MENTHOL OINT 30 GM TUBE TP SCH ×2 (09:50→21:23)
[2021-12-29] MEDS: PRENATAL VITAMINS W/ FOLIC ACID TABLET (FP) PO SCH (09:50)
[2021-12-29] MEDS: METHOCARBAMOL 500 MG TABLET PO PRN ×2 (09:50→21:23)
[2021-12-29] MEDS: ARTIFICIAL TEARS (POLYVINYL ALCOHOL) OPTH DROPS OU PRN ×2 (09:50→21:25)
[2021-12-29] MEDS: IBUPROFEN 600 MG TABLET (FP) PO PRN (21:23)
[2021-12-29] MEDS: MELATONIN 5 MG TABLETS PO SCH (21:25)
[2021-12-29] MEDS: THIAMINE HCL 100 MG TABLET (FP) PO SCH (21:25)
[2021-12-30] MEDS: METHYL SALICYLATE/MENTHOL OINT 30 GM TUBE TP SCH ×2 (09:59→21:30)
[2021-12-30] MEDS: PRENATAL VITAMINS W/ FOLIC ACID TABLET (FP) PO SCH (09:59)
[2021-12-30] MEDS: NICOTINE 7 MG/24 HOURS TOPICAL PATCH TD SCH (09:59)
[2021-12-30] MEDS: METHOCARBAMOL 500 MG TABLET PO PRN ×2 (10:00→21:31)
[2021-12-30] MEDS: ARTIFICIAL TEARS (POLYVINYL ALCOHOL) OPTH DROPS OU PRN (10:00)
[2021-12-30] MEDS: IBUPROFEN 600 MG TABLET (FP) PO PRN (21:30)
[2021-12-30] MEDS: THIAMINE HCL 100 MG TABLET (FP) PO SCH (21:32)
[2021-12-30] MEDS: MELATONIN 5 MG TABLETS PO SCH (21:32)
[2021-12-31] MEDS: PRENATAL VITAMINS W/ FOLIC ACID TABLET (FP) PO SCH (09:57)
[2021-12-31] MEDS: METHYL SALICYLATE/MENTHOL OINT 30 GM TUBE TP SCH ×2 (09:57→21:53)
[2021-12-31] MEDS: METHOCARBAMOL 500 MG TABLET PO PRN (09:57)
[2021-12-31] MEDS: ARTIFICIAL TEARS (POLYVINYL ALCOHOL) OPTH DROPS OU PRN ×2 (09:57→21:54)
[2021-12-31] MEDS: NICOTINE 7 MG/24 HOURS TOPICAL PATCH TD SCH (09:57)
[2021-12-31] MEDS: THIAMINE HCL 100 MG TABLET (FP) PO SCH (21:52)
[2021-12-31] MEDS: MELATONIN 5 MG TABLETS PO SCH (21:52)
[2022-01-01] MEDS: MAG HYDROX/AL HYDROX/SIMETH 30 ML UNIT-DOSE CUP PO PRN (01:30)
[2022-01-01] MEDS: PRENATAL VITAMINS W/ FOLIC ACID TABLET (FP) PO SCH (09:47)
[2022-01-01] MEDS: NICOTINE 7 MG/24 HOURS TOPICAL PATCH TD SCH (09:47)
[2022-01-01] MEDS: METHOCARBAMOL 500 MG TABLET PO PRN ×2 (09:47→21:13)
[2022-01-01] MEDS: METHYL SALICYLATE/MENTHOL OINT 30 GM TUBE TP SCH ×2 (09:47→21:12)
[2022-01-01] MEDS: ARTIFICIAL TEARS (POLYVINYL ALCOHOL) OPTH DROPS OU PRN ×2 (10:32→21:13)
[2022-01-01] MEDS: THIAMINE HCL 100 MG TABLET (FP) PO SCH (21:12)
[2022-01-01] MEDS: MELATONIN 5 MG TABLETS PO SCH (21:12)
[2022-01-02] MEDS: PRENATAL VITAMINS W/ FOLIC ACID TABLET (FP) PO SCH (09:54)
[2022-01-02] MEDS: ARTIFICIAL TEARS (POLYVINYL ALCOHOL) OPTH DROPS OU PRN ×2 (09:54→21:33)
[2022-01-02] MEDS: METHYL SALICYLATE/MENTHOL OINT 30 GM TUBE TP SCH ×2 (09:55→21:34)
[2022-01-02] MEDS: METHOCARBAMOL 500 MG TABLET PO PRN (09:55)
[2022-01-02] MEDS: NICOTINE 7 MG/24 HOURS TOPICAL PATCH TD SCH (09:55)
[2022-01-02] MEDS: MELATONIN 5 MG TABLETS PO SCH (21:31)
[2022-01-02] MEDS: THIAMINE HCL 100 MG TABLET (FP) PO SCH (21:31)
[2022-01-03] MEDS: PRENATAL VITAMINS W/ FOLIC ACID TABLET (FP) PO SCH (10:01)
[2022-01-03] MEDS: NICOTINE 7 MG/24 HOURS TOPICAL PATCH TD SCH (10:01)
[2022-01-03] MEDS: METHYL SALICYLATE/MENTHOL OINT 30 GM TUBE TP SCH ×2 (10:02→21:34)
[2022-01-03] MEDS: ARTIFICIAL TEARS (POLYVINYL ALCOHOL) OPTH DROPS OU PRN ×2 (10:02→21:37)
[2022-01-03] MEDS: METHOCARBAMOL 500 MG TABLET PO PRN ×2 (10:03→21:35)
[2022-01-03] MEDS: IBUPROFEN 600 MG TABLET (FP) PO PRN (21:35)
[2022-01-03] MEDS: MELATONIN 5 MG TABLETS PO SCH (21:36)
[2022-01-03] MEDS: THIAMINE HCL 100 MG TABLET (FP) PO SCH (21:37)
[2022-01-04] MEDS: METHYL SALICYLATE/MENTHOL OINT 30 GM TUBE TP SCH ×2 (09:39→21:14)
[2022-01-04] MEDS: NICOTINE 7 MG/24 HOURS TOPICAL PATCH TD SCH (09:40)
[2022-01-04] MEDS: PRENATAL VITAMINS W/ FOLIC ACID TABLET (FP) PO SCH (09:40)
[2022-01-04] MEDS: ARTIFICIAL TEARS (POLYVINYL ALCOHOL) OPTH DROPS OU PRN (09:41)
[2022-01-04] MEDS: METHOCARBAMOL 500 MG TABLET PO PRN ×2 (09:41→21:15)
[2022-01-04] MEDS: MELATONIN 5 MG TABLETS PO SCH (21:13)
[2022-01-04] MEDS: THIAMINE HCL 100 MG TABLET (FP) PO SCH (21:13)
[2022-01-04] MEDS: IBUPROFEN 600 MG TABLET (FP) PO PRN (21:15)
[2022-01-05] MEDS: PRENATAL VITAMINS W/ FOLIC ACID TABLET (FP) PO SCH (09:54)
[2022-01-05] MEDS: NICOTINE 7 MG/24 HOURS TOPICAL PATCH TD SCH (09:54)
[2022-01-05] MEDS: ARTIFICIAL TEARS (POLYVINYL ALCOHOL) OPTH DROPS OU PRN ×2 (09:55→21:34)
[2022-01-05] MEDS: METHOCARBAMOL 500 MG TABLET PO PRN ×2 (09:55→21:34)
[2022-01-05] MEDS: METHYL SALICYLATE/MENTHOL OINT 30 GM TUBE TP SCH ×2 (09:55→21:34)
[2022-01-05] MEDS: IBUPROFEN 600 MG TABLET (FP) PO PRN (21:35)
[2022-01-05] MEDS: MELATONIN 5 MG TABLETS PO SCH (21:41)
[2022-01-05] MEDS: THIAMINE HCL 100 MG TABLET (FP) PO SCH (21:41)
[2022-01-06 07:20] VITALS: BP 113/77; PULSE 83; TEMP 97.7
[2022-01-06] MEDS: PRENATAL VITAMINS W/ FOLIC ACID TABLET (FP) PO SCH (09:23)
[2022-01-06] MEDS: METHYL SALICYLATE/MENTHOL OINT 30 GM TUBE TP SCH (09:23)
[2022-01-06] MEDS: METHOCARBAMOL 500 MG TABLET PO PRN (09:23)
[2022-01-06] MEDS: NICOTINE 7 MG/24 HOURS TOPICAL PATCH TD SCH (09:24)
[2022-01-06] MEDS: ARTIFICIAL TEARS (POLYVINYL ALCOHOL) OPTH DROPS OU PRN (09:24)
== END 2022-01-06 10:00 | disposition home or self-care (01) | DRG 772 ==
LOC: YASAS 09:20 → Y3W 12:02 → Y5N 12-11 13:51
PROVIDERS: ADMIT Allergy & Immunology; ATTEND Allergy & Immunology
PROC: HZ42ZZZ Group Counseling for Substance Abuse Treatment, Cognitive-Behavioral (ICD-10-PCS; principal; 2021-12-08)
DX: F10.20 Alcohol dependence, uncomplicated (principal); F17.210 Nicotine dependence, cigarettes, uncomplicated; F31.9 Bipolar disorder, unspecified; F43.10 Post-traumatic stress disorder, unspecified; F41.9 Anxiety disorder, unspecified; D50.8 Other iron deficiency anemias; I10 Essential (primary) hypertension; K21.9 Gastro-esophageal reflux disease without esophagitis; H40.9 Unspecified glaucoma; K44.9 Diaphragmatic hernia without obstruction or gangrene; K40.90 Unilateral inguinal hernia, without obstruction or gangrene, not specified as recurrent; M25.552 Pain in left hip; S59.802A Other specified injuries of left elbow, initial encounter; Y04.0XXA Assault by unarmed brawl or fight, initial encounter; Y92.238 Other place in hospital as the place of occurrence of the external cause; Y99.8 Other external cause status; Z88.0 Allergy status to penicillin; Z91.018 Allergy to other foods
CPT/HCPCS: 36415; 73502-TC-LT-FY; 80053; 81003; 85027; 86780; 86803; C9803; U0003; U0005

== ENCOUNTER 2021-12-18 11:19 | Emergency (ER) | payer OTHER ==
[2021-12-18 11:50] VITALS: BP 132/84; PULSE 75; TEMP 98.5; BMI 24.3
== END 2021-12-18 13:09 | disposition home or self-care (01) ==
LOC: JERFT 11:19 → JER 11:19
DX: S50.312A Abrasion of left elbow, initial encounter (principal); M25.522 Pain in left elbow; Y04.8XXA Assault by other bodily force, initial encounter
CPT/HCPCS: 73070-TC-LT-FY; 99283-25

== ENCOUNTER 2022-02-04 11:42 | Inpatient (IN) | payer OTHER ==
[2022-02-04] MEDS: MELATONIN 5 MG TABLETS PO SCH (01:26)
[2022-02-04] MEDS ORDERED: LOPERAMIDE HCL 2 MG CAPSULE PO PRN (13:43)
[2022-02-04] MEDS ORDERED: MAGNESIUM CITRATE 300 ML BOTTLE PO PRN (13:43)
[2022-02-04] MEDS ORDERED: MAGNESIUM HYDROX 2400MG/30ML ORAL SUSPENSION 30 ML CUP PO PRN (13:43)
[2022-02-04] MEDS ORDERED: BISMUTH SUBSALICYLATE 262 MG/15 ML BTL PO PRN (13:43)
[2022-02-04] MEDS ORDERED: MAG HYDROX/AL HYDROX/SIMETH 30 ML UNIT-DOSE CUP PO PRN (13:43)
[2022-02-04] MEDS ORDERED: MENTHOL/PHENOL 1 EACH UD MM PRN (13:43)
[2022-02-04] MEDS ORDERED: IBUPROFEN 400 MG TABLET (FP) PO PRN (13:43)
[2022-02-04] MEDS ORDERED: NICOTINE 10 MG CARTRIDGE (INHALER) IH PRN (13:43)
[2022-02-04] MEDS ORDERED: ACETAMINOPHEN 325 MG TABLET (FP) PO PRN ×2 (13:43)
[2022-02-04] MEDS ORDERED: METHOCARBAMOL 500 MG TABLET PO PRN (13:43)
[2022-02-04] MEDS ORDERED: ONDANSETRON *ODT* 4 MG TABLET SL PRN (13:43)
[2022-02-04 15:18] VITALS: BMI 22.6
[2022-02-04] MEDS: TOLNAFTATE 1% CREAM 15 GM TUBE TP SCH (22:27)
[2022-02-04] MEDS: hydrOXYzine PAMOATE 25 MG CAPSULE (FP) PO SCH (23:27)
[2022-02-05] MEDS: THIAMINE HCL 100 MG TABLET (FP) PO SCH ×2 (01:29→22:36)
[2022-02-05] MEDS: hydrOXYzine PAMOATE 25 MG CAPSULE (FP) PO SCH ×6 (01:29→22:36)
[2022-02-05] MEDS: TOLNAFTATE 1% CREAM 15 GM TUBE TP SCH ×2 (11:33→22:36)
[2022-02-05] MEDS: PRENATAL VITAMINS W/ FOLIC ACID TABLET (FP) PO SCH (11:33)
[2022-02-05 12:36] LABS: CALCIUM 8.8 mg/dL (8.5-10.1)
[2022-02-05 12:37] LABS: ALBUMIN 3.9 g/dl (3.4-5.0); BLOOD UREA NITROGEN 16.6 mg/dL (7-18)
[2022-02-05 12:39] LABS: HEMATOCRIT 37.6 % (35.4-49); HEMOGLOBIN 13.2 GM/dL (11.7-16.9); MCH 33.5 pg (25.7-33.7); MEAN CELL VOLUME 95.5 fl (80-96); MEAN PLT VOLUME 7.1 fl (7.5-11.1); PLATELET COUNT 209 10^3/uL (134-434); RBC 3.94 M/mm3 (4.00-5.60); RDW 15.3 % (11.9-15.9)
[2022-02-05 12:40] LABS: CREATININE 0.8 mg/dL (0.55-1.3)
[2022-02-05 12:41] LABS: TOT PROT 7.1 g/dl (6.4-8.2)
[2022-02-05 12:42] LABS: BILIRUBIN,TOTAL 0.2 mg/dL (0.2-1)
[2022-02-05] MEDS: MELATONIN 5 MG TABLETS PO SCH (22:37)
[2022-02-06] MEDS: hydrOXYzine PAMOATE 25 MG CAPSULE (FP) PO SCH ×3 (06:04→14:26)
[2022-02-06 10:06] LABS: SARS-CoV-2 NAA Not Detected (Not Detected)
[2022-02-06] MEDS: PRENATAL VITAMINS W/ FOLIC ACID TABLET (FP) PO SCH (10:27)
[2022-02-06] MEDS: TOLNAFTATE 1% CREAM 15 GM TUBE TP SCH (10:31)
[2022-02-06 13:22] VITALS: BP 96/58; PULSE 71; TEMP 98.6
== END 2022-02-06 14:50 | disposition other institution (70) | DRG 773 ==
LOC: YASAS 11:42 → UNDOADMIN 15:15 → Y6N 15:15 → UNDODISIN 02-06 14:50
PROVIDERS: ADMIT Allergy & Immunology; ATTEND Allergy & Immunology
PROC: HZ2ZZZZ Detoxification Services for Substance Abuse Treatment (ICD-10-PCS; principal; 2022-02-04)
DX: F11.23 Opioid dependence with withdrawal (principal); F10.230 Alcohol dependence with withdrawal, uncomplicated; F14.20 Cocaine dependence, uncomplicated; F17.210 Nicotine dependence, cigarettes, uncomplicated; F19.24 Other psychoactive substance dependence with psychoactive substance-induced mood disorder; F43.10 Post-traumatic stress disorder, unspecified; D72.819 Decreased white blood cell count, unspecified; I10 Essential (primary) hypertension; H55.00 Unspecified nystagmus; K40.20 Bilateral inguinal hernia, without obstruction or gangrene, not specified as recurrent; B35.3 Tinea pedis; R01.1 Cardiac murmur, unspecified; Z86.79 Personal history of other diseases of the circulatory system; Z91.410 Personal history of adult physical and sexual abuse; Z91.018 Allergy to other foods; Z88.0 Allergy status to penicillin
CPT/HCPCS: 36415; 80053; 85027; 86780; C9803-CS; U0003; U0005

== ENCOUNTER 2022-02-06 13:42 | Inpatient (IN) | payer OTHER ==
[2022-02-06] MEDS ORDERED: P-EPHED 60MG/TRIPROLIDI 2.5MG TABLET PO PRN (14:38)
[2022-02-06] MEDS ORDERED: LOPERAMIDE HCL 2 MG CAPSULE PO PRN (14:38)
[2022-02-06] MEDS ORDERED: NICOTINE 10 MG CARTRIDGE (INHALER) IH PRN (14:38)
[2022-02-06] MEDS ORDERED: guaiFENesin 200 MG/10 ML 10 ML UNIT-DOSE CUPS PO PRN (14:38)
[2022-02-06] MEDS ORDERED: ACETAMINOPHEN 325 MG TABLET (FP) PO PRN (14:38)
[2022-02-06] MEDS ORDERED: MAGNESIUM HYDROX 2400MG/30ML ORAL SUSPENSION 30 ML CUP PO PRN (14:38)
[2022-02-06] MEDS ORDERED: MAGNESIUM CITRATE 300 ML BOTTLE PO PRN (14:38)
[2022-02-06] MEDS: hydrOXYzine PAMOATE 25 MG CAPSULE (FP) PO SCH ×2 (18:46→21:45)
[2022-02-06] MEDS: THIAMINE HCL 100 MG TABLET (FP) PO SCH (21:46)
[2022-02-06] MEDS: MELATONIN 5 MG TABLETS PO SCH (21:46)
[2022-02-07] MEDS: hydrOXYzine PAMOATE 25 MG CAPSULE (FP) PO SCH ×5 (06:12→21:16)
[2022-02-07] MEDS: NICOTINE 7 MG/24 HOURS TOPICAL PATCH TD SCH (09:56)
[2022-02-07] MEDS: PRENATAL VITAMINS W/ FOLIC ACID TABLET (FP) PO SCH (09:56)
[2022-02-07] MEDS: THIAMINE HCL 100 MG TABLET (FP) PO SCH (21:15)
[2022-02-07] MEDS: MELATONIN 5 MG TABLETS PO SCH (21:16)
[2022-02-08] MEDS: hydrOXYzine PAMOATE 25 MG CAPSULE (FP) PO SCH ×3 (06:25→15:27)
[2022-02-08] MEDS: ARTIFICIAL TEARS (POLYVINYL ALCOHOL) OPTH DROPS OU PRN (06:26)
[2022-02-08] MEDS: PRENATAL VITAMINS W/ FOLIC ACID TABLET (FP) PO SCH (09:50)
[2022-02-08] MEDS: NICOTINE 7 MG/24 HOURS TOPICAL PATCH TD SCH (10:46)
[2022-02-08] MEDS: hydrOXYzine PAMOATE 25 MG CAPSULE (FP) PO PRN (21:45)
[2022-02-08] MEDS: THIAMINE HCL 100 MG TABLET (FP) PO SCH (21:46)
[2022-02-08] MEDS: MELATONIN 5 MG TABLETS PO SCH (21:46)
[2022-02-09] MEDS: NICOTINE 7 MG/24 HOURS TOPICAL PATCH TD SCH (09:06)
[2022-02-09] MEDS: PRENATAL VITAMINS W/ FOLIC ACID TABLET (FP) PO SCH (09:06)
[2022-02-09] MEDS: ARTIFICIAL TEARS (POLYVINYL ALCOHOL) OPTH DROPS OU PRN (09:06)
[2022-02-09] MEDS: MELATONIN 5 MG TABLETS PO SCH (21:22)
[2022-02-09] MEDS: THIAMINE HCL 100 MG TABLET (FP) PO SCH (21:22)
[2022-02-10] MEDS: MAG HYDROX/AL HYDROX/SIMETH 30 ML UNIT-DOSE CUP PO PRN (02:27)
[2022-02-10] MEDS: ARTIFICIAL TEARS (POLYVINYL ALCOHOL) OPTH DROPS OU PRN ×2 (06:22→13:53)
[2022-02-10] MEDS: PRENATAL VITAMINS W/ FOLIC ACID TABLET (FP) PO SCH (10:07)
[2022-02-10] MEDS: NICOTINE 7 MG/24 HOURS TOPICAL PATCH TD SCH (10:08)
[2022-02-10] MEDS: MELATONIN 5 MG TABLETS PO SCH (21:54)
[2022-02-10] MEDS: THIAMINE HCL 100 MG TABLET (FP) PO SCH (21:54)
[2022-02-10 23:07] LABS: SARS-CoV-2 NAA Not Detected (Not Detected)
[2022-02-11] MEDS: NICOTINE 7 MG/24 HOURS TOPICAL PATCH TD SCH (10:11)
[2022-02-11] MEDS: PRENATAL VITAMINS W/ FOLIC ACID TABLET (FP) PO SCH (10:12)
[2022-02-11] MEDS: ARTIFICIAL TEARS (POLYVINYL ALCOHOL) OPTH DROPS OU PRN (10:13)
[2022-02-11] MEDS: THIAMINE HCL 100 MG TABLET (FP) PO SCH (22:05)
[2022-02-11] MEDS: MELATONIN 5 MG TABLETS PO SCH (22:05)
[2022-02-12] MEDS: ARTIFICIAL TEARS (POLYVINYL ALCOHOL) OPTH DROPS OU PRN ×2 (10:09→21:41)
[2022-02-12] MEDS: NICOTINE 7 MG/24 HOURS TOPICAL PATCH TD SCH (10:09)
[2022-02-12] MEDS: PRENATAL VITAMINS W/ FOLIC ACID TABLET (FP) PO SCH (10:09)
[2022-02-12] MEDS: THIAMINE HCL 100 MG TABLET (FP) PO SCH (21:40)
[2022-02-12] MEDS: MELATONIN 5 MG TABLETS PO SCH (21:41)
[2022-02-13] MEDS: ARTIFICIAL TEARS (POLYVINYL ALCOHOL) OPTH DROPS OU PRN (10:04)
[2022-02-13] MEDS: NICOTINE 7 MG/24 HOURS TOPICAL PATCH TD SCH (10:04)
[2022-02-13] MEDS: PRENATAL VITAMINS W/ FOLIC ACID TABLET (FP) PO SCH (10:05)
[2022-02-13] MEDS: IBUPROFEN 400 MG TABLET (FP) PO PRN (17:19)
[2022-02-13] MEDS: THIAMINE HCL 100 MG TABLET (FP) PO SCH (21:42)
[2022-02-13] MEDS: MELATONIN 5 MG TABLETS PO SCH (21:43)
[2022-02-14] MEDS: NICOTINE 7 MG/24 HOURS TOPICAL PATCH TD SCH (10:06)
[2022-02-14] MEDS: PRENATAL VITAMINS W/ FOLIC ACID TABLET (FP) PO SCH (10:06)
[2022-02-14] MEDS: MELATONIN 5 MG TABLETS PO SCH (23:41)
[2022-02-14] MEDS: THIAMINE HCL 100 MG TABLET (FP) PO SCH (23:41)
[2022-02-15] MEDS: NICOTINE 7 MG/24 HOURS TOPICAL PATCH TD SCH (09:46)
[2022-02-15] MEDS: PRENATAL VITAMINS W/ FOLIC ACID TABLET (FP) PO SCH (09:46)
[2022-02-15] MEDS: ARTIFICIAL TEARS (POLYVINYL ALCOHOL) OPTH DROPS OU PRN (09:47)
[2022-02-15] MEDS: THIAMINE HCL 100 MG TABLET (FP) PO SCH (22:05)
[2022-02-15] MEDS: MELATONIN 5 MG TABLETS PO SCH (22:05)
[2022-02-16] MEDS: ARTIFICIAL TEARS (POLYVINYL ALCOHOL) OPTH DROPS OU PRN (09:59)
[2022-02-16] MEDS: PRENATAL VITAMINS W/ FOLIC ACID TABLET (FP) PO SCH (09:59)
[2022-02-16] MEDS: NICOTINE 7 MG/24 HOURS TOPICAL PATCH TD SCH (10:00)
[2022-02-16] MEDS: MELATONIN 5 MG TABLETS PO SCH (21:31)
[2022-02-16] MEDS: THIAMINE HCL 100 MG TABLET (FP) PO SCH (21:31)
[2022-02-17] MEDS: NICOTINE 7 MG/24 HOURS TOPICAL PATCH TD SCH (10:01)
[2022-02-17] MEDS: hydrOXYzine PAMOATE 25 MG CAPSULE (FP) PO PRN (10:01)
[2022-02-17] MEDS: PRENATAL VITAMINS W/ FOLIC ACID TABLET (FP) PO SCH (10:01)
[2022-02-17] MEDS: ARTIFICIAL TEARS (POLYVINYL ALCOHOL) OPTH DROPS OU PRN (10:02)
[2022-02-17] MEDS: THIAMINE HCL 100 MG TABLET (FP) PO SCH (21:37)
[2022-02-17] MEDS: MELATONIN 5 MG TABLETS PO SCH (21:38)
[2022-02-18] MEDS: ARTIFICIAL TEARS (POLYVINYL ALCOHOL) OPTH DROPS OU PRN ×2 (09:36→21:23)
[2022-02-18] MEDS: NICOTINE 7 MG/24 HOURS TOPICAL PATCH TD SCH (09:36)
[2022-02-18] MEDS: PRENATAL VITAMINS W/ FOLIC ACID TABLET (FP) PO SCH (09:36)
[2022-02-18] MEDS: MELATONIN 5 MG TABLETS PO SCH (21:23)
[2022-02-18] MEDS: THIAMINE HCL 100 MG TABLET (FP) PO SCH (21:23)
[2022-02-19] MEDS: PRENATAL VITAMINS W/ FOLIC ACID TABLET (FP) PO SCH (09:54)
[2022-02-19] MEDS: NICOTINE 7 MG/24 HOURS TOPICAL PATCH TD SCH (09:55)
[2022-02-19] MEDS: ARTIFICIAL TEARS (POLYVINYL ALCOHOL) OPTH DROPS OU PRN ×2 (09:55→21:19)
[2022-02-19] MEDS: IBUPROFEN 400 MG TABLET (FP) PO PRN (13:03)
[2022-02-19] MEDS: THIAMINE HCL 100 MG TABLET (FP) PO SCH (21:55)
[2022-02-19] MEDS: MELATONIN 5 MG TABLETS PO SCH (21:55)
[2022-02-20] MEDS: PRENATAL VITAMINS W/ FOLIC ACID TABLET (FP) PO SCH (09:47)
[2022-02-20] MEDS: ARTIFICIAL TEARS (POLYVINYL ALCOHOL) OPTH DROPS OU PRN ×2 (09:47→21:19)
[2022-02-20] MEDS: NICOTINE 7 MG/24 HOURS TOPICAL PATCH TD SCH (09:48)
[2022-02-20] MEDS: MELATONIN 5 MG TABLETS PO SCH (21:20)
[2022-02-20] MEDS: THIAMINE HCL 100 MG TABLET (FP) PO SCH (21:20)
[2022-02-21] MEDS: PRENATAL VITAMINS W/ FOLIC ACID TABLET (FP) PO SCH (09:50)
[2022-02-21] MEDS: NICOTINE 7 MG/24 HOURS TOPICAL PATCH TD SCH (09:51)
[2022-02-21] MEDS: ARTIFICIAL TEARS (POLYVINYL ALCOHOL) OPTH DROPS OU PRN (09:51)
[2022-02-21] MEDS: THIAMINE HCL 100 MG TABLET (FP) PO SCH (21:21)
[2022-02-21] MEDS: MELATONIN 5 MG TABLETS PO SCH (21:21)
[2022-02-22] MEDS: PRENATAL VITAMINS W/ FOLIC ACID TABLET (FP) PO SCH (10:19)
[2022-02-22] MEDS: ARTIFICIAL TEARS (POLYVINYL ALCOHOL) OPTH DROPS OU PRN ×2 (10:19→21:27)
[2022-02-22] MEDS: NICOTINE 7 MG/24 HOURS TOPICAL PATCH TD SCH (10:19)
[2022-02-22] MEDS: THIAMINE HCL 100 MG TABLET (FP) PO SCH (21:27)
[2022-02-22] MEDS: MELATONIN 5 MG TABLETS PO SCH (21:27)
[2022-02-23] MEDS: NICOTINE 7 MG/24 HOURS TOPICAL PATCH TD SCH (09:21)
[2022-02-23] MEDS: ARTIFICIAL TEARS (POLYVINYL ALCOHOL) OPTH DROPS OU PRN (09:21)
[2022-02-23] MEDS: PRENATAL VITAMINS W/ FOLIC ACID TABLET (FP) PO SCH (09:21)
[2022-02-23] MEDS: MELATONIN 5 MG TABLETS PO SCH (21:40)
[2022-02-23] MEDS: THIAMINE HCL 100 MG TABLET (FP) PO SCH (21:40)
[2022-02-24] MEDS: PRENATAL VITAMINS W/ FOLIC ACID TABLET (FP) PO SCH (09:15)
[2022-02-24] MEDS: NICOTINE 7 MG/24 HOURS TOPICAL PATCH TD SCH (09:15)
[2022-02-24] MEDS: ARTIFICIAL TEARS (POLYVINYL ALCOHOL) OPTH DROPS OU PRN (09:16)
[2022-02-24] MEDS: MELATONIN 5 MG TABLETS PO SCH (23:57)
[2022-02-24] MEDS: THIAMINE HCL 100 MG TABLET (FP) PO SCH (23:57)
[2022-02-25] MEDS: MAG HYDROX/AL HYDROX/SIMETH 30 ML UNIT-DOSE CUP PO PRN (00:29)
[2022-02-25] MEDS: ARTIFICIAL TEARS (POLYVINYL ALCOHOL) OPTH DROPS OU PRN (10:38)
[2022-02-25] MEDS: PRENATAL VITAMINS W/ FOLIC ACID TABLET (FP) PO SCH (10:39)
[2022-02-25] MEDS: NICOTINE 7 MG/24 HOURS TOPICAL PATCH TD SCH (10:39)
[2022-02-25] MEDS: THIAMINE HCL 100 MG TABLET (FP) PO SCH (21:51)
[2022-02-25] MEDS: MELATONIN 5 MG TABLETS PO SCH (21:51)
[2022-02-26] MEDS: ARTIFICIAL TEARS (POLYVINYL ALCOHOL) OPTH DROPS OU PRN (10:07)
[2022-02-26] MEDS: PRENATAL VITAMINS W/ FOLIC ACID TABLET (FP) PO SCH (10:07)
[2022-02-26] MEDS: NICOTINE 7 MG/24 HOURS TOPICAL PATCH TD SCH (10:07)
[2022-02-26] MEDS: THIAMINE HCL 100 MG TABLET (FP) PO SCH (21:38)
[2022-02-26] MEDS: MELATONIN 5 MG TABLETS PO SCH (21:38)
[2022-02-27] MEDS: ARTIFICIAL TEARS (POLYVINYL ALCOHOL) OPTH DROPS OU PRN (09:43)
[2022-02-27] MEDS: NICOTINE 7 MG/24 HOURS TOPICAL PATCH TD SCH (09:49)
[2022-02-27] MEDS: PRENATAL VITAMINS W/ FOLIC ACID TABLET (FP) PO SCH (09:49)
[2022-02-27] MEDS: MELATONIN 5 MG TABLETS PO SCH (21:59)
[2022-02-27] MEDS: THIAMINE HCL 100 MG TABLET (FP) PO SCH (21:59)
[2022-02-28] MEDS: NICOTINE 7 MG/24 HOURS TOPICAL PATCH TD SCH (10:00)
[2022-02-28] MEDS: PRENATAL VITAMINS W/ FOLIC ACID TABLET (FP) PO SCH (10:00)
[2022-02-28] MEDS: ARTIFICIAL TEARS (POLYVINYL ALCOHOL) OPTH DROPS OU PRN (10:00)
[2022-02-28] MEDS: THIAMINE HCL 100 MG TABLET (FP) PO SCH (21:34)
[2022-02-28] MEDS: MELATONIN 5 MG TABLETS PO SCH (21:34)
[2022-03-01] MEDS: ARTIFICIAL TEARS (POLYVINYL ALCOHOL) OPTH DROPS OU PRN (10:33)
[2022-03-01] MEDS: NICOTINE 7 MG/24 HOURS TOPICAL PATCH TD SCH (10:33)
[2022-03-01] MEDS: PRENATAL VITAMINS W/ FOLIC ACID TABLET (FP) PO SCH (10:33)
[2022-03-01] MEDS: METHOCARBAMOL 500 MG TABLET PO PRN (17:11)
[2022-03-01] MEDS: THIAMINE HCL 100 MG TABLET (FP) PO SCH (23:09)
[2022-03-01] MEDS: MELATONIN 5 MG TABLETS PO SCH (23:09)
[2022-03-02] MEDS: ARTIFICIAL TEARS (POLYVINYL ALCOHOL) OPTH DROPS OU PRN (10:02)
[2022-03-02] MEDS: PRENATAL VITAMINS W/ FOLIC ACID TABLET (FP) PO SCH (10:02)
[2022-03-02] MEDS: NICOTINE 7 MG/24 HOURS TOPICAL PATCH TD SCH (10:02)
[2022-03-02] MEDS: METHOCARBAMOL 500 MG TABLET PO PRN (13:38)
[2022-03-02] MEDS: THIAMINE HCL 100 MG TABLET (FP) PO SCH (21:28)
[2022-03-02] MEDS: MELATONIN 5 MG TABLETS PO SCH (21:28)
[2022-03-03 06:46] VITALS: PULSE 77
[2022-03-03] MEDS: PRENATAL VITAMINS W/ FOLIC ACID TABLET (FP) PO SCH (09:03)
[2022-03-03] MEDS: NICOTINE 7 MG/24 HOURS TOPICAL PATCH TD SCH (09:03)
[2022-03-03] MEDS: ARTIFICIAL TEARS (POLYVINYL ALCOHOL) OPTH DROPS OU PRN (09:06)
[2022-03-03] MEDS: MELATONIN 5 MG TABLETS PO SCH (23:34)
[2022-03-03] MEDS: THIAMINE HCL 100 MG TABLET (FP) PO SCH (23:34)
[2022-03-04 07:08] VITALS: BP 113/77; TEMP 97.1
[2022-03-04] MEDS: PRENATAL VITAMINS W/ FOLIC ACID TABLET (FP) PO SCH (10:27)
[2022-03-04] MEDS: NICOTINE 7 MG/24 HOURS TOPICAL PATCH TD SCH (10:27)
== END 2022-03-04 10:00 | disposition home or self-care (01) | DRG 772 ==
LOC: YASAS 13:42 → Y3E 13:45
PROVIDERS: ADMIT Allergy & Immunology; ATTEND Allergy & Immunology
PROC: HZ42ZZZ Group Counseling for Substance Abuse Treatment, Cognitive-Behavioral (ICD-10-PCS; principal; 2022-02-06)
DX: F11.20 Opioid dependence, uncomplicated (principal); F10.20 Alcohol dependence, uncomplicated; F17.210 Nicotine dependence, cigarettes, uncomplicated; F31.9 Bipolar disorder, unspecified; F41.9 Anxiety disorder, unspecified; F43.10 Post-traumatic stress disorder, unspecified; D72.819 Decreased white blood cell count, unspecified; H40.9 Unspecified glaucoma; H04.321 Acute dacryocystitis of right lacrimal passage; I10 Essential (primary) hypertension; K21.9 Gastro-esophageal reflux disease without esophagitis; B35.3 Tinea pedis; Z28.311 Partially vaccinated for COVID-19; Z88.0 Allergy status to penicillin; Z91.014 Allergy to mammalian meats
CPT/HCPCS: C9803-CS; U0003; U0005

== ENCOUNTER 2022-05-28 09:24 | Inpatient (IN) | payer OTHER ==
[2022-05-28 11:12] VITALS: BMI 24.3
[2022-05-28] MEDS ORDERED: MAGNESIUM HYDROX 2400MG/30ML ORAL SUSPENSION 30 ML CUP PO PRN (11:45)
[2022-05-28] MEDS ORDERED: NICOTINE POLACRILEX 4 MG GUM BUC PRN (11:45)
[2022-05-28] MEDS ORDERED: IBUPROFEN 400 MG TABLET (FP) PO PRN (11:45)
[2022-05-28] MEDS ORDERED: ONDANSETRON *ODT* 4 MG TABLET SL PRN (11:45)
[2022-05-28] MEDS ORDERED: ACETAMINOPHEN 325 MG TABLET (FP) PO PRN ×2 (11:45)
[2022-05-28] MEDS ORDERED: LOPERAMIDE HCL 2 MG CAPSULE PO PRN (11:45)
[2022-05-28] MEDS ORDERED: MAG HYDROX/AL HYDROX/SIMETH 30 ML UNIT-DOSE CUP PO PRN (11:45)
[2022-05-28] MEDS ORDERED: DICYCLOMINE HCL 10 MG CAPSULE PO PRN (11:45)
[2022-05-28] MEDS ORDERED: MAGNESIUM CITRATE 300 ML BOTTLE PO PRN (11:45)
[2022-05-28] MEDS ORDERED: BENZOCAINE/MENTHOL (CHLORASEPTIC ) LOZENGE MM PRN (11:45)
[2022-05-28] MEDS ORDERED: BISMUTH SUBSALICYLATE 524 MG/30 ML PO PRN (11:45)
[2022-05-28] MEDS ORDERED: NICOTINE 10 MG CARTRIDGE (INHALER) IH PRN (11:45)
[2022-05-28] MEDS: hydrOXYzine PAMOATE 25 MG CAPSULE (FP) PO SCH ×3 (14:47→23:30)
[2022-05-28] MEDS: THIAMINE HCL 100 MG TABLET (FP) PO SCH (23:30)
[2022-05-28] MEDS: MELATONIN 5 MG TABLETS PO SCH (23:30)
[2022-05-29] MEDS: hydrOXYzine PAMOATE 25 MG CAPSULE (FP) PO SCH ×5 (05:33→22:35)
[2022-05-29 11:18] LABS: HEMATOCRIT 36.3 % (35.4-49); HEMOGLOBIN 12.7 GM/dL (11.7-16.9); MCH 33.1 pg (25.7-33.7); MEAN CELL VOLUME 94.6 fl (80-96); MEAN PLT VOLUME 7.1 fl (7.5-11.1); PLATELET COUNT 247 10^3/uL (134-434); RBC 3.84 M/mm3 (4.00-5.60); RDW 14.3 % (11.9-15.9)
[2022-05-29 11:26] LABS: WHITE BLOOD COUNT 1.9 K/mm3 (4.0-10.0)
[2022-05-29] MEDS: PRENATAL VITAMINS W/ FOLIC ACID TABLET (FP) PO SCH (12:14)
[2022-05-29 12:21] LABS: ALBUMIN 3.2 g/dl (3.4-5.0); CALCIUM 8.4 mg/dL (8.5-10.1)
[2022-05-29 12:24] LABS: CREATININE 0.7 mg/dL (0.55-1.3)
[2022-05-29 12:26] LABS: BILIRUBIN,TOTAL 0.4 mg/dL (0.2-1); TOT PROT 6.2 g/dl (6.4-8.2)
[2022-05-29] MEDS: THIAMINE HCL 100 MG TABLET (FP) PO SCH (22:35)
[2022-05-29] MEDS: MELATONIN 5 MG TABLETS PO SCH (22:35)
[2022-05-29] MEDS: CALCIUM CARBONATE 650 MG TABLET PO SCH (22:36)
[2022-05-29] MEDS: METHOCARBAMOL 500 MG TABLET PO PRN (22:37)
[2022-05-30] MEDS: hydrOXYzine PAMOATE 25 MG CAPSULE (FP) PO SCH ×5 (06:09→22:23)
[2022-05-30] MEDS: PRENATAL VITAMINS W/ FOLIC ACID TABLET (FP) PO SCH (10:46)
[2022-05-30] MEDS: CALCIUM CARBONATE 650 MG TABLET PO SCH ×2 (10:46→22:25)
[2022-05-30] MEDS: METHOCARBAMOL 500 MG TABLET PO PRN ×2 (10:46→17:43)
[2022-05-30] MEDS: IBUPROFEN 600 MG TABLET (FP) PO PRN (10:47)
[2022-05-30] MEDS ORDERED: chlordiazePOXIDE HCL 25 MG CAPSULE PO PRN (11:13)
[2022-05-30] MEDS: chlordiazePOXIDE HCL 25 MG CAPSULE PO SCH ×3 (12:33→22:24)
[2022-05-30] MEDS: MELATONIN 5 MG TABLETS PO SCH (22:23)
[2022-05-30] MEDS: THIAMINE HCL 100 MG TABLET (FP) PO SCH (22:24)
[2022-05-31] MEDS: chlordiazePOXIDE HCL 25 MG CAPSULE PO SCH ×4 (06:20→22:31)
[2022-05-31] MEDS: hydrOXYzine PAMOATE 25 MG CAPSULE (FP) PO SCH ×5 (06:20→22:31)
[2022-05-31] MEDS: IBUPROFEN 600 MG TABLET (FP) PO PRN (10:33)
[2022-05-31] MEDS: METHOCARBAMOL 500 MG TABLET PO PRN ×2 (10:33→18:21)
[2022-05-31] MEDS: CALCIUM CARBONATE 650 MG TABLET PO SCH ×2 (10:34→22:31)
[2022-05-31] MEDS: PRENATAL VITAMINS W/ FOLIC ACID TABLET (FP) PO SCH (10:34)
[2022-05-31 15:32] LABS: HEMATOCRIT 38.9 % (35.4-49); HEMOGLOBIN 13.4 GM/dL (11.7-16.9); MCH 32.5 pg (25.7-33.7); MCHC 34.4 g/dl (32.0-35.9); MEAN CELL VOLUME 94.4 fl (80-96); MEAN PLT VOLUME 7.1 fl (7.5-11.1); PLATELET COUNT 267 10^3/uL (134-434); RBC 4.12 M/mm3 (4.00-5.60); RDW 14.7 % (11.9-15.9)
[2022-05-31 15:34] LABS: WHITE BLOOD COUNT 1.7 K/mm3 (4.0-10.0)
[2022-05-31] MEDS: THIAMINE HCL 100 MG TABLET (FP) PO SCH (22:31)
[2022-05-31] MEDS: MELATONIN 5 MG TABLETS PO SCH (22:31)
[2022-06-01] MEDS: chlordiazePOXIDE HCL 25 MG CAPSULE PO SCH ×4 (05:59→23:54)
[2022-06-01] MEDS: hydrOXYzine PAMOATE 25 MG CAPSULE (FP) PO SCH ×5 (05:59→23:54)
[2022-06-01] MEDS: PRENATAL VITAMINS W/ FOLIC ACID TABLET (FP) PO SCH (12:16)
[2022-06-01] MEDS: CALCIUM CARBONATE 650 MG TABLET PO SCH (12:16)
[2022-06-01] MEDS: METHOCARBAMOL 500 MG TABLET PO PRN (18:07)
[2022-06-01] MEDS: THIAMINE HCL 100 MG TABLET (FP) PO SCH (23:54)
[2022-06-01] MEDS: MELATONIN 5 MG TABLETS PO SCH (23:54)
[2022-06-02] MEDS ORDERED: chlordiazePOXIDE HCL 10 MG CAPSULE PO PRN
[2022-06-02] MEDS: chlordiazePOXIDE HCL 10 MG CAPSULE PO SCH ×4 (06:28→22:56)
[2022-06-02] MEDS: hydrOXYzine PAMOATE 25 MG CAPSULE (FP) PO SCH ×5 (06:28→22:56)
[2022-06-02] MEDS: METHOCARBAMOL 500 MG TABLET PO PRN ×2 (11:11→18:34)
[2022-06-02] MEDS: PRENATAL VITAMINS W/ FOLIC ACID TABLET (FP) PO SCH (11:11)
[2022-06-02] MEDS: IBUPROFEN 600 MG TABLET (FP) PO PRN (11:11)
[2022-06-02] MEDS: THIAMINE HCL 100 MG TABLET (FP) PO SCH (22:56)
[2022-06-02] MEDS: MELATONIN 5 MG TABLETS PO SCH (22:56)
[2022-06-03] MEDS: hydrOXYzine PAMOATE 25 MG CAPSULE (FP) PO SCH ×2 (06:26→11:15)
[2022-06-03] MEDS: chlordiazePOXIDE HCL 10 MG CAPSULE PO SCH ×2 (06:26→18:21)
[2022-06-03] MEDS: PRENATAL VITAMINS W/ FOLIC ACID TABLET (FP) PO SCH (11:14)
[2022-06-03] MEDS: METHOCARBAMOL 500 MG TABLET PO PRN (11:15)
[2022-06-03 12:31] LABS: HEMATOCRIT 40.5 % (35.4-49); HEMOGLOBIN 13.8 GM/dL (11.7-16.9); MCH 32.5 pg (25.7-33.7); MCHC 34.1 g/dl (32.0-35.9); MEAN CELL VOLUME 95.4 fl (80-96); MEAN PLT VOLUME 7.1 fl (7.5-11.1); PLATELET COUNT 257 10^3/uL (134-434); RBC 4.24 M/mm3 (4.00-5.60); RDW 15.2 % (11.9-15.9); WHITE BLOOD COUNT 2.1 K/mm3 (4.0-10.0)
[2022-06-03 13:53] LABS: HIV INTERPRETATION NEGATIVE (NEGATIVE)
[2022-06-03] MEDS: MELATONIN 5 MG TABLETS PO SCH (21:54)
[2022-06-03] MEDS: THIAMINE HCL 100 MG TABLET (FP) PO SCH (21:55)
[2022-06-04] MEDS ORDERED: chlordiazePOXIDE HCL 10 MG CAPSULE PO ONE (05:00)
[2022-06-04] MEDS: chlordiazePOXIDE HCL 10 MG CAPSULE PO SCH ×2 (06:53→19:02)
[2022-06-04] MEDS: PRENATAL VITAMINS W/ FOLIC ACID TABLET (FP) PO SCH (10:38)
[2022-06-04] MEDS: THIAMINE HCL 100 MG TABLET (FP) PO SCH (23:23)
[2022-06-04] MEDS: MELATONIN 5 MG TABLETS PO SCH (23:23)
[2022-06-05] MEDS ORDERED: chlordiazePOXIDE HCL 10 MG CAPSULE PO ONE (06:00)
[2022-06-05 09:10] LABS: HEMATOCRIT 35.3 % (35.4-49); HEMOGLOBIN 12.2 GM/dL (11.7-16.9); MCH 32.8 pg (25.7-33.7); MCHC 34.6 g/dl (32.0-35.9); MEAN CELL VOLUME 94.9 fl (80-96); MEAN PLT VOLUME 7.2 fl (7.5-11.1); PLATELET COUNT 249 10^3/uL (134-434); RBC 3.72 M/mm3 (4.00-5.60); RDW 14.7 % (11.9-15.9); WHITE BLOOD COUNT 2.6 K/mm3 (4.0-10.0)
[2022-06-05 09:21] VITALS: RESP 18
[2022-06-05] MEDS: PRENATAL VITAMINS W/ FOLIC ACID TABLET (FP) PO SCH (11:23)
[2022-06-05] MEDS: IBUPROFEN 600 MG TABLET (FP) PO PRN (11:24)
[2022-06-05] MEDS: THIAMINE HCL 100 MG TABLET (FP) PO SCH (23:03)
[2022-06-05] MEDS: MELATONIN 5 MG TABLETS PO SCH (23:04)
[2022-06-06] MEDS ORDERED: chlordiazePOXIDE 5 MG CAPSULE PO ONE (06:00)
[2022-06-06 07:02] VITALS: TEMP 97.5
[2022-06-06 09:02] VITALS: BP 120/76; PULSE 83
[2022-06-06] MEDS: PRENATAL VITAMINS W/ FOLIC ACID TABLET (FP) PO SCH (11:27)
== END 2022-06-06 11:15 | disposition home or self-care (01) | DRG 775 ==
LOC: YASAS 09:24 → Y6N 14:07 → UNDOADMIN 14:07 → Y6N 14:43
PROVIDERS: ADMIT Allergy & Immunology; ATTEND Surgery
PROC: HZ2ZZZZ Detoxification Services for Substance Abuse Treatment (ICD-10-PCS; principal; 2022-05-28)
DX: F10.230 Alcohol dependence with withdrawal, uncomplicated (principal); F17.210 Nicotine dependence, cigarettes, uncomplicated; F43.10 Post-traumatic stress disorder, unspecified; U07.1 COVID-19; I10 Essential (primary) hypertension; D70.9 Neutropenia, unspecified; D75.1 Secondary polycythemia; E46 Unspecified protein-calorie malnutrition; E83.51 Hypocalcemia; R71.8 Other abnormality of red blood cells; R01.1 Cardiac murmur, unspecified; Z87.19 Personal history of other diseases of the digestive system; Z88.0 Allergy status to penicillin; Z91.014 Allergy to mammalian meats; Z91.51 Personal history of suicidal behavior
CPT/HCPCS: 36415; 80053; 82310; 85027; 86780; 87389; C9803-CS; Q0162; U0003; U0005

== ENCOUNTER 2022-07-29 13:27 | Inpatient (IN) | payer OTHER ==
[2022-07-29 17:35] VITALS: BMI 25.0
[2022-07-29] MEDS ORDERED: MAGNESIUM CITRATE 300 ML BOTTLE PO PRN (20:39)
[2022-07-29] MEDS ORDERED: ONDANSETRON *ODT* 4 MG TABLET SL PRN (20:39)
[2022-07-29] MEDS ORDERED: LOPERAMIDE HCL 2 MG CAPSULE PO PRN (20:39)
[2022-07-29] MEDS ORDERED: IBUPROFEN 600 MG TABLET (FP) PO PRN (20:39)
[2022-07-29] MEDS ORDERED: IBUPROFEN 400 MG TABLET (FP) PO PRN (20:39)
[2022-07-29] MEDS ORDERED: MAG HYDROX/AL HYDROX/SIMETH 30 ML UNIT-DOSE CUP PO PRN (20:39)
[2022-07-29] MEDS ORDERED: DICYCLOMINE HCL 10 MG CAPSULE PO PRN (20:39)
[2022-07-29] MEDS ORDERED: BENZOCAINE/MENTHOL (CHLORASEPTIC ) LOZENGE MM PRN (20:39)
[2022-07-29] MEDS ORDERED: chlordiazePOXIDE HCL 25 MG CAPSULE PO PRN (20:39)
[2022-07-29] MEDS ORDERED: BISMUTH SUBSALICYLATE 524 MG/30 ML PO PRN (20:39)
[2022-07-29] MEDS ORDERED: NALOXONE HCL (KLOXXADO) 8 MG SPRAY NS PRN (20:39)
[2022-07-29] MEDS ORDERED: MAGNESIUM HYDROX 2400MG/30ML ORAL SUSPENSION 30 ML CUP PO PRN (20:39)
[2022-07-29] MEDS ORDERED: ACETAMINOPHEN 325 MG TABLET (FP) PO PRN ×2 (20:39)
[2022-07-29] MEDS ORDERED: NICOTINE POLACRILEX 2 MG GUM BUC PRN (20:39)
[2022-07-29] MEDS: THIAMINE HCL 100 MG TABLET (FP) PO SCH (22:16)
[2022-07-29] MEDS: MELATONIN 5 MG TABLETS PO SCH (22:16)
[2022-07-29] MEDS: chlordiazePOXIDE HCL 25 MG CAPSULE PO SCH (22:17)
[2022-07-30] MEDS: chlordiazePOXIDE HCL 25 MG CAPSULE PO SCH ×4 (06:23→22:15)
[2022-07-30 09:46] LABS: HEMATOCRIT 36.6 % (35.4-49); MCH 34.6 pg (25.7-33.7); MCHC 35.4 g/dl (32.0-35.9); MEAN CELL VOLUME 97.6 fl (80-96); MEAN PLT VOLUME 6.5 fl (7.5-11.1); PLATELET COUNT 302 10^3/uL (134-434); RBC 3.75 M/mm3 (4.00-5.60); RDW 14.7 % (11.9-15.9); WHITE BLOOD COUNT 2.4 K/mm3 (4.0-10.0)
[2022-07-30 10:02] LABS: ALBUMIN 3.7 g/dl (3.4-5.0); CALCIUM 8.9 mg/dL (8.5-10.1)
[2022-07-30 10:03] LABS: BLOOD UREA NITROGEN 14.6 mg/dL (7-18)
[2022-07-30 10:04] LABS: CREATININE 0.7 mg/dL (0.55-1.3)
[2022-07-30 10:07] LABS: BILIRUBIN,TOTAL 0.6 mg/dL (0.2-1)
[2022-07-30] MEDS: PRENATAL VITAMINS W/ FOLIC ACID TABLET (FP) PO SCH (10:21)
[2022-07-30] MEDS: METHOCARBAMOL 500 MG TABLET PO PRN (10:22)
[2022-07-30] MEDS: NICOTINE 14 MG/24 HOURS TOPICAL PATCH TD SCH (10:23)
[2022-07-30] MEDS: MELATONIN 5 MG TABLETS PO SCH (22:14)
[2022-07-30] MEDS: THIAMINE HCL 100 MG TABLET (FP) PO SCH (22:15)
[2022-07-31] MEDS: chlordiazePOXIDE HCL 25 MG CAPSULE PO SCH ×4 (05:37→22:20)
[2022-07-31] MEDS: METHOCARBAMOL 500 MG TABLET PO PRN (10:06)
[2022-07-31] MEDS: NICOTINE 14 MG/24 HOURS TOPICAL PATCH TD SCH (10:07)
[2022-07-31] MEDS: PRENATAL VITAMINS W/ FOLIC ACID TABLET (FP) PO SCH (10:07)
[2022-07-31] MEDS: THIAMINE HCL 100 MG TABLET (FP) PO SCH (22:20)
[2022-07-31] MEDS: MELATONIN 5 MG TABLETS PO SCH (22:20)
[2022-08-01] MEDS ORDERED: chlordiazePOXIDE HCL 10 MG CAPSULE PO PRN
[2022-08-01] MEDS: chlordiazePOXIDE HCL 10 MG CAPSULE PO SCH ×4 (05:44→22:07)
[2022-08-01] MEDS: NICOTINE 14 MG/24 HOURS TOPICAL PATCH TD SCH (11:04)
[2022-08-01] MEDS: PRENATAL VITAMINS W/ FOLIC ACID TABLET (FP) PO SCH (11:04)
[2022-08-01] MEDS: THIAMINE HCL 100 MG TABLET (FP) PO SCH (22:06)
[2022-08-01] MEDS: MELATONIN 5 MG TABLETS PO SCH (22:06)
[2022-08-02] MEDS: chlordiazePOXIDE HCL 10 MG CAPSULE PO SCH ×2 (06:12→17:24)
[2022-08-02 06:39] VITALS: RESP 18
[2022-08-02] MEDS: PRENATAL VITAMINS W/ FOLIC ACID TABLET (FP) PO SCH (10:33)
[2022-08-02] MEDS: METHOCARBAMOL 500 MG TABLET PO PRN (10:33)
[2022-08-02] MEDS: NICOTINE 14 MG/24 HOURS TOPICAL PATCH TD SCH (10:34)
[2022-08-02] MEDS: LIDOCAINE 5% TOPICAL PATCH TP SCH (17:47)
[2022-08-02] MEDS ORDERED: LIDOCAINE PATCH REMOVAL MC SCH (22:00)
[2022-08-02] MEDS: MELATONIN 5 MG TABLETS PO SCH (23:19)
[2022-08-02] MEDS: THIAMINE HCL 100 MG TABLET (FP) PO SCH (23:20)
[2022-08-03] MEDS ORDERED: chlordiazePOXIDE HCL 10 MG CAPSULE PO ONE (05:00)
[2022-08-03 09:03] VITALS: BP 133/88; PULSE 102; TEMP 97.2
[2022-08-03] MEDS: LIDOCAINE 5% TOPICAL PATCH TP SCH (10:47)
[2022-08-03] MEDS: PRENATAL VITAMINS W/ FOLIC ACID TABLET (FP) PO SCH (10:47)
[2022-08-03] MEDS: NICOTINE 14 MG/24 HOURS TOPICAL PATCH TD SCH (11:08)
== END 2022-08-03 11:23 | disposition other institution (70) | DRG 775 ==
LOC: YASAS 13:27 → Y3N 21:01
PROVIDERS: ADMIT Allergy & Immunology; ATTEND Surgery
PROC: HZ2ZZZZ Detoxification Services for Substance Abuse Treatment (ICD-10-PCS; principal; 2022-07-29)
DX: F10.230 Alcohol dependence with withdrawal, uncomplicated (principal); F17.210 Nicotine dependence, cigarettes, uncomplicated; F19.24 Other psychoactive substance dependence with psychoactive substance-induced mood disorder; F31.9 Bipolar disorder, unspecified; D50.9 Iron deficiency anemia, unspecified; I10 Essential (primary) hypertension; K21.9 Gastro-esophageal reflux disease without esophagitis; M54.50 Low back pain, unspecified; G89.29 Other chronic pain; Z87.828 Personal history of other (healed) physical injury and trauma; Z98.890 Other specified postprocedural states; Z88.0 Allergy status to penicillin; Z91.048 Other nonmedicinal substance allergy status
CPT/HCPCS: 36415; 80053; 85027; 86780; C9803-CS; U0003; U0005

== ENCOUNTER 2022-08-03 11:00 | Inpatient (IN) | payer OTHER ==
[2022-08-03] MEDS ORDERED: MAGNESIUM HYDROX 2400MG/30ML ORAL SUSPENSION 30 ML CUP PO PRN (15:08)
[2022-08-03] MEDS ORDERED: MAGNESIUM CITRATE 300 ML BOTTLE PO PRN (15:08)
[2022-08-03] MEDS ORDERED: IBUPROFEN 400 MG TABLET (FP) PO PRN (15:08)
[2022-08-03] MEDS ORDERED: ACETAMINOPHEN 325 MG TABLET (FP) PO PRN (15:08)
[2022-08-03] MEDS ORDERED: P-EPHED 60MG/TRIPROLIDI 2.5MG TABLET PO PRN (15:08)
[2022-08-03] MEDS ORDERED: MAG HYDROX/AL HYDROX/SIMETH 30 ML UNIT-DOSE CUP PO PRN (15:08)
[2022-08-03] MEDS ORDERED: guaiFENesin 200 MG/10 ML 10 ML UNIT-DOSE CUPS PO PRN (15:08)
[2022-08-03] MEDS ORDERED: LOPERAMIDE HCL 2 MG CAPSULE PO PRN (15:08)
[2022-08-03] MEDS ORDERED: BENZOCAINE/MENTHOL (CHLORASEPTIC ) LOZENGE MM PRN (15:08)
[2022-08-03] MEDS ORDERED: NICOTINE 10 MG CARTRIDGE (INHALER) IH PRN (15:08)
[2022-08-03] MEDS: LIDOCAINE PATCH REMOVAL MC SCH (21:27)
[2022-08-03] MEDS: THIAMINE HCL 100 MG TABLET (FP) PO SCH (21:27)
[2022-08-03] MEDS: MELATONIN 5 MG TABLETS PO SCH (21:27)
[2022-08-04] MEDS: LIDOCAINE 5% TOPICAL PATCH TP SCH (09:53)
[2022-08-04] MEDS: NICOTINE 7 MG/24 HOURS TOPICAL PATCH TD SCH (09:54)
[2022-08-04] MEDS: PRENATAL VITAMINS W/ FOLIC ACID TABLET (FP) PO SCH (09:54)
[2022-08-04] MEDS: MELATONIN 5 MG TABLETS PO SCH (21:28)
[2022-08-04] MEDS: THIAMINE HCL 100 MG TABLET (FP) PO SCH (21:28)
[2022-08-04] MEDS: LIDOCAINE PATCH REMOVAL MC SCH (21:28)
[2022-08-05] MEDS: NICOTINE 7 MG/24 HOURS TOPICAL PATCH TD SCH (10:08)
[2022-08-05] MEDS: PRENATAL VITAMINS W/ FOLIC ACID TABLET (FP) PO SCH (10:08)
[2022-08-05] MEDS: LIDOCAINE 5% TOPICAL PATCH TP SCH (10:08)
[2022-08-05] MEDS: MELATONIN 5 MG TABLETS PO SCH (21:22)
[2022-08-05] MEDS: THIAMINE HCL 100 MG TABLET (FP) PO SCH (21:22)
[2022-08-05] MEDS: LIDOCAINE PATCH REMOVAL MC SCH (21:23)
[2022-08-06] MEDS: PRENATAL VITAMINS W/ FOLIC ACID TABLET (FP) PO SCH (10:15)
[2022-08-06] MEDS: LIDOCAINE 5% TOPICAL PATCH TP SCH (10:16)
[2022-08-06] MEDS: NICOTINE 7 MG/24 HOURS TOPICAL PATCH TD SCH (10:16)
[2022-08-06] MEDS: THIAMINE HCL 100 MG TABLET (FP) PO SCH (21:26)
[2022-08-06] MEDS: MELATONIN 5 MG TABLETS PO SCH (21:26)
[2022-08-06] MEDS: LIDOCAINE PATCH REMOVAL MC SCH (21:26)
[2022-08-06] MEDS: hydrOXYzine PAMOATE 25 MG CAPSULE (FP) PO PRN (21:27)
[2022-08-07] MEDS: PRENATAL VITAMINS W/ FOLIC ACID TABLET (FP) PO SCH (10:26)
[2022-08-07] MEDS: LIDOCAINE 5% TOPICAL PATCH TP SCH (10:26)
[2022-08-07] MEDS: NICOTINE 7 MG/24 HOURS TOPICAL PATCH TD SCH (10:26)
[2022-08-07] MEDS: THIAMINE HCL 100 MG TABLET (FP) PO SCH (21:35)
[2022-08-07] MEDS: LIDOCAINE PATCH REMOVAL MC SCH (21:35)
[2022-08-07] MEDS: hydrOXYzine PAMOATE 25 MG CAPSULE (FP) PO PRN (21:35)
[2022-08-07] MEDS: MELATONIN 5 MG TABLETS PO SCH (21:36)
[2022-08-08] MEDS: LIDOCAINE 5% TOPICAL PATCH TP SCH (10:29)
[2022-08-08] MEDS: PRENATAL VITAMINS W/ FOLIC ACID TABLET (FP) PO SCH (10:29)
[2022-08-08] MEDS: NICOTINE 7 MG/24 HOURS TOPICAL PATCH TD SCH (10:30)
[2022-08-08] MEDS: THIAMINE HCL 100 MG TABLET (FP) PO SCH (21:22)
[2022-08-08] MEDS: LIDOCAINE PATCH REMOVAL MC SCH (21:23)
[2022-08-08] MEDS: MELATONIN 5 MG TABLETS PO SCH (21:23)
[2022-08-09] MEDS: PRENATAL VITAMINS W/ FOLIC ACID TABLET (FP) PO SCH (10:15)
[2022-08-09] MEDS: LIDOCAINE 5% TOPICAL PATCH TP SCH (10:15)
[2022-08-09] MEDS: NICOTINE 7 MG/24 HOURS TOPICAL PATCH TD SCH (10:15)
[2022-08-09] MEDS: MELATONIN 5 MG TABLETS PO SCH (21:31)
[2022-08-09] MEDS: THIAMINE HCL 100 MG TABLET (FP) PO SCH (21:31)
[2022-08-09] MEDS: LIDOCAINE PATCH REMOVAL MC SCH (21:32)
[2022-08-10] MEDS: PRENATAL VITAMINS W/ FOLIC ACID TABLET (FP) PO SCH (10:28)
[2022-08-10] MEDS: LIDOCAINE 5% TOPICAL PATCH TP SCH (10:28)
[2022-08-10] MEDS: NICOTINE 7 MG/24 HOURS TOPICAL PATCH TD SCH (10:28)
[2022-08-10] MEDS: THIAMINE HCL 100 MG TABLET (FP) PO SCH (21:28)
[2022-08-10] MEDS: MELATONIN 5 MG TABLETS PO SCH (21:28)
[2022-08-10] MEDS: LIDOCAINE PATCH REMOVAL MC SCH (21:28)
[2022-08-11] MEDS: PRENATAL VITAMINS W/ FOLIC ACID TABLET (FP) PO SCH (09:30)
[2022-08-11] MEDS: NICOTINE 7 MG/24 HOURS TOPICAL PATCH TD SCH (09:31)
[2022-08-11] MEDS: LIDOCAINE 5% TOPICAL PATCH TP SCH (09:31)
[2022-08-11] MEDS: THIAMINE HCL 100 MG TABLET (FP) PO SCH (21:32)
[2022-08-11] MEDS: LIDOCAINE PATCH REMOVAL MC SCH (21:32)
[2022-08-11] MEDS: MELATONIN 5 MG TABLETS PO SCH (21:32)
[2022-08-12] MEDS: PRENATAL VITAMINS W/ FOLIC ACID TABLET (FP) PO SCH (10:20)
[2022-08-12] MEDS: ARTIFICIAL TEARS (POLYVINYL ALCOHOL) OPTH DROPS OU PRN (10:20)
[2022-08-12] MEDS: LIDOCAINE 5% TOPICAL PATCH TP SCH (10:21)
[2022-08-12] MEDS: NICOTINE 7 MG/24 HOURS TOPICAL PATCH TD SCH (10:21)
[2022-08-12] MEDS: LIDOCAINE PATCH REMOVAL MC SCH (21:46)
[2022-08-12] MEDS: THIAMINE HCL 100 MG TABLET (FP) PO SCH (21:46)
[2022-08-12] MEDS: MELATONIN 5 MG TABLETS PO SCH (21:47)
[2022-08-13] MEDS: PRENATAL VITAMINS W/ FOLIC ACID TABLET (FP) PO SCH (09:10)
[2022-08-13] MEDS: NICOTINE 7 MG/24 HOURS TOPICAL PATCH TD SCH (09:10)
[2022-08-13] MEDS: LIDOCAINE 5% TOPICAL PATCH TP SCH (09:10)
[2022-08-13] MEDS: THIAMINE HCL 100 MG TABLET (FP) PO SCH (21:47)
[2022-08-13] MEDS: MELATONIN 5 MG TABLETS PO SCH (21:47)
[2022-08-13] MEDS: LIDOCAINE PATCH REMOVAL MC SCH (21:47)
[2022-08-13] MEDS: ARTIFICIAL TEARS (POLYVINYL ALCOHOL) OPTH DROPS OU PRN (21:48)
[2022-08-14] MEDS: NICOTINE 7 MG/24 HOURS TOPICAL PATCH TD SCH (09:54)
[2022-08-14] MEDS: ARTIFICIAL TEARS (POLYVINYL ALCOHOL) OPTH DROPS OU PRN (09:55)
[2022-08-14] MEDS: LIDOCAINE 5% TOPICAL PATCH TP SCH (09:55)
[2022-08-14] MEDS: PRENATAL VITAMINS W/ FOLIC ACID TABLET (FP) PO SCH (09:55)
[2022-08-14] MEDS: MELATONIN 5 MG TABLETS PO SCH (21:51)
[2022-08-14] MEDS: THIAMINE HCL 100 MG TABLET (FP) PO SCH (21:51)
[2022-08-14] MEDS: LIDOCAINE PATCH REMOVAL MC SCH (21:52)
[2022-08-15] MEDS: PRENATAL VITAMINS W/ FOLIC ACID TABLET (FP) PO SCH (10:27)
[2022-08-15] MEDS: NICOTINE 7 MG/24 HOURS TOPICAL PATCH TD SCH (10:27)
[2022-08-15] MEDS: ARTIFICIAL TEARS (POLYVINYL ALCOHOL) OPTH DROPS OU PRN (10:27)
[2022-08-15] MEDS: LIDOCAINE 5% TOPICAL PATCH TP SCH (10:27)
[2022-08-15] MEDS: MELATONIN 5 MG TABLETS PO SCH (21:33)
[2022-08-15] MEDS: THIAMINE HCL 100 MG TABLET (FP) PO SCH (21:33)
[2022-08-15] MEDS: LIDOCAINE PATCH REMOVAL MC SCH (21:33)
[2022-08-16] MEDS: PRENATAL VITAMINS W/ FOLIC ACID TABLET (FP) PO SCH (10:23)
[2022-08-16] MEDS: LIDOCAINE 5% TOPICAL PATCH TP SCH (10:23)
[2022-08-16] MEDS: NICOTINE 7 MG/24 HOURS TOPICAL PATCH TD SCH (10:24)
[2022-08-16] MEDS: ARTIFICIAL TEARS (POLYVINYL ALCOHOL) OPTH DROPS OU PRN ×2 (10:24→21:53)
[2022-08-16] MEDS: hydrOXYzine PAMOATE 25 MG CAPSULE (FP) PO PRN (21:47)
[2022-08-16] MEDS: THIAMINE HCL 100 MG TABLET (FP) PO SCH (21:48)
[2022-08-16] MEDS: MELATONIN 5 MG TABLETS PO SCH (21:48)
[2022-08-16] MEDS: LIDOCAINE PATCH REMOVAL MC SCH (23:07)
[2022-08-17] MEDS: ARTIFICIAL TEARS (POLYVINYL ALCOHOL) OPTH DROPS OU PRN (10:01)
[2022-08-17] MEDS: PRENATAL VITAMINS W/ FOLIC ACID TABLET (FP) PO SCH (10:02)
[2022-08-17] MEDS: LIDOCAINE 5% TOPICAL PATCH TP SCH (10:02)
[2022-08-17] MEDS: NICOTINE 7 MG/24 HOURS TOPICAL PATCH TD SCH (10:02)
[2022-08-17] MEDS: MELATONIN 5 MG TABLETS PO SCH (22:16)
[2022-08-17] MEDS: LIDOCAINE PATCH REMOVAL MC SCH (22:16)
[2022-08-17] MEDS: THIAMINE HCL 100 MG TABLET (FP) PO SCH (22:16)
[2022-08-18] MEDS: ARTIFICIAL TEARS (POLYVINYL ALCOHOL) OPTH DROPS OU PRN (09:57)
[2022-08-18] MEDS: NICOTINE 7 MG/24 HOURS TOPICAL PATCH TD SCH (09:58)
[2022-08-18] MEDS: PRENATAL VITAMINS W/ FOLIC ACID TABLET (FP) PO SCH (09:58)
[2022-08-18] MEDS: LIDOCAINE 5% TOPICAL PATCH TP SCH (09:58)
[2022-08-18] MEDS: THIAMINE HCL 100 MG TABLET (FP) PO SCH (21:37)
[2022-08-18] MEDS: LIDOCAINE PATCH REMOVAL MC SCH (21:37)
[2022-08-18] MEDS: MELATONIN 5 MG TABLETS PO SCH (21:37)
[2022-08-19] MEDS: ARTIFICIAL TEARS (POLYVINYL ALCOHOL) OPTH DROPS OU PRN (10:19)
[2022-08-19] MEDS: LIDOCAINE 5% TOPICAL PATCH TP SCH (10:20)
[2022-08-19] MEDS: NICOTINE 7 MG/24 HOURS TOPICAL PATCH TD SCH (10:23)
[2022-08-19] MEDS: PRENATAL VITAMINS W/ FOLIC ACID TABLET (FP) PO SCH (10:23)
[2022-08-19] MEDS ORDERED: NICOTINE 7 MG/24 HOURS TOPICAL PATCH TD PRN (13:59)
[2022-08-19] MEDS: THIAMINE HCL 100 MG TABLET (FP) PO SCH (21:21)
[2022-08-19] MEDS: LIDOCAINE PATCH REMOVAL MC SCH (21:21)
[2022-08-19] MEDS: MELATONIN 5 MG TABLETS PO SCH (21:22)
[2022-08-20] MEDS: ARTIFICIAL TEARS (POLYVINYL ALCOHOL) OPTH DROPS OU PRN ×2 (10:06→21:55)
[2022-08-20] MEDS: PRENATAL VITAMINS W/ FOLIC ACID TABLET (FP) PO SCH (10:07)
[2022-08-20] MEDS: LIDOCAINE 5% TOPICAL PATCH TP SCH (10:07)
[2022-08-20] MEDS: LIDOCAINE PATCH REMOVAL MC SCH (21:53)
[2022-08-20] MEDS: MELATONIN 5 MG TABLETS PO SCH (21:53)
[2022-08-20] MEDS: THIAMINE HCL 100 MG TABLET (FP) PO SCH (21:53)
[2022-08-21] MEDS: PRENATAL VITAMINS W/ FOLIC ACID TABLET (FP) PO SCH (09:32)
[2022-08-21] MEDS: ARTIFICIAL TEARS (POLYVINYL ALCOHOL) OPTH DROPS OU PRN ×2 (09:32→21:43)
[2022-08-21] MEDS: LIDOCAINE 5% TOPICAL PATCH TP SCH (09:32)
[2022-08-21] MEDS: THIAMINE HCL 100 MG TABLET (FP) PO SCH (21:43)
[2022-08-21] MEDS: MELATONIN 5 MG TABLETS PO SCH (21:51)
[2022-08-21] MEDS: LIDOCAINE PATCH REMOVAL MC SCH (21:51)
[2022-08-22] MEDS: LIDOCAINE 5% TOPICAL PATCH TP SCH (09:57)
[2022-08-22] MEDS: PRENATAL VITAMINS W/ FOLIC ACID TABLET (FP) PO SCH (09:57)
[2022-08-22] MEDS: ARTIFICIAL TEARS (POLYVINYL ALCOHOL) OPTH DROPS OU PRN (09:58)
[2022-08-22] MEDS: THIAMINE HCL 100 MG TABLET (FP) PO SCH (23:28)
[2022-08-22] MEDS: MELATONIN 5 MG TABLETS PO SCH (23:28)
[2022-08-22] MEDS: LIDOCAINE PATCH REMOVAL MC SCH (23:29)
[2022-08-23 07:51] VITALS: RESP 18
[2022-08-23] MEDS: PRENATAL VITAMINS W/ FOLIC ACID TABLET (FP) PO SCH (09:57)
[2022-08-23] MEDS: LIDOCAINE 5% TOPICAL PATCH TP SCH (09:57)
[2022-08-23] MEDS: ARTIFICIAL TEARS (POLYVINYL ALCOHOL) OPTH DROPS OU PRN (09:58)
[2022-08-23] MEDS: LIDOCAINE PATCH REMOVAL MC SCH (21:22)
[2022-08-23] MEDS: MELATONIN 5 MG TABLETS PO SCH (21:23)
[2022-08-23] MEDS: THIAMINE HCL 100 MG TABLET (FP) PO SCH (21:23)
[2022-08-24] MEDS: ARTIFICIAL TEARS (POLYVINYL ALCOHOL) OPTH DROPS OU PRN ×2 (09:38→21:39)
[2022-08-24] MEDS: LIDOCAINE 5% TOPICAL PATCH TP SCH (09:38)
[2022-08-24] MEDS: PRENATAL VITAMINS W/ FOLIC ACID TABLET (FP) PO SCH (09:38)
[2022-08-24] MEDS: LIDOCAINE PATCH REMOVAL MC SCH (21:38)
[2022-08-24] MEDS: MELATONIN 5 MG TABLETS PO SCH (21:38)
[2022-08-24] MEDS: THIAMINE HCL 100 MG TABLET (FP) PO SCH (21:38)
[2022-08-25 07:26] VITALS: BP 117/80; PULSE 82; TEMP 97.6
[2022-08-25] MEDS: PRENATAL VITAMINS W/ FOLIC ACID TABLET (FP) PO SCH (09:34)
[2022-08-25] MEDS: LIDOCAINE 5% TOPICAL PATCH TP SCH (09:34)
[2022-08-25] MEDS: ARTIFICIAL TEARS (POLYVINYL ALCOHOL) OPTH DROPS OU PRN (09:35)
== END 2022-08-25 09:55 | disposition home or self-care (01) | DRG 772 ==
LOC: YASAS 11:00 → Y3E 11:01
PROVIDERS: ADMIT Allergy & Immunology; ATTEND Psychiatry & Neurology Pain Medicine
PROC: HZ42ZZZ Group Counseling for Substance Abuse Treatment, Cognitive-Behavioral (ICD-10-PCS; principal; 2022-08-03)
DX: F10.20 Alcohol dependence, uncomplicated (principal); F17.210 Nicotine dependence, cigarettes, uncomplicated; F19.24 Other psychoactive substance dependence with psychoactive substance-induced mood disorder; F31.9 Bipolar disorder, unspecified; F41.8 Other specified anxiety disorders; F32.A Depression, unspecified; F43.10 Post-traumatic stress disorder, unspecified; I10 Essential (primary) hypertension; D64.9 Anemia, unspecified; K21.9 Gastro-esophageal reflux disease without esophagitis; H04.321 Acute dacryocystitis of right lacrimal passage; Z88.0 Allergy status to penicillin; Z91.014 Allergy to mammalian meats

== ENCOUNTER 2022-09-20 11:43 | Inpatient (IN) | payer OTHER ==
[2022-09-20 13:30] VITALS: BMI 25.0
[2022-09-20] MEDS ORDERED: MAGNESIUM CITRATE 300 ML BOTTLE PO PRN (14:32)
[2022-09-20] MEDS ORDERED: NICOTINE 10 MG CARTRIDGE (INHALER) IH PRN (14:32)
[2022-09-20] MEDS ORDERED: BISMUTH SUBSALICYLATE 524 MG/30 ML PO PRN (14:32)
[2022-09-20] MEDS ORDERED: LOPERAMIDE HCL 2 MG CAPSULE PO PRN (14:32)
[2022-09-20] MEDS ORDERED: IBUPROFEN 400 MG TABLET (FP) PO PRN (14:32)
[2022-09-20] MEDS ORDERED: ONDANSETRON *ODT* 4 MG TABLET SL PRN (14:32)
[2022-09-20] MEDS ORDERED: MAGNESIUM HYDROX 2400MG/30ML ORAL SUSPENSION 30 ML CUP PO PRN (14:32)
[2022-09-20] MEDS ORDERED: MAG HYDROX/AL HYDROX/SIMETH 30 ML UNIT-DOSE CUP PO PRN (14:32)
[2022-09-20] MEDS ORDERED: DICYCLOMINE HCL 10 MG CAPSULE PO PRN (14:32)
[2022-09-20] MEDS ORDERED: BENZOCAINE/MENTHOL (CHLORASEPTIC ) LOZENGE MM PRN (14:32)
[2022-09-20] MEDS ORDERED: NALOXONE HCL (KLOXXADO) 8 MG SPRAY NS PRN (14:32)
[2022-09-20] MEDS ORDERED: ACETAMINOPHEN 325 MG TABLET (FP) PO PRN ×2 (14:32)
[2022-09-20] MEDS ORDERED: diazePAM 5 MG TABLET PO PRN (14:32)
[2022-09-20] MEDS: PRENATAL VITAMINS W/ FOLIC ACID TABLET (FP) PO SCH (15:35)
[2022-09-20] MEDS: NICOTINE 14 MG/24 HOURS TOPICAL PATCH TD SCH (15:35)
[2022-09-20] MEDS: diazePAM 5 MG TABLET PO SCH ×2 (17:56→22:47)
[2022-09-20] MEDS: IBUPROFEN 600 MG TABLET (FP) PO PRN (17:59)
[2022-09-20] MEDS: METHOCARBAMOL 500 MG TABLET PO PRN (18:00)
[2022-09-20] MEDS: MELATONIN 5 MG TABLETS PO SCH (22:45)
[2022-09-20] MEDS: THIAMINE HCL 100 MG TABLET (FP) PO SCH (22:45)
[2022-09-20] MEDS: hydrOXYzine PAMOATE 25 MG CAPSULE (FP) PO PRN (22:46)
[2022-09-21] MEDS: diazePAM 5 MG TABLET PO SCH ×4 (06:33→22:56)
[2022-09-21] MEDS: METHOCARBAMOL 500 MG TABLET PO PRN (06:34)
[2022-09-21] MEDS: PRENATAL VITAMINS W/ FOLIC ACID TABLET (FP) PO SCH (11:41)
[2022-09-21] MEDS: NICOTINE 14 MG/24 HOURS TOPICAL PATCH TD SCH (11:41)
[2022-09-21] MEDS: LACTULOSE 20 GM/30 ML UDC (FOR ORAL USE ONLY) PO SCH ×2 (14:18→22:55)
[2022-09-21 15:37] LABS: HEMATOCRIT 38.5 % (35.4-49); HEMOGLOBIN 13.5 GM/dL (11.7-16.9); MCH 34.1 pg (25.7-33.7); MCHC 35.1 g/dl (32.0-35.9); PLATELET COUNT 255 10^3/uL (134-434); RBC 3.97 M/mm3 (4.00-5.60); RDW 13.8 % (11.9-15.9); WHITE BLOOD COUNT 2.3 K/mm3 (4.0-10.0)
[2022-09-21 16:14] LABS: CALCIUM 8.9 mg/dL (8.5-10.1)
[2022-09-21 16:15] LABS: ALBUMIN 3.5 g/dl (3.4-5.0); BLOOD UREA NITROGEN 14.4 mg/dL (7-18)
[2022-09-21 16:17] LABS: CREATININE 0.7 mg/dL (0.55-1.3)
[2022-09-21 16:19] LABS: BILIRUBIN,TOTAL 0.4 mg/dL (0.2-1); TOT PROT 6.9 g/dl (6.4-8.2)
[2022-09-21] MEDS: MELATONIN 5 MG TABLETS PO SCH (22:55)
[2022-09-21] MEDS: THIAMINE HCL 100 MG TABLET (FP) PO SCH (22:56)
[2022-09-22] MEDS: diazePAM 5 MG TABLET PO SCH ×3 (06:05→22:42)
[2022-09-22] MEDS: LACTULOSE 20 GM/30 ML UDC (FOR ORAL USE ONLY) PO SCH ×3 (07:18→22:34)
[2022-09-22] MEDS: PRENATAL VITAMINS W/ FOLIC ACID TABLET (FP) PO SCH (11:34)
[2022-09-22] MEDS: NICOTINE 14 MG/24 HOURS TOPICAL PATCH TD SCH (11:34)
[2022-09-22] MEDS: METHOCARBAMOL 500 MG TABLET PO PRN (22:40)
[2022-09-22] MEDS: MELATONIN 5 MG TABLETS PO SCH (22:40)
[2022-09-22] MEDS: IBUPROFEN 600 MG TABLET (FP) PO PRN (22:40)
[2022-09-22] MEDS: hydrOXYzine PAMOATE 25 MG CAPSULE (FP) PO PRN (22:41)
[2022-09-22] MEDS: THIAMINE HCL 100 MG TABLET (FP) PO SCH (22:41)
[2022-09-22] MEDS ORDERED: LIDOCAINE 5% TOPICAL PATCH TP ONE (23:05)
[2022-09-22] MEDS: LIDOCAINE PATCH REMOVAL MC SCH (23:17)
[2022-09-23] MEDS: LACTULOSE 20 GM/30 ML UDC (FOR ORAL USE ONLY) PO SCH ×3 (06:44→22:52)
[2022-09-23] MEDS: diazePAM 5 MG TABLET PO SCH ×2 (06:44→18:19)
[2022-09-23] MEDS: PRENATAL VITAMINS W/ FOLIC ACID TABLET (FP) PO SCH (10:34)
[2022-09-23] MEDS: METHOCARBAMOL 500 MG TABLET PO PRN ×2 (10:34→22:52)
[2022-09-23] MEDS: NICOTINE 14 MG/24 HOURS TOPICAL PATCH TD SCH (10:35)
[2022-09-23] MEDS: THIAMINE HCL 100 MG TABLET (FP) PO SCH (22:50)
[2022-09-23] MEDS: LIDOCAINE PATCH REMOVAL MC SCH (22:51)
[2022-09-23] MEDS: MELATONIN 5 MG TABLETS PO SCH (22:51)
[2022-09-24] MEDS ORDERED: diazePAM 5 MG TABLET PO ONE (06:00)
[2022-09-24] MEDS: LACTULOSE 20 GM/30 ML UDC (FOR ORAL USE ONLY) PO SCH (07:14)
[2022-09-24 09:39] VITALS: BP 133/81; PULSE 91; RESP 16; TEMP 96.9
[2022-09-24] MEDS: PRENATAL VITAMINS W/ FOLIC ACID TABLET (FP) PO SCH (10:32)
[2022-09-24] MEDS: NICOTINE 14 MG/24 HOURS TOPICAL PATCH TD SCH (10:32)
== END 2022-09-24 10:47 | disposition other institution (70) | DRG 774 ==
LOC: YASAS 11:43 → Y3N 15:14
PROVIDERS: ADMIT Allergy & Immunology; ATTEND Surgery
PROC: HZ2ZZZZ Detoxification Services for Substance Abuse Treatment (ICD-10-PCS; principal; 2022-09-20)
DX: F10.230 Alcohol dependence with withdrawal, uncomplicated (principal); F14.20 Cocaine dependence, uncomplicated; F17.210 Nicotine dependence, cigarettes, uncomplicated; F19.24 Other psychoactive substance dependence with psychoactive substance-induced mood disorder; F31.9 Bipolar disorder, unspecified; F43.10 Post-traumatic stress disorder, unspecified; F41.8 Other specified anxiety disorders; E72.20 Disorder of urea cycle metabolism, unspecified; I10 Essential (primary) hypertension; K21.9 Gastro-esophageal reflux disease without esophagitis; M54.50 Low back pain, unspecified; G89.29 Other chronic pain; Z87.828 Personal history of other (healed) physical injury and trauma; Z88.0 Allergy status to penicillin; Z88.8 Allergy status to other drugs, medicaments and biological substances; Z91.013 Allergy to seafood
CPT/HCPCS: 36415; 80053; 82140; 85027; 86780; 87811; C9803-CS; Q0162; U0003; U0005

== ENCOUNTER 2022-10-11 09:26 | Inpatient (IN) | payer OTHER ==
[2022-10-11 11:04] VITALS: BMI 21.4
[2022-10-11] MEDS ORDERED: NALOXONE HCL (KLOXXADO) 8 MG SPRAY NS PRN (11:32)
[2022-10-11] MEDS ORDERED: DICYCLOMINE HCL 10 MG CAPSULE PO PRN (11:32)
[2022-10-11] MEDS ORDERED: hydrOXYzine PAMOATE 25 MG CAPSULE (FP) PO PRN (11:32)
[2022-10-11] MEDS ORDERED: MAGNESIUM HYDROX 2400MG/30ML ORAL SUSPENSION 30 ML CUP PO PRN (11:32)
[2022-10-11] MEDS ORDERED: IBUPROFEN 400 MG TABLET (FP) PO PRN (11:32)
[2022-10-11] MEDS ORDERED: IBUPROFEN 600 MG TABLET (FP) PO PRN (11:32)
[2022-10-11] MEDS ORDERED: METHOCARBAMOL 500 MG TABLET PO PRN (11:32)
[2022-10-11] MEDS ORDERED: POLYETHYLENE GLYCOL (HEALTHYLAX) 3350 17 GM PACKET PO PRN (11:32)
[2022-10-11] MEDS ORDERED: LOPERAMIDE HCL 2 MG CAPSULE PO PRN (11:32)
[2022-10-11] MEDS ORDERED: BENZOCAINE/MENTHOL (CHLORASEPTIC ) LOZENGE MM PRN (11:32)
[2022-10-11] MEDS ORDERED: NICOTINE 10 MG CARTRIDGE (INHALER) IH PRN (11:32)
[2022-10-11] MEDS ORDERED: MAG HYDROX/AL HYDROX/SIMETH 30 ML UNIT-DOSE CUP PO PRN (11:32)
[2022-10-11] MEDS ORDERED: NICOTINE POLACRILEX 2 MG GUM BUC PRN (11:32)
[2022-10-11] MEDS ORDERED: ONDANSETRON *ODT* 4 MG TABLET SL PRN (11:32)
[2022-10-11] MEDS ORDERED: ACETAMINOPHEN 325 MG TABLET (FP) PO PRN ×2 (11:32)
[2022-10-11] MEDS ORDERED: BISMUTH SUBSALICYLATE 262 MG/15 ML BTL PO PRN (11:32)
[2022-10-11 13:32] LABS: HEMATOCRIT 33.8 % (35.4-49); HEMOGLOBIN 11.5 GM/dL (11.7-16.9); MCH 32.9 pg (25.7-33.7); MEAN CELL VOLUME 96.7 fl (80-96); MEAN PLT VOLUME 6.8 fl (7.5-11.1); PLATELET COUNT 323 10^3/uL (134-434); WHITE BLOOD COUNT 2.2 K/mm3 (4.0-10.0)
[2022-10-11] MEDS: PRENATAL VITAMINS W/ FOLIC ACID TABLET (FP) PO SCH (13:39)
[2022-10-11 13:52] LABS: ALBUMIN 3.2 g/dl (3.4-5.0)
[2022-10-11 13:54] LABS: CALCIUM 8.5 mg/dL (8.5-10.1)
[2022-10-11 13:55] LABS: BLOOD UREA NITROGEN 10.1 mg/dL (7-18); CREATININE 0.7 mg/dL (0.55-1.3)
[2022-10-11 13:56] LABS: BILIRUBIN,TOTAL 0.4 mg/dL (0.2-1)
[2022-10-11 13:57] LABS: TOT PROT 6.5 g/dl (6.4-8.2)
[2022-10-11] MEDS: THIAMINE HCL 100 MG TABLET (FP) PO SCH (22:15)
[2022-10-11] MEDS: MELATONIN 5 MG TABLETS PO SCH (22:15)
[2022-10-12] MEDS: PRENATAL VITAMINS W/ FOLIC ACID TABLET (FP) PO SCH (10:24)
[2022-10-12 20:56] VITALS: RESP 18
[2022-10-12] MEDS: MELATONIN 5 MG TABLETS PO SCH (23:26)
[2022-10-12] MEDS: THIAMINE HCL 100 MG TABLET (FP) PO SCH (23:26)
[2022-10-13 05:58] VITALS: BP 105/66; PULSE 79; TEMP 98
== END 2022-10-13 10:39 | disposition home or self-care (01) | DRG 775 ==
LOC: YASAS 09:26 → Y3N 12:04
PROVIDERS: ADMIT Allergy & Immunology; ATTEND Surgery
PROC: HZ2ZZZZ Detoxification Services for Substance Abuse Treatment (ICD-10-PCS; principal; 2022-10-11)
DX: F10.230 Alcohol dependence with withdrawal, uncomplicated (principal); F17.210 Nicotine dependence, cigarettes, uncomplicated; F31.9 Bipolar disorder, unspecified; F43.10 Post-traumatic stress disorder, unspecified; D72.819 Decreased white blood cell count, unspecified; D50.9 Iron deficiency anemia, unspecified; K21.9 Gastro-esophageal reflux disease without esophagitis; Z86.79 Personal history of other diseases of the circulatory system
CPT/HCPCS: 36415; 80053; 85027; 86780; 87811; C9803-CS; U0003; U0005

== ENCOUNTER 2023-01-20 09:54 | Inpatient (IN) | payer OTHER ==
[2023-01-20] MEDS ORDERED: DICYCLOMINE HCL 10 MG CAPSULE PO PRN (12:16)
[2023-01-20] MEDS ORDERED: BENZOCAINE/MENTHOL (CHLORASEPTIC ) LOZENGE MM PRN (12:16)
[2023-01-20] MEDS ORDERED: BISMUTH SUBSALICYLATE 262 MG/15 ML BTL PO PRN (12:16)
[2023-01-20] MEDS ORDERED: IBUPROFEN 600 MG TABLET (FP) PO PRN (12:16)
[2023-01-20] MEDS ORDERED: POLYETHYLENE GLYCOL (HEALTHYLAX) 3350 17 GM PACKET PO PRN (12:16)
[2023-01-20] MEDS ORDERED: MAGNESIUM HYDROX 2400MG/30ML ORAL SUSPENSION 30 ML CUP PO PRN (12:16)
[2023-01-20] MEDS ORDERED: ACETAMINOPHEN 325 MG TABLET (FP) PO PRN (12:16)
[2023-01-20] MEDS ORDERED: MAG HYDROX/AL HYDROX/SIMETH 30 ML UNIT-DOSE CUP PO PRN (12:16)
[2023-01-20] MEDS ORDERED: ONDANSETRON *ODT* 4 MG TABLET SL PRN (12:16)
[2023-01-20] MEDS ORDERED: IBUPROFEN 400 MG TABLET (FP) PO PRN (12:16)
[2023-01-20] MEDS ORDERED: NALOXONE HCL (KLOXXADO) 8 MG SPRAY NS PRN (12:16)
[2023-01-20] MEDS ORDERED: LOPERAMIDE HCL 2 MG CAPSULE PO PRN (12:16)
[2023-01-20 15:02] LABS: HEMATOCRIT 33.1 % (35.4-49); HEMOGLOBIN 11.2 GM/dL (11.7-16.9); MCH 30.9 pg (25.7-33.7); MCHC 33.7 g/dl (32.0-35.9); MEAN CELL VOLUME 91.7 fl (80-96); PLATELET COUNT 270 10^3/uL (134-434); RBC 3.62 M/mm3 (4.00-5.60); RDW 14.3 % (11.9-15.9); WHITE BLOOD COUNT 2.2 K/mm3 (4.0-10.0)
[2023-01-20 15:09] LABS: ALBUMIN 3.4 g/dl (3.4-5.0); CALCIUM 8.7 mg/dL (8.5-10.1)
[2023-01-20 15:10] LABS: BLOOD UREA NITROGEN 11.6 mg/dL (7-18)
[2023-01-20 15:13] LABS: CREATININE 0.7 mg/dL (0.55-1.3)
[2023-01-20 15:14] LABS: BILIRUBIN,TOTAL 0.3 mg/dL (0.2-1); TOT PROT 6.7 g/dl (6.4-8.2)
[2023-01-20] MEDS ORDERED: chlordiazePOXIDE HCL 25 MG CAPSULE PO SCH (17:00)
[2023-01-20] MEDS: THIAMINE HCL 100 MG TABLET (FP) PO SCH (22:19)
[2023-01-20] MEDS: MELATONIN 5 MG TABLETS PO SCH (22:19)
[2023-01-20] MEDS: hydrOXYzine PAMOATE 25 MG CAPSULE (FP) PO PRN (22:19)
[2023-01-21] MEDS: PRENATAL VITAMINS W/ FOLIC ACID TABLET (FP) PO SCH (10:21)
[2023-01-21] MEDS: ACETAMINOPHEN 325 MG TABLET (FP) PO PRN ×2 (10:22→18:07)
[2023-01-21] MEDS: METHOCARBAMOL 500 MG TABLET PO PRN ×2 (10:22→18:06)
[2023-01-21] MEDS: LACTULOSE 20 GM/30 ML UDC (FOR ORAL USE ONLY) PO SCH ×2 (13:53→22:24)
[2023-01-21] MEDS: MELATONIN 5 MG TABLETS PO SCH (22:24)
[2023-01-21] MEDS: THIAMINE HCL 100 MG TABLET (FP) PO SCH (22:24)
[2023-01-22] MEDS ORDERED: chlordiazePOXIDE HCL 25 MG CAPSULE PO SCH (05:00)
[2023-01-22] MEDS: LACTULOSE 20 GM/30 ML UDC (FOR ORAL USE ONLY) PO SCH ×3 (05:28→22:24)
[2023-01-22] MEDS: PRENATAL VITAMINS W/ FOLIC ACID TABLET (FP) PO SCH (10:59)
[2023-01-22] MEDS: hydrOXYzine PAMOATE 25 MG CAPSULE (FP) PO PRN (11:12)
[2023-01-22] MEDS: METHOCARBAMOL 500 MG TABLET PO PRN ×2 (11:12→22:23)
[2023-01-22] MEDS: ACETAMINOPHEN 325 MG TABLET (FP) PO PRN (22:23)
[2023-01-22] MEDS: MELATONIN 5 MG TABLETS PO SCH (22:24)
[2023-01-22] MEDS: THIAMINE HCL 100 MG TABLET (FP) PO SCH (22:24)
[2023-01-23] MEDS ORDERED: chlordiazePOXIDE HCL 10 MG CAPSULE PO SCH (05:00)
[2023-01-23] MEDS: LACTULOSE 20 GM/30 ML UDC (FOR ORAL USE ONLY) PO SCH ×2 (06:21→13:36)
[2023-01-23] MEDS: PRENATAL VITAMINS W/ FOLIC ACID TABLET (FP) PO SCH (10:18)
[2023-01-23] MEDS: METHOCARBAMOL 500 MG TABLET PO PRN (10:19)
[2023-01-23 10:50] VITALS: BP 136/76; PULSE 62; RESP 18; TEMP 98.1
[2023-01-24] MEDS ORDERED: chlordiazePOXIDE HCL 10 MG CAPSULE PO SCH (05:00)
[2023-01-25] MEDS ORDERED: chlordiazePOXIDE HCL 10 MG CAPSULE PO ONE (05:00)
== END 2023-01-23 14:11 | disposition home or self-care (01) | DRG 775 ==
LOC: YASAS 09:54 → Y6N 14:17
PROVIDERS: ADMIT Allergy & Immunology; ATTEND Surgery
PROC: HZ2ZZZZ Detoxification Services for Substance Abuse Treatment (ICD-10-PCS; principal; 2023-01-20)
DX: F10.230 Alcohol dependence with withdrawal, uncomplicated (principal); F17.210 Nicotine dependence, cigarettes, uncomplicated; F19.24 Other psychoactive substance dependence with psychoactive substance-induced mood disorder; F31.9 Bipolar disorder, unspecified; F43.10 Post-traumatic stress disorder, unspecified; D72.819 Decreased white blood cell count, unspecified; I10 Essential (primary) hypertension; K21.9 Gastro-esophageal reflux disease without esophagitis; K40.90 Unilateral inguinal hernia, without obstruction or gangrene, not specified as recurrent; R79.89 Other specified abnormal findings of blood chemistry; R01.1 Cardiac murmur, unspecified; Z91.51 Personal history of suicidal behavior; Z88.0 Allergy status to penicillin; Z91.014 Allergy to mammalian meats
CPT/HCPCS: 36415; 80053; 82140; 85027; 86780; 93005; 93010; C9803-CS; Q0162; U0003; U0005

== ENCOUNTER 2023-01-23 18:43 | Inpatient (IN) | payer OTHER ==
[2023-01-23] MEDS ORDERED: POLYETHYLENE GLYCOL (HEALTHYLAX) 3350 17 GM PACKET PO PRN (19:47)
[2023-01-23] MEDS ORDERED: NICOTINE 10 MG CARTRIDGE (INHALER) IH PRN (19:47)
[2023-01-23] MEDS ORDERED: LOPERAMIDE HCL 2 MG CAPSULE PO PRN (19:47)
[2023-01-23] MEDS ORDERED: METHYLNALTREXONE BROMIDE (RELISTOR) 150 MG TABLET PO PRN (19:47)
[2023-01-23] MEDS ORDERED: BENZONATATE 200 MG CAPSULE PO PRN (19:47)
[2023-01-23] MEDS ORDERED: MAGNESIUM HYDROX 2400MG/30ML ORAL SUSPENSION 30 ML CUP PO PRN (19:47)
[2023-01-23] MEDS ORDERED: BENZOCAINE/MENTHOL (CHLORASEPTIC ) LOZENGE MM PRN (19:47)
[2023-01-23] MEDS ORDERED: ACETAMINOPHEN 325 MG TABLET (FP) PO PRN (19:47)
[2023-01-23] MEDS ORDERED: NALOXONE HCL 0.4 MG/ML VIAL IVPUSH PRN (19:47)
[2023-01-23] MEDS ORDERED: NALOXONE HCL (KLOXXADO) 8 MG SPRAY NS PRN (19:47)
[2023-01-23] MEDS ORDERED: guaiFENesin 600 MG TABLET.ER (FP) PO PRN (19:47)
[2023-01-23 19:49] VITALS: BMI 24.2
[2023-01-23] MEDS: hydrOXYzine PAMOATE 25 MG CAPSULE (FP) PO PRN (21:57)
[2023-01-23] MEDS: THIAMINE HCL 100 MG TABLET (FP) PO SCH (21:58)
[2023-01-23] MEDS: MELATONIN 5 MG TABLETS PO SCH (21:58)
[2023-01-24] MEDS: IBUPROFEN 600 MG TABLET (FP) PO PRN (07:14)
[2023-01-24] MEDS: PRENATAL VITAMINS W/ FOLIC ACID TABLET (FP) PO SCH (09:53)
[2023-01-24] MEDS: METHOCARBAMOL 500 MG TABLET PO PRN ×2 (14:08→21:23)
[2023-01-24] MEDS: LACTULOSE 20 GM/30 ML UDC (FOR ORAL USE ONLY) PO SCH ×2 (15:45→21:23)
[2023-01-24] MEDS: MELATONIN 5 MG TABLETS PO SCH (21:23)
[2023-01-24] MEDS: THIAMINE HCL 100 MG TABLET (FP) PO SCH (21:23)
[2023-01-24] MEDS: MAG HYDROX/AL HYDROX/SIMETH 30 ML UNIT-DOSE CUP PO PRN (23:43)
[2023-01-25] MEDS: LACTULOSE 20 GM/30 ML UDC (FOR ORAL USE ONLY) PO SCH ×3 (06:55→21:20)
[2023-01-25] MEDS: METHOCARBAMOL 500 MG TABLET PO PRN ×2 (06:57→21:21)
[2023-01-25] MEDS: PRENATAL VITAMINS W/ FOLIC ACID TABLET (FP) PO SCH (09:51)
[2023-01-25] MEDS: IBUPROFEN 600 MG TABLET (FP) PO PRN (09:54)
[2023-01-25] MEDS: MELATONIN 5 MG TABLETS PO SCH (21:19)
[2023-01-25] MEDS: THIAMINE HCL 100 MG TABLET (FP) PO SCH (21:20)
[2023-01-26] MEDS: LACTULOSE 20 GM/30 ML UDC (FOR ORAL USE ONLY) PO SCH ×3 (06:23→21:52)
[2023-01-26] MEDS: ARTIFICIAL TEARS (POLYVINYL ALCOHOL) OPTH DROPS OU PRN (06:23)
[2023-01-26] MEDS: PRENATAL VITAMINS W/ FOLIC ACID TABLET (FP) PO SCH (10:16)
[2023-01-26] MEDS: METHOCARBAMOL 500 MG TABLET PO PRN ×2 (10:18→21:55)
[2023-01-26] MEDS: THIAMINE HCL 100 MG TABLET (FP) PO SCH (21:52)
[2023-01-26] MEDS: MELATONIN 5 MG TABLETS PO SCH (21:52)
[2023-01-26] MEDS: IBUPROFEN 400 MG TABLET (FP) PO PRN (21:55)
[2023-01-27] MEDS: LACTULOSE 20 GM/30 ML UDC (FOR ORAL USE ONLY) PO SCH ×3 (06:21→21:18)
[2023-01-27] MEDS: ARTIFICIAL TEARS (POLYVINYL ALCOHOL) OPTH DROPS OU PRN ×3 (06:22→21:18)
[2023-01-27] MEDS: METHOCARBAMOL 500 MG TABLET PO PRN (06:23)
[2023-01-27] MEDS: PRENATAL VITAMINS W/ FOLIC ACID TABLET (FP) PO SCH (10:03)
[2023-01-27] MEDS: THIAMINE HCL 100 MG TABLET (FP) PO SCH (21:18)
[2023-01-27] MEDS: hydrOXYzine PAMOATE 25 MG CAPSULE (FP) PO PRN (21:18)
[2023-01-27] MEDS: MELATONIN 5 MG TABLETS PO SCH (21:18)
[2023-01-28] MEDS: MAG HYDROX/AL HYDROX/SIMETH 30 ML UNIT-DOSE CUP PO PRN ×2 (00:40→10:30)
[2023-01-28] MEDS: LACTULOSE 20 GM/30 ML UDC (FOR ORAL USE ONLY) PO SCH ×3 (06:04→21:25)
[2023-01-28] MEDS: PRENATAL VITAMINS W/ FOLIC ACID TABLET (FP) PO SCH (10:28)
[2023-01-28] MEDS: hydrOXYzine PAMOATE 25 MG CAPSULE (FP) PO PRN ×2 (10:30→21:26)
[2023-01-28] MEDS: METHOCARBAMOL 500 MG TABLET PO PRN (10:30)
[2023-01-28] MEDS: ARTIFICIAL TEARS (POLYVINYL ALCOHOL) OPTH DROPS OU PRN ×2 (10:32→21:25)
[2023-01-28] MEDS: MELATONIN 5 MG TABLETS PO SCH (21:25)
[2023-01-28] MEDS: THIAMINE HCL 100 MG TABLET (FP) PO SCH (21:25)
[2023-01-29] MEDS: LACTULOSE 20 GM/30 ML UDC (FOR ORAL USE ONLY) PO SCH ×3 (07:10→22:02)
[2023-01-29] MEDS: ARTIFICIAL TEARS (POLYVINYL ALCOHOL) OPTH DROPS OU PRN (07:11)
[2023-01-29] MEDS: PRENATAL VITAMINS W/ FOLIC ACID TABLET (FP) PO SCH (10:03)
[2023-01-29] MEDS: hydrOXYzine PAMOATE 25 MG CAPSULE (FP) PO PRN (10:04)
[2023-01-29] MEDS: METHOCARBAMOL 500 MG TABLET PO PRN (10:04)
[2023-01-29] MEDS: THIAMINE HCL 100 MG TABLET (FP) PO SCH (22:02)
[2023-01-29] MEDS: MELATONIN 5 MG TABLETS PO SCH (22:02)
[2023-01-30] MEDS: MAG HYDROX/AL HYDROX/SIMETH 30 ML UNIT-DOSE CUP PO PRN (00:59)
[2023-01-30] MEDS: LACTULOSE 20 GM/30 ML UDC (FOR ORAL USE ONLY) PO SCH ×3 (06:10→21:23)
[2023-01-30] MEDS: ARTIFICIAL TEARS (POLYVINYL ALCOHOL) OPTH DROPS OU PRN ×2 (06:10→21:22)
[2023-01-30] MEDS: PRENATAL VITAMINS W/ FOLIC ACID TABLET (FP) PO SCH (10:01)
[2023-01-30] MEDS: METHOCARBAMOL 500 MG TABLET PO PRN (10:02)
[2023-01-30] MEDS: hydrOXYzine PAMOATE 25 MG CAPSULE (FP) PO PRN (21:23)
[2023-01-30] MEDS: THIAMINE HCL 100 MG TABLET (FP) PO SCH (21:23)
[2023-01-30] MEDS: MELATONIN 5 MG TABLETS PO SCH (21:23)
[2023-01-31] MEDS: LACTULOSE 20 GM/30 ML UDC (FOR ORAL USE ONLY) PO SCH ×3 (06:23→21:22)
[2023-01-31] MEDS: ARTIFICIAL TEARS (POLYVINYL ALCOHOL) OPTH DROPS OU PRN ×2 (06:24→21:23)
[2023-01-31] MEDS: PRENATAL VITAMINS W/ FOLIC ACID TABLET (FP) PO SCH (09:46)
[2023-01-31] MEDS: METHOCARBAMOL 500 MG TABLET PO PRN (09:47)
[2023-01-31] MEDS: hydrOXYzine PAMOATE 25 MG CAPSULE (FP) PO PRN (09:47)
[2023-01-31] MEDS: MELATONIN 5 MG TABLETS PO SCH (21:22)
[2023-01-31] MEDS: THIAMINE HCL 100 MG TABLET (FP) PO SCH (21:22)
[2023-02-01] MEDS: LACTULOSE 20 GM/30 ML UDC (FOR ORAL USE ONLY) PO SCH ×2 (06:21→13:23)
[2023-02-01] MEDS: ARTIFICIAL TEARS (POLYVINYL ALCOHOL) OPTH DROPS OU PRN ×2 (06:23→21:27)
[2023-02-01] MEDS: hydrOXYzine PAMOATE 25 MG CAPSULE (FP) PO PRN (09:50)
[2023-02-01] MEDS: METHOCARBAMOL 500 MG TABLET PO PRN (09:50)
[2023-02-01] MEDS: PRENATAL VITAMINS W/ FOLIC ACID TABLET (FP) PO SCH (09:50)
[2023-02-01] MEDS: THIAMINE HCL 100 MG TABLET (FP) PO SCH (21:27)
[2023-02-01] MEDS: MELATONIN 5 MG TABLETS PO SCH (21:27)
[2023-02-02] MEDS: PRENATAL VITAMINS W/ FOLIC ACID TABLET (FP) PO SCH (09:48)
[2023-02-02] MEDS: ARTIFICIAL TEARS (POLYVINYL ALCOHOL) OPTH DROPS OU PRN (09:49)
[2023-02-02] MEDS: MELATONIN 5 MG TABLETS PO SCH (21:22)
[2023-02-02] MEDS: THIAMINE HCL 100 MG TABLET (FP) PO SCH (21:23)
[2023-02-03] MEDS: PRENATAL VITAMINS W/ FOLIC ACID TABLET (FP) PO SCH (09:48)
[2023-02-03] MEDS: ARTIFICIAL TEARS (POLYVINYL ALCOHOL) OPTH DROPS OU PRN (09:50)
[2023-02-03] MEDS: METHOCARBAMOL 500 MG TABLET PO PRN (09:50)
[2023-02-03] MEDS: THIAMINE HCL 100 MG TABLET (FP) PO SCH (21:57)
[2023-02-03] MEDS: MELATONIN 5 MG TABLETS PO SCH (21:57)
[2023-02-04] MEDS: METHOCARBAMOL 500 MG TABLET PO PRN ×2 (06:54→21:06)
[2023-02-04] MEDS: PRENATAL VITAMINS W/ FOLIC ACID TABLET (FP) PO SCH (09:47)
[2023-02-04] MEDS: ARTIFICIAL TEARS (POLYVINYL ALCOHOL) OPTH DROPS OU PRN ×2 (09:49→21:05)
[2023-02-04] MEDS: MELATONIN 5 MG TABLETS PO SCH (21:06)
[2023-02-04] MEDS: THIAMINE HCL 100 MG TABLET (FP) PO SCH (21:06)
[2023-02-05] MEDS: PRENATAL VITAMINS W/ FOLIC ACID TABLET (FP) PO SCH (10:19)
[2023-02-05] MEDS: THIAMINE HCL 100 MG TABLET (FP) PO SCH (21:56)
[2023-02-05] MEDS: MELATONIN 5 MG TABLETS PO SCH (21:56)
[2023-02-05] MEDS: ARTIFICIAL TEARS (POLYVINYL ALCOHOL) OPTH DROPS OU PRN (21:56)
[2023-02-06] MEDS: PRENATAL VITAMINS W/ FOLIC ACID TABLET (FP) PO SCH (09:53)
[2023-02-06] MEDS: METHOCARBAMOL 500 MG TABLET PO PRN ×2 (09:54→21:18)
[2023-02-06] MEDS: ARTIFICIAL TEARS (POLYVINYL ALCOHOL) OPTH DROPS OU PRN ×2 (09:55→21:20)
[2023-02-06] MEDS: MELATONIN 5 MG TABLETS PO SCH (21:17)
[2023-02-06] MEDS: THIAMINE HCL 100 MG TABLET (FP) PO SCH (21:18)
[2023-02-07] MEDS: PRENATAL VITAMINS W/ FOLIC ACID TABLET (FP) PO SCH (09:56)
[2023-02-07] MEDS: METHOCARBAMOL 500 MG TABLET PO PRN (09:57)
[2023-02-07] MEDS: hydrOXYzine PAMOATE 25 MG CAPSULE (FP) PO PRN (09:57)
[2023-02-07] MEDS: ARTIFICIAL TEARS (POLYVINYL ALCOHOL) OPTH DROPS OU PRN ×2 (09:58→21:23)
[2023-02-07] MEDS: THIAMINE HCL 100 MG TABLET (FP) PO SCH (21:23)
[2023-02-07] MEDS: MELATONIN 5 MG TABLETS PO SCH (21:23)
[2023-02-08] MEDS: PRENATAL VITAMINS W/ FOLIC ACID TABLET (FP) PO SCH (09:51)
[2023-02-08] MEDS: METHOCARBAMOL 500 MG TABLET PO PRN ×2 (09:52→21:23)
[2023-02-08] MEDS: hydrOXYzine PAMOATE 25 MG CAPSULE (FP) PO PRN (09:52)
[2023-02-08] MEDS: ARTIFICIAL TEARS (POLYVINYL ALCOHOL) OPTH DROPS OU PRN ×2 (09:53→21:25)
[2023-02-08] MEDS: THIAMINE HCL 100 MG TABLET (FP) PO SCH (21:22)
[2023-02-08] MEDS: MELATONIN 5 MG TABLETS PO SCH (22:34)
[2023-02-09] MEDS: ARTIFICIAL TEARS (POLYVINYL ALCOHOL) OPTH DROPS OU PRN ×2 (09:56→21:24)
[2023-02-09] MEDS: PRENATAL VITAMINS W/ FOLIC ACID TABLET (FP) PO SCH (09:57)
[2023-02-09] MEDS: METHOCARBAMOL 500 MG TABLET PO PRN (21:24)
[2023-02-09] MEDS: MELATONIN 5 MG TABLETS PO SCH (21:24)
[2023-02-09] MEDS: THIAMINE HCL 100 MG TABLET (FP) PO SCH (21:24)
[2023-02-10] MEDS: PRENATAL VITAMINS W/ FOLIC ACID TABLET (FP) PO SCH (09:44)
[2023-02-10] MEDS: ARTIFICIAL TEARS (POLYVINYL ALCOHOL) OPTH DROPS OU PRN (21:30)
[2023-02-10] MEDS: MELATONIN 5 MG TABLETS PO SCH (21:30)
[2023-02-10] MEDS: THIAMINE HCL 100 MG TABLET (FP) PO SCH (21:30)
[2023-02-11] MEDS: PRENATAL VITAMINS W/ FOLIC ACID TABLET (FP) PO SCH (09:41)
[2023-02-11] MEDS: METHOCARBAMOL 500 MG TABLET PO PRN ×2 (09:42→21:36)
[2023-02-11] MEDS: ARTIFICIAL TEARS (POLYVINYL ALCOHOL) OPTH DROPS OU PRN ×2 (09:43→21:38)
[2023-02-11] MEDS: MELATONIN 5 MG TABLETS PO SCH (21:36)
[2023-02-11] MEDS: THIAMINE HCL 100 MG TABLET (FP) PO SCH (21:36)
[2023-02-12] MEDS: PRENATAL VITAMINS W/ FOLIC ACID TABLET (FP) PO SCH (09:48)
[2023-02-12] MEDS: METHOCARBAMOL 500 MG TABLET PO PRN ×2 (09:49→21:10)
[2023-02-12] MEDS: ARTIFICIAL TEARS (POLYVINYL ALCOHOL) OPTH DROPS OU PRN ×2 (09:50→21:12)
[2023-02-12] MEDS: MELATONIN 5 MG TABLETS PO SCH (21:09)
[2023-02-12] MEDS: THIAMINE HCL 100 MG TABLET (FP) PO SCH (21:09)
[2023-02-13] MEDS: PRENATAL VITAMINS W/ FOLIC ACID TABLET (FP) PO SCH (10:04)
[2023-02-13] MEDS: ARTIFICIAL TEARS (POLYVINYL ALCOHOL) OPTH DROPS OU PRN ×2 (10:05→21:20)
[2023-02-13] MEDS: METHOCARBAMOL 500 MG TABLET PO PRN (10:05)
[2023-02-13] MEDS: IBUPROFEN 400 MG TABLET (FP) PO PRN ×2 (12:58→22:17)
[2023-02-13] MEDS: IBUPROFEN 600 MG TABLET (FP) PO PRN (18:23)
[2023-02-13] MEDS: THIAMINE HCL 100 MG TABLET (FP) PO SCH (21:19)
[2023-02-13] MEDS: MELATONIN 5 MG TABLETS PO SCH (21:19)
[2023-02-14] MEDS: IBUPROFEN 600 MG TABLET (FP) PO PRN (06:06)
[2023-02-14] MEDS: PRENATAL VITAMINS W/ FOLIC ACID TABLET (FP) PO SCH (09:58)
[2023-02-14] MEDS: ARTIFICIAL TEARS (POLYVINYL ALCOHOL) OPTH DROPS OU PRN ×2 (09:59→21:17)
[2023-02-14] MEDS: METHOCARBAMOL 500 MG TABLET PO PRN ×2 (09:59→18:26)
[2023-02-14] MEDS: IBUPROFEN 400 MG TABLET (FP) PO PRN ×2 (13:14→18:27)
[2023-02-14] MEDS: THIAMINE HCL 100 MG TABLET (FP) PO SCH (21:15)
[2023-02-14] MEDS: MELATONIN 5 MG TABLETS PO SCH (21:15)
[2023-02-15] MEDS: PRENATAL VITAMINS W/ FOLIC ACID TABLET (FP) PO SCH (09:37)
[2023-02-15] MEDS: IBUPROFEN 400 MG TABLET (FP) PO PRN (09:37)
[2023-02-15] MEDS: METHOCARBAMOL 500 MG TABLET PO PRN ×2 (09:37→21:34)
[2023-02-15] MEDS: ARTIFICIAL TEARS (POLYVINYL ALCOHOL) OPTH DROPS OU PRN ×2 (09:38→21:35)
[2023-02-15] MEDS: MELATONIN 5 MG TABLETS PO SCH (21:34)
[2023-02-15] MEDS: THIAMINE HCL 100 MG TABLET (FP) PO SCH (21:34)
[2023-02-16] MEDS: ARTIFICIAL TEARS (POLYVINYL ALCOHOL) OPTH DROPS OU PRN ×2 (09:50→21:28)
[2023-02-16] MEDS: IBUPROFEN 400 MG TABLET (FP) PO PRN (09:50)
[2023-02-16] MEDS: PRENATAL VITAMINS W/ FOLIC ACID TABLET (FP) PO SCH (09:50)
[2023-02-16] MEDS: METHOCARBAMOL 500 MG TABLET PO PRN ×2 (09:50→17:38)
[2023-02-16] MEDS: IBUPROFEN 600 MG TABLET (FP) PO PRN ×2 (17:38→21:26)
[2023-02-16] MEDS: THIAMINE HCL 100 MG TABLET (FP) PO SCH (21:25)
[2023-02-16] MEDS: MELATONIN 5 MG TABLETS PO SCH (21:25)
[2023-02-17] MEDS: PRENATAL VITAMINS W/ FOLIC ACID TABLET (FP) PO SCH (09:49)
[2023-02-17] MEDS: IBUPROFEN 400 MG TABLET (FP) PO PRN ×3 (09:50→23:00)
[2023-02-17] MEDS: METHOCARBAMOL 500 MG TABLET PO PRN ×3 (09:50→21:14)
[2023-02-17] MEDS: ARTIFICIAL TEARS (POLYVINYL ALCOHOL) OPTH DROPS OU PRN ×2 (09:51→21:14)
[2023-02-17] MEDS: MELATONIN 5 MG TABLETS PO SCH (21:11)
[2023-02-17] MEDS: THIAMINE HCL 100 MG TABLET (FP) PO SCH (21:12)
[2023-02-17] MEDS: hydrOXYzine PAMOATE 25 MG CAPSULE (FP) PO PRN (23:00)
[2023-02-18] MEDS: IBUPROFEN 400 MG TABLET (FP) PO PRN (09:52)
[2023-02-18] MEDS: METHOCARBAMOL 500 MG TABLET PO PRN ×2 (09:52→21:19)
[2023-02-18] MEDS: hydrOXYzine PAMOATE 25 MG CAPSULE (FP) PO PRN ×2 (09:52→21:19)
[2023-02-18] MEDS: PRENATAL VITAMINS W/ FOLIC ACID TABLET (FP) PO SCH (09:53)
[2023-02-18] MEDS: ARTIFICIAL TEARS (POLYVINYL ALCOHOL) OPTH DROPS OU PRN ×2 (09:56→21:20)
[2023-02-18] MEDS: THIAMINE HCL 100 MG TABLET (FP) PO SCH (21:19)
[2023-02-18] MEDS: MELATONIN 5 MG TABLETS PO SCH (21:19)
[2023-02-19] MEDS: METHOCARBAMOL 500 MG TABLET PO PRN ×3 (08:11→21:36)
[2023-02-19] MEDS: IBUPROFEN 400 MG TABLET (FP) PO PRN ×2 (08:11→17:10)
[2023-02-19] MEDS: PRENATAL VITAMINS W/ FOLIC ACID TABLET (FP) PO SCH (09:48)
[2023-02-19] MEDS: ARTIFICIAL TEARS (POLYVINYL ALCOHOL) OPTH DROPS OU PRN ×2 (09:49→21:35)
[2023-02-19] MEDS: MELATONIN 5 MG TABLETS PO SCH (21:35)
[2023-02-19] MEDS: THIAMINE HCL 100 MG TABLET (FP) PO SCH (21:35)
[2023-02-19] MEDS: hydrOXYzine PAMOATE 25 MG CAPSULE (FP) PO PRN (21:35)
[2023-02-20 06:33] VITALS: BP 112/82; PULSE 65; RESP 17; TEMP 97.8
[2023-02-20] MEDS: PRENATAL VITAMINS W/ FOLIC ACID TABLET (FP) PO SCH (09:45)
[2023-02-20] MEDS: IBUPROFEN 400 MG TABLET (FP) PO PRN (09:47)
[2023-02-20] MEDS: METHOCARBAMOL 500 MG TABLET PO PRN (09:47)
[2023-02-20] MEDS: ARTIFICIAL TEARS (POLYVINYL ALCOHOL) OPTH DROPS OU PRN (09:48)
== END 2023-02-20 11:00 | disposition home or self-care (01) | DRG 772 ==
LOC: YASAS 18:43 → Y5N 19:38
PROVIDERS: ADMIT Allergy & Immunology; ATTEND Psychiatry & Neurology Pain Medicine
PROC: HZ42ZZZ Group Counseling for Substance Abuse Treatment, Cognitive-Behavioral (ICD-10-PCS; principal; 2023-01-23)
DX: F10.20 Alcohol dependence, uncomplicated (principal); F17.210 Nicotine dependence, cigarettes, uncomplicated; F31.9 Bipolar disorder, unspecified; I10 Essential (primary) hypertension; K21.9 Gastro-esophageal reflux disease without esophagitis; K40.90 Unilateral inguinal hernia, without obstruction or gangrene, not specified as recurrent; R79.89 Other specified abnormal findings of blood chemistry; R01.1 Cardiac murmur, unspecified; Z88.0 Allergy status to penicillin; Z91.018 Allergy to other foods
CPT/HCPCS: 36415; 74177-TC; 80053; 82140; 83605; 85025; 86850; 86900; 86901; 93005; 93010; 99282-25; C9803-CS; Q9967; U0003; U0005

== ENCOUNTER 2023-03-10 10:40 | Inpatient (IN) | payer OTHER ==
[2023-03-10 11:41] VITALS: BMI 22.0
[2023-03-10] MEDS ORDERED: NALOXONE HCL (KLOXXADO) 8 MG SPRAY NS PRN (12:19)
[2023-03-10] MEDS ORDERED: BENZONATATE 200 MG CAPSULE PO PRN (12:19)
[2023-03-10] MEDS ORDERED: MAGNESIUM HYDROX 2400MG/30ML ORAL SUSPENSION 30 ML CUP PO PRN (12:19)
[2023-03-10] MEDS ORDERED: MAG HYDROX/AL HYDROX/SIMETH 30 ML UNIT-DOSE CUP PO PRN (12:19)
[2023-03-10] MEDS ORDERED: POLYETHYLENE GLYCOL (HEALTHYLAX) 3350 17 GM PACKET PO PRN (12:19)
[2023-03-10] MEDS ORDERED: BENZOCAINE/MENTHOL (CHLORASEPTIC ) LOZENGE MM PRN (12:19)
[2023-03-10] MEDS ORDERED: IBUPROFEN 600 MG TABLET (FP) PO PRN (12:19)
[2023-03-10] MEDS ORDERED: hydrOXYzine PAMOATE 25 MG CAPSULE (FP) PO PRN (12:19)
[2023-03-10] MEDS ORDERED: NALOXONE HCL 0.4 MG/ML VIAL IM PRN (12:19)
[2023-03-10] MEDS ORDERED: AMMONIUM LACTATE 12% LOTION 225 GM BOTTLE TP PRN (12:19)
[2023-03-10] MEDS ORDERED: ACETAMINOPHEN 325 MG TABLET (FP) PO PRN (12:19)
[2023-03-10] MEDS ORDERED: LOPERAMIDE HCL 2 MG CAPSULE PO PRN (12:19)
[2023-03-10] MEDS ORDERED: guaiFENesin 600 MG TABLET.ER (FP) PO PRN (12:19)
[2023-03-10] MEDS ORDERED: NICOTINE 10 MG CARTRIDGE (INHALER) IH PRN (12:19)
[2023-03-10] MEDS ORDERED: IBUPROFEN 400 MG TABLET (FP) PO PRN (12:19)
[2023-03-10] MEDS: NICOTINE 7 MG/24 HOURS TOPICAL PATCH TD SCH (15:37)
[2023-03-10] MEDS: PRENATAL VITAMINS W/ FOLIC ACID TABLET (FP) PO SCH (15:37)
[2023-03-10 18:06] LABS: POTASSIUM 4.3 mmol/L (3.5-5.1)
[2023-03-10 18:07] LABS: HEMOGLOBIN 12.1 GM/dL (11.7-16.9); MCHC 34.4 g/dl (32.0-35.9); MEAN CELL VOLUME 92.9 fl (80-96); MEAN PLT VOLUME 7.3 fl (7.5-11.1); PLATELET COUNT 242 10^3/uL (134-434); RBC 3.77 M/mm3 (4.00-5.60); RDW 14.8 % (11.9-15.9)
[2023-03-10 18:09] LABS: CALCIUM 8.9 mg/dL (8.5-10.1)
[2023-03-10 18:10] LABS: ALBUMIN 3.6 g/dl (3.4-5.0); BLOOD UREA NITROGEN 9.4 mg/dL (7-18)
[2023-03-10 18:13] LABS: CREATININE 0.7 mg/dL (0.55-1.3)
[2023-03-10 18:15] LABS: BILIRUBIN,TOTAL 0.4 mg/dL (0.2-1); TOT PROT 7.2 g/dl (6.4-8.2)
[2023-03-10 18:35] LABS: SYPHILIS W/ RPR CONF NON-REACTIVE (NONREACTIVE)
[2023-03-10] MEDS: MELATONIN 5 MG TABLETS PO SCH (21:27)
[2023-03-10] MEDS: THIAMINE HCL 100 MG TABLET (FP) PO SCH (21:27)
[2023-03-11] MEDS: PRENATAL VITAMINS W/ FOLIC ACID TABLET (FP) PO SCH (09:42)
[2023-03-11] MEDS: NICOTINE 7 MG/24 HOURS TOPICAL PATCH TD SCH (09:42)
[2023-03-11] MEDS: MELATONIN 5 MG TABLETS PO SCH (21:40)
[2023-03-11] MEDS: THIAMINE HCL 100 MG TABLET (FP) PO SCH (21:40)
[2023-03-11] MEDS: METHOCARBAMOL 500 MG TABLET PO PRN (21:41)
[2023-03-12] MEDS: METHOCARBAMOL 500 MG TABLET PO PRN ×2 (06:38→21:24)
[2023-03-12] MEDS: PRENATAL VITAMINS W/ FOLIC ACID TABLET (FP) PO SCH (09:45)
[2023-03-12] MEDS: THIAMINE HCL 100 MG TABLET (FP) PO SCH (21:23)
[2023-03-12] MEDS: MELATONIN 5 MG TABLETS PO SCH (21:23)
[2023-03-13] MEDS: METHOCARBAMOL 500 MG TABLET PO PRN ×2 (06:28→21:35)
[2023-03-13] MEDS: PRENATAL VITAMINS W/ FOLIC ACID TABLET (FP) PO SCH (10:06)
[2023-03-13] MEDS: MELATONIN 5 MG TABLETS PO SCH (21:35)
[2023-03-13] MEDS: THIAMINE HCL 100 MG TABLET (FP) PO SCH (21:35)
[2023-03-14] MEDS: COLLOIDAL OATMEAL 1 BAR EACH TP PRN (06:20)
[2023-03-14] MEDS: METHOCARBAMOL 500 MG TABLET PO PRN ×2 (06:20→21:15)
[2023-03-14] MEDS: PRENATAL VITAMINS W/ FOLIC ACID TABLET (FP) PO SCH (09:31)
[2023-03-14] MEDS: MELATONIN 5 MG TABLETS PO SCH (21:15)
[2023-03-14] MEDS: THIAMINE HCL 100 MG TABLET (FP) PO SCH (21:15)
[2023-03-14] MEDS: ARTIFICIAL TEARS (POLYVINYL ALCOHOL) OPTH DROPS OU PRN (21:16)
[2023-03-15] MEDS: METHOCARBAMOL 500 MG TABLET PO PRN (06:23)
[2023-03-15] MEDS: ARTIFICIAL TEARS (POLYVINYL ALCOHOL) OPTH DROPS OU PRN (06:23)
[2023-03-15] MEDS: PRENATAL VITAMINS W/ FOLIC ACID TABLET (FP) PO SCH (10:02)
[2023-03-15] MEDS: MELATONIN 5 MG TABLETS PO SCH (21:29)
[2023-03-15] MEDS: THIAMINE HCL 100 MG TABLET (FP) PO SCH (21:29)
[2023-03-16] MEDS: METHOCARBAMOL 500 MG TABLET PO PRN ×2 (06:50→21:46)
[2023-03-16] MEDS: ARTIFICIAL TEARS (POLYVINYL ALCOHOL) OPTH DROPS OU PRN (06:51)
[2023-03-16] MEDS: PRENATAL VITAMINS W/ FOLIC ACID TABLET (FP) PO SCH (09:54)
[2023-03-16] MEDS: MELATONIN 5 MG TABLETS PO SCH (21:45)
[2023-03-16] MEDS: THIAMINE HCL 100 MG TABLET (FP) PO SCH (21:45)
[2023-03-17] MEDS: METHOCARBAMOL 500 MG TABLET PO PRN ×2 (06:22→21:15)
[2023-03-17] MEDS: ARTIFICIAL TEARS (POLYVINYL ALCOHOL) OPTH DROPS OU PRN (06:23)
[2023-03-17] MEDS: PRENATAL VITAMINS W/ FOLIC ACID TABLET (FP) PO SCH (10:09)
[2023-03-17] MEDS: THIAMINE HCL 100 MG TABLET (FP) PO SCH (21:14)
[2023-03-17] MEDS: MELATONIN 5 MG TABLETS PO SCH (21:14)
[2023-03-18] MEDS: PRENATAL VITAMINS W/ FOLIC ACID TABLET (FP) PO SCH (09:46)
[2023-03-18] MEDS: METHOCARBAMOL 500 MG TABLET PO PRN ×2 (09:47→21:17)
[2023-03-18] MEDS: ARTIFICIAL TEARS (POLYVINYL ALCOHOL) OPTH DROPS OU PRN ×2 (09:48→21:18)
[2023-03-18] MEDS: THIAMINE HCL 100 MG TABLET (FP) PO SCH (21:17)
[2023-03-18] MEDS: MELATONIN 5 MG TABLETS PO SCH (21:17)
[2023-03-19] MEDS: METHOCARBAMOL 500 MG TABLET PO PRN ×2 (09:42→21:26)
[2023-03-19] MEDS: ARTIFICIAL TEARS (POLYVINYL ALCOHOL) OPTH DROPS OU PRN ×2 (09:43→21:29)
[2023-03-19] MEDS: PRENATAL VITAMINS W/ FOLIC ACID TABLET (FP) PO SCH (09:43)
[2023-03-19] MEDS: MELATONIN 5 MG TABLETS PO SCH (21:26)
[2023-03-19] MEDS: THIAMINE HCL 100 MG TABLET (FP) PO SCH (21:26)
[2023-03-20] MEDS: ARTIFICIAL TEARS (POLYVINYL ALCOHOL) OPTH DROPS OU PRN ×2 (06:45→21:34)
[2023-03-20] MEDS: METHOCARBAMOL 500 MG TABLET PO PRN ×2 (06:45→19:16)
[2023-03-20] MEDS: PRENATAL VITAMINS W/ FOLIC ACID TABLET (FP) PO SCH (10:02)
[2023-03-20] MEDS: THIAMINE HCL 100 MG TABLET (FP) PO SCH (21:33)
[2023-03-20] MEDS: MELATONIN 5 MG TABLETS PO SCH (21:33)
[2023-03-21] MEDS: METHOCARBAMOL 500 MG TABLET PO PRN ×2 (06:23→18:10)
[2023-03-21] MEDS: ARTIFICIAL TEARS (POLYVINYL ALCOHOL) OPTH DROPS OU PRN (06:23)
[2023-03-21] MEDS: PRENATAL VITAMINS W/ FOLIC ACID TABLET (FP) PO SCH (10:12)
[2023-03-21] MEDS: THIAMINE HCL 100 MG TABLET (FP) PO SCH (22:26)
[2023-03-21] MEDS: MELATONIN 5 MG TABLETS PO SCH (22:26)
[2023-03-22] MEDS: ARTIFICIAL TEARS (POLYVINYL ALCOHOL) OPTH DROPS OU PRN ×2 (06:25→21:27)
[2023-03-22] MEDS: METHOCARBAMOL 500 MG TABLET PO PRN ×2 (06:26→21:26)
[2023-03-22] MEDS: PRENATAL VITAMINS W/ FOLIC ACID TABLET (FP) PO SCH (09:52)
[2023-03-22] MEDS: THIAMINE HCL 100 MG TABLET (FP) PO SCH (21:26)
[2023-03-22] MEDS: MELATONIN 5 MG TABLETS PO SCH (21:27)
[2023-03-23] MEDS: ARTIFICIAL TEARS (POLYVINYL ALCOHOL) OPTH DROPS OU PRN (06:37)
[2023-03-23] MEDS: METHOCARBAMOL 500 MG TABLET PO PRN ×2 (06:37→18:30)
[2023-03-23] MEDS: PRENATAL VITAMINS W/ FOLIC ACID TABLET (FP) PO SCH (10:02)
[2023-03-23] MEDS: MELATONIN 5 MG TABLETS PO SCH (21:23)
[2023-03-23] MEDS: THIAMINE HCL 100 MG TABLET (FP) PO SCH (21:23)
[2023-03-24] MEDS: METHOCARBAMOL 500 MG TABLET PO PRN ×2 (06:28→21:26)
[2023-03-24] MEDS: ARTIFICIAL TEARS (POLYVINYL ALCOHOL) OPTH DROPS OU PRN (06:31)
[2023-03-24] MEDS: PRENATAL VITAMINS W/ FOLIC ACID TABLET (FP) PO SCH (09:25)
[2023-03-24] MEDS: THIAMINE HCL 100 MG TABLET (FP) PO SCH (21:26)
[2023-03-24] MEDS: MELATONIN 5 MG TABLETS PO SCH (21:26)
[2023-03-25] MEDS: ARTIFICIAL TEARS (POLYVINYL ALCOHOL) OPTH DROPS OU PRN (06:22)
[2023-03-25] MEDS: METHOCARBAMOL 500 MG TABLET PO PRN ×2 (06:22→21:27)
[2023-03-25] MEDS: PRENATAL VITAMINS W/ FOLIC ACID TABLET (FP) PO SCH (09:50)
[2023-03-25] MEDS: THIAMINE HCL 100 MG TABLET (FP) PO SCH (21:27)
[2023-03-25] MEDS: MELATONIN 5 MG TABLETS PO SCH (21:27)
[2023-03-26] MEDS: METHOCARBAMOL 500 MG TABLET PO PRN ×2 (06:20→21:11)
[2023-03-26] MEDS: ARTIFICIAL TEARS (POLYVINYL ALCOHOL) OPTH DROPS OU PRN (06:20)
[2023-03-26] MEDS: PRENATAL VITAMINS W/ FOLIC ACID TABLET (FP) PO SCH (09:46)
[2023-03-26] MEDS: THIAMINE HCL 100 MG TABLET (FP) PO SCH (21:11)
[2023-03-26] MEDS: MELATONIN 5 MG TABLETS PO SCH (21:12)
[2023-03-27] MEDS: METHOCARBAMOL 500 MG TABLET PO PRN ×2 (06:46→21:30)
[2023-03-27] MEDS: ARTIFICIAL TEARS (POLYVINYL ALCOHOL) OPTH DROPS OU PRN (06:46)
[2023-03-27] MEDS: PRENATAL VITAMINS W/ FOLIC ACID TABLET (FP) PO SCH ×2 (10:29→10:32)
[2023-03-27] MEDS: THIAMINE HCL 100 MG TABLET (FP) PO SCH (21:30)
[2023-03-27] MEDS: MELATONIN 5 MG TABLETS PO SCH (21:31)
[2023-03-28] MEDS: PRENATAL VITAMINS W/ FOLIC ACID TABLET (FP) PO SCH (09:25)
[2023-03-28] MEDS: METHOCARBAMOL 500 MG TABLET PO PRN ×2 (09:25→21:38)
[2023-03-28] MEDS: THIAMINE HCL 100 MG TABLET (FP) PO SCH (21:37)
[2023-03-28] MEDS: MELATONIN 5 MG TABLETS PO SCH (21:37)
[2023-03-29] MEDS: ARTIFICIAL TEARS (POLYVINYL ALCOHOL) OPTH DROPS OU PRN ×2 (06:17→21:27)
[2023-03-29] MEDS: METHOCARBAMOL 500 MG TABLET PO PRN (06:17)
[2023-03-29] MEDS: PRENATAL VITAMINS W/ FOLIC ACID TABLET (FP) PO SCH (09:58)
[2023-03-29] MEDS: THIAMINE HCL 100 MG TABLET (FP) PO SCH (21:26)
[2023-03-29] MEDS: MELATONIN 5 MG TABLETS PO SCH (21:27)
[2023-03-30] MEDS: METHOCARBAMOL 500 MG TABLET PO PRN ×2 (06:16→19:21)
[2023-03-30] MEDS: ARTIFICIAL TEARS (POLYVINYL ALCOHOL) OPTH DROPS OU PRN ×2 (06:16→10:24)
[2023-03-30] MEDS: PRENATAL VITAMINS W/ FOLIC ACID TABLET (FP) PO SCH (10:23)
[2023-03-30] MEDS: THIAMINE HCL 100 MG TABLET (FP) PO SCH (21:28)
[2023-03-30] MEDS: MELATONIN 5 MG TABLETS PO SCH (21:28)
[2023-03-31] MEDS: METHOCARBAMOL 500 MG TABLET PO PRN ×2 (06:43→21:30)
[2023-03-31] MEDS: ARTIFICIAL TEARS (POLYVINYL ALCOHOL) OPTH DROPS OU PRN (06:44)
[2023-03-31] MEDS: PRENATAL VITAMINS W/ FOLIC ACID TABLET (FP) PO SCH (10:17)
[2023-03-31] MEDS: THIAMINE HCL 100 MG TABLET (FP) PO SCH (21:30)
[2023-03-31] MEDS: MELATONIN 5 MG TABLETS PO SCH (21:32)
[2023-04-01] MEDS: METHOCARBAMOL 500 MG TABLET PO PRN ×2 (06:17→21:09)
[2023-04-01] MEDS: ARTIFICIAL TEARS (POLYVINYL ALCOHOL) OPTH DROPS OU PRN ×2 (06:18→21:10)
[2023-04-01] MEDS: PRENATAL VITAMINS W/ FOLIC ACID TABLET (FP) PO SCH (09:59)
[2023-04-01] MEDS: MELATONIN 5 MG TABLETS PO SCH (21:10)
[2023-04-01] MEDS: THIAMINE HCL 100 MG TABLET (FP) PO SCH (21:10)
[2023-04-02] MEDS: PRENATAL VITAMINS W/ FOLIC ACID TABLET (FP) PO SCH (09:46)
[2023-04-02] MEDS: ARTIFICIAL TEARS (POLYVINYL ALCOHOL) OPTH DROPS OU PRN (09:46)
[2023-04-02] MEDS: METHOCARBAMOL 500 MG TABLET PO PRN ×2 (09:46→19:45)
[2023-04-02] MEDS: MELATONIN 5 MG TABLETS PO SCH (21:30)
[2023-04-02] MEDS: THIAMINE HCL 100 MG TABLET (FP) PO SCH (21:30)
[2023-04-03] MEDS: METHOCARBAMOL 500 MG TABLET PO PRN ×2 (06:19→21:16)
[2023-04-03] MEDS: ARTIFICIAL TEARS (POLYVINYL ALCOHOL) OPTH DROPS OU PRN ×2 (06:20→21:17)
[2023-04-03 07:15] VITALS: RESP 16
[2023-04-03] MEDS: PRENATAL VITAMINS W/ FOLIC ACID TABLET (FP) PO SCH (10:18)
[2023-04-03] MEDS: THIAMINE HCL 100 MG TABLET (FP) PO SCH (21:16)
[2023-04-03] MEDS: MELATONIN 5 MG TABLETS PO SCH (21:16)
[2023-04-04] MEDS: ARTIFICIAL TEARS (POLYVINYL ALCOHOL) OPTH DROPS OU PRN ×3 (06:37→21:05)
[2023-04-04] MEDS: METHOCARBAMOL 500 MG TABLET PO PRN ×2 (06:38→21:04)
[2023-04-04] MEDS: PRENATAL VITAMINS W/ FOLIC ACID TABLET (FP) PO SCH (09:51)
[2023-04-04] MEDS: COLLOIDAL OATMEAL 1 BAR EACH TP PRN (12:11)
[2023-04-04] MEDS: THIAMINE HCL 100 MG TABLET (FP) PO SCH (21:04)
[2023-04-04] MEDS: MELATONIN 5 MG TABLETS PO SCH (21:04)
[2023-04-05] MEDS: ARTIFICIAL TEARS (POLYVINYL ALCOHOL) OPTH DROPS OU PRN ×2 (06:39→21:27)
[2023-04-05] MEDS: METHOCARBAMOL 500 MG TABLET PO PRN ×2 (06:39→21:26)
[2023-04-05] MEDS: PRENATAL VITAMINS W/ FOLIC ACID TABLET (FP) PO SCH (09:52)
[2023-04-05] MEDS: THIAMINE HCL 100 MG TABLET (FP) PO SCH (21:26)
[2023-04-05] MEDS: MELATONIN 5 MG TABLETS PO SCH (21:30)
[2023-04-06] MEDS: ARTIFICIAL TEARS (POLYVINYL ALCOHOL) OPTH DROPS OU PRN (06:16)
[2023-04-06] MEDS: METHOCARBAMOL 500 MG TABLET PO PRN ×2 (06:16→21:10)
[2023-04-06 06:37] VITALS: TEMP 98.1
[2023-04-06] MEDS: PRENATAL VITAMINS W/ FOLIC ACID TABLET (FP) PO SCH (09:39)
[2023-04-06] MEDS: THIAMINE HCL 100 MG TABLET (FP) PO SCH (21:10)
[2023-04-06] MEDS: MELATONIN 5 MG TABLETS PO SCH (21:11)
[2023-04-07] MEDS: METHOCARBAMOL 500 MG TABLET PO PRN (06:14)
[2023-04-07] MEDS: ARTIFICIAL TEARS (POLYVINYL ALCOHOL) OPTH DROPS OU PRN (06:16)
[2023-04-07 06:42] VITALS: BP 125/80; PULSE 86
[2023-04-07] MEDS: PRENATAL VITAMINS W/ FOLIC ACID TABLET (FP) PO SCH (09:30)
== END 2023-04-07 10:29 | disposition home or self-care (01) | DRG 772 ==
LOC: YASAS 10:40 → Y3E 13:08
PROVIDERS: ADMIT Allergy & Immunology; ATTEND Allergy & Immunology
PROC: HZ42ZZZ Group Counseling for Substance Abuse Treatment, Cognitive-Behavioral (ICD-10-PCS; principal; 2023-03-10)
DX: F10.20 Alcohol dependence, uncomplicated (principal); F17.210 Nicotine dependence, cigarettes, uncomplicated; I10 Essential (primary) hypertension; K21.9 Gastro-esophageal reflux disease without esophagitis; H04.123 Dry eye syndrome of bilateral lacrimal glands; K40.90 Unilateral inguinal hernia, without obstruction or gangrene, not specified as recurrent; M54.50 Low back pain, unspecified; G89.29 Other chronic pain; R79.89 Other specified abnormal findings of blood chemistry; Z86.59 Personal history of other mental and behavioral disorders; Z88.0 Allergy status to penicillin; Z91.018 Allergy to other foods
CPT/HCPCS: 36415; 80053; 85027; 86780; 86803; C9803-CS; U0003; U0005

== ENCOUNTER 2023-05-14 12:21 | Inpatient (IN) | payer OTHER ==
[2023-05-14 13:31] VITALS: BMI 21.6
[2023-05-14] MEDS ORDERED: MAGNESIUM HYDROX 2400MG/30ML ORAL SUSPENSION 30 ML CUP PO PRN (17:46)
[2023-05-14] MEDS ORDERED: NALOXONE HCL 0.4 MG/ML VIAL IM PRN (17:46)
[2023-05-14] MEDS ORDERED: MAG HYDROX/AL HYDROX/SIMETH 30 ML UNIT-DOSE CUP PO PRN (17:46)
[2023-05-14] MEDS ORDERED: BISMUTH SUBSALICYLATE 524 MG/30 ML PO PRN (17:46)
[2023-05-14] MEDS ORDERED: POLYETHYLENE GLYCOL (HEALTHYLAX) 3350 17 GM PACKET PO PRN (17:46)
[2023-05-14] MEDS ORDERED: LOPERAMIDE HCL 2 MG CAPSULE PO PRN (17:46)
[2023-05-14] MEDS ORDERED: NICOTINE POLACRILEX 2 MG GUM BUC PRN (17:46)
[2023-05-14] MEDS ORDERED: NALOXONE HCL (KLOXXADO) 8 MG SPRAY NS PRN (17:46)
[2023-05-14] MEDS ORDERED: chlordiazePOXIDE HCL 25 MG CAPSULE PO PRN (17:46)
[2023-05-14] MEDS ORDERED: BENZONATATE 200 MG CAPSULE PO PRN (17:46)
[2023-05-14] MEDS ORDERED: ONDANSETRON *ODT* 4 MG TABLET SL PRN (17:46)
[2023-05-14] MEDS ORDERED: IBUPROFEN 400 MG TABLET (FP) PO PRN (17:46)
[2023-05-14] MEDS ORDERED: ACETAMINOPHEN 325 MG TABLET (FP) PO PRN (17:46)
[2023-05-14] MEDS ORDERED: guaiFENesin 600 MG TABLET.ER (FP) PO PRN (17:46)
[2023-05-14] MEDS ORDERED: BENZOCAINE/MENTHOL (CHLORASEPTIC ) LOZENGE MM PRN (17:46)
[2023-05-14] MEDS ORDERED: DICYCLOMINE HCL 10 MG CAPSULE PO PRN (17:46)
[2023-05-14] MEDS: IBUPROFEN 600 MG TABLET (FP) PO PRN (18:37)
[2023-05-14] MEDS: hydrOXYzine PAMOATE 25 MG CAPSULE (FP) PO PRN (18:38)
[2023-05-14] MEDS: chlordiazePOXIDE HCL 25 MG CAPSULE PO SCH (22:51)
[2023-05-14] MEDS: THIAMINE HCL 100 MG TABLET (FP) PO SCH (22:59)
[2023-05-14] MEDS: MELATONIN 5 MG TABLETS PO SCH (22:59)
[2023-05-15] MEDS: chlordiazePOXIDE HCL 25 MG CAPSULE PO SCH ×4 (05:26→22:55)
[2023-05-15] MEDS: PRENATAL VITAMINS W/ FOLIC ACID TABLET (FP) PO SCH (10:50)
[2023-05-15] MEDS: MINERAL OIL/PET HY-PHL TOPICAL OINTMENT 454 GM JAR TP SCH (10:50)
[2023-05-15 11:36] LABS: HEMATOCRIT 37.8 % (35.4-49); HEMOGLOBIN 12.7 GM/dL (11.7-16.9); MCHC 33.5 g/dl (32.0-35.9); MEAN CELL VOLUME 95.6 fl (80-96); MEAN PLT VOLUME 7.3 fl (7.5-11.1); PLATELET COUNT 231 10^3/uL (134-434); RBC 3.95 M/mm3 (4.00-5.60); RDW 15.4 % (11.9-15.9)
[2023-05-15 11:54] LABS: ALBUMIN 3.2 g/dl (3.4-5.0); BLOOD UREA NITROGEN 11.9 mg/dL (7-18)
[2023-05-15 11:55] LABS: BILIRUBIN,TOTAL 0.7 mg/dL (0.2-1); TOT PROT 6.2 g/dl (6.4-8.2)
[2023-05-15 11:57] LABS: CREATININE 0.6 mg/dL (0.55-1.3)
[2023-05-15] MEDS: IBUPROFEN 600 MG TABLET (FP) PO PRN (18:11)
[2023-05-15] MEDS: METHOCARBAMOL 500 MG TABLET PO PRN (18:11)
[2023-05-15] MEDS: MELATONIN 5 MG TABLETS PO SCH (22:54)
[2023-05-15] MEDS: hydrOXYzine PAMOATE 25 MG CAPSULE (FP) PO PRN (22:55)
[2023-05-15] MEDS: THIAMINE HCL 100 MG TABLET (FP) PO SCH (22:55)
[2023-05-16] MEDS: chlordiazePOXIDE HCL 25 MG CAPSULE PO SCH ×4 (06:01→22:16)
[2023-05-16] MEDS: PRENATAL VITAMINS W/ FOLIC ACID TABLET (FP) PO SCH (10:04)
[2023-05-16] MEDS: METHOCARBAMOL 500 MG TABLET PO PRN (10:06)
[2023-05-16] MEDS: MINERAL OIL/PET HY-PHL TOPICAL OINTMENT 454 GM JAR TP SCH (10:06)
[2023-05-16] MEDS: IBUPROFEN 600 MG TABLET (FP) PO PRN (18:53)
[2023-05-16] MEDS: MELATONIN 5 MG TABLETS PO SCH ×2 (22:16→23:05)
[2023-05-16] MEDS: THIAMINE HCL 100 MG TABLET (FP) PO SCH (22:19)
[2023-05-17] MEDS ORDERED: chlordiazePOXIDE HCL 10 MG CAPSULE PO PRN
[2023-05-17] MEDS: chlordiazePOXIDE HCL 10 MG CAPSULE PO SCH ×4 (05:09→22:15)
[2023-05-17] MEDS: PRENATAL VITAMINS W/ FOLIC ACID TABLET (FP) PO SCH (10:33)
[2023-05-17] MEDS: METHOCARBAMOL 500 MG TABLET PO PRN (10:34)
[2023-05-17] MEDS: hydrOXYzine PAMOATE 25 MG CAPSULE (FP) PO PRN (10:34)
[2023-05-17] MEDS: MINERAL OIL/PET HY-PHL TOPICAL OINTMENT 454 GM JAR TP SCH (10:37)
[2023-05-17] MEDS: MELATONIN 5 MG TABLETS PO SCH (22:56)
[2023-05-17] MEDS: THIAMINE HCL 100 MG TABLET (FP) PO SCH (22:56)
[2023-05-18] MEDS: chlordiazePOXIDE HCL 10 MG CAPSULE PO SCH ×2 (05:41→17:25)
[2023-05-18] MEDS: PRENATAL VITAMINS W/ FOLIC ACID TABLET (FP) PO SCH (10:16)
[2023-05-18] MEDS: MINERAL OIL/PET HY-PHL TOPICAL OINTMENT 454 GM JAR TP SCH (10:16)
[2023-05-18 12:40] LABS: BASO % 0.6 % (0-2.0); EOS % 5.6 % (0-4.5); HEMATOCRIT 38.9 % (35.4-49); HEMOGLOBIN 13.1 GM/dL (11.7-16.9); LYMPH % 29.7 % (8-40); MCH 31.8 pg (25.7-33.7); MCHC 33.7 g/dl (32.0-35.9); MEAN CELL VOLUME 94.3 fl (80-96); MEAN PLT VOLUME 7.2 fl (7.5-11.1); MONO % 10.2 % (3.8-10.2); NEUT % 53.9 % (42.8-82.8); PLATELET COUNT 236 10^3/uL (134-434); RBC 4.12 M/mm3 (4.00-5.60); RDW 16.1 % (11.9-15.9); WHITE BLOOD COUNT 2.3 K/mm3 (4.0-10.0)
[2023-05-18] MEDS: THIAMINE HCL 100 MG TABLET (FP) PO SCH (22:04)
[2023-05-18] MEDS: hydrOXYzine PAMOATE 25 MG CAPSULE (FP) PO PRN (22:04)
[2023-05-18] MEDS: METHOCARBAMOL 500 MG TABLET PO PRN (22:04)
[2023-05-18] MEDS: MELATONIN 5 MG TABLETS PO SCH (22:04)
[2023-05-19] MEDS ORDERED: chlordiazePOXIDE HCL 10 MG CAPSULE PO ONE (05:00)
[2023-05-19] MEDS: METHOCARBAMOL 500 MG TABLET PO PRN (05:25)
[2023-05-19 09:30] VITALS: BP 137/81; PULSE 98; RESP 18; TEMP 97.2
[2023-05-19] MEDS: PRENATAL VITAMINS W/ FOLIC ACID TABLET (FP) PO SCH (10:23)
[2023-05-19] MEDS: MINERAL OIL/PET HY-PHL TOPICAL OINTMENT 454 GM JAR TP SCH (10:23)
== END 2023-05-19 12:06 | disposition home or self-care (01) | DRG 775 ==
LOC: YASAS 12:21 → Y6N 18:01
PROVIDERS: ADMIT Allergy & Immunology; ATTEND Surgery
PROC: HZ2ZZZZ Detoxification Services for Substance Abuse Treatment (ICD-10-PCS; principal; 2023-05-14)
DX: F10.230 Alcohol dependence with withdrawal, uncomplicated (principal); F17.210 Nicotine dependence, cigarettes, uncomplicated; F31.9 Bipolar disorder, unspecified; F43.10 Post-traumatic stress disorder, unspecified; D64.9 Anemia, unspecified; I10 Essential (primary) hypertension; K21.9 Gastro-esophageal reflux disease without esophagitis
CPT/HCPCS: 36415; 80053; 85025; 85027; 86780; 87635

== ENCOUNTER 2023-08-14 10:15 | Inpatient (IN) | payer OTHER ==
[2023-08-14 11:05] VITALS: BMI 24.2
[2023-08-14] MEDS ORDERED: ACETAMINOPHEN 325 MG TABLET (FP) PO PRN (11:33)
[2023-08-14] MEDS ORDERED: ONDANSETRON *ODT* 4 MG TABLET SL PRN (11:33)
[2023-08-14] MEDS ORDERED: guaiFENesin 600 MG TABLET.ER (FP) PO PRN (11:33)
[2023-08-14] MEDS ORDERED: LORazepam 1 MG TABLET PO PRN (11:33)
[2023-08-14] MEDS ORDERED: MAG HYDROX/AL HYDROX/SIMETH 30 ML UNIT-DOSE CUP PO PRN (11:33)
[2023-08-14] MEDS ORDERED: LOPERAMIDE HCL 2 MG CAPSULE PO PRN (11:33)
[2023-08-14] MEDS ORDERED: BISMUTH SUBSALICYLATE 262 MG/15 ML BTL PO PRN (11:33)
[2023-08-14] MEDS ORDERED: METHOCARBAMOL 500 MG TABLET PO PRN (11:33)
[2023-08-14] MEDS ORDERED: IBUPROFEN 600 MG TABLET (FP) PO PRN (11:33)
[2023-08-14] MEDS ORDERED: MAGNESIUM HYDROX 2400MG/30ML ORAL SUSPENSION 30 ML CUP PO PRN (11:33)
[2023-08-14] MEDS ORDERED: DICYCLOMINE HCL 10 MG CAPSULE PO PRN (11:33)
[2023-08-14] MEDS ORDERED: NALOXONE HCL (KLOXXADO) 8 MG SPRAY NS PRN (11:33)
[2023-08-14] MEDS ORDERED: BENZONATATE 200 MG CAPSULE PO PRN (11:33)
[2023-08-14] MEDS ORDERED: hydrOXYzine PAMOATE 25 MG CAPSULE (FP) PO PRN (11:33)
[2023-08-14] MEDS ORDERED: IBUPROFEN 400 MG TABLET (FP) PO PRN (11:33)
[2023-08-14] MEDS ORDERED: NALOXONE HCL 0.4 MG/ML VIAL IM PRN (11:33)
[2023-08-14] MEDS ORDERED: BENZOCAINE/MENTHOL (CHLORASEPTIC ) LOZENGE MM PRN (11:33)
[2023-08-14] MEDS ORDERED: POLYETHYLENE GLYCOL (HEALTHYLAX) 3350 17 GM PACKET PO PRN (11:33)
[2023-08-14] MEDS ORDERED: PRENATAL VITAMINS W/ FOLIC ACID TABLET (FP) PO ONE (14:10)
[2023-08-14] MEDS: NICOTINE 7 MG/24 HOURS TOPICAL PATCH TD SCH (14:14)
[2023-08-14] MEDS: PRENATAL VITAMINS W/ FOLIC ACID TABLET (FP) PO SCH (14:14)
[2023-08-14] MEDS: LORazepam 2 MG TABLET PO SCH ×2 (17:50→22:16)
[2023-08-14] MEDS: THIAMINE HCL 100 MG TABLET (FP) PO SCH (22:16)
[2023-08-14] MEDS: MELATONIN 5 MG TABLETS PO SCH (22:16)
[2023-08-15] MEDS: LORazepam 2 MG TABLET PO SCH ×4 (05:31→22:32)
[2023-08-15] MEDS: PRENATAL VITAMINS W/ FOLIC ACID TABLET (FP) PO SCH (10:16)
[2023-08-15] MEDS: NICOTINE 7 MG/24 HOURS TOPICAL PATCH TD SCH (10:17)
[2023-08-15 12:14] LABS: HEMATOCRIT 37.1 % (35.4-49); HEMOGLOBIN 12.5 GM/dL (11.7-16.9); MCH 32.5 pg (25.7-33.7); MCHC 33.7 g/dl (32.0-35.9); MEAN CELL VOLUME 96.5 fl (80-96); MEAN PLT VOLUME 7.1 fl (7.5-11.1); PLATELET COUNT 229 10^3/uL (134-434); RBC 3.85 M/mm3 (4.00-5.60); RDW 14.6 % (11.9-15.9); WHITE BLOOD COUNT 2.5 K/mm3 (4.0-10.0)
[2023-08-15 13:16] LABS: POTASSIUM 4.1 mmol/L (3.5-5.1)
[2023-08-15 13:37] LABS: ALBUMIN 3.3 g/dl (3.4-5.0); BLOOD UREA NITROGEN 12.4 mg/dL (7-18); CALCIUM 8.9 mg/dL (8.5-10.1)
[2023-08-15 13:41] LABS: CREATININE 0.7 mg/dL (0.55-1.3)
[2023-08-15 13:42] LABS: BILIRUBIN,TOTAL 0.5 mg/dL (0.2-1); TOT PROT 6.5 g/dl (6.4-8.2)
[2023-08-15] MEDS: LACTULOSE 20 GM/30 ML UDC (FOR ORAL USE ONLY) PO SCH ×3 (13:53→22:32)
[2023-08-15] MEDS: MELATONIN 5 MG TABLETS PO SCH (22:32)
[2023-08-15] MEDS: THIAMINE HCL 100 MG TABLET (FP) PO SCH (22:32)
[2023-08-16] MEDS: LORazepam 1 MG TABLET PO SCH ×5 (06:00→22:43)
[2023-08-16] MEDS: PRENATAL VITAMINS W/ FOLIC ACID TABLET (FP) PO SCH (10:18)
[2023-08-16] MEDS: LACTULOSE 20 GM/30 ML UDC (FOR ORAL USE ONLY) PO SCH ×4 (10:20→22:43)
[2023-08-16] MEDS: NICOTINE 7 MG/24 HOURS TOPICAL PATCH TD SCH (10:20)
[2023-08-16] MEDS: MELATONIN 5 MG TABLETS PO SCH (22:43)
[2023-08-16] MEDS: THIAMINE HCL 100 MG TABLET (FP) PO SCH (22:43)
[2023-08-17] MEDS ORDERED: LORazepam 0.5 MG TABLET PO PRN
[2023-08-17] MEDS: LORazepam 0.5 MG TABLET PO SCH ×4 (05:55→22:25)
[2023-08-17] MEDS: LACTULOSE 20 GM/30 ML UDC (FOR ORAL USE ONLY) PO SCH ×4 (10:38→22:25)
[2023-08-17] MEDS: PRENATAL VITAMINS W/ FOLIC ACID TABLET (FP) PO SCH (10:38)
[2023-08-17] MEDS: NICOTINE 7 MG/24 HOURS TOPICAL PATCH TD SCH (10:40)
[2023-08-17] MEDS: MELATONIN 5 MG TABLETS PO SCH (22:25)
[2023-08-17] MEDS: THIAMINE HCL 100 MG TABLET (FP) PO SCH (22:25)
[2023-08-18] MEDS ORDERED: LORazepam 0.5 MG TABLET PO ONE (05:00)
[2023-08-18] MEDS: LACTULOSE 20 GM/30 ML UDC (FOR ORAL USE ONLY) PO SCH ×2 (10:03→13:23)
[2023-08-18] MEDS: PRENATAL VITAMINS W/ FOLIC ACID TABLET (FP) PO SCH (10:03)
[2023-08-18] MEDS: NICOTINE 7 MG/24 HOURS TOPICAL PATCH TD SCH (10:04)
[2023-08-18] MEDS ORDERED: PNEUMOC 20-VAL CONJ-DIP CRM/PF 0.5 ML SYRINGE IM ONE (12:00)
[2023-08-18 13:03] VITALS: BP 133/74; PULSE 84; RESP 16; TEMP 97.3
== END 2023-08-18 16:15 | disposition other institution (70) | DRG 775 ==
LOC: YASAS 10:15 → Y3N 14:32
PROVIDERS: ADMIT Allergy & Immunology; ATTEND Surgery
PROC: HZ2ZZZZ Detoxification Services for Substance Abuse Treatment (ICD-10-PCS; principal; 2023-08-14)
DX: F10.230 Alcohol dependence with withdrawal, uncomplicated (principal); F17.210 Nicotine dependence, cigarettes, uncomplicated; F31.9 Bipolar disorder, unspecified; D72.819 Decreased white blood cell count, unspecified; I10 Essential (primary) hypertension; K21.9 Gastro-esophageal reflux disease without esophagitis; R79.89 Other specified abnormal findings of blood chemistry; Z86.59 Personal history of other mental and behavioral disorders; Z87.828 Personal history of other (healed) physical injury and trauma; Z88.0 Allergy status to penicillin; Z91.199 Patient's noncompliance with other medical treatment and regimen due to unspecified reason
CPT/HCPCS: 36415; 80053; 82140; 85027; 86780; 87635; 87811

== ENCOUNTER 2023-08-18 16:30 | Inpatient (IN) | payer OTHER ==
[2023-08-18] MEDS ORDERED: NALOXONE HCL (KLOXXADO) 8 MG SPRAY NS PRN (17:05)
[2023-08-18] MEDS ORDERED: MAGNESIUM HYDROX 2400MG/30ML ORAL SUSPENSION 30 ML CUP PO PRN (17:05)
[2023-08-18] MEDS ORDERED: MAG HYDROX/AL HYDROX/SIMETH 30 ML UNIT-DOSE CUP PO PRN (17:05)
[2023-08-18] MEDS ORDERED: IBUPROFEN 600 MG TABLET (FP) PO PRN (17:05)
[2023-08-18] MEDS ORDERED: IBUPROFEN 400 MG TABLET (FP) PO PRN (17:05)
[2023-08-18] MEDS ORDERED: guaiFENesin 600 MG TABLET.ER (FP) PO PRN (17:05)
[2023-08-18] MEDS ORDERED: NALOXONE HCL 0.4 MG/ML VIAL IVPUSH PRN (17:05)
[2023-08-18] MEDS ORDERED: LOPERAMIDE HCL 2 MG CAPSULE PO PRN (17:05)
[2023-08-18] MEDS ORDERED: BENZONATATE 200 MG CAPSULE PO PRN (17:05)
[2023-08-18] MEDS ORDERED: BENZOCAINE/MENTHOL (CHLORASEPTIC ) LOZENGE MM PRN (17:05)
[2023-08-18] MEDS ORDERED: ACETAMINOPHEN 325 MG TABLET (FP) PO PRN (17:05)
[2023-08-18] MEDS ORDERED: POLYETHYLENE GLYCOL (HEALTHYLAX) 3350 17 GM PACKET PO PRN (17:05)
[2023-08-18] MEDS: THIAMINE HCL 100 MG TABLET (FP) PO SCH (21:23)
[2023-08-18] MEDS: MELATONIN 5 MG TABLETS PO SCH (21:23)
[2023-08-19] MEDS: PRENATAL VITAMINS W/ FOLIC ACID TABLET (FP) PO SCH (10:11)
[2023-08-19] MEDS: COLLOIDAL OATMEAL 1 BAR EACH TP PRN (16:58)
[2023-08-19] MEDS: THIAMINE HCL 100 MG TABLET (FP) PO SCH (21:37)
[2023-08-19] MEDS: MELATONIN 5 MG TABLETS PO SCH (21:37)
[2023-08-19] MEDS: METHOCARBAMOL 500 MG TABLET PO PRN (21:38)
[2023-08-20] MEDS: METHOCARBAMOL 500 MG TABLET PO PRN ×2 (10:02→18:28)
[2023-08-20] MEDS: PRENATAL VITAMINS W/ FOLIC ACID TABLET (FP) PO SCH (10:03)
[2023-08-20] MEDS: THIAMINE HCL 100 MG TABLET (FP) PO SCH (21:57)
[2023-08-20] MEDS: MELATONIN 5 MG TABLETS PO SCH (21:57)
[2023-08-21] MEDS: PRENATAL VITAMINS W/ FOLIC ACID TABLET (FP) PO SCH (09:57)
[2023-08-21] MEDS: hydrOXYzine PAMOATE 25 MG CAPSULE (FP) PO PRN (09:58)
[2023-08-21] MEDS: METHOCARBAMOL 500 MG TABLET PO PRN ×2 (09:58→21:21)
[2023-08-21] MEDS: THIAMINE HCL 100 MG TABLET (FP) PO SCH (21:20)
[2023-08-21] MEDS: MELATONIN 5 MG TABLETS PO SCH (21:20)
[2023-08-22] MEDS: PRENATAL VITAMINS W/ FOLIC ACID TABLET (FP) PO SCH (09:59)
[2023-08-22] MEDS: METHOCARBAMOL 500 MG TABLET PO PRN ×2 (10:01→21:06)
[2023-08-22] MEDS: THIAMINE HCL 100 MG TABLET (FP) PO SCH (21:06)
[2023-08-22] MEDS: MELATONIN 5 MG TABLETS PO SCH (21:06)
[2023-08-23] MEDS: COLLOIDAL OATMEAL 1 BAR EACH TP PRN (06:26)
[2023-08-23] MEDS: METHOCARBAMOL 500 MG TABLET PO PRN ×2 (09:29→21:16)
[2023-08-23] MEDS: PRENATAL VITAMINS W/ FOLIC ACID TABLET (FP) PO SCH (09:29)
[2023-08-23] MEDS: MELATONIN 5 MG TABLETS PO SCH (21:16)
[2023-08-23] MEDS: THIAMINE HCL 100 MG TABLET (FP) PO SCH (21:16)
[2023-08-24] MEDS: PRENATAL VITAMINS W/ FOLIC ACID TABLET (FP) PO SCH (09:39)
[2023-08-24] MEDS: THIAMINE HCL 100 MG TABLET (FP) PO SCH (21:23)
[2023-08-24] MEDS: MELATONIN 5 MG TABLETS PO SCH (21:23)
[2023-08-25] MEDS: PRENATAL VITAMINS W/ FOLIC ACID TABLET (FP) PO SCH (09:39)
[2023-08-25] MEDS: MELATONIN 5 MG TABLETS PO SCH (21:19)
[2023-08-25] MEDS: THIAMINE HCL 100 MG TABLET (FP) PO SCH (21:19)
[2023-08-26] MEDS: PRENATAL VITAMINS W/ FOLIC ACID TABLET (FP) PO SCH (09:38)
[2023-08-26] MEDS: hydrOXYzine PAMOATE 25 MG CAPSULE (FP) PO PRN (09:39)
[2023-08-26] MEDS: MELATONIN 5 MG TABLETS PO SCH (21:09)
[2023-08-26] MEDS: THIAMINE HCL 100 MG TABLET (FP) PO SCH (21:09)
[2023-08-27] MEDS: PRENATAL VITAMINS W/ FOLIC ACID TABLET (FP) PO SCH (09:17)
[2023-08-27] MEDS: MELATONIN 5 MG TABLETS PO SCH (21:19)
[2023-08-27] MEDS: THIAMINE HCL 100 MG TABLET (FP) PO SCH (21:19)
[2023-08-28] MEDS: PRENATAL VITAMINS W/ FOLIC ACID TABLET (FP) PO SCH (09:33)
[2023-08-28] MEDS ORDERED: TETRAHYDROZOLINE HCL EYE DROPS OU PRN (15:23)
[2023-08-28] MEDS: THIAMINE HCL 100 MG TABLET (FP) PO SCH (21:16)
[2023-08-28] MEDS: MELATONIN 5 MG TABLETS PO SCH (21:16)
[2023-08-28] MEDS: METHOCARBAMOL 500 MG TABLET PO PRN (21:16)
[2023-08-29] MEDS: PRENATAL VITAMINS W/ FOLIC ACID TABLET (FP) PO SCH (09:10)
[2023-08-29] MEDS: COLLOIDAL OATMEAL 1 BAR EACH TP PRN (09:48)
[2023-08-29] MEDS: LACTULOSE 20 GM/30 ML UDC (FOR ORAL USE ONLY) PO SCH ×4 (11:16→21:11)
[2023-08-29] MEDS: ARTIFICIAL TEARS (POLYVINYL ALCOHOL) OPTH DROPS OU PRN ×2 (14:50→21:11)
[2023-08-29] MEDS: MELATONIN 5 MG TABLETS PO SCH (21:11)
[2023-08-29] MEDS: METHOCARBAMOL 500 MG TABLET PO PRN (21:11)
[2023-08-29] MEDS: THIAMINE HCL 100 MG TABLET (FP) PO SCH (21:11)
[2023-08-30] MEDS: PRENATAL VITAMINS W/ FOLIC ACID TABLET (FP) PO SCH (10:28)
[2023-08-30] MEDS: LACTULOSE 20 GM/30 ML UDC (FOR ORAL USE ONLY) PO SCH ×4 (10:28→21:06)
[2023-08-30] MEDS: ARTIFICIAL TEARS (POLYVINYL ALCOHOL) OPTH DROPS OU PRN (10:29)
[2023-08-30] MEDS: METHOCARBAMOL 500 MG TABLET PO PRN (21:06)
[2023-08-30] MEDS: MELATONIN 5 MG TABLETS PO SCH (21:07)
[2023-08-30] MEDS: THIAMINE HCL 100 MG TABLET (FP) PO SCH (21:07)
[2023-08-31] MEDS: LACTULOSE 20 GM/30 ML UDC (FOR ORAL USE ONLY) PO SCH ×4 (09:49→21:16)
[2023-08-31] MEDS: PRENATAL VITAMINS W/ FOLIC ACID TABLET (FP) PO SCH (09:49)
[2023-08-31] MEDS: ARTIFICIAL TEARS (POLYVINYL ALCOHOL) OPTH DROPS OU PRN (09:50)
[2023-08-31] MEDS: METHOCARBAMOL 500 MG TABLET PO PRN (19:33)
[2023-08-31] MEDS: THIAMINE HCL 100 MG TABLET (FP) PO SCH (21:16)
[2023-08-31] MEDS: MELATONIN 5 MG TABLETS PO SCH (21:16)
[2023-09-01 06:46] VITALS: BP 115/74; PULSE 84; RESP 18; TEMP 97.7
[2023-09-01] MEDS: PRENATAL VITAMINS W/ FOLIC ACID TABLET (FP) PO SCH (09:33)
[2023-09-01] MEDS: LACTULOSE 20 GM/30 ML UDC (FOR ORAL USE ONLY) PO SCH (09:33)
== END 2023-09-01 10:26 | disposition home or self-care (01) | DRG 772 ==
LOC: YASAS 16:30 → Y3W 16:33
PROVIDERS: ADMIT Allergy & Immunology; ATTEND Psychiatry & Neurology Pain Medicine
PROC: HZ42ZZZ Group Counseling for Substance Abuse Treatment, Cognitive-Behavioral (ICD-10-PCS; principal; 2023-08-18)
DX: F10.20 Alcohol dependence, uncomplicated (principal); F17.210 Nicotine dependence, cigarettes, uncomplicated; F31.9 Bipolar disorder, unspecified; D64.9 Anemia, unspecified; I10 Essential (primary) hypertension; E72.20 Disorder of urea cycle metabolism, unspecified; K21.9 Gastro-esophageal reflux disease without esophagitis; H04.123 Dry eye syndrome of bilateral lacrimal glands; Z86.79 Personal history of other diseases of the circulatory system; Z88.0 Allergy status to penicillin; Z86.59 Personal history of other mental and behavioral disorders
CPT/HCPCS: 82140; 87635

== ENCOUNTER 2023-09-20 12:20 | Inpatient (IN) | payer OTHER ==
[2023-09-20 13:08] VITALS: BMI 23.5
[2023-09-20] MEDS ORDERED: IBUPROFEN 400 MG TABLET (FP) PO PRN (13:29)
[2023-09-20] MEDS ORDERED: POLYETHYLENE GLYCOL (HEALTHYLAX) 3350 17 GM PACKET PO PRN (13:29)
[2023-09-20] MEDS ORDERED: BISMUTH SUBSALICYLATE 524 MG/30 ML PO PRN (13:29)
[2023-09-20] MEDS ORDERED: BENZONATATE 200 MG CAPSULE PO PRN (13:29)
[2023-09-20] MEDS ORDERED: LOPERAMIDE HCL 2 MG CAPSULE PO PRN (13:29)
[2023-09-20] MEDS ORDERED: BENZOCAINE/MENTHOL (CHLORASEPTIC ) LOZENGE MM PRN (13:29)
[2023-09-20] MEDS ORDERED: MAG HYDROX/AL HYDROX/SIMETH 30 ML UNIT-DOSE CUP PO PRN (13:29)
[2023-09-20] MEDS ORDERED: guaiFENesin 600 MG TABLET.ER (FP) PO PRN (13:29)
[2023-09-20] MEDS ORDERED: ONDANSETRON *ODT* 4 MG TABLET SL PRN (13:29)
[2023-09-20] MEDS ORDERED: ACETAMINOPHEN 325 MG TABLET (FP) PO PRN (13:29)
[2023-09-20] MEDS ORDERED: NALOXONE HCL 0.4 MG/ML VIAL IM PRN (13:29)
[2023-09-20] MEDS ORDERED: NALOXONE HCL (KLOXXADO) 8 MG SPRAY NS PRN (13:29)
[2023-09-20] MEDS ORDERED: DICYCLOMINE HCL 10 MG CAPSULE PO PRN (13:29)
[2023-09-20] MEDS ORDERED: MAGNESIUM HYDROX 2400MG/30ML ORAL SUSPENSION 30 ML CUP PO PRN (13:29)
[2023-09-20] MEDS ORDERED: hydrOXYzine PAMOATE 25 MG CAPSULE (FP) PO PRN (13:29)
[2023-09-20] MEDS ORDERED: IBUPROFEN 600 MG TABLET (FP) PO PRN (13:29)
[2023-09-20] MEDS ORDERED: PRENATAL VITAMINS W/ FOLIC ACID TABLET (FP) PO ONE (13:58)
[2023-09-20] MEDS: NICOTINE 14 MG/24 HOURS TOPICAL PATCH TD SCH (14:02)
[2023-09-20] MEDS: PRENATAL VITAMINS W/ FOLIC ACID TABLET (FP) PO SCH (14:02)
[2023-09-20] MEDS: THIAMINE HCL 100 MG TABLET (FP) PO SCH (22:59)
[2023-09-20] MEDS: MELATONIN 5 MG TABLETS PO SCH (22:59)
[2023-09-20] MEDS: METHOCARBAMOL 500 MG TABLET PO PRN (23:00)
[2023-09-21] MEDS: PRENATAL VITAMINS W/ FOLIC ACID TABLET (FP) PO SCH (10:15)
[2023-09-21] MEDS: NICOTINE 14 MG/24 HOURS TOPICAL PATCH TD SCH (10:15)
[2023-09-21] MEDS: METHOCARBAMOL 500 MG TABLET PO PRN (10:15)
[2023-09-21 10:35] LABS: HEMATOCRIT 35.8 % (35.4-49); HEMOGLOBIN 12.4 GM/dL (11.7-16.9); MCH 32.9 pg (25.7-33.7); MCHC 34.7 g/dl (32.0-35.9); MEAN PLT VOLUME 7.2 fl (7.5-11.1); PLATELET COUNT 220 10^3/uL (134-434); RBC 3.77 M/mm3 (4.00-5.60); RDW 14.9 % (11.9-15.9); WHITE BLOOD COUNT 2.4 K/mm3 (4.0-10.0)
[2023-09-21 10:37] LABS: POTASSIUM 4.1 mmol/L (3.5-5.1)
[2023-09-21 10:47] LABS: ALBUMIN 3.6 g/dl (3.4-5.0); BLOOD UREA NITROGEN 12.1 mg/dL (7-18); CALCIUM 8.5 mg/dL (8.5-10.1)
[2023-09-21 10:52] LABS: BILIRUBIN,TOTAL 0.8 mg/dL (0.2-1); TOT PROT 6.7 g/dl (6.4-8.2)
[2023-09-21] MEDS ORDERED: diazePAM 5 MG TABLET PO PRN (11:22)
[2023-09-21] MEDS: diazePAM 5 MG TABLET PO SCH ×3 (11:37→22:45)
[2023-09-21] MEDS: THIAMINE HCL 100 MG TABLET (FP) PO SCH (22:45)
[2023-09-21] MEDS: MELATONIN 5 MG TABLETS PO SCH (22:45)
[2023-09-22] MEDS: diazePAM 5 MG TABLET PO SCH ×4 (05:14→22:11)
[2023-09-22] MEDS: PRENATAL VITAMINS W/ FOLIC ACID TABLET (FP) PO SCH (10:04)
[2023-09-22] MEDS: NICOTINE 14 MG/24 HOURS TOPICAL PATCH TD SCH (10:04)
[2023-09-22] MEDS: METHOCARBAMOL 500 MG TABLET PO PRN ×2 (10:04→17:34)
[2023-09-22] MEDS: MELATONIN 5 MG TABLETS PO SCH (22:11)
[2023-09-22] MEDS: THIAMINE HCL 100 MG TABLET (FP) PO SCH (22:11)
[2023-09-23] MEDS: diazePAM 5 MG TABLET PO SCH ×3 (05:33→22:10)
[2023-09-23] MEDS: NICOTINE 14 MG/24 HOURS TOPICAL PATCH TD SCH (10:13)
[2023-09-23] MEDS: PRENATAL VITAMINS W/ FOLIC ACID TABLET (FP) PO SCH (10:13)
[2023-09-23] MEDS: METHOCARBAMOL 500 MG TABLET PO PRN ×2 (10:13→22:09)
[2023-09-23] MEDS: MELATONIN 5 MG TABLETS PO SCH (22:09)
[2023-09-23] MEDS: THIAMINE HCL 100 MG TABLET (FP) PO SCH (22:09)
[2023-09-24] MEDS: diazePAM 5 MG TABLET PO SCH ×2 (06:10→17:16)
[2023-09-24] MEDS: PRENATAL VITAMINS W/ FOLIC ACID TABLET (FP) PO SCH (10:44)
[2023-09-24] MEDS: NICOTINE 14 MG/24 HOURS TOPICAL PATCH TD SCH (10:44)
[2023-09-24] MEDS: MELATONIN 5 MG TABLETS PO SCH (22:24)
[2023-09-24] MEDS: THIAMINE HCL 100 MG TABLET (FP) PO SCH (22:24)
[2023-09-25] MEDS ORDERED: diazePAM 5 MG TABLET PO ONE (06:00)
[2023-09-25 06:01] VITALS: RESP 18
[2023-09-25] MEDS: NICOTINE 14 MG/24 HOURS TOPICAL PATCH TD SCH (10:25)
[2023-09-25] MEDS: PRENATAL VITAMINS W/ FOLIC ACID TABLET (FP) PO SCH (10:25)
[2023-09-25] MEDS: METHOCARBAMOL 500 MG TABLET PO PRN (10:26)
[2023-09-25 12:39] VITALS: BP 140/79; PULSE 101; TEMP 98.7
== END 2023-09-25 14:20 | disposition home or self-care (01) | DRG 775 ==
LOC: YASAS 12:20 → Y6N 14:09
PROVIDERS: ADMIT Allergy & Immunology; ATTEND Surgery
PROC: HZ2ZZZZ Detoxification Services for Substance Abuse Treatment (ICD-10-PCS; principal; 2023-09-20)
DX: F10.230 Alcohol dependence with withdrawal, uncomplicated (principal); F17.210 Nicotine dependence, cigarettes, uncomplicated; F31.9 Bipolar disorder, unspecified; F43.10 Post-traumatic stress disorder, unspecified; I10 Essential (primary) hypertension; K21.9 Gastro-esophageal reflux disease without esophagitis; Z88.0 Allergy status to penicillin
CPT/HCPCS: 36415; 80053; 80307; 85027; 86780; 87635; 87811

== ENCOUNTER 2023-12-18 10:51 | Inpatient (IN) | payer OTHER ==
[2023-12-18 11:36] VITALS: BMI 24.2
[2023-12-18] MEDS ORDERED: BENZONATATE 200 MG CAPSULE PO PRN (12:27)
[2023-12-18] MEDS ORDERED: ACETAMINOPHEN 325 MG TABLET (FP) PO PRN (12:27)
[2023-12-18] MEDS ORDERED: guaiFENesin 600 MG TABLET.ER (FP) PO PRN (12:27)
[2023-12-18] MEDS ORDERED: hydrOXYzine PAMOATE 25 MG CAPSULE (FP) PO PRN (12:27)
[2023-12-18] MEDS ORDERED: MAGNESIUM HYDROX 2400MG/30ML ORAL SUSPENSION 30 ML CUP PO PRN (12:27)
[2023-12-18] MEDS ORDERED: NALOXONE HCL (KLOXXADO) 8 MG SPRAY NS PRN (12:27)
[2023-12-18] MEDS ORDERED: POLYETHYLENE GLYCOL (HEALTHYLAX) 3350 17 GM PACKET PO PRN (12:27)
[2023-12-18] MEDS ORDERED: IBUPROFEN 400 MG TABLET (FP) PO PRN (12:27)
[2023-12-18] MEDS ORDERED: BISMUTH SUBSALICYLATE 262 MG/15 ML BTL PO PRN (12:27)
[2023-12-18] MEDS ORDERED: LOPERAMIDE HCL 2 MG CAPSULE PO PRN (12:27)
[2023-12-18] MEDS ORDERED: NALOXONE HCL 0.4 MG/ML VIAL IM PRN (12:27)
[2023-12-18] MEDS ORDERED: BENZOCAINE/MENTHOL (CHLORASEPTIC ) LOZENGE MM PRN (12:27)
[2023-12-18] MEDS: PRENATAL VITAMINS W/ FOLIC ACID TABLET (FP) PO SCH (13:50)
[2023-12-18] MEDS: IBUPROFEN 600 MG TABLET (FP) PO PRN (20:23)
[2023-12-18] MEDS: MELATONIN 5 MG TABLETS PO SCH (23:23)
[2023-12-18] MEDS: THIAMINE HCL 100 MG TABLET (FP) PO SCH (23:24)
[2023-12-19] MEDS ORDERED: chlordiazePOXIDE HCL 25 MG CAPSULE PO PRN (09:12)
[2023-12-19] MEDS: chlordiazePOXIDE HCL 25 MG CAPSULE PO SCH (10:58)
[2023-12-19] MEDS: NICOTINE 7 MG/24 HOURS TOPICAL PATCH TD SCH (11:00)
[2023-12-19 11:55] LABS: HEMOGLOBIN 11.7 GM/dL (11.7-16.9); MCH 33.6 pg (25.7-33.7); MCHC 35.4 g/dl (32.0-35.9); MEAN CELL VOLUME 94.9 fl (80-96); MEAN PLT VOLUME 6.9 fl (7.5-11.1); PLATELET COUNT 202 10^3/uL (134-434); RBC 3.47 M/mm3 (4.00-5.60); RDW 13.9 % (11.9-15.9)
[2023-12-19 12:00] LABS: WHITE BLOOD COUNT 1.6 K/mm3 (4.0-10.0)
[2023-12-19 12:19] LABS: POTASSIUM 4.1 mmol/L (3.5-5.1)
[2023-12-19 12:28] LABS: ALBUMIN 3.4 g/dl (3.4-5.0); CALCIUM 8.6 mg/dL (8.5-10.1)
[2023-12-19 12:31] LABS: CREATININE 0.8 mg/dL (0.55-1.3)
[2023-12-19 12:33] LABS: TOT PROT 6.9 g/dl (6.4-8.2)
[2023-12-19 12:35] LABS: BILIRUBIN,TOTAL 0.5 mg/dL (0.2-1)
[2023-12-19] MEDS: LACTULOSE 20 GM/30 ML UDC (FOR ORAL USE ONLY) PO SCH (13:30)
[2023-12-20] MEDS: METHOCARBAMOL 500 MG TABLET PO PRN (07:40)
[2023-12-20 12:11] LABS: BASO % 0.3 % (0-2.0); EOS % 3.5 % (0-4.5); HEMATOCRIT 34.2 % (35.4-49); HEMOGLOBIN 12.1 GM/dL (11.7-16.9); LYMPH % 20.8 % (8-40); MCH 33.9 pg (25.7-33.7); MCHC 35.5 g/dl (32.0-35.9); MEAN CELL VOLUME 95.3 fl (80-96); MEAN PLT VOLUME 6.6 fl (7.5-11.1); NEUT % 68.4 % (42.8-82.8); PLATELET COUNT 206 10^3/uL (134-434); RBC 3.58 M/mm3 (4.00-5.60); RDW 14.7 % (11.9-15.9); WHITE BLOOD COUNT 3.2 K/mm3 (4.0-10.0)
[2023-12-21] MEDS: chlordiazePOXIDE HCL 25 MG CAPSULE PO SCH (05:20)
[2023-12-22] MEDS ORDERED: chlordiazePOXIDE HCL 10 MG CAPSULE PO PRN
[2023-12-22] MEDS: chlordiazePOXIDE HCL 10 MG CAPSULE PO SCH (05:56)
[2023-12-23] MEDS: chlordiazePOXIDE HCL 10 MG CAPSULE PO SCH (05:17)
[2023-12-23] MEDS: MAG HYDROX/AL HYDROX/SIMETH 30 ML UNIT-DOSE CUP PO PRN (05:22)
[2023-12-23] MEDS: ONDANSETRON *ODT* 4 MG TABLET SL PRN (06:47)
[2023-12-23] MEDS: DICYCLOMINE HCL 10 MG CAPSULE PO PRN (06:47)
[2023-12-24] MEDS: chlordiazePOXIDE HCL 10 MG CAPSULE PO ONE (05:55)
[2023-12-24 09:36] VITALS: BP 114/65; PULSE 87; RESP 18; TEMP 97.4
[2023-12-24] MEDS: PANTOPRAZOLE 40 MG TABLET PO SCH (09:43)
== END 2023-12-24 10:54 | disposition home or self-care (01) | DRG 775 ==
LOC: YASAS 10:51 → Y6N 12:51
PROVIDERS: ADMIT Allergy & Immunology; ATTEND Surgery
PROC: HZ2ZZZZ Detoxification Services for Substance Abuse Treatment (ICD-10-PCS; principal; 2023-12-18)
DX: F10.230 Alcohol dependence with withdrawal, uncomplicated (principal); F17.210 Nicotine dependence, cigarettes, uncomplicated; I10 Essential (primary) hypertension; K21.9 Gastro-esophageal reflux disease without esophagitis; Z88.0 Allergy status to penicillin
CPT/HCPCS: 36415; 80053; 80307; 82140; 85025; 85027; 86780; 87635; 87811; Q0162

== ENCOUNTER 2023-12-23 10:43 | Emergency (ER) | payer OTHER ==
[2023-12-23] MEDS ORDERED: ONDANSETRON 4 MG/2 ML VIAL ONE (11:12)
[2023-12-23 11:13] VITALS: RESP 18; TEMP 97.5; BMI 25.0
[2023-12-23] MEDS ORDERED: PANTOPRAZOLE SODIUM 40 MG VIAL ONE (11:13)
[2023-12-23] MEDS: ONDANSETRON 4 MG/2 ML VIAL IVPUSH ONE (11:53)
[2023-12-23] MEDS: LACTATED RINGERS SOLUTION 1000 ML INFUS.BAG IV ONE (11:53)
[2023-12-23] MEDS: PANTOPRAZOLE SODIUM 40 MG VIAL IVPUSH ONE (11:53)
[2023-12-23 12:10] LABS: BASO % 0.6 % (0-2.0); EOS % 4.2 % (0-4.5); HEMOGLOBIN 12.6 GM/dL (11.7-16.9); LYMPH % 16.1 % (8-40); MCH 33.2 pg (25.7-33.7); MCHC 34.1 g/dl (32.0-35.9); MEAN CELL VOLUME 97.5 fl (80-96); MEAN PLT VOLUME 7.1 fl (7.5-11.1); MONO % 7.5 % (3.8-10.2); NEUT % 71.6 % (42.8-82.8); PLATELET COUNT 224 10^3/uL (134-434); RDW 14.7 % (11.9-15.9)
[2023-12-23 12:11] LABS: INR 1.02 (0.83-1.09); PROTHROMBIN TIME (PATIENT) 11.8 SEC (9.7-13.0)
[2023-12-23 12:14] LABS: ACTIVATED PTT 28.2 SECONDS (25.2-36.5)
[2023-12-23 12:28] LABS: POTASSIUM 4.3 mmol/L (3.5-5.1)
[2023-12-23 12:30] LABS: ALBUMIN 3.5 g/dl (3.4-5.0); BLOOD UREA NITROGEN 11.1 mg/dL (7-18); CALCIUM 8.7 mg/dL (8.5-10.1); MAGNESIUM 2.2 mg/dL (1.8-2.4)
[2023-12-23 12:33] LABS: PHOSPHOROUS 2.5 mg/dL (2.5-4.9)
[2023-12-23 12:34] LABS: CREATININE 0.7 mg/dL (0.55-1.3)
[2023-12-23 12:35] LABS: BILIRUBIN,TOTAL 0.2 mg/dL (0.2-1); TOT PROT 6.8 g/dl (6.4-8.2)
[2023-12-23 13:45] VITALS: BP 148/85; PULSE 80
== END 2023-12-23 13:45 | disposition home or self-care (01) ==
LOC: JER 10:43
PROC: 3E033NZ Introduction of Analgesics, Hypnotics, Sedatives into Peripheral Vein, Percutaneous Approach (ICD-10-PCS; principal; 2023-12-23)
PROC: 3E033GC Introduction of Other Therapeutic Substance into Peripheral Vein, Percutaneous Approach (ICD-10-PCS; 2023-12-23)
DX: R11.2 Nausea with vomiting, unspecified (principal); Z20.822 Contact with and (suspected) exposure to COVID-19
CPT/HCPCS: 0241U-QW; 36415; 71045-TC-FY; 80053; 82272; 83690; 83735; 84100; 84484; 85025; 85610; 85730; 86850; 86900; 86901; 93005; 93010; 99285-25

== ENCOUNTER 2024-01-20 09:54 | Inpatient (IN) | payer OTHER ==
[2024-01-20 10:30] VITALS: BMI 24.2
[2024-01-20] MEDS ORDERED: BISMUTH SUBSALICYLATE 524 MG/30 ML PO PRN (12:15)
[2024-01-20] MEDS ORDERED: chlordiazePOXIDE HCL 25 MG CAPSULE PO PRN (12:15)
[2024-01-20] MEDS ORDERED: LOPERAMIDE HCL 2 MG CAPSULE PO PRN (12:15)
[2024-01-20] MEDS ORDERED: NALOXONE HCL (KLOXXADO) 8 MG SPRAY NS PRN (12:15)
[2024-01-20] MEDS ORDERED: guaiFENesin 600 MG TABLET.ER (FP) PO PRN (12:15)
[2024-01-20] MEDS ORDERED: NALOXONE HCL 0.4 MG/ML VIAL IM PRN (12:15)
[2024-01-20] MEDS ORDERED: IBUPROFEN 600 MG TABLET (FP) PO PRN (12:15)
[2024-01-20] MEDS ORDERED: IBUPROFEN 400 MG TABLET (FP) PO PRN (12:15)
[2024-01-20] MEDS ORDERED: DICYCLOMINE HCL 10 MG CAPSULE PO PRN (12:15)
[2024-01-20] MEDS ORDERED: POLYETHYLENE GLYCOL (HEALTHYLAX) 3350 17 GM PACKET PO PRN (12:15)
[2024-01-20] MEDS ORDERED: BENZONATATE 200 MG CAPSULE PO PRN (12:15)
[2024-01-20] MEDS ORDERED: BENZOCAINE/MENTHOL (CHLORASEPTIC ) LOZENGE MM PRN (12:15)
[2024-01-20] MEDS ORDERED: MAGNESIUM HYDROX 2400MG/30ML ORAL SUSPENSION 30 ML CUP PO PRN (12:15)
[2024-01-20] MEDS ORDERED: ONDANSETRON *ODT* 4 MG TABLET SL PRN (12:15)
[2024-01-20] MEDS ORDERED: MAG HYDROX/AL HYDROX/SIMETH 30 ML UNIT-DOSE CUP PO PRN (12:15)
[2024-01-20] MEDS ORDERED: ACETAMINOPHEN 325 MG TABLET (FP) PO PRN (12:15)
[2024-01-20] MEDS: chlordiazePOXIDE HCL 25 MG CAPSULE PO SCH (17:25)
[2024-01-20] MEDS: THIAMINE HCL 100 MG TABLET (FP) PO SCH (22:56)
[2024-01-20] MEDS: MELATONIN 5 MG TABLETS PO SCH (22:56)
[2024-01-20] MEDS: METHOCARBAMOL 500 MG TABLET PO PRN (22:57)
[2024-01-21] MEDS: PRENATAL VITAMINS W/ FOLIC ACID TABLET (FP) PO SCH (10:12)
[2024-01-21 11:27] LABS: HEMATOCRIT 34.8 % (35.4-49); HEMOGLOBIN 12.1 GM/dL (11.7-16.9); MCH 33.3 pg (25.7-33.7); MCHC 34.7 g/dl (32.0-35.9); MEAN CELL VOLUME 96.1 fl (80-96); MEAN PLT VOLUME 7.4 fl (7.5-11.1); PLATELET COUNT 190 10^3/uL (134-434); RBC 3.62 M/mm3 (4.00-5.60); RDW 14.6 % (11.9-15.9); WHITE BLOOD COUNT 2.5 K/mm3 (4.0-10.0)
[2024-01-21 12:06] LABS: CHLORIDE 106 mmol/L (98-107); SODIUM 141 mmol/L (136-145)
[2024-01-21 12:07] LABS: CALCIUM 8.6 mg/dL (8.5-10.1)
[2024-01-21 12:08] LABS: ALBUMIN 3.3 g/dl (3.4-5.0); ANION GAP 6 mmol/L (4-13); BLOOD UREA NITROGEN 11.6 mg/dL (7-18); CO2 28 mmol/L (21-32); GLUCOSE,RANDOM 85 mg/dL (74-106)
[2024-01-21 12:11] LABS: CREATININE 0.6 mg/dL (0.55-1.3); SGOT/AST 12 U/L (15-37); SGPT/ALT 18 U/L (13-61)
[2024-01-21 12:13] LABS: BILIRUBIN,TOTAL 0.3 mg/dL (0.2-1); TOT PROT 6.4 g/dl (6.4-8.2)
[2024-01-21 12:14] LABS: ALK PHOS 72 U/L (45-117)
[2024-01-21] MEDS: FLU VACCINE (FLULAVAL) PF 60 MCG/0.5 ML SYRINGE 2023-2024 IM ONE (12:17)
[2024-01-21] MEDS: PNEUMOC 20-VAL CONJ-DIP CRM/PF 0.5 ML SYRINGE IM ONE (12:19)
[2024-01-21] MEDS: FAMOTIDINE 20 MG TABLET PO SCH (22:48)
[2024-01-22] MEDS: chlordiazePOXIDE HCL 25 MG CAPSULE PO SCH (05:54)
[2024-01-22] MEDS: hydrOXYzine PAMOATE 25 MG CAPSULE (FP) PO PRN (22:34)
[2024-01-23] MEDS ORDERED: chlordiazePOXIDE HCL 10 MG CAPSULE PO PRN
[2024-01-23] MEDS: chlordiazePOXIDE HCL 10 MG CAPSULE PO SCH (05:32)
[2024-01-24] MEDS: chlordiazePOXIDE HCL 10 MG CAPSULE PO SCH (05:23)
[2024-01-25] MEDS: chlordiazePOXIDE HCL 10 MG CAPSULE PO ONE (05:12)
[2024-01-25 10:00] VITALS: RESP 18
[2024-01-25 12:54] VITALS: BP 125/73; PULSE 97; TEMP 98
== END 2024-01-25 14:20 | disposition home or self-care (01) | DRG 775 ==
LOC: YASAS 09:54 → Y6N 12:17
PROVIDERS: ADMIT Allergy & Immunology; ATTEND Surgery
PROC: HZ2ZZZZ Detoxification Services for Substance Abuse Treatment (ICD-10-PCS; principal; 2024-01-20)
DX: F10.230 Alcohol dependence with withdrawal, uncomplicated (principal); F17.210 Nicotine dependence, cigarettes, uncomplicated; F31.9 Bipolar disorder, unspecified; F43.10 Post-traumatic stress disorder, unspecified; D70.2 Other drug-induced agranulocytosis; K21.9 Gastro-esophageal reflux disease without esophagitis; Z86.59 Personal history of other mental and behavioral disorders; Z88.0 Allergy status to penicillin
CPT/HCPCS: 36415; 80053; 80305; 80307; 85027; 86780; 87635; 87811; 90677; 90686; 93005; 93010; G0008

== ENCOUNTER 2024-06-17 14:43 | Emergency (ER) | payer OTHER ==
[2024-06-17 14:52] VITALS: BP 137/71; PULSE 91; RESP 18; TEMP 98; BMI 25.7
== END 2024-06-17 18:36 | disposition home or self-care (01) ==
LOC: JER 14:43
DX: F10.920 Alcohol use, unspecified with intoxication, uncomplicated (principal)
CPT/HCPCS: 99283-25